=== PATIENT | female | born 1935 | race Caucasian/White ===

== ENCOUNTER 2016-06-14 14:35 | Inpatient (IN) | payer MEDICARE, BC ==
[2016-06-14] MEDS ORDERED: fentaNYL (PF) 50 MCG/ML 2 ML AMP IV STA (15:10)
[2016-06-14] MEDS ORDERED: DIPH,PERTUS(ACELL)TETVAC-LF 0.5 ML VIAL IM ONE (15:13)
--- NOTE | 2016-06-14 15:13 | ED ---
Fall HPI - General Chief Complaint: Fall Stated Complaint: fall Time Seen by Provider: 06/14/16 14:57 Source: EMS Mode of arrival: EMS - History of Present Illness Initial Comments: This is a 80-year-old female with a history of left knee arthroplasty presents emergency department for a fall. The patient states that she was walking in her driveway and tripped falling onto her left knee. She immediately had pain in her left knee and hip. She was unable to get up and ambulate and drive herself down the driveway. She was unable to alert her who was inside and laid outside in the driveway for 2 hours. She denies hitting her head. She denies any neck pain, chest pain or shortness of breath. No back pain. She denies any preceding symptoms. No other complaints. - Related Data Home Medications Medication Instructions Recorded Confirmed amLODIPine BESYLATE [Amlodipine 5 mg PO DAILY 12/24/14 06/14/16 Besylate] Multivitamins, Thera [Multivitamin] 1 tab PO DAILY 05/09/15 06/14/16 Ubidecarenone [Co Q-10] 100 mg PO DAILY 05/17/15 06/14/16 Baclofen [Lioresal] 10 mg PO HS PRN 05/22/15 06/14/16 Ibuprofen [Motrin] 800 mg PO Q6H PRN 06/14/16 06/14/16 Allergies Allergy/AdvReac Type Severity Reaction Status Date / Time iodine Allergy Anaphylaxis Verified 06/14/16 14:56 shellfish derived [Shellfish] Allergy Anaphylaxis Verified 06/14/16 14:56 hydromorphone HCl AdvReac Severe Nausea Verified 06/14/16 14:56 [From Dilaudid] acetaminophen [From [place]] AdvReac Unknown Verified 06/14/16 14:56 codeine AdvReac Nausea Verified 06/14/16 14:56 hydrocodone bitartrate AdvReac Unknown Verified 06/14/16 14:56 [From [place]] morphine AdvReac Itching Verified 06/14/16 14:56 prednisone AdvReac Nausea Verified 06/14/16 14:56 tramadol HCl [From Ultram] AdvReac Nausea & Verified 06/14/16 14:56 Vomiting Review of Systems ROS Statement: Those systems with pertinent positive or pertinent negative responses have been documented in the HPI. ROS Other: All systems not noted in ROS Statement are negative. Past Medical History Past Medical History: Hyperlipidemia, Hypertension, Musculoskeletal Disorder, Osteoarthritis (OA), Renal Disease, Thyroid Disorder Additional Past Medical History / Comment(s): 05-17-15 admitted with lt wrist septic arthritis. Other HX: heart murmur, renal calculi, goiters, R foot 3rd toe has a sore which is being tx by Dr. velasquez. pt goes to [facility] every saturday- this has been a problem for quite some time now, hx of L foot 4th toe sore which was tx by Dr. Velasquez and is healed. History of Any Multi-Drug Resistant Organisms: None Reported Past Surgical History: Adenoidectomy, Joint Replacement, Orthopedic Surgery, Tonsillectomy Additional Past Surgical History / Comment(s): Total L knee, 1996 lithrotripsy, 1942 tonsillectomy, oophorectomy with salpingectomy due to cyst-pt does not know which side, bilateral carpal tunnel release.12-27-14 i&d lt wrist, 12-28-14 [place](mod aortic stensois w/ mild aortic and tricuspid regurgitation. had lt arm picc line for ab,since removed Past Anesthesia/Blood Transfusion Reactions: No Reported Reaction Additional Past Anesthesia/Blood Transfusion Reaction / Comment(s): Pt has never recieved blood. Past Psychological History: No Psychological Hx Reported Additional Psychological History / Comment(s): Pt resides with her . She is very independent. She uses no assistive device. She drives. She has no recent international travel. There are animal exposures as of late. She does not have much experience. She is a lifelong nonsmoker and has no significant history of recreational drug use or significant alcohol use. Smoking Status: Never smoker Past Alcohol Use History: None Reported Past Drug Use History: None Reported - Past Family History Father Family Medical History: Cancer Additional Family Medical History / Comment(s): father had lymphoma. He at age 84. Mother Family Medical History: Dementia Additional Family Medical History / Comment(s): hyypoglycemia. Mother at age 92. Brother(s) Family Medical History: No Reported History Daughter(s) Family Medical History: No Reported History Son(s) Family Medical History: No Reported History General Exam - General Exam Comments Initial Comments: Constitutional: Awake alert Appears comfortable Head: Normocephalic atraumatic Eyes: no conjunctival injection No scleral icterus EOMI Neck: No JVD Supple, no spinous process tenderness Heart: Regular rate rhythm normal S1-S2 no murmurs Lungs: Clear to auscultation bilaterally No wheezing No rales Abdomen: Soft nondistended nontender Extremities: Non edematous DP pulses intact Radial pulses intact, tenderness to palpation along the left knee joint line, there is mild ecchymosis, the left lower extremity is externally rotated and shortened. The patient has tenderness with log rolling of the left leg. There is also an abrasion on the right knee and right hand. Neuro: A&Ox3 No focal neurologic deficits Psych: Appropriate mood and affect Limitations: no limitations Course Vital Signs 06/14/16 06/14/16 14:35 17:02 Temperature 95.7 F L 96.8 F L Pulse Rate 100 101 H Respiratory 18 16 Rate Blood Pressure 133/67 116/68 O2 Sat by Pulse 98 96 Oximetry - Reevaluation(s) Reevaluation #1: 06/14/16 15:36 EKG showing normal sinus rhythm with a rate of 100. No ST segment changes or T- wave inversions. QTC is 495. Other intervals are normal. No ectopy. Medical Decision Making - Medical Decision Making His is a 80-year-old female presents emergency department for a fall. She was found have a distal femur fracture. I spoke with Dr. Ni who stated that the patient be admitted to Dr. schmitz with medicine on consult. He wanted a CT of the femur and by mouth after midnight. The patient, her updated and agree. - Lab Data Result diagrams: 06/14/16 15:31 06/14/16 15:31 Lab Results 06/14/16 06/14/16 06/14/16 Range/Units 15:31 15:31 15:39 WBC 18.5 H (3.8-10.6) k/uL RBC 4.25 (3.80-5.40) m/uL Hgb 12.1 (11.4-16.0) gm/dL Hct 36.4 (34.0-46.0) % MCV 85.7 (80.0-100.0) fL MCH 28.5 (25.0-35.0) pg MCHC 33.2 (31.0-37.0) g/dL RDW 14.7 (11.5-15.5) % Plt Count 235 (150-450) k/uL Neutrophils % 88 % Lymphocytes % 6 % Monocytes % 5 % Eosinophils % 0 % Basophils % 0 % Neutrophils # 16.2 H (1.3-7.7) k/uL Lymphocytes # 1.1 (1.0-4.8) k/uL Monocytes # 1.0 (0-1.0) k/uL Eosinophils # 0.0 (0-0.7) k/uL Basophils # 0.1 (0-0.2) k/uL PT 10.6 (9.0-12.0) sec INR 1.0 (<1.1) APTT 18.3 L (22.0-30.0) sec Sodium 147 H (137-145) mmol/L Potassium 4.0 (3.5-5.1) mmol/L Chloride 109 H (98-107) mmol/L Carbon Dioxide 23 (22-30) mmol/L Anion Gap 15 mmol/L BUN 31 H (7-17) mg/dL Creatinine 0.81 (0.52-1.04) mg/dL Est GFR (MDRD) Af Amer >60 (>60 ml/min/1.73 sqM) Est GFR (MDRD) Non-Af >60 (>60 ml/min/1.73 sqM) Glucose 114 H (74-99) mg/dL Calcium 9.9 (8.4-10.2) mg/dL Total Bilirubin 0.7 (0.2-1.3) mg/dL AST 50 H (14-36) U/L ALT 38 (9-52) U/L Alkaline Phosphatase 72 (38-126) U/L Creatine Kinase 731 H (30-135) U/L Total Protein 7.6 (6.3-8.2) g/dL Albumin 4.2 (3.5-5.0) g/dL Disposition Clinical Impression: Femoral distal fracture Disposition: ADMITTED IP TO THIS HOSP Condition: Stable
[2016-06-14] MEDS: SODIUM CHLORIDE 0.9% 1,000 ML IV SCH ×2 (15:25→21:27)
[2016-06-14 15:50] LABS: Basophils # (A) 0.1 k/uL (0-0.2); Basophils % (A) 0 %; CH 27.7; CHCM 32.5; Eosinophils % (A) 0 %; HCT 36.4 % (34.0-46.0); HDW 2.81; HGB 12.1 gm/dL (11.4-16.0); Luc # (Auto) 0.15; Luc % (Auto) 1; Lymphocytes # (A) 1.1 k/uL (1.0-4.8); Lymphocytes % (A) 6 %; MCH 28.5 pg (25.0-35.0); MCHC 33.2 g/dL (31.0-37.0); MCV 85.7 fL (80.0-100.0); Mean Platelet Volume 8.4; Monocytes % (A) 5 %; Neutrophils # (A) 16.2 k/uL (1.3-7.7); Neutrophils % (A) 88 %; RBC 4.25 m/uL (3.80-5.40); RDW 14.7 % (11.5-15.5); WBC 18.5 k/uL (3.8-10.6)
[2016-06-14 15:52] LABS: ALT 38 U/L (9-52); AST 50 U/L (14-36); Alkaline Phosphatase 72 U/L (38-126); Anion Gap 15 mmol/L; Blood Urea Nitrogen 31 mg/dL (7-17); Calcium 9.9 mg/dL (8.4-10.2); Carbon Dioxide 23 mmol/L (22-30); Chloride 109 mmol/L (98-107); Creatine Kinase 731 U/L (30-135); Glucose 114 mg/dL (74-99); Non-African American GFR(MDRD) >60 (>60 ml/min/1.73 sqM); Sodium 147 mmol/L (137-145); Total Bilirubin 0.7 mg/dL (0.2-1.3); Total Protein 7.6 g/dL (6.3-8.2)
--- NOTE | 2016-06-14 16:17 | XR ---
EXAMINATION TYPE: XR knee complete LT DATE OF EXAM: 06/14/2016 4:13 PM COMPARISON: NONE HISTORY: Pain TECHNIQUE: Four views are submitted. FINDINGS: There is a comminuted displaced fracture of the distal femur which extends to the orthopedic hardware and knee replacement. Extensive soft tissue edema noted. Patella grossly intact. IMPRESSION: 1. Comminuted displaced fracture distal femur which extends to the knee prostheses.
--- NOTE | 2016-06-14 16:20 | XR ---
AP pelvis HISTORY: Pain in left leg, trauma Single frontal view of the pelvis Exam is rotated. Bone mineralization is reduced. Alignment is maintained, there is loss of joint space in the hips. Pr obable vascular calcifications within the pelvis. There may be spinal scoliosis in the lumbar region, there are degenerative disc changes suspected. IMPRESSION: No acute fracture or dislocation. Degenerative disc disease.
--- NOTE | 2016-06-14 16:21 | XR ---
Left femur HISTORY: Trauma and pain 2views of the left femur on 4 images There is a distal metaphyseal comminuted fracture of the left femur. Patient shows left knee arthropl asty change. Displaced fracture fragments are present. No evident dislocation. IMPRESSION: Comminuted distal diaphyseal femur fracture.
[2016-06-14 16:24] LABS: Prothrombin Time 10.6 sec (9.0-12.0)
[2016-06-14 16:25] LABS: Partial Thromboplastin Time 18.3 sec (22.0-30.0)
--- NOTE | 2016-06-14 17:06 | XR ---
EXAMINATION TYPE: XR chest 2V DATE OF EXAM: 06/14/2016 4:13 PM COMPARISON: 09/09/2012 TECHNIQUE: PA and lateral views submitted. HISTORY: Pain post fall FINDINGS: The lungs are clear and there is no pneumothorax, pleural effusion, or focal pneumonia. Degenerative change of the spine noted. There is a severe compression deformity the approximate level of L1 of indeterminate age. 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 Heart is enlarged. Atheros clerotic change of the aorta. IMPRESSION: 1. Aorta is ectatic and may represent mild aneurysmal dilation measuring 4.7 cm. 2. No acute intrathoracic process. 3. Age-indeterminate severe compression deformity L1. Correlate with CT scan.
[2016-06-14] MEDS ORDERED: NALOXONE 0.4 MG/ML 1 ML VIAL IV PRN (17:37)
[2016-06-14] MEDS ORDERED: fentaNYL (PF) 50 MCG/ML 2 ML AMP IV PRN (17:39)
--- NOTE | 2016-06-14 19:49 | CT ---
EXAMINATION TYPE: CT femur LT wo con DATE OF EXAM: 06/14/2016 7:39 PM COMPARISON: NONE HISTORY: Fall today. Left knee pain. CT DLP: 938.20 mGycm Automated exposure control for dose reduction was used. Unenhanced CT of the left lower extremity fro m the left hip through the knee was performed. Bone and soft tissue window settings are submitted. FINDINGS: There is comminuted and angulated fracture involving the distal left femoral diametaphyseal region. D isplacement is estimated at 2.2 cm. No additional fractures are seen. There is evidence of total left knee arthroplasty. Femoral component appears to be grossly intact. Soft tissue hematoma noted at the fracture site. IMPRESSION: There is comminuted and angulated fracture involving the distal left femoral diametaphyseal region.
[2016-06-14 20:29] VITALS: BMI 34.7
[2016-06-14] MEDS: KETOROLAC 30 MG/ML 1 ML VIAL IVP PRN (21:35)
[2016-06-14] MEDS: BACLOFEN 10 MG TAB PO PRN (22:27)
[2016-06-14] MEDS: diphenhydrAMINE 50 MG CAP PO PRN (22:27)
--- NOTE | 2016-06-14 22:30 | P.CONS ---
History of Present Illness - Reason for Consult Consult date: 06/14/16 medical management - Chief Complaint Tripped and fractured left distal femur - History of Present Illness This 80-year-old l female one of Dr. Nish Ashley's patient with past medical history of hypertension hypertensive cardiovascular disease osteoarthritis and osteoporosis goiter and nephrolithiasis trying to burn some paper, she tripped around 10:30 in the morning without any isolated motor weakness in the legs, patient had a very snowy gravel. She had fallen down the left side to stay in the distal femur fracture, patient had no way of contacting people she crawled back to the house to occur about 2 hours to accomplish this task, subsequent recalled the EMS and transported her to the emergency room. She sustained abrasion injuries and cold thermal injuries in her hand it was flushed and swollen on her distal tingling fingertips, some bluish faint discoloration in the distal nailbeds, no necrosis, abrasions in the elbow and fingers bilaterally, right knee Also with abrasions,. Patient was wearing sweaters to cover up her hands and fingers however she has some discomfort on the upper extremities left thigh In the emergency room she had x-rays showing comminuted fracture in the left distal femur, orthopedics has admitted the patient with consultations to our service for medical management, EKG was reviewed that shows prolonged QT prolongation chest x-ray shows no acute infiltrate, we'll going to consult cardiology secondary to a pre-existing heart murmur and QT prolongation. Electrolytes mentation BNP EKG would be reobtained, echocardiogram of the heart. Surgical intervention most likely would be done tomorrow afternoon once cleared by cardiology Review of Systems Constitutional: Reports as per HPI, Denies anorexia, Denies chills, Denies chronic headaches, Denies chronic pain, Denies daytime sleepiness, Denies fatigue, Denies fever, Denies lethargy, Denies malaise, Denies night sweats, Denies poor appetite, Denies sweats, Denies weakness, Denies weight gain, Denies weight loss Ears, nose, mouth and throat: Reports as per HPI, Denies ant. neck pain, Denies bleeding gums, Denies dental pain, Denies dysphagia, Denies epistaxis, Denies headache, Denies hoarseness, Denies mouth pain, Denies nasal congestion, Denies nasal discharge, Denies neck fullness/pressure, Denies neck lump, Denies nose pain, Denies odynophagia, Denies post-nasal drip, Denies sinus pain, Denies sinus pressure, Denies swelling in mouth, Denies swelling in throat, Denies sore throat, Denies vertigo, Denies voice changes Cardiovascular: Reports as per HPI, Reports palpitations, Denies chest pain, Denies claudication, Denies decreased exercise tolerance, Denies dyspnea on exertion, Denies edema, Denies high blood pressure, Denies irregular heart beat , Denies leg edema, Denies lightheadedness, Denies orthopnea, Denies paroxysmal nocturnal dyspnea, Denies phlebitis, Denies rapid heart beat, Denies shortness of breath, Denies syncope Respiratory: Reports as per HPI, Denies congestion, Denies cough, Denies cough with sputum, Denies dyspnea, Denies excessive sputum, Denies hemoptysis, Denies home oxygen, Denies pain, Denies pain on inspiration, Denies pleurisy, Denies respiratory infections, Denies sleep apnea, Denies snoring, Denies wheezing Gastrointestinal: Reports as per HPI, Denies abdominal pain, Denies belching, Denies bloating, Denies BRBPR, Denies change in bowel habits, Denies coffee ground emesis, Denies constipation, Denies diarrhea, Denies dyspepsia, Denies early satiety, Denies excessive gas, Denies heartburn, Denies hematemesis, Denies hematochezia, Denies indigestion, Denies jaundice, Denies lactose intolerance, Denies loss of appetite, Denies melena, Denies nausea, Denies vomiting Genitourinary: Reports as per HPI, Denies abnormal vaginal bleeding, Denies decreased libido, Denies difficulty conceiving, Denies difficulty voiding, Denies dysmenorrhea, Denies dyspareunia, Denies dysuria, Denies flank pain, Denies genital sores, Denies hematuria, Denies hot flashes, Denies incomplete emptying, Denies kidney stones, Denies menorrhagia, Denies mixed incontinence, Denies nocturia, Denies pelvic pain, Denies post void dribbling, Denies , Denies prolapse symptoms, Denies stress incontinence, Denies urge incontinence , Denies urgency, Denies urinary frequency, Denies vaginal discharge, Denies vaginal dryness, Denies vaginal itching, Denies vaginal odor Menstruation: Reports as per HPI, Denies amenorrhea, Denies amenorrhea on BC, Denies currently menstrual, Denies cycle < 21 days, Denies cycle > 35 days, Denies cycle variable, Denies menses 1-7 days, Denies menses 8 or > days, Denies menses variable, Denies period heavy, Denies period light, Denies period normal, Denies period spotting, Denies post hysterectomy, Denies postmenopausal , Denies premenarcheal Musculoskeletal: Reports limitation of motion, Reports myalgias Integumentary: Denies as per HPI, Denies acne, Denies boils, Denies brittle nails, Denies change in hair/nails, Denies color changes, Denies darkening of skin, Denies depigmentation, Denies dryness, Denies foot/leg ulcers, Denies growths, Denies hirsutism, Denies lesions, Denies onychomycosis, Denies pruritus , Denies rash, Denies sores, Denies striae, Denies unusual bruising, Denies wounds Neurological: Reports double vision Past Medical History Past Medical History: Hyperlipidemia, Hypertension, Musculoskeletal Disorder, Osteoarthritis (OA), Renal Disease, Thyroid Disorder Additional Past Medical History / Comment(s): 05-17-15 admitted with lt wrist septic arthritis. Other HX: heart murmur, renal calculi, goiters, R foot 3rd toe has a sore which is being tx by Dr. velasquez. pt goes to [facility] every saturday- this has been a problem for quite some time now, hx of L foot 4th toe sore which was tx by Dr. Velasquez and is healed. History of Any Multi-Drug Resistant Organisms: None Reported Past Surgical History: Adenoidectomy, Joint Replacement, Orthopedic Surgery, Tonsillectomy Additional Past Surgical History / Comment(s): Total L knee, 1996 lithrotripsy, 1943 tonsillectomy, oophorectomy with salpingectomy due to cyst-pt does not know which side, bilateral carpal tunnel release.12-27-14 i&d lt wrist, 12-28-14 [place](mod aortic stensois w/ mild aortic and tricuspid regurgitation. had lt arm picc line for ab,since removed Past Anesthesia/Blood Transfusion Reactions: No Reported Reaction Additional Past Anesthesia/Blood Transfusion Reaction / Comm: Pt has never recieved blood. Past Psychological History: No Psychological Hx Reported Additional Psychological History / Comment(s): Pt resides with her . She is very independent. She uses no assistive device. She drives. She has no recent international travel. There are animal exposures as of late. She does not have much experience. She is a lifelong nonsmoker and has no significant history of recreational drug use or significant alcohol use. Smoking Status: Never smoker Past Alcohol Use History: None Reported Past Drug Use History: None Reported - Past Family History Father Family Medical History: Cancer Additional Family Medical History / Comment(s): father had lymphoma. He at age 84. Mother Family Medical History: Dementia Additional Family Medical History / Comment(s): hyypoglycemia. Mother at age 92. Brother(s) Family Medical History: No Reported History Daughter(s) Family Medical History: No Reported History Son(s) Family Medical History: No Reported History Medications and Allergies Home Medications Medication Instructions Recorded Confirmed Type amLODIPine BESYLATE [Amlodipine 5 mg PO DAILY 12/24/14 06/14/16 History Besylate] Multivitamins, Thera [Multivitamin] 1 tab PO DAILY 05/09/15 06/14/16 History Ubidecarenone [Co Q-10] 100 mg PO DAILY 05/17/15 06/14/16 History Baclofen [Lioresal] 10 mg PO HS PRN 05/22/15 06/14/16 History Ibuprofen [Motrin] 800 mg PO Q6H PRN 06/14/16 06/14/16 History Allergies Allergy/AdvReac Type Severity Reaction Status Date / Time iodine Allergy Anaphylaxis Verified 06/14/16 20:31 shellfish derived [Shellfish] Allergy Anaphylaxis Verified 06/14/16 20:31 hydromorphone HCl AdvReac Severe Nausea Verified 06/14/16 20:31 [From Dilaudid] acetaminophen [From [place]] AdvReac Unknown Verified 06/14/16 20:31 codeine AdvReac Nausea Verified 06/14/16 20:31 hydrocodone bitartrate AdvReac Unknown Verified 06/14/16 20:31 [From [place]] morphine AdvReac Itching Verified 06/14/16 20:31 prednisone AdvReac Nausea Verified 06/14/16 20:31 tramadol HCl [From Ultram] AdvReac Nausea & Verified 06/14/16 20:31 Vomiting Physical Exam Vitals: Vital Signs Temp Pulse Pulse Resp BP BP Pulse Ox 06/14/16 18:47 97.7 F 100 16 125/69 98 06/14/16 18:07 97.2 F L 66 18 121/62 100 - Constitutional General appearance: cooperative, no disheveled, no mild distress, no morbidly obese, no acute distress, obese, no severe distress, no thin - EENT Eyes: anicteric sclerae, EOMI, PERRLA, dentition normal, normal appearance ENT: hearing grossly normal, NA/AT, normal oropharynx - Neck Thyroid: bilateral: normal size - Respiratory Respiratory: bilateral: CTA, diminished, negative: dullness, rales, rhonchi, wheezing - Cardiovascular Rhythm: regular Heart sounds: normal: S1, S2 Abnormal Heart Sounds: systolic murmur - Gastrointestinal General gastrointestinal: normal bowel sounds, soft - Integumentary Integumentary: cyanotic (Right fingernail beds), normal, normal turgor, rash ( Abrasion right knee, no infection, abrasions bilateral elbows, no infection or perforation abrasion bilateral dorsum) - Neurologic Neurologic: CNII-XII intact - Musculoskeletal Musculoskeletal: strength equal bilaterally - Psychiatric Psychiatric: A&O x's 3, appropriate affect Results CBC & Chem 7: 06/14/16 15:31 06/14/16 15:31 Labs: Patient Status Report 06/14/16 17:37 Placement Type Routine Placement Type: INPATIENT Length of Stay: >2 Days/2 Midnights Laboratory Results WBC 18.5 k/uL (3.8-10.6) H 06/14/16 15:31 RBC 4.25 m/uL (3.80-5.40) 06/14/16 15:31 Hgb 12.1 gm/dL (11.4-16.0) 06/14/16 15:31 Hct 36.4 % (34.0-46.0) 06/14/16 15:31 MCV 85.7 fL (80.0-100.0) 06/14/16 15:31 MCH 28.5 pg (25.0-35.0) 06/14/16 15:31 MCHC 33.2 g/dL (31.0-37.0) 06/14/16 15:31 RDW 14.7 % (11.5-15.5) 06/14/16 15:31 Plt Count 235 k/uL (150-450) 06/14/16 15:31 Neutrophils % 88 % 06/14/16 15:31 Lymphocytes % 6 % 06/14/16 15:31 Monocytes % 5 % 06/14/16 15:31 Eosinophils % 0 % 06/14/16 15:31 Basophils % 0 % 06/14/16 15:31 Neutrophils # 16.2 k/uL (1.3-7.7) H 06/14/16 15:31 Lymphocytes # 1.1 k/uL (1.0-4.8) 06/14/16 15:31 Monocytes # 1.0 k/uL (0-1.0) 06/14/16 15:31 Eosinophils # 0.0 k/uL (0-0.7) 06/14/16 15:31 Basophils # 0.1 k/uL (0-0.2) 06/14/16 15:31 PT 10.6 sec (9.0-12.0) 06/14/16 15:39 INR 1.0 (<1.1) 06/14/16 15:39 APTT 18.3 sec (22.0-30.0) L 06/14/16 15:39 Sodium 147 mmol/L (137-145) H 06/14/16 15:31 Potassium 4.0 mmol/L (3.5-5.1) 06/14/16 15:31 Chloride 109 mmol/L (98-107) H 06/14/16 15:31 Carbon Dioxide 23 mmol/L (22-30) 06/14/16 15:31 Anion Gap 15 mmol/L 06/14/16 15:31 BUN 31 mg/dL (7-17) H 06/14/16 15:31 Creatinine 0.81 mg/dL (0.52-1.04) 06/14/16 15:31 Est GFR (MDRD) Af Amer >60 (>60 ml/min/1.73 sqM) 06/14/16 15:31 Est GFR (MDRD) Non-Af >60 (>60 ml/min/1.73 sqM) 06/14/16 15:31 Glucose 114 mg/dL (74-99) H 06/14/16 15:31 Calcium 9.9 mg/dL (8.4-10.2) 06/14/16 15:31 Total Bilirubin 0.7 mg/dL (0.2-1.3) 06/14/16 15:31 AST 50 U/L (14-36) H 06/14/16 15:31 ALT 38 U/L (9-52) 06/14/16 15:31 Alkaline Phosphatase 72 U/L (38-126) 06/14/16 15:31 Creatine Kinase 731 U/L (30-135) H 06/14/16 15:31 Total Protein 7.6 g/dL (6.3-8.2) 06/14/16 15:31 Albumin 4.2 g/dL (3.5-5.0) 06/14/16 15:31 Assessment and Plan Plan: 1. Left distal femur fracture comminuted, most likely would require ORIF, medical clearance will be optimized with a cardiology consultation for cardiac clearance, she does have pre-existing cardiac murmur and acutely propagation noted on the EKG, she has been exposed also to cold thermal exposure, patient does not have any cardiac complaints, she would be classified as a class II anesthesia this with the pre-existing controlled medical conditions, QT prolongation would be reevaluated in the morning with another EKG, echocardiogram and a BNP is requested. Consult were made with Dr. cortez cardiology 2. Cold thermal injuries to distal fingertips secondary to cold exposure trying to crawl back to the house requiring her to be exposed to hours to complete this task, patient will be monitored for any ischemic changes and infectious changes, local wound care, patient will be receiving prophylactic antibiotics prior to surgery, there is no injury noted on the left thigh on the skin level 3. Prior history of septic left wrist requiring Dr. Velasquez in 2014, resolved 4. Prolonged QT prolongation noted in EKG, repeat EKGs in the morning, electrolytes mentation will be obtained 45hyperglycemia: Accu-Chek with sliding scales coverage Will add A1c to the blood work in a.m. 6 hypertension: On amlodipine 5 mg daily. 7 GI prophylaxis: Patient will be on Pepcid 20 mg daily. 8 DVT prophylaxis: Patient will be on heparin 5000 units subcutaneous twice a day. Next CODE STATUS: Full code. 9. Multiple drug ALLERGIES specially for pain medication, patient started on fentanyl patches as fentanyl IV cannot be ordered in the floor, Toradol IV will be given
[2016-06-15 05:40] LABS: Appearance,Urine Clear (Clear); Bilirubin,Urine Negative (Negative); Glucose,Urine (UA) Negative (Negative); Ketones,Urine Negative (Negative); Leukocyte Esterase,Urine Small (Negative); Mucus,Urine Rare /hpf; Nitrite,Urine Negative (Negative); PH, Urine 5.5 (5.0-8.0); Particle Count 2503; Protein,Urine Trace (Negative); RBC,Urine 1 /hpf (0-5); Specific Gravity,Urine 1.019 (1.001-1.035); Squamous Epithelial Cell,Urine 3 /hpf (0-4); UA Billing (MACRO vs. MICRO) MICRO; Urobilinogen,Urine <2.0 mg/dL (<2.0); WBC,Urine 13 /hpf (0-5)
[2016-06-15 07:15] LABS: ALT 44 U/L (9-52); AST 62 U/L (14-36); Alkaline Phosphatase 54 U/L (38-126); Anion Gap 7 mmol/L; Blood Urea Nitrogen 28 mg/dL (7-17); Calcium 9.1 mg/dL (8.4-10.2); Carbon Dioxide 25 mmol/L (22-30); Chloride 112 mmol/L (98-107); Glucose 115 mg/dL (74-99); Non-African American GFR(MDRD) >60 (>60 ml/min/1.73 sqM); Potassium 4.3 mmol/L (3.5-5.1); Sodium 144 mmol/L (137-145); Total Bilirubin 0.5 mg/dL (0.2-1.3); Total Protein 5.8 g/dL (6.3-8.2)
[2016-06-15 07:25] LABS: Basophils % (A) 0 %; CH 27.5; CHCM 32.6; Eosinophils % (A) 0 %; HCT 26.8 % (34.0-46.0); HDW 2.69; Luc # (Auto) 0.14; Luc % (Auto) 2; Lymphocytes # (A) 0.9 k/uL (1.0-4.8); Lymphocytes % (A) 12 %; MCH 28.8 pg (25.0-35.0); MCHC 33.9 g/dL (31.0-37.0); MCV 84.8 fL (80.0-100.0); Mean Platelet Volume 8.3; Monocytes # (A) 0.5 k/uL (0-1.0); Monocytes % (A) 7 %; Neutrophils # (A) 5.6 k/uL (1.3-7.7); Neutrophils % (A) 79 %; RBC 3.16 m/uL (3.80-5.40); RDW 14.8 % (11.5-15.5); WBC 7.1 k/uL (3.8-10.6); WBC (Perox) 7.61
[2016-06-15 07:32] LABS: Creatine Kinase 2353 U/L (30-135)
[2016-06-15 07:34] LABS: HGB 9.1 gm/dL (11.4-16.0)
[2016-06-15] MEDS: amLODIPine 5 MG TAB PO SCH (08:18)
[2016-06-15] MEDS: MULTIVITAMINS, THERA 1 EACH TAB PO SCH (08:18)
[2016-06-15] MEDS: SODIUM CHLORIDE 0.9% 1,000 ML IV SCH ×2 (08:18→23:54)
--- NOTE | 2016-06-15 09:43 | ECHOF ---
Referral Reason:heart murmur, preop MEASUREMENTS -------- HEIGHT: 152.4 cm WEIGHT: 80.7 kg BP: 120/58 RVIDd: 3.0 cm (< 3.3) IVSd: 1.7 cm (0.6 - 1.1) LVIDd: 3.7 cm (3.9 - 5.3) LVPWd: 1.4 cm (0.6 - 1.1) IVSs: 2.1 cm LVIDs: 2.7 cm LVPWs: 1.9 cm LA Diam: 4.6 cm (2.7 - 3.8) LAESV Index (A-L): 38.00 ml/m Ao Diam: 2.7 cm (2.0 - 3.7) AV Cusp: 0.9 cm (1.5 - 2.6) LA Diam: 4.5 cm (2.7 - 3.8) MV EXCURSION: 9.024 mm (> 18.000) MV EF SLOPE: 40 mm/s (70 - 150) EPSS: 0.9 cm MV E Ruel: 1.15 m/s MV DecT: 341 ms MV A Ruel: 1.67 m/s MV E/A Ratio: 0.69 AV maxP.84 mmHg AV meanP.77 mmHg AR PHT: 4205 ms RAP: 5.00 mmHg RVSP: 21.31 mmHg FINDINGS -------- Sinus rhythm. This was a technically good study. There is severe concentric left ventricular hypertrophy. Overall left ventricular systolic function is normal with, an EF between 55 - 60 %. The right ventricle is normal in size. LA is moderately dilated 34-39 ml/m2 The right atrium is normal in size. Aortic valve is trileaflet and is mildly thickened. There is mild aortic regurgitation. There is moderate aortic stenosis present. Peak/mean gradient across the Aortic Valve is 45.84mmHg / 23.77mmHg. The mitral valve leaflets are moderately thickened. Moderate mitral annular calcification present. Mild mitral regurgitation is present. Mild tricuspid regurgitation present. Moderate pulmonic regurgitation. The aortic root size is normal. Normal inferior vena cava with normal inspiratory collapse consistent with estimated right atrial pressure of 5 mmHg. There is no pericardial effusion. CONCLUSIONS -------- 1. Sinus rhythm. 2. There is moderate aortic stenosis present. 3. Peak/mean gradient across the Aortic Valve is 45.84mmHg / 23.77mmHg. 4. The mitral valve leaflets are moderately thickened. 5. Moderate mitral annular calcification present. 6. Mild mitral regurgitation is present. 7. Mild tricuspid regurgitation present. 8. Moderate pulmonic regurgitation. 9. The aortic root size is normal. 10. Normal inferior vena cava with normal inspiratory collapse consistent with estimated right atrial pressure of 5 mmHg. 11. There is no pericardial effusion. 12. This was a technically good study. 13. There is severe concentric left ventricular hypertrophy. 14. Overall left ventricular systolic function is normal with, an EF between 55 - 60 %. 15. The right ventricle is normal in size. 16. LA is moderately dilated 34-39 ml/m2 17. The right atrium is normal in size. 18. Aortic valve is trileaflet and is mildly thickened. 19. There is mild aortic regurgitation. FRETTED INSTRUMENT MAKER HAND: Stone Hendrickson RDCS
--- NOTE | 2016-06-15 11:03 | CONS ---
DATE OF CONSULTATION: Mrs. Baxter is a 80-year-old female who is seen for preop cardiac evaluation. This patient's electronic medical records reviewed. Patient had sustained a fall and has a fractured femur. Patient has a history of hypertension, osteoarthritis, and possibly osteoporosis. The patient is otherwise healthy. She is physically and functionally independent. Patient teaches at [employer]. There is no history of angina. There is no prior history of myocardial infarction, congestive heart failure, stroke. There is no history of diabetes. Past medical history includes a history of hypertension, history of osteoarthritis, history of goiter. Patient has a history of heart murmur, history of orthopedic surgery, a total knee replacement, history of lithotripsy, history of oophorectomy. Patient's home medications included amlodipine 5 mg daily, baclofen, Motrin and coenzyme Q 10. Physical examination at present reveals a 80-year-old female who does not appear to be in any acute distress. Patient's blood pressure is 109/62 mmHg, oxygen saturation is 92%, heart rate is 86 per minute. Head/ENT examination is negative. Neck is supple. There is no increase in jugular venous pressure. Both the carotid pulses are felt. There is no bruit. Chest is symmetrical. HEART: The PMI is not felt. First and second heart sounds are normal. There is a grade 3/6 ejection systolic murmur noted which peaks in mid systole. Lungs are clinically clear to auscultation and percussion. ABDOMEN: Soft. Liver and spleen are not enlarged. Bowel sounds are heard. EXTREMITIES: Peripheral pulsations are 2+. EKG shows normal sinus rhythm without any acute ischemic changes. Patient's electrolytes are normal. Patient's proBNP level is 281. Chest x-ray does not show any evidence of failure. Echocardiogram reveals moderate degree of aortic stenosis with a normal left ventricular systolic function. FINAL IMPRESSION: This patient has come with a fractured femur. Patient has evidence of moderate degree of aortic stenosis. Patient is asymptomatic. There is no evidence of congestive cardiac failure. The patient does not have any symptoms suggestive of unstable angina syndrome. Patient is considered acceptable risk of surgery. The patient was explained that there is a possibility of congestive cardiac failure in the perioperative period. We will watch her closely. I would recommend to treat the patient with Xarelto 10 mg daily in the postop period for DVT prophylaxis. Patient can be treated for osteoporosis as per Dr. Meraz.
--- NOTE | 2016-06-15 12:46 | P.HPOR ---
History of Present Illness H&P Date: 06/15/16 Chief Complaint: Left distal femur fracture This is a 80-year-old female with history of right total knee arthroplasty approximately 3 years ago. The patient sustained a fall at home yesterday. She fell onto the left knee. She was outside for approximately 2 hours attempting to crawl back to the house. She was transported to [facility] were x-rays revealed periprosthetic comminuted fracture of the distal femur. Patient was admitted to our service for surgical intervention and care. Patient was seen and evaluated at bedside with Dr. Benjamin Hansen. She complains of pain at the left knee. She also sustained some abrasion injuries and cold thermal injuries in her hand with some swelling in the distal fingertips. Review of Systems See HPI Past Medical History Past Medical History: Hyperlipidemia, Hypertension, Musculoskeletal Disorder, Osteoarthritis (OA), Renal Disease, Thyroid Disorder Additional Past Medical History / Comment(s): 05-17-15 admitted with lt wrist septic arthritis. Other HX: heart murmur, renal calculi, goiters, R foot 3rd toe has a sore which is being tx by Dr. velasquez. pt goes to [facility] every saturday- this has been a problem for quite some time now, hx of L foot 4th toe sore which was tx by Dr. Velasquez and is healed. History of Any Multi-Drug Resistant Organisms: None Reported Past Surgical History: Adenoidectomy, Joint Replacement, Orthopedic Surgery, Tonsillectomy Additional Past Surgical History / Comment(s): Total L knee, 1996 lithrotripsy, 1943 tonsillectomy, oophorectomy with salpingectomy due to cyst-pt does not know which side, bilateral carpal tunnel release.12-27-14 i&d lt wrist, 12-28-14 [place](mod aortic stensois w/ mild aortic and tricuspid regurgitation. had lt arm picc line for ab,since removed Past Anesthesia/Blood Transfusion Reactions: No Reported Reaction Additional Past Anesthesia/Blood Transfusion Reaction / Comment(s): Pt has never recieved blood. Past Psychological History: No Psychological Hx Reported Additional Psychological History / Comment(s): Pt resides with her . She is very independent. She uses no assistive device. She drives. She has no recent international travel. There are animal exposures as of late. She does not have much experience. She is a lifelong nonsmoker and has no significant history of recreational drug use or significant alcohol use. Smoking Status: Never smoker Past Alcohol Use History: None Reported Past Drug Use History: None Reported - Past Family History Father Family Medical History: Cancer Additional Family Medical History / Comment(s): father had lymphoma. He at age 84. Mother Family Medical History: Dementia Additional Family Medical History / Comment(s): hyypoglycemia. Mother at age 92. Brother(s) Family Medical History: No Reported History Daughter(s) Family Medical History: No Reported History Son(s) Family Medical History: No Reported History Medications and Allergies Home Medications Medication Instructions Recorded Confirmed Type amLODIPine BESYLATE [Amlodipine 5 mg PO DAILY 12/24/14 06/14/16 History Besylate] Multivitamins, Thera [Multivitamin 1 tab PO DAILY 05/09/15 06/14/16 History (formulary)] Ubidecarenone [Co Q-10] 100 mg PO DAILY 05/17/15 06/14/16 History Baclofen [Lioresal] 10 mg PO HS PRN 05/22/15 06/14/16 History Ibuprofen [Motrin] 800 mg PO Q6H PRN 06/14/16 06/14/16 History Allergies Allergy/AdvReac Type Severity Reaction Status Date / Time iodine Allergy Anaphylaxis Verified 06/15/16 15:51 shellfish derived [Shellfish] Allergy Anaphylaxis Verified 06/15/16 15:51 hydromorphone HCl AdvReac Severe Nausea Verified 06/15/16 15:51 [From Dilaudid] acetaminophen [From [place]] AdvReac Unknown Verified 06/15/16 15:51 codeine AdvReac Nausea Verified 06/15/16 15:51 hydrocodone bitartrate AdvReac Unknown Verified 06/15/16 15:51 [From [place]] morphine AdvReac Itching Verified 06/15/16 15:51 prednisone AdvReac Nausea Verified 06/15/16 15:51 tramadol HCl [From Ultram] AdvReac Nausea & Verified 06/15/16 15:51 Vomiting Physical Examination The patient does not appear in acute distress. She is alert and orientated 3. Head normal cephalic atraumatic. Neck is supple. Breathing appears nonlabored. Upon inspection of her lower extremities left lower extremity is flexed with shortening. She has significant swelling about her distal femur and knee. She has pain to palpation about the area. She denies initial areas of pain of her lower extremities long bones and joints today. Sensation and circulatory status is intact. Results X-rays and computed tomography scan are reviewed revealing periprosthetic comminuted angulated fracture involving the distal left femur - Labs Labs: Abnormal Lab Results - Last 24 Hours (Table) 06/15/16 06/15/16 06/15/16 Range/Units 05:15 06:39 06:39 RBC 3.16 L (3.80-5.40) m/uL Hgb 9.1 L D (11.4-16.0) gm/dL Hct 26.8 L (34.0-46.0) % Lymphocytes # 0.9 L (1.0-4.8) k/uL Chloride 112 H (98-107) mmol/L BUN 28 H (7-17) mg/dL Glucose 115 H (74-99) mg/dL AST 62 H (14-36) U/L Creatine Kinase 2353 H (30-135) U/L Total Protein 5.8 L (6.3-8.2) g/dL Albumin 3.0 L (3.5-5.0) g/dL Urine Protein Trace H (Negative) Ur Leukocyte Esterase Small H (Negative) Urine WBC 13 H (0-5) /hpf Urine Mucus Rare H (None) /hpf Microbiology - Last 24 Hours (Table) 06/15/16 05:15 Urine Culture - Preliminary Urine,Voided H & H 06/15/16 Range/Units 06:39 Hgb 9.1 L D (11.4-16.0) gm/dL Hct 26.8 L (34.0-46.0) % Result Diagrams: 06/17/16 06:16 06/17/16 06:16 Assessment and Plan (1) Periprosthetic fracture around internal prosthetic left knee joint Status: Acute (2) Femoral distal fracture Status: Acute Plan: Clinical and x-ray findings were discussed with the patient at bedside with Dr. Benjamin Hansen. Orthopedics recommends surgical intervention with ORIF versus possible retrograde nailing of the left distal femur fracture. The procedure was discussed at length with the patient at bedside and including possible risks and complications. We'll keep the patient nothing by mouth and plan for surgery later this afternoon. Further recommendations forthcoming depending on patient's course. The patient agrees with the plan of care.
[2016-06-15] MEDS ORDERED: IV FLUID CONTINUATION 1,000 ML IV ONE (15:33)
[2016-06-15] MEDS: ONDANSETRON 4 MG/2 ML VIAL IVP PRN (16:04)
[2016-06-15] MEDS ORDERED: fentaNYL (PF) 50 MCG/ML 2 ML AMP ONE (16:44)
[2016-06-15] MEDS ORDERED: PHENYLEPHRINE-0.9% NACL SYG 1 MG/10 ML SYRINGE ONE (16:44)
[2016-06-15] MEDS ORDERED: SUCCINYLCHOLINE CHLORIDE 100 MG/5 ML SYR IV ONE (16:44)
[2016-06-15] MEDS ORDERED: GLYCOPYRROLATE 0.2 MG/ML 2 ML VIAL ONE (16:44)
[2016-06-15] MEDS ORDERED: LIDOCAINE 1% INJ 10MG/ML (20 ML MDV) ONE (16:44)
[2016-06-15] MEDS ORDERED: NEOSTIGMINE 1 MG/ML 10 ML VIAL ONE (16:44)
[2016-06-15] MEDS ORDERED: ROCURONIUM BROMIDE 10 MG/ML 10 ML VIAL IV ONE (16:44)
[2016-06-15] MEDS ORDERED: MIDAZOLAM 2 MG/2 ML VIAL ONE (16:44)
[2016-06-15] MEDS ORDERED: PROPOFOL 10 MG/ML 20 ML VIAL IV ONE (16:44)
[2016-06-15] MEDS ORDERED: SODIUM CHLORIDE 0.9% 50 ML with ceFAZolin 2,000 MG IV ONE ×4 (16:58)
[2016-06-15] MEDS ORDERED: ceFAZolin 1,000 MG in SODIUM CHLORIDE 0.9% 1,000 ML IRRIGATION ONE (17:43)
[2016-06-15] MEDS ORDERED: LACTATED RINGERS 1,000 ML IV ONE (18:27)
[2016-06-15] MEDS ORDERED: NALOXONE 0.4 MG/ML 1 ML VIAL IV PRN (19:20)
[2016-06-15] MEDS ORDERED: DIAZEPAM 5 MG TAB PO PRN ×2 (19:20)
[2016-06-15] MEDS ORDERED: hydrOXYzine PAMOATE 25 MG CAP PO PRN (19:20)
[2016-06-15] MEDS ORDERED: MAGNESIUM HYDROXIDE 2,400 MG/10 ML CUP PO PRN (19:20)
--- NOTE | 2016-06-15 19:20 | P.OP ---
Date of Procedure: 06/15/16 Preoperative Diagnosis: Comminuted periprosthetic fracture left distal femur Postoperative Diagnosis: Comminuted periprosthetic fracture left distal femur Procedure(s) Performed: Close reduction and percutaneous plating left distal femur Implants: Bustamante and nephew 8 hole distal femur locking plate with locking and nonlocking screws. Anesthesia: FLACA Surgeon: Benjamin Hansen Digital Asset Coordinator #1: Erin Barajas Estimated Blood Loss (ml): 100 Pathology: none sent Condition: stable Disposition: PACU Indications for Procedure: This is a 80-year-old female sustained a fall at home on her driveway. She is had a prior total knee replacement and was functioning well when the accident occurred. She sustained a comminuted periprosthetic fracture of her left distal femur after discussing the surgical and nonsurgical treatment options with her and her family at length, I recommended an open reduction fixation of her distal femur and informed consent was obtained. Operative Findings: Operative findings are consistent with a comminuted periprosthetic left distal femur fracture. Description of Procedure: Patient was seen and evaluated in the preoperative area, the operative site was marked with a skin marker. The patient was then brought to the operating room and given 2 g of Ancef intravenously. A general anesthetic was administered by the anesthesia department. A Mendoza catheter was placed by the nursing staff. The left lower extremity was then prepped and draped in usual sterile fashion. A universal timeout was then performed confirming the patient's name, surgical site, ALLERGIES, and consent. The procedure began by performing a close reduction with the aid of fluoroscopy. Next a lateral incision was made centered over the lateral femoral condyle of the distal femur. Then, the 8 hole periarticular plate was passed percutaneously with the aid of the targeting device. The plate was provisionally fixated distally with a K wire. Next, the fracture was close reduced and the plate was fixated proximally with a K wire. After adequate reduction was performed, locking and nonlocking screws were placed both proximally and distally. The screws proximally were placed through small percutaneous incisions. After all the screws been placed, final x-rays show the fracture reduced in good position alignment. The wounds were then irrigated with antibiotic solution. Fascia was closed with 0 Vicryl followed by 2-0 Vicryl and geoff for the skin. Sterile Dressings were applied , and patient was placed in a knee immobilizer. Patient was then transferred recovery room in stable condition. The graphic design assistant Erin Barajas was required due the complexity of surgery and the need for skilled reference assistant
--- NOTE | 2016-06-15 21:56 | FL ---
EXAMINATION TYPE: FL guidance operating room, XR femur LT DATE OF EXAM: 06/15/2016 7:11 PM COMPARISON: CT femur dated 06/14/2016. HISTORY: Comminuted angulated fracture of the distal left femoral diametaphyseal region TECHNIQUE/FINDINGS: Intraoperative fluoroscopy was utilized for open reduction internal fixation of t he left femur. Orthopedic surgeon Dr. Hansen utilized 3 minutes and 41 seconds of fluoroscopy time with 2 images saved. IMPRESSION: Intraoperative fluoroscopic images performed by the department of orthopedic surgery util izing 3 minutes and 41 seconds of fluoroscopy time for open reduction internal fixation of a left fem oral diametaphyseal fracture.
[2016-06-15] MEDS: KETOROLAC 30 MG/ML 1 ML VIAL IVP PRN (22:07)
[2016-06-15] MEDS: SENNOSIDES-DOCUSATE SODIUM 1 EACH TAB PO SCH (23:06)
[2016-06-15] MEDS: ceFAZolin 2 GM in SODIUM CHLORIDE 0.9% 100 ML IVPB SCH (23:54)
[2016-06-16 08:04] LABS: Basophils # (A) 0.1 k/uL (0-0.2); Basophils % (A) 1 %; CH 28.1; CHCM 32.2; Eosinophils # (A) 0.1 k/uL (0-0.7); Eosinophils % (A) 1 %; HCT 29.4 % (34.0-46.0); HDW 2.93; HGB 9.5 gm/dL (11.4-16.0); Luc # (Auto) 0.16; Luc % (Auto) 2; Lymphocytes # (A) 1.1 k/uL (1.0-4.8); Lymphocytes % (A) 15 %; MCH 28.3 pg (25.0-35.0); MCHC 32.3 g/dL (31.0-37.0); MCV 87.7 fL (80.0-100.0); Mean Platelet Volume 7.9; Monocytes # (A) 0.7 k/uL (0-1.0); Monocytes % (A) 9 %; Neutrophils # (A) 5.2 k/uL (1.3-7.7); Neutrophils % (A) 72 %; RBC 3.35 m/uL (3.80-5.40); RDW 14.8 % (11.5-15.5); WBC 7.2 k/uL (3.8-10.6); WBC (Perox) 7.23
[2016-06-16] MEDS: RIVAROXABAN 10 MG TAB PO SCH (08:06)
[2016-06-16] MEDS: ceFAZolin 2 GM in SODIUM CHLORIDE 0.9% 100 ML IVPB SCH (08:06)
[2016-06-16 08:07] LABS: ALT 40 U/L (9-52); AST 74 U/L (14-36); Alkaline Phosphatase 55 U/L (38-126); Anion Gap 8 mmol/L; Blood Urea Nitrogen 18 mg/dL (7-17); Calcium 8.3 mg/dL (8.4-10.2); Carbon Dioxide 24 mmol/L (22-30); Chloride 112 mmol/L (98-107); Creatine Kinase 1549 U/L (30-135); Glucose 91 mg/dL (74-99); Non-African American GFR(MDRD) >60 (>60 ml/min/1.73 sqM); Potassium 4.1 mmol/L (3.5-5.1); Sodium 144 mmol/L (137-145); Total Bilirubin 0.7 mg/dL (0.2-1.3); Total Protein 5.3 g/dL (6.3-8.2)
[2016-06-16] MEDS: KETOROLAC 30 MG/ML 1 ML VIAL IVP PRN ×3 (08:10→22:19)
[2016-06-16] MEDS: ONDANSETRON 4 MG/2 ML VIAL IVP PRN (09:52)
[2016-06-16] MEDS: amLODIPine 5 MG TAB PO SCH (09:56)
[2016-06-16] MEDS: MULTIVITAMINS, THERA 1 EACH TAB PO SCH (11:34)
[2016-06-16] MEDS: SODIUM CHLORIDE 0.9% 1,000 ML IV SCH (11:41)
--- NOTE | 2016-06-16 11:53 | P.PN ---
Subjective Principal diagnosis: Status post ORIF left distal femur This is a 72-year-old female who is status post open reduction showed fixation of the left distal femur. Patient is doing well from an orthopedic standpoint. She has no new complaints or concerns today. Vital signs are stable. Objective - Vital Signs Vital signs: Vital Signs Temp 99.1 F 06/16/16 07:09 Pulse 90 06/16/16 07:34 Resp 16 06/16/16 07:34 BP 100/62 06/16/16 07:09 Pulse Ox 95 06/16/16 07:09 Intake & Output 06/15/16 06/16/16 06/16/16 18:59 06:59 18:59 Intake Total 2050 720 Output Total 370 80 80 Balance 1681 640 -80 Weight 80.739 kg Intake: IV 2050 100 Sodium Chloride 0.9% 1, 800 000 ml @ 100 mls/hr IV . Q10H [facility] Rx#:[id number] Blood Product 620 Rc As-1 Unit 310 [id number] Rc Pheresis 2 As3 Unit 310 [id number] Output: Urine 270 80 80 Estimated Blood Loss 100 Other: Voiding Method Bedpan Indwelling Catheter # Voids 1 - Exam This is a pleasant 72-year-old female in no acute distress. She is alert and oriented 3. Exam of the left lower extremity reveals that the knee immobilizer is in place. She has full foot and ankle motion without difficulty or pain. Neurovascular status to the lower extremity is intact. - Labs CBC & Chem 7: 06/16/16 06:30 06/16/16 06:30 Labs: Abnormal Lab Results - Last 24 Hours (Table) 06/15/16 06/16/16 06/16/16 Range/Units 16:00 06:30 06:30 RBC 3.35 L (3.80-5.40) m/uL Hgb 9.5 L (11.4-16.0) gm/dL Hct 29.4 L (34.0-46.0) % Plt Count 143 L (150-450) k/uL Chloride 112 H (98-107) mmol/L BUN 18 H (7-17) mg/dL Calcium 8.3 L (8.4-10.2) mg/dL AST 74 H (14-36) U/L Creatine Kinase 1549 H (30-135) U/L Total Protein 5.3 L (6.3-8.2) g/dL Albumin 2.7 L (3.5-5.0) g/dL Crossmatch See Detail Microbiology - Last 24 Hours (Table) 06/15/16 05:15 Urine Culture - Final Urine,Voided Assessment and Plan (1) Femoral distal fracture Status: Acute (2) Periprosthetic fracture around internal prosthetic left knee joint Status: Acute Plan: The clinical findings are discussed the patient. We'll keep her dressing intact today. It is discussed the patient and her that she may require inpatient rehab. We'll see how she doesn't awaken with physical therapy.
[2016-06-16] MEDS ORDERED: CALCIUM CARBONATE 500 MG CHEWABLE PO PRN (19:42)
[2016-06-16] MEDS: SENNOSIDES-DOCUSATE SODIUM 1 EACH TAB PO SCH (22:10)
[2016-06-16] MEDS: diphenhydrAMINE 50 MG CAP PO PRN (22:19)
[2016-06-16] MEDS: BACLOFEN 10 MG TAB PO PRN (22:19)
--- NOTE | 2016-06-16 23:56 | P.PN ---
Subjective Principal diagnosis: Femur fracture status post fall, thermal frostbite injury Patient seen and examined about 4:30 pm. Patient states doing well post operatively. Pain controlled with Fentanyl and Toradol. Instructed to notify staff if starts to feel fatigued on Fentanyl. Patient states doing well so far. Has been up to the chair with much assistance. Using incentive spirometer. No pain left hand. Still some pain over fingers of right hand. Relates story of the events of the night of admission. No dyspnea. No chest pain. No abdominal pain. No nausea or emesis. No sensation of fever or chills. Relates abrasion of right knee from crawling to door at time of fracture. Objective - Vital Signs Vital signs: Vital Signs Temp 97.9 F 06/16/16 15:39 Pulse 90 06/16/16 15:39 Resp 16 06/16/16 15:39 BP 117/68 06/16/16 15:39 Pulse Ox 95 06/16/16 15:39 Intake & Output 06/16/16 06/16/16 06/17/16 06:59 18:59 06:59 Intake Total 720 1000 Output Total 80 1660 Balance 640 -660 Weight 80.739 kg Intake: IV 100 1000 Sodium Chloride 0.9% 1, 1000 000 ml @ 100 mls/hr IV . Q10H [facility] Rx#:[id number] Blood Product 620 Rc As-1 Unit 310 [id number] Rc Pheresis 2 As3 Unit 310 [id number] Output: Urine 80 1660 Uretheral (Car) 1500 Other: Voiding Method Indwelling Catheter # Voids 1 - Exam General: Patient awake alert and oriented x 3. No acute distress. HEENT: Sclerae are clear. Pupils equal, round and reactive to light bilaterally. No pharyngeal erythema or exudate. Chest: Heart regular in rate and rhythm positive S1 and S2. 3/6 Murmur of aortic stenosis. See cardiac consult. Lungs: Clear to auscultation bilaterally. No wheezes rales or rhonchi. Respirations even and nonlabored. Abdomen/GI: Bowel sounds present in all 4 quadrants. Bowel sounds normoactive. No abdominal tenderness. No mass. No hepatomegaly or splenomegaly. No bruits. : Car in place draining yellow urine. Musculoskeletal/ Extremities: Left leg in straight brace. Not removed, being seen by surgery. See skin. Patient is up in chair after PT assistance. Vascular: Radial pulses equal. 2/4. Feet warm with intact pulses. Skin: Positive onychomycosis allen feet. Evidence some prior bleeding at tips of nails. No active bleeding currently. Abrasion to right knee covered with Telfa. Does not appear to have any infection. Tips of left fingers not swollen or red, no obvious sign of thermal injury and sensation intact.Right hand with swelling of tips of fingers and some tenderness. No open areas but evidence of healing of prior lunula injury. Thermal injury apparent but no sign of open area or infection. Neurologic: Awake, alert and oriented times 3. No lateralizing deficits noted on gross inspection. Psychiatric: in good spirits relating how fortunate she was to get to her door. - Labs CBC & Chem 7: 06/17/16 06:16 06/17/16 06:16 Labs: Abnormal Lab Results - Last 24 Hours (Table) 06/15/16 06/16/16 06/16/16 Range/Units 16:00 06:30 06:30 RBC 3.35 L (3.80-5.40) m/uL Hgb 9.5 L (11.4-16.0) gm/dL Hct 29.4 L (34.0-46.0) % Plt Count 143 L (150-450) k/uL Chloride 112 H (98-107) mmol/L BUN 18 H (7-17) mg/dL Calcium 8.3 L (8.4-10.2) mg/dL AST 74 H (14-36) U/L Creatine Kinase 1549 H (30-135) U/L Total Protein 5.3 L (6.3-8.2) g/dL Albumin 2.7 L (3.5-5.0) g/dL Crossmatch See Detail Microbiology - Last 24 Hours (Table) 06/15/16 05:15 Urine Culture - Final Urine,Voided Assessment and Plan Plan: Assessment: 1. Left distal femur fracture comminuted, status post repair. 2. Cold thermal injuries to distal fingertips right greater than left 3. Aortic stenosis. 4. Hypertension. 5. Multiple medication allergies, doing well on Fentanyl and Toradol, monitor for any somnolence as healing. 6. Prerenal azotemia - improved 7. Post op anemia stable 8. Right knee abrasion. Plan: 1. Decrease Norvasc to 2.5 mg with relatively lower pressure reading and monitor. 2. Encouraged patient to let the nurse remove the car. 3. Monitor fingers for any sign of open wound or infection. 4. Check AM Lytes on hydration. consider switch to LR if stable. 5. Check result Hemoglobin A1c, appears glucose improving 6. Repeat LFTS (hepatic congestion versus other) 7. CK f/u already ordered, continue gentle hydration while monitoring renal status. 8. Consider iron therapy, will review with patient given multiple sensitivities.
[2016-06-17 07:11] LABS: Basophils # (A) 0.1 k/uL (0-0.2); Basophils % (A) 1 %; CHCM 31.9; Eosinophils # (A) 0.3 k/uL (0-0.7); Eosinophils % (A) 4 %; HCT 29.3 % (34.0-46.0); HDW 2.98; HGB 9.2 gm/dL (11.4-16.0); Hypochromasia Slight; Luc # (Auto) 0.17; Luc % (Auto) 2; Lymphocytes # (A) 1.1 k/uL (1.0-4.8); Lymphocytes % (A) 15 %; MCH 27.8 pg (25.0-35.0); MCHC 31.6 g/dL (31.0-37.0); MCV 88.1 fL (80.0-100.0); Mean Platelet Volume 7.6; Monocytes # (A) 0.6 k/uL (0-1.0); Monocytes % (A) 9 %; Neutrophils # (A) 4.8 k/uL (1.3-7.7); Neutrophils % (A) 69 %; RBC 3.32 m/uL (3.80-5.40); RDW 14.9 % (11.5-15.5); WBC (Perox) 7.28
[2016-06-17 07:28] LABS: Anion Gap 8 mmol/L; Blood Urea Nitrogen 16 mg/dL (7-17); Carbon Dioxide 26 mmol/L (22-30); Chloride 110 mmol/L (98-107); Creatine Kinase 979 U/L (30-135); Glucose 97 mg/dL (74-99); Non-African American GFR(MDRD) >60 (>60 ml/min/1.73 sqM); Potassium 4.1 mmol/L (3.5-5.1); Sodium 144 mmol/L (137-145)
[2016-06-17] MEDS: RIVAROXABAN 10 MG TAB PO SCH (07:31)
[2016-06-17] MEDS ORDERED: amLODIPine 2.5 MG TAB PO SCH (09:00)
[2016-06-17 09:58] LABS: Hemoglobin A1C 5.7 % (4.2-6.1)
[2016-06-17] MEDS: KETOROLAC 30 MG/ML 1 ML VIAL IVP PRN ×2 (10:30→21:22)
--- NOTE | 2016-06-17 11:03 | P.PN ---
Subjective Principal diagnosis: Status post ORIF left distal femur This is a 72-year-old female who is status post open reduction showed fixation of the left distal femur. Patient is doing well from an orthopedic standpoint. She has no new complaints or concerns today. Vital signs are stable. Objective - Vital Signs Vital signs: Vital Signs Temp 98.4 F 06/17/16 07:30 Pulse 103 H 06/17/16 07:52 Resp 16 06/17/16 07:52 BP 148/69 06/17/16 07:30 Pulse Ox 93 L 06/17/16 07:30 Intake & Output 06/16/16 06/17/16 06/17/16 18:59 06:59 18:59 Intake Total 1000 Output Total 1660 Balance -660 Weight 80.739 kg 80.739 kg Intake: IV 1000 Sodium Chloride 0.9% 1, 1000 000 ml @ 100 mls/hr IV . Q10H [facility] Rx#:[id number] Output: Urine 1660 Uretheral (Mendoza) 1500 Other: Voiding Method Indwelling Catheter Bedpan Bedpan # Voids 1 1 1 - Exam This is a pleasant 72-year-old female in no acute distress. She is alert and oriented 3. Exam of the left lower extremity reveals no erythema or ecchymosis. There is minimal swelling about the thigh and knee. There is no active drainage from incisions. There is minimal synovitis drainage on the dressing. She has full foot and ankle motion without difficulty or pain. Neurovascular status to the lower extremity is intact. - Labs CBC & Chem 7: 06/17/16 06:16 06/17/16 06:16 Labs: Abnormal Lab Results - Last 24 Hours (Table) 06/17/16 06/17/16 Range/Units 06:16 06:16 RBC 3.32 L (3.80-5.40) m/uL Hgb 9.2 L (11.4-16.0) gm/dL Hct 29.3 L (34.0-46.0) % Plt Count 144 L (150-450) k/uL Chloride 110 H (98-107) mmol/L Creatine Kinase 979 H (30-135) U/L Microbiology - Last 24 Hours (Table) 06/15/16 05:15 Urine Culture - Final Urine,Voided Assessment and Plan (1) Femoral distal fracture Status: Acute (2) Periprosthetic fracture around internal prosthetic left knee joint Status: Acute Plan: The clinical findings are discussed the patient. Her knee immobilizer is trimmed today for comfort. We're planning discharge to inpatient rehab tomorrow if cleared medically.
[2016-06-17] MEDS: MULTIVITAMINS, THERA 1 EACH TAB PO SCH (12:30)
[2016-06-17] MEDS ORDERED: BISACODYL 10 MG SUPP RECTAL PRN (17:47)
[2016-06-17] MEDS: POLYETHYLENE GLYCOL 3350 17 GM POWD.PACK PO PRN (18:27)
--- NOTE | 2016-06-17 20:20 | PN ---
DATE OF SERVICE: 06/17/2016 Patient is status post hip surgery. She remained stable. Denies any chest pain. Denies any shortness of breath. First and second heart sounds are normal. Ejection systolic murmur as before. Lungs are clear to auscultation and percussion. FINAL IMPRESSION: The patient is stable. She is currently getting Xarelto 10 mg daily. Continue the current medications. She was advised to follow up with Dr. Franco.
[2016-06-17] MEDS: SENNOSIDES-DOCUSATE SODIUM 1 EACH TAB PO SCH (21:21)
[2016-06-17] MEDS: BACLOFEN 10 MG TAB PO PRN (21:59)
[2016-06-17] MEDS: diphenhydrAMINE 50 MG CAP PO PRN (21:59)
--- NOTE | 2016-06-18 00:07 | P.PN ---
Subjective Principal diagnosis: Femur fracture status post fall, thermal frostbite injury Patient seen and examined just before dinner with 3 family members at the bedside. Patient states doing well post operatively. Pain controlled with Fentanyl and Toradol. Instructed to notify staff if starts to feel fatigued on Fentanyl. Patient states doing well so far. Has been up to the chair with much assistance. Using incentive spirometer. No pain left hand. Still some pain over fingers of right hand. No dyspnea. No chest pain. No abdominal pain. No nausea or emesis. No sensation of fever or chills. Relates abrasion of right knee from crawling to door at time of fracture. Very concerned about need to have a bowel movement as none in 4 days. Treatment plan reviewed. See plan. Many questions about recovery period and medications answered. Patient wants something like Toradol on discharge. Discussed Motrin but the risks for potential bleeding on Xarelto and the risks and benefits need to be reviewed between orthopedics and the patient. Pain currently controlled on fentanyl patch and would advise same on discharge. As pain becomes less intense as she recovers, this may need to be adjusted if she becomes too tired with it. Reviewed with patient and her family. Objective - Vital Signs Vital signs: Vital Signs Temp 98.3 F 06/17/16 14:31 Pulse 101 H 06/17/16 16:00 Resp 16 06/17/16 16:00 BP 119/70 06/17/16 14:31 Pulse Ox 96 06/17/16 14:31 Intake & Output 06/16/16 06/17/16 06/17/16 18:59 06:59 18:59 Intake Total 1000 500 Output Total 1660 80 Balance -660 420 Weight 80.739 kg 80.739 kg Intake: IV 1000 Sodium Chloride 0.9% 1, 1000 000 ml @ 100 mls/hr IV . Q10H [facility] Rx#:[id number] Oral 500 Output: Urine 1660 80 Uretheral (Mendoza) 1500 Other: Voiding Method Indwelling Catheter Bedpan Bedpan # Voids 1 1 1 - Exam General: Patient awake alert and oriented x 3. No acute distress. HEENT: Sclerae are clear. Pupils equal, round and reactive to light bilaterally. No pharyngeal erythema or exudate. Chest: Heart regular in rate and rhythm positive S1 and S2. 3/6 Murmur of aortic stenosis. Lungs: Clear to auscultation bilaterally. No wheezes rales or rhonchi. Respirations even and nonlabored. Abdomen/GI: Bowel sounds present in all 4 quadrants. Bowel sounds normoactive. No abdominal tenderness. No mass. No hepatomegaly or splenomegaly. No bruits. : Mendoza in place draining yellow urine. Musculoskeletal/ Extremities: Left leg in straight brace. Not removed, being seen by surgery. See skin. Patient is up in chair after PT assistance. Vascular: Radial pulses equal. 2/4. Feet warm with intact pulses. Skin: Positive onychomycosis allen feet. Abrasion to right knee covered with Telfa. Tips of left fingers not swollen or red, no obvious sign of thermal injury and sensation intact.Right hand with swelling of tips of fingers and some tenderness. No open areas but evidence of healing of prior lunula injury. Thermal injury apparent but no sign of open area or infection. Neurologic: Awake, alert and oriented times 3. No lateralizing deficits noted on gross inspection. Psychiatric: in good spirits with daughters and male family member at the bedside - Labs CBC & Chem 7: 06/17/16 06:16 06/17/16 06:16 Labs: Abnormal Lab Results - Last 24 Hours (Table) 06/17/16 06/17/16 Range/Units 06:16 06:16 RBC 3.32 L (3.80-5.40) m/uL Hgb 9.2 L (11.4-16.0) gm/dL Hct 29.3 L (34.0-46.0) % Plt Count 144 L (150-450) k/uL Chloride 110 H (98-107) mmol/L Creatine Kinase 979 H (30-135) U/L Assessment and Plan Plan: Assessment: 1. Left distal femur fracture comminuted, status post repair. Pain controlled. Up in chair. Is taking steps with therapy. 2. Cold thermal injuries to distal fingertips right greater than left 3. Aortic stenosis. 4. Hypertension. 5. Multiple medication allergies, doing well on Fentanyl and Toradol, monitor for any somnolence as healing. 6. Prerenal azotemia - improved 7. Post op anemia stable 8. Right knee abrasion. 9. Mild elevation of Hemoglobin A1C suggestive of future diabetic risk Plan: 1. Increase Norvasc back to 5 mg with stable pressure today. 2. Miralax this evening and prn. Dulcolax suppository if needed. 3. Monitor fingers for any sign of open wound or infection. 4. off IV fluid now, renal function stable with decreased cks. Patient taking oral fluid. 6. Repeat AST 7. Consider iron therapy, will review with patient given multiple med sensitivities. 8. follow up fasting glucose in 3 months with primary care.
[2016-06-18 02:03] VITALS: RESP 16
[2016-06-18] MEDS: FERROUS SULFATE 325 MG TAB PO SCH ×2 (07:13→07:15)
[2016-06-18] MEDS: MULTIVITAMINS, THERA 1 EACH TAB PO SCH (07:14)
[2016-06-18] MEDS: RIVAROXABAN 10 MG TAB PO SCH (07:14)
[2016-06-18 07:20] VITALS: BP 146/87; TEMP 97.5
[2016-06-18 07:22] VITALS: PULSE 80
[2016-06-18] MEDS: POLYETHYLENE GLYCOL 3350 17 GM POWD.PACK PO PRN (07:50)
[2016-06-18] MEDS ORDERED: BISACODYL 5 MG TABLET.DR PO PRN (08:09)
--- NOTE | 2016-06-18 08:45 | P.DS ---
Providers Date of admission: 06/14/16 17:37 Expected date of discharge: 06/18/16 Attending physician: Benjamin Hansen Consults: 06/14/16 21:03 Consult Physician Routine Consulting Provider: Misbah Franco Consult Reason/Comments: preop, murmur, prolonged qt Do you want consulting provider notified?: Yes Primary care physician: Nish Ashley - Discharge Diagnosis(es) (1) Periprosthetic fracture around internal prosthetic left knee joint Current Visit: Yes Status: Acute (2) Femoral distal fracture Current Visit: Yes Status: Acute Hospital Course: This is a 80-year-old female who sustained a fall at home on her driveway. Patient has history of previous total knee arthroplasty proximally 3 years ago and was functioning well prior to the fall. She sustained a comminuted periprosthetic fracture of her left distal femur. She was admitted to our service for surgical intervention and care. After discussion consideration the patient elected to proceed with an open reduction internal fixation of the distal femur. Medical clearance was obtained. The patient underwent the procedure on 06/15/2016. The procedure was performed without complications or sequelae. The patient is seen and evaluated at bedside on postoperative day #3. Her pain is well-controlled this time. She does not appear in acute distress. Breathing appears nonlabored. Abdomen is soft and non-tender. Incisions of the left thigh and knee are well healing with geoff intact. There is no erythema or active drainage. Calf is soft and nontender. She has good foot and ankle motion without difficulty. Sensation and circulatory status is intact. The patient is orthopedic medically stable for transfer to rehab when she's been cleared medically. Pertinent Studies: Laboratory Tests 06/17/16 06:16 WBC 7.0 RBC 3.32 L Hgb 9.2 L Hct 29.3 L MCV 88.1 MCH 27.8 MCHC 31.6 RDW 14.9 Plt Count 144 L Patient Condition at Discharge: Good Plan - Discharge Summary New Discharge Prescriptions: Ketorolac [Toradol] 10 mg PO Q6HR PRN #90 tab PRN Reason: Pain fentaNYL 25MCG/HR PATCH [Duragesic 25MCG/HR] 1 patch TRANSDERM Q72H #10 patch Discharge Medication List amLODIPine BESYLATE [Amlodipine Besylate] 5 mg PO DAILY 12/24/14 [History] Multivitamins, Thera [Multivitamin] 1 tab PO DAILY 05/09/15 [History] Ubidecarenone [Co Q-10] 100 mg PO DAILY 05/17/15 [History] Baclofen [Lioresal] 10 mg PO HS PRN 05/22/15 [History] Ibuprofen [Motrin] 800 mg PO Q6H PRN 06/14/16 [History] Bisacodyl [Dulcolax] 5 mg PO DAILY PRN #0 tablet.dr 06/18/16 [Rx] Calcium Carbonate [Tums] 1,000 mg PO TID PRN #0 chew 06/18/16 [Rx] Ferrous Sulfate [Iron (65 MG Elemental)] 325 mg PO Q48H tab 06/18/16 [Rx] Ketorolac [Toradol] 10 mg PO Q6HR PRN #90 tab 06/18/16 [Rx] Magnesium Hydroxide [Milk of Magnesia Concentrate] 2,400 mg PO DAILY PRN #0 ml 06/18/16 [Rx] Polyethylene Glycol 3350 [Miralax] 17 gm PO BID PRN #0 powd.pack 06/18/16 [Rx] Rivaroxaban [Xarelto] 10 mg PO DAILY #25 tab 06/18/16 [Rx] Sennosides-Docusate Sodium [Senokot-S] 2 each PO HS tab 06/18/16 [Rx] diphenhydrAMINE [Benadryl] 50 mg PO HS PRN #0 cap 06/18/16 [Rx] fentaNYL 25MCG/HR PATCH [Duragesic 25MCG/HR] 1 patch TRANSDERM Q72H #10 patch [Rx] Follow up Appointment(s)/Referral(s): John Haile, [NON-STAFF] - 1 Week Benjamin Hansen DO [Doctor of Osteopathic Medicine] - 07/02/16 9:30 am Nish Ashley MD [Primary Care Provider] - 2 Weeks Patient Instructions/Handouts: Intramedullary Nailing (DC) Activity/Diet/Wound Care/Special Instructions: We will remove geoff 2 weeks postop day in our office. Nonweightbearing left lower extremity with walker. Change dressing daily Maintain knee immobilizer left knee. Call OA [phone] with questions or concerns Xarelto 10mg daily Please refer to signed med rec for accurate discharge medications Recommend Complete blood count in one week with primary care physician Dr. Kota Ashley. Discharge Disposition: TRANSFER TO SNF/ECF
[2016-06-18] MEDS ORDERED: amLODIPine 5 MG TAB PO SCH (09:00)
--- NOTE | 2016-06-18 15:16 | P.PN ---
Subjective This 80-year-old l female one of Dr. Nish Ashley's patient with past medical history of hypertension hypertensive cardiovascular disease osteoarthritis and osteoporosis goiter and nephrolithiasis trying to burn some paper, she tripped around 10:30 in the morning without any isolated motor weakness in the legs, patient had a very snowy gravel. She had fallen down the left side to stay in the distal femur fracture, patient had no way of contacting people she crawled back to the house to occur about 2 hours to accomplish this task, subsequent recalled the EMS and transported her to the emergency room. She sustained abrasion injuries and cold thermal injuries in her hand it was flushed and swollen on her distal tingling fingertips, some bluish faint discoloration in the distal nailbeds, no necrosis, abrasions in the elbow and fingers bilaterally, right knee Also with abrasions,. Patient was wearing sweaters to cover up her hands and fingers however she has some discomfort on the upper extremities left thigh In the emergency room she had x-rays showing comminuted fracture in the left distal femur, orthopedics has admitted the patient with consultations to our service for medical management, EKG was reviewed that shows prolonged QT prolongation chest x-ray shows no acute infiltrate, we'll going to consult cardiology secondary to a pre-existing heart murmur and QT prolongation. Electrolytes mentation BNP EKG would be reobtained, echocardiogram of the heart. Surgical intervention most likely would be done tomorrow afternoon once cleared by cardiology 06/18: Patient is being discharged to subacute rehab today in stable condition. Patient is going to [facility] will be followed by Dr. Cody. Medication reconciliation completed. Patient will continue Xarelto for a full 4 week course for DVT prophylaxis. Pain medications have been addressed. Objective - Vital Signs Vital signs: Vital Signs Temp 97.5 F L 06/18/16 07:19 Pulse 115 H 06/18/16 07:19 Resp 16 06/18/16 07:19 BP 146/87 06/18/16 07:19 Pulse Ox 97 06/18/16 07:19 Intake & Output 06/17/16 06/18/16 06/18/16 18:59 06:59 18:59 Intake Total 500 280 Output Total 80 Balance 420 280 Weight 80.739 kg Intake: Oral 500 280 Output: Urine 80 Other: Voiding Method Bedpan Bedpan Bedpan # Voids 1 1 1 # Bowel Movements 1 - Exam General appearance: cooperative, no disheveled, no mild distress, no morbidly obese, no acute distress, obese, no severe distress, no thin - EENT Eyes: anicteric sclerae, EOMI, PERRLA, dentition normal, normal appearance ENT: hearing grossly normal, NA/AT, normal oropharynx - Neck Thyroid: bilateral: normal size - Respiratory Respiratory: bilateral: CTA, diminished, negative: dullness, rales, rhonchi, wheezing - Cardiovascular Rhythm: regular Heart sounds: normal: S1, S2 Abnormal Heart Sounds: systolic murmur - Gastrointestinal General gastrointestinal: normal bowel sounds, soft - Integumentary Integumentary: cyanotic (Right fingernail beds), normal, normal turgor, rash ( Abrasion right knee, no infection, abrasions bilateral elbows, no infection or perforation abrasion bilateral dorsum) - Neurologic Neurologic: CNII-XII intact - Musculoskeletal Musculoskeletal: strength equal bilaterally - Psychiatric Psychiatric: A&O x's 3, appropriate affect - Labs CBC & Chem 7: 06/17/16 06:16 06/17/16 06:16 Labs: Abnormal Lab Results - Last 24 Hours (Table) 06/18/16 Range/Units 07:09 AST 47 H (14-36) U/L Assessment and Plan Plan: 1. Left distal femur fracture comminuted, status post ORIF. 2. Cold thermal injuries to distal fingertips secondary to cold exposure trying to crawl back to the house requiring her to be exposed to hours to complete this task, patient will be monitored for any ischemic changes and infectious changes, local wound care, patient will be receiving prophylactic antibiotics prior to surgery, there is no injury noted on the left thigh on the skin level 3. Prior history of septic left wrist requiring Dr. Velasquez in 2015, resolved 4. Prolonged QT prolongation noted in EKG, repeat EKGs in the morning, electrolytes mentation will be obtained 5. Hyperglycemia: Accu-Chek with sliding scales coverage Will add A1c to the blood work in a.m. 6. Hypertension: On amlodipine 5 mg daily. 7 GI prophylaxis: Patient will be on Pepcid 20 mg daily. 8 DVT prophylaxis: Patient will be on heparin 5000 units subcutaneous twice a day. Next CODE STATUS: Full code. 9. Multiple drug ALLERGIES specially for pain medication, patient started on fentanyl patches as fentanyl IV cannot be ordered in the floor, Toradol IV will be given Discharge plan: Subacute rehab at [facility] Impression and plan of care have been directed as dictated by the signing physician. Jessie Goff nurse practitioner acting as scribe for signing physician. Cc: Dr. Nish Ashley Time with Patient: Greater than 30
== END 2016-06-18 15:19 | DRG 481 ==
LOC: EC 14:35 → 3SUR 17:37
PROVIDERS: ADMIT Orthopaedic Surgery; ATTEND Orthopaedic Surgery
PROC: 0QSC34Z Reposition Left Lower Femur with Internal Fixation Device, Percutaneous Approach (ICD-10-PCS; principal; 2016-06-14)
DX: S72.492A Other fracture of lower end of left femur, initial encounter for closed fracture (principal); M97.12XA Periprosthetic fracture around internal prosthetic left knee joint, initial encounter; D64.9 Anemia, unspecified; I11.9 Hypertensive heart disease without heart failure; I08.3 Combined rheumatic disorders of mitral, aortic and tricuspid valves; E78.5 Hyperlipidemia, unspecified; S60.519A Abrasion of unspecified hand, initial encounter; W01.0XXA Fall on same level from slipping, tripping and stumbling without subsequent striking against object, initial encounter; I45.81 Long QT syndrome; M81.0 Age-related osteoporosis without current pathological fracture; T69.8XXA Other specified effects of reduced temperature, initial encounter; S80.211A Abrasion, right knee, initial encounter; Y92.009 Unspecified place in unspecified non-institutional (private) residence as the place of occurrence of the external cause; Z79.01 Long term (current) use of anticoagulants; Z88.6 Allergy status to analgesic agent; Z91.041 Radiographic dye allergy status; Z88.5 Allergy status to narcotic agent; Z91.013 Allergy to seafood
CPT/HCPCS: 36415; 71020; 72170; 80048; 80053; 81001; 82550; 83036; 83735; 83880; 84443; 84450; 85025; 85610; 85730; 86850; 86870; 86880; 86900; 86901; 86920; 87086; 90471; 90715; 93005; 93306; 96361; 96374; 99285

== ENCOUNTER → 2017-11-11 | Outpatient (CLI) | payer MEDICARE, BC ==
--- NOTE | 2017-11-13 18:05 | ECHOF ---
Referral Reason:I35.0 AORTIC STENOSIS MEASUREMENTS -------- HEIGHT: 154.9 cm WEIGHT: 78.0 kg BP: 137/65 RVIDd: 3.5 cm (< 3.3) IVSd: 1.3 cm (0.6 - 1.1) LVIDd: 3.8 cm (3.9 - 5.3) LVPWd: 1.4 cm (0.6 - 1.1) IVSs: 1.8 cm LVIDs: 2.6 cm LVPWs: 1.6 cm LA Diam: 3.6 cm (2.7 - 3.8) LAESV Index (A-L): 38.10 ml/m Ao Diam: 3.7 cm (2.0 - 3.7) AV Cusp: 1.2 cm (1.5 - 2.6) MV EXCURSION: 6.833 mm (> 18.000) MV EF SLOPE: 66 mm/s (70 - 150) EPSS: 0.7 cm MV E Ruel: 1.43 m/s MV DecT: 416 ms MV A Ruel: 1.81 m/s MV E/A Ratio: 0.79 AV maxP.87 mmHg AV maxP.87 mmHg AV meanP.35 mmHg AR PHT: 503 ms RAP: 5.00 mmHg RVSP: 25.22 mmHg FINDINGS -------- Sinus rhythm. This was a technically good study. The left ventricular size is normal. There is moderate concentric left ventricular hypertrophy. O verall left ventricular systolic function is normal with, an EF between 60 - 65 %. The right ventricle is mildly enlarged. LA is moderately dilated 34-39 ml/m2 The right atrium is normal in size. There is moderate to severe aortic valve sclerosis. There is [id number] aortic regurgitation. There is moderate aortic stenosis present. Peak/mean gradient across the Aortic Valve is 37.87mm Hg / 22.35mmHg. The mitral valve leaflets are moderately thickened. Moderate mitral annular calcification present. Mild mitral regurgitation is present. The peak and mean MV gradients are 13.96mmHg 5.71mmHg as m easured by doppler. Mild tricuspid regurgitation present. Right ventricular systolic pressure is normal at < 35 mmHg. Moderate pulmonic regurgitation. The aortic root is dilated measuring 3.7cm. Normal inferior vena cava with normal inspiratory collapse consistent with estimated right atrial pre ssure of 5 mmHg. There is no pericardial effusion. CONCLUSIONS -------- 1. Sinus rhythm. 2. This was a technically good study. 3. The left ventricular size is normal. 4. There is moderate concentric left ventricular hypertrophy. 5. Overall left ventricular systolic function is normal with, an EF between 60 - 65 %. 6. The right ventricle is mildly enlarged. 7. LA is moderately dilated 34-39 ml/m2 8. The right atrium is normal in size. 9. There is moderate to severe aortic valve sclerosis. 10. There is [id number] aortic regurgitation. 11. There is moderate aortic stenosis present. 12. Peak/mean gradient across the Aortic Valve is 37.87mmHg / 22.35mmHg. 13. The mitral valve leaflets are moderately thickened. 14. Moderate mitral annular calcification present. 15. Mild mitral regurgitation is present. 16. The peak and mean MV gradients are 13.96mmHg 5.71mmHg as measured by doppler. 17. Mild tricuspid regurgitation present. 18. Right ventricular systolic pressure is normal at < 35 mmHg. 19. Moderate pulmonic regurgitation. 20. The aortic root is dilated measuring 3.7cm. 21. Normal inferior vena cava with normal inspiratory collapse consistent with estimated right atrial pressure of 5 mmHg. 22. There is no pericardial effusion. GLUE JOINTER FEEDER: Kindra Coleman RDCS
== END | disposition home or self-care (01) ==
LOC: RADECHMAIN 14:47
PROVIDERS: ATTEND Family Medicine
DX: I08.3 Combined rheumatic disorders of mitral, aortic and tricuspid valves (principal)
CPT/HCPCS: 93306

== ENCOUNTER → 2018-11-26 | Outpatient (CLI) | payer MEDICARE, BC ==
--- NOTE | 2018-11-27 10:20 | MR ---
EXAMINATION TYPE: MR foot LT wo con DATE OF EXAM: 11/26/2018 COMPARISON: No priors for comparison HISTORY: osteomyelitis L 4th digit TECHNIQUE: Standard multiplanar, multisequence MRI of the left foot was obtained without intravenous contrast per departmental protocol. FINDINGS: The exam is limited by extensive patient motion and flexion deformities of the distal inter phalangeal joints. However there is focal T1 hypointensity and T2 hyperintensity in the subcutaneous tissues surrounding the distal fourth phalanx with bone marrow replacement of the distal fourth phala nx and osseous erosion. This measures approximately 7 mm at the distal tuft extending into the diaphy sis. The base of the fourth distal phalanx is spared. Local abscess is seen. Subcutaneous edema is no miriam diffusely throughout the right forefoot and to a lesser degree of the midfoot. Arthrodesis is see n of the first metatarsophalangeal joint and degenerative changes of the proximal and distal interpha langeal joints as well as the metatarsophalangeal joints with small osseous erosions, overhanging ost eophytes, and joint space narrowing. The remaining bone marrow signal appears within normal limits. S mall os naviculare is incidentally seen. IMPRESSION: The exam is limited by patient motion in flexion deformity of the distal phalanges, however there is confirmation of osteomyelitis of the distal tuft of the fourth digit with surrounding extensive soft tissue swelling. No discrete abscess. 2. Postsurgical changes of the first metatarsophalangeal joint and moderate arthropathy of the forefo ot. Osseous erosions suggest the possibility of erosive osteoarthritis or gout.
== END | disposition home or self-care (01) ==
LOC: RADMRIMAIN 11:27
PROVIDERS: ATTEND Podiatrist Foot & Ankle Surgery
DX: M86.8X7 Other osteomyelitis, ankle and foot (principal); M19.072 Primary osteoarthritis, left ankle and foot; M79.89 Other specified soft tissue disorders; M21.272 Flexion deformity, left ankle and toes; Z98.890 Other specified postprocedural states

== ENCOUNTER → 2020-07-01 | Outpatient (CLI) | payer MEDICARE, BC ==
--- NOTE | 2020-07-01 12:30 | XR ---
EXAMINATION TYPE: XR chest 2V DATE OF EXAM: 07/01/2020 COMPARISON: 06/14/2016 TECHNIQUE: PA and lateral views submitted. HISTORY: Shortness of breath FINDINGS: Hypertrophic and degenerative change of the spine. Heart size mildly prominent. Arthropathy of the sh oulders and diffuse osteopenia. No pneumothorax. No overt failure. No sizable pleural effusion. No co nsolidative process. Retrocardiac calcifications suggestive of annular calcification. IMPRESSION: 1. Cardiomegaly.
[2020-07-01 19:24] LABS: Basophils # (A) 0.06 X 10*3/uL (0.00-0.10); Basophils % (A) 0.7 %; Eosinophils # (A) 0.27 X 10*3/uL (0.04-0.35); HCT 37.1 % (37.2-46.3); HGB 11.2 g/dL (12.0-15.0); Lymphocytes # (A) 1.68 X 10*3/uL (0.90-5.00); Lymphocytes % (A) 18.5 %; MCH 26.9 pg (27.0-32.0); MCHC 30.2 g/dL (32.0-37.0); Monocytes # (A) 0.97 X 10*3/uL (0.20-1.00); Monocytes % (A) 10.7 %; Neutrophils # (A) 6.06 X 10*3/uL (1.80-7.70); Neutrophils % (A) 66.8 %; Platelet Count 249 X 10*3/uL (140-440); RBC 4.17 X 10*6/uL (4.10-5.20); WBC 9.07 X 10*3/uL (4.50-10.00)
[2020-07-01 21:07] LABS: African American GFR (CKD) 44.2 (60.0-200.0); Albumin 4.4 g/dL (3.80-4.90); Albumin/Globulin Ratio 1.69 (1.60-3.17); BUN/Creat Ratio 22.31 Ratio (12.00-20.00); Calcium 10.1 mg/dL (8.7-10.3); Globulin 2.6 g/dL (1.6-3.3); Non-African American GFR(CKD) 38.2 (60.0-200.0); Potassium 4.2 mmol/L (3.5-5.5); Total Bilirubin 0.5 mg/dL (0.2-1.2)
== END | disposition home or self-care (01) ==
LOC: LABWHC1 11:47
PROVIDERS: ATTEND Internal Medicine Cardiovascular Disease
DX: I51.7 Cardiomegaly (principal); R06.02 Shortness of breath
CPT/HCPCS: 36415; 71046; 80053; 83880; 85025

== ENCOUNTER → 2020-09-09 | Outpatient (CLI) | payer MEDICARE, BC ==
[2020-09-09 12:41] LABS: Basophils # (A) 0.1 k/uL (0-0.2); Basophils % (A) 1 %; Eosinophils # (A) 0.2 k/uL (0-0.7); Eosinophils % (A) 3 %; HCT 34.3 % (34.0-46.0); HGB 11.3 gm/dL (11.4-16.0); Hypochromasia Slight; Lymphocytes # (A) 1.1 k/uL (1.0-4.8); Lymphocytes % (A) 15 %; MCH 27.4 pg (25.0-35.0); MCHC 32.9 g/dL (31.0-37.0); MCV 83.5 fL (80.0-100.0); Mean Platelet Volume 8.3; Monocytes # (A) 0.6 k/uL (0-1.0); Monocytes % (A) 8 %; Neutrophils % (A) 71 %; Platelet Count 194 k/uL (150-450); RBC 4.11 m/uL (3.80-5.40); RDW 15.4 % (11.5-15.5)
[2020-09-09 12:48] LABS: Potassium 3.6 mmol/L (3.5-5.1)
[2020-09-09 12:49] LABS: Calcium 9.9 mg/dL (8.4-10.2)
[2020-09-09 12:52] LABS: Amorphous Sediment,Urine Rare /hpf; Appearance,Urine Clear (Clear); Bacteria,Urine Rare /hpf; Bilirubin,Urine Negative (Negative); Blood,Urine Large (Negative); Color,Urine Light Yellow; Glucose,Urine (UA) Negative (Negative); Hyaline Casts,Urine 1 /lpf (0-2); Ketones,Urine Negative (Negative); Leukocyte Esterase,Urine Small (Negative); Mucus,Urine Rare /hpf; Nitrite,Urine Negative (Negative); Protein,Urine Negative (Negative); RBC,Urine >182 /hpf (0-5); Specific Gravity,Urine 1.008 (1.001-1.035); Urobilinogen,Urine <2.0 mg/dL (<2.0); WBC,Urine 5 /hpf (0-5)
== END | disposition home or self-care (01) ==
LOC: LABPAT 11:46
PROVIDERS: ATTEND Urology
DX: Z01.812 Encounter for preprocedural laboratory examination (principal); N20.1 Calculus of ureter; R31.29 Other microscopic hematuria
CPT/HCPCS: 36415; 80048; 81001; 85025; 87086

== ENCOUNTER 2020-09-15 08:50 | Day surgery (SDC) | payer MEDICARE, BC ==
[2020-09-13 14:48] VITALS: BMI 31.8
--- NOTE | 2020-09-14 19:04 | P.HPIHPCON ---
History of Present Illness H&P Date: 09/14/20 Chief Complaint: Right sided ureteral stone This is an 84-year-old female history of a 1 cm right-sided UPJ stone. She she has history of severe shortness of breath secondary to aortic stenosis, the stone was seen at the time of evaluation for her valve replacement. Discussed with her given the evidence of the obstructive stone I recommend proceeding with stent placement prior to her valve replacement. Discussed with her after her valve replacement, she will need a definitive management for her stone. Discussed with her that the stent is not a permanent fix for the stone, discussed the risk of stent encrustation. Discussed with her the risk of surgery which includes bowel limited to bleeding, infection, injury to the ureter. She understood all the risk and agreed to proceed with cystoscopy and right ureteral stent placement Consent for Procedure: I have explained the operation/procedure to the patient, including the risks, benefits, side effects, alternative therapies (including not receiving the proposed treatment or service), the likelihood of the patient achieving his/her goals, and potential recuperation problems for the procedure/sedation/analgesia, as well as any blood products, if indicated. I also explained to the patient the risks, benefits and side effects of the alternatives, as well as the risks related to not receiving the proposed procedure, care, treatment, or services. - Constitutional Constitutional: Denies chills, Denies fever - EENT Ears, nose, mouth and throat: Denies headache, Denies sore throat - Cardiovascular Cardiovascular: Reports dyspnea on exertion, Denies chest pain - Respiratory Respiratory: Reports cough, Reports dyspnea - Gastrointestinal Gastrointestinal: Denies abdominal pain, Denies diarrhea, Denies nausea, Denies vomiting - Genitourinary (Male) Genitourinary: Denies dysuria, Denies hematuria Past Medical History Past Medical History: Hyperlipidemia, Hypertension, Osteoarthritis (OA), Renal Disease Additional Past Medical History / Comment(s): "bad aortic valve"- having heart cath at [facility] in 1 week, SOB, hx lt wrist septic arthritis. heart murmur, renal calculi 20 yrs ago, [facility], had COVID first part of July 2020. History of Any Multi-Drug Resistant Organisms: None Reported Past Surgical History: Adenoidectomy, Joint Replacement, Orthopedic Surgery, Tonsillectomy Additional Past Surgical History / Comment(s): left knee replacement, 1996 lithrotripsy, oophorectomy with salpingectomy due to cyst-pt does not know which side, bilateral carpal tunnel release, i&d lt wrist, picc line/later removed, surgery for crushed left femur Past Anesthesia/Blood Transfusion Reactions: No Reported Reaction Additional Past Anesthesia/Blood Transfusion Reaction / Comment(s): Pt has never recieved blood. Smoking Status: Never smoker - Past Family History Father Family Medical History: Cancer Additional Family Medical History / Comment(s): father had lymphoma. Mother Family Medical History: Dementia Additional Family Medical History / Comment(s): hyypoglycemia. Mother at age 92. Brother(s) Family Medical History: No Reported History Daughter(s) Family Medical History: No Reported History Son(s) Family Medical History: No Reported History Medications and Allergies Home Medications Medication Instructions Recorded Confirmed Type Multivitamins, Thera [Multivitamin 1 tab PO DAILY 05/09/15 09/13/20 History (formulary)] Ubidecarenone [Co Q-10] 400 mg PO DAILY 05/17/15 09/13/20 History Baclofen [Lioresal] 10 mg PO HS 05/22/15 09/13/20 History Ibuprofen [Motrin] 800 mg PO Q6H PRN 06/14/16 09/13/20 History Acetaminophen [Tylenol Extra 500 mg PO DIRECTED PRN 09/13/20 09/13/20 History Strength] Cholecalciferol [Vitamin D3 (25 125 mcg PO DAILY 09/13/20 09/13/20 History Mcg = 1000 Iu)] Vitamin C(Dose Unknown) 1 tab PO DAILY 09/13/20 09/13/20 History Zinc 50 mg PO DAILY 09/13/20 09/13/20 History amLODIPine [Norvasc] 5 mg PO DAILY 09/13/20 09/13/20 History diphenhydrAMINE HCL [Benadryl] 25 mg PO HS 09/13/20 09/13/20 History Allergies Allergy/AdvReac Type Severity Reaction Status Date / Time shellfish derived [Shellfish] Allergy Anaphylaxis Verified 09/13/20 14:29 hydromorphone HCl AdvReac Severe Nausea Verified 09/13/20 14:27 [From Dilaudid] acetaminophen [From [place]] AdvReac Unknown Verified 09/13/20 14:27 codeine AdvReac Nausea Verified 09/13/20 14:27 hydrocodone bitartrate AdvReac Unknown Verified 09/13/20 14:27 [From [place]] morphine AdvReac Itching Verified 09/13/20 14:27 prednisone AdvReac Nausea Verified 09/13/20 14:27 tramadol HCl [From Ultram] AdvReac Nausea & Verified 09/13/20 14:27 Vomiting Surgical - Exam - General well developed, well nourished, no distress, no pain - Eyes PERRL, normal ocular movement - ENT normal nares, normal mucosa - Abdomen Abdomen: soft, non tender - Psychiatric oriented to time, oriented to person, oriented to place Assessment and Plan Assessment: 84-year-old female with history of a 1 cm right-sided ureteral stone -Or for cystoscopy and right-sided stent placement
[2020-09-15] MEDS ORDERED: LACTATED RINGERS 1,000 ML IV ONE ×2 (09:16)
--- NOTE | 2020-09-15 09:20 | XR ---
EXAMINATION TYPE: XR KUB DATE OF EXAM: 09/15/2020 COMPARISON: NONE HISTORY: Pain TECHNIQUE: One view abdominal series FINDINGS: There are approximately 6 calcifications overlying the left kidney the largest measuring 1.1 cm. Ther e also is a calcification adjacent to the L5 left transverse process which could be within the ureter measuring 2 mm in diameter. There is a 4 mm calcification overlying the lower pole the right kidney and there is a larger 1 cm ca lcification along the right paraspinal line. Nonspecific calcifications in the pelvis. Scoliosis with severe degenerative change of the spine, SI joint arthropathy and bilateral hip arthropathy noted.. The bowel gas pattern is nonspecific. IMPRESSION: 1. Bilateral renal calculi with possible ureteral calcifications.
[2020-09-15] MEDS ORDERED: ONDANSETRON 4 MG/2 ML VIAL ONE (09:34)
[2020-09-15] MEDS ORDERED: ONDANSETRON 4 MG/2 ML VIAL IVP ONE (09:35)
[2020-09-15] MEDS ORDERED: MIDAZOLAM 2 MG/2 ML VIAL ONE (09:49)
[2020-09-15] MEDS ORDERED: fentaNYL (PF) 50 MCG/ML 2 ML AMP ONE (09:49)
[2020-09-15] MEDS ORDERED: PROPOFOL 10 MG/ML 20 ML VIAL IV ONE (09:49)
[2020-09-15] MEDS ORDERED: IOPAMIDOL-370 50ML BTL MISCELLANE ONE (09:54)
--- NOTE | 2020-09-15 11:21 | P.OP ---
Date of Procedure: 09/15/20 Preoperative Diagnosis: Bilateral ureteral calculi Postoperative Diagnosis: same Procedure(s) Performed: Cystoscopy, bilateral retrograde pyelogram, left stent placement Implants: 6-Cuban by 24 cm stent on the left Anesthesia: FLACA Surgeon: Ramón Calderon Estimated Blood Loss (ml): 5 Pathology: none sent Condition: stable Disposition: PACU Indications for Procedure: This is an 84-year-old female history of a 1 cm right-sided UPJ stone. Also history of left-sided nonobstructing stone, she now complains also of left-sided flank pain, KUB showed one of the stone possibly has migrated to the UPJ . She she has history of severe shortness of breath secondary to aortic stenosis, the stone was seen at the time of evaluation for her valve replacement. Discussed with her given the evidence of the obstructive stone I recommend proceeding with stent placement prior to her valve replacement. Discussed with her after her valve replacement, she will need a definitive management for her stone. Discussed with her that the stent is not a permanent fix for the stone, discussed the risk of stent encrustation. Discussed with her the risk of surgery which includes bowel limited to bleeding, infection, injury to the ureter. She understood all the risk and agreed to proceed with cystoscopy and right ureteral stent placement, possible left stent placement Operative Findings: Obstructive stone in the right proximal ureter, minimal contrast seen past the stone, unable to advance the wire past the stone Left retrograde pyelogram showed a stricture along the mid ureter, filling defect in the proximal ureter, consistent with a stone, and mild hydronephrosis Description of Procedure: Patient was brought to the operating room, sedation was induced. She was prepped and draped in sterile fashion and placed in dorsal lithotomy position. Cystoscopy fitted with a 21-Cuban sheath was inserted per urethra, cystoscopy was performed which showed no abnormality within the bladder. Attention was t hen carried to the right ureteral orifice which was intubated open-ended catheter, retrograde pyelogram was performed which showed a normal caliber distal and mid ureter, but at the proximal ureter it was a torturous with an obstructing stone at the UPJ minimal contrast was seen past the stone. Next I advanced a sensor wire through the catheter but resistance was met at the stone. Next I tried an angled glide wire, and a 0.025 Glidewire but was not able to navigate past the stone. Multiple attempts was made to advance the wire past the stone but the stone was completely obstructing. At this time the right stent placement was aborted. Attention was carried to the left side, which was intubated with an open-ended catheter, retrograde pyelogram was performed on that side which showed a stricture in the mid ureter, with dilation of the ureter proximal to that, an additional filling defect in the proximal ureter with mild hydronephrosis. At this time a wire was advanced through the catheter and into the kidney. Next a ureteral stent was passed over the wire, the proximal curl was visualized on fluoroscopy and the distal curl was visualized using the cystoscope. The bladder was emptied and then the case. The patient tolerated the procedure well was taken to PACU in stable condition
[2020-09-15] MEDS ORDERED: ACETAMINOPHEN TAB 325 MG TAB PO PRN (11:54)
--- NOTE | 2020-09-15 12:04 | FL ---
EXAMINATION TYPE: FL urography retrograde DATE OF EXAM: 09/15/2020 COMPARISON: NONE HISTORY: Thoracic pain TECHNIQUE: Fluoroscopy. FINDINGS: Fluoroscopic guidance was provided during procedure of 1 minute and 21 seconds. IMPRESSION: As Above.
--- NOTE | 2020-09-15 16:18 | US ---
EXAMINATION TYPE: US kidneys/renal and bladder DATE OF EXAM: 09/15/2020 COMPARISON: NONE CLINICAL HISTORY: hydronephrosis . renal stone retrieval attempted today EXAM MEASUREMENTS: Right Kidney: 12.6 x 7.1 x 6.6 cm Left Kidney: 10.2 x 6.2 x 4.7 cm Post Void Residual Volume: bladder empty Right Kidney: severe hydronephrosis; couple of cortical cysts seen in lower pole with large cyst = 3. 4 x 3.0 x 3.6cm; renal stone seen in lower pole = 1.0 x 0.7 x 0.7cm. Left Kidney: couple of renal cyst seen with larger at upper pole with wall calcification noted;dilate d calyces noted; multiple renal stones seen with largest at upper pole = 1.5 x 1.2 x 0.5cm. Bladder: not seen IMPRESSION: 1. Severe right hydronephrosis suspected renal calculi. Multiple renal cysts also suspected. 2. Left renal calculi with dilated calyces and multiple renal stones. The largest measuring 1.5 cm. S uspect renal cyst on the left as well upper pole.
[2020-09-15] MEDS: SODIUM CHLORIDE 0.9% 1,000 ML IV SCH ×2 (17:44→17:52)
[2020-09-15] MEDS: KETOROLAC 15 MG/ML 1 ML VIAL IVP PRN (17:55)
[2020-09-15] MEDS ORDERED: BACLOFEN 10 MG TAB PO SCH (21:00)
[2020-09-15 21:39] LABS: INR 1.1 (<1.2); Prothrombin Time 11.1 sec (9.0-12.0)
[2020-09-16] MEDS: KETOROLAC 15 MG/ML 1 ML VIAL IVP PRN ×2 (00:13→09:53)
[2020-09-16 05:01] VITALS: PULSE 87; TEMP 97.9
[2020-09-16] MEDS ORDERED: amLODIPine 5 MG TAB PO SCH (09:00)
[2020-09-16] MEDS ORDERED: IV FLUID CONTINUATION 850 ML IV ONE (09:00)
[2020-09-16] MEDS ORDERED: MIDAZOLAM 2 MG/2 ML VIAL IVP ONE (09:13)
[2020-09-16] MEDS ORDERED: fentaNYL (PF) 50 MCG/ML 2 ML AMP IVP ONE (09:14)
[2020-09-16] MEDS ORDERED: LIDOCAINE 1% INJ 10MG/ML (20 ML MDV) SQ ONE (09:20)
[2020-09-16] MEDS ORDERED: IOPAMIDOL-250 50ML BTL INTRAARTER ONE (09:27)
[2020-09-16] MEDS ORDERED: ONDANSETRON 4 MG/2 ML VIAL IVP PRN (10:31)
[2020-09-16 11:34] VITALS: RESP 20
--- NOTE | 2020-09-16 12:17 | IR ---
EXAMINATION TYPE: IR nephrostomy, US guide intraoperative DATE OF EXAM: 09/16/2020 COMPARISON: Ultrasound 09/15/2020 HISTORY: Hydronephrosis, ureteral obstruction PROCEDURE: Maximal barrier technique was utilized. The skin overlying the right kidney was localized using ultrasound and the overlying skin prepped and draped. Ultrasound was utilized with sterile te chnique, ultrasound image was obtained verifying use. Lidocaine used for local anesthesia. Skin katharina was made with a scalpel. Access was gained under ultrasound with a 21-gauge needle to the right kid norma posterior calyx. Urine returned in the hub of the needle. A 0.018 inch wire was advanced. The access site was dilated and subsequently an 8.5 Sw[place] catheter was advanced over wire in the renal p artem and fixed in place. Urine returned in the hub of the catheter. Gentle hand-injection of contra st material was performed, images were obtained verifying placement. Catheter was fixed to the skin w ith 2-0 silk and a sterile dressing was placed. The patient remained in stable condition without com plication. The patient was discharged to observation. 13 minutes of conscious sedation time was performed, the patient was monitored by an independent krystin schwab observer. 1.2 minutes fluoroscopy time. 90 intraoperative C-arm images document the procedure. IMPRESSION: STATUS POST 8.5 [place] right NEPHROSTOMY TUBE PLACEMENT WITH ULTRASOUND AND FLUOROSCOPIC GUIDANCE. THIS PROCEDURE WAS PERFORMED BY THE UNDERSIGNED.
[2020-09-16 13:05] VITALS: BP 153/83
[2020-09-16] MEDS: SODIUM CHLORIDE 0.9% 1,000 ML IV SCH (13:11)
--- NOTE | 2020-09-16 18:12 | P.DS ---
Providers Attending physician: Ramón Calderon MD Primary care physician: [facility] Course: This is an 84-year-old female history of bilateral ureteral stone. She has History of shortness of breath secondary to aortic valve stenosis. She underwent left stent placement on September 15, and attempted right stent placement, which was unsuccessful secondary to completely impacted stone. She was admitted to the hospital, given her acute kidney injury from obstruction. She underwent a right-sided nephrostomy tube placement on September 16. She was discharged home following nephrostomy tube placement. At time of discharge she was tolerating a diet, ambulating, pain was well-controlled. She will require definitive stone management following her valve replacement Plan - Discharge Summary Discharge Rx Participant: Yes New Discharge Prescriptions: New Ketorolac [Toradol] 10 mg PO Q6HR PRN #15 tab PRN Reason: Pain No Action Multivitamins, Thera [Multivitamin (formulary)] 1 tab PO DAILY Ubidecarenone [Co Q-10] 400 mg PO DAILY Baclofen [Lioresal] 10 mg PO HS Ibuprofen [Motrin] 800 mg PO Q6H PRN PRN Reason: Pain amLODIPine [Norvasc] 5 mg PO DAILY Vitamin C(Dose Unknown) 1 tab PO DAILY Acetaminophen [Tylenol Extra Strength] 500 mg PO DIRECTED PRN PRN Reason: Pain Zinc 50 mg PO DAILY Cholecalciferol [Vitamin D3 (25 Mcg = 1000 Iu)] 125 mcg PO DAILY diphenhydrAMINE HCL [Benadryl] 25 mg PO HS Furosemide [Lasix] 20 mg PO DAILY Discharge Medication List Multivitamins, Thera [Multivitamin (formulary)] 1 tab PO DAILY 05/09/15 [History] Ubidecarenone [Co Q-10] 400 mg PO DAILY 05/17/15 [History] Baclofen [Lioresal] 10 mg PO HS 05/22/15 [History] Ibuprofen [Motrin] 800 mg PO Q6H PRN 06/14/16 [History] Acetaminophen [Tylenol Extra Strength] 500 mg PO DIRECTED PRN 09/13/20 [History] Cholecalciferol [Vitamin D3 (25 Mcg = 1000 Iu)] 125 mcg PO DAILY 09/13/20 [History] Vitamin C(Dose Unknown) 1 tab PO DAILY 09/13/20 [History] Zinc 50 mg PO DAILY 09/13/20 [History] amLODIPine [Norvasc] 5 mg PO DAILY 09/13/20 [History] diphenhydrAMINE HCL [Benadryl] 25 mg PO HS 09/13/20 [History] Furosemide [Lasix] 20 mg PO DAILY 09/15/20 [History] Ketorolac [Toradol] 10 mg PO Q6HR PRN #15 tab 09/16/20 [Rx] Patient Instructions/Handouts: *Surgery [facility] - (Anesthesia) Discharge Instructions Outpatient Surgery, Nephrostomy Tube Insertion (DC), Nephrostomy Tube Care (DC), Cystoscopy (DC), Ureteral Stent Placement (DC) Activity/Diet/Wound Care/Special Instructions: Follow-up with Dr. Calderon as discussed with him earlier. Discharge Disposition: HOME SELF-CARE
== END 2020-09-16 16:59 | disposition home or self-care (01) ==
LOC: OR 08:50 → 5NMEDONC 11:08 → OR 09-16 16:59
PROVIDERS: ATTEND Urology
DX: N13.2 Hydronephrosis with renal and ureteral calculous obstruction (principal); Z20.822 Contact with and (suspected) exposure to COVID-19; I35.0 Nonrheumatic aortic (valve) stenosis; E78.5 Hyperlipidemia, unspecified; I10 Essential (primary) hypertension; M19.90 Unspecified osteoarthritis, unspecified site; Z79.899 Other long term (current) drug therapy; Z88.5 Allergy status to narcotic agent
CPT/HCPCS: 75984; 85610; 87635; 74420; 74018; 76770; 50432; 52332; C2625; C1769 ×4; C1758; C1729; J2250 ×2; J0690 ×2; J2405 ×2; J2001; J3010 ×2; J1885 ×2; J2704; Q9966; Q9967

== ENCOUNTER 2020-09-26 11:02 | Day surgery (SDC) | payer MEDICARE, BC ==
[2020-09-26 12:17] VITALS: BP 126/68; PULSE 96; RESP 6; TEMP 98.3
== END 2020-09-26 12:00 | disposition home or self-care (01) ==
LOC: RADPROMAIN 11:02
PROVIDERS: ATTEND Radiology Diagnostic Radiology
DX: Z43.6 Encounter for attention to other artificial openings of urinary tract (principal)
CPT/HCPCS: 99213

== ENCOUNTER 2020-10-03 12:28 | Day surgery (SDC) | payer MEDICARE, BC ==
[2020-10-03 15:15] VITALS: BP 102/54; PULSE 74; RESP 16; TEMP 98.2
== END 2020-10-03 13:15 | disposition home or self-care (01) ==
LOC: RADPROMAIN 12:28
PROVIDERS: ATTEND Radiology Diagnostic Radiology
DX: Z43.6 Encounter for attention to other artificial openings of urinary tract (principal)
CPT/HCPCS: 99213

== ENCOUNTER → 2020-10-07 | Outpatient (CLI) | payer MEDICARE, BC ==
[2020-10-08 01:02] LABS: African American GFR (CKD) 29.9 (60.0-200.0); Anion Gap 12.4 mmol/L (4.00-12.00); BUN/Creat Ratio 21.11 Ratio (12.00-20.00); Calcium 10.2 mg/dL (8.7-10.3); Carbon Dioxide 25.6 mmol/L (21.6-31.8); Magnesium 2.3 mg/dL (1.5-2.4); Non-African American GFR(CKD) 25.8 (60.0-200.0); Potassium 3.8 mmol/L (3.5-5.5)
== END | disposition home or self-care (01) ==
LOC: LABWHC1 14:09
PROVIDERS: ATTEND Student in an Organized Health Care Education/Training Program
DX: I35.0 Nonrheumatic aortic (valve) stenosis (principal)
CPT/HCPCS: 36415; 80048; 83735

== ENCOUNTER 2020-10-10 12:35 | Day surgery (SDC) | payer MEDICARE, BC ==
[2020-10-10 12:45] VITALS: BP 109/57; PULSE 67; RESP 16; TEMP 97.8
== END 2020-10-10 13:10 | disposition home or self-care (01) ==
LOC: RADPROMAIN 12:35
PROVIDERS: ATTEND Radiology Diagnostic Radiology
DX: Z48.03 Encounter for change or removal of drains (principal)
CPT/HCPCS: 99213

== ENCOUNTER 2020-10-18 15:06 | Day surgery (SDC) | payer MEDICARE, BC ==
[2020-10-18 15:48] VITALS: BP 114/65; PULSE 68; RESP 18; TEMP 97.9
== END 2020-10-18 15:50 | disposition home or self-care (01) ==
LOC: RADPROMAIN 15:06
PROVIDERS: ATTEND Radiology Diagnostic Radiology
DX: Z48.03 Encounter for change or removal of drains (principal)
CPT/HCPCS: 99213

== ENCOUNTER 2020-10-25 15:27 | Day surgery (SDC) | payer MEDICARE, BC ==
[2020-10-25 16:48] VITALS: BP 103/52; PULSE 65; RESP 16; TEMP 98.6
== END 2020-10-25 16:05 | disposition home or self-care (01) ==
LOC: RADPROMAIN 15:27
PROVIDERS: ATTEND Radiology Diagnostic Radiology
DX: Z43.6 Encounter for attention to other artificial openings of urinary tract (principal)
CPT/HCPCS: 99213

== ENCOUNTER 2020-11-01 15:35 | Day surgery (SDC) | payer MEDICARE, BC ==
[2020-11-01 16:51] VITALS: BP 121/62; PULSE 67; RESP 16; TEMP 97.9
== END 2020-11-01 16:45 | disposition home or self-care (01) ==
LOC: RADPROMAIN 15:35
PROVIDERS: ATTEND Radiology Diagnostic Radiology
DX: Z48.03 Encounter for change or removal of drains (principal)

== ENCOUNTER → 2020-11-09 | Day surgery (SDC) | payer MEDICARE, BC ==
[2020-11-09 16:26] VITALS: BP 110/57; PULSE 63; RESP 16; TEMP 98
== END ==
LOC: RADPROMAIN 15:39
PROVIDERS: ATTEND Radiology Diagnostic Radiology
DX: Z48.03 Encounter for change or removal of drains (principal)
CPT/HCPCS: 99213

== ENCOUNTER 2020-11-15 15:33 | Day surgery (SDC) | payer MEDICARE, BC ==
[2020-11-15 16:10] VITALS: BP 129/74; PULSE 82; RESP 16; TEMP 98.1
== END 2020-11-15 16:26 | disposition home or self-care (01) ==
LOC: RADPROMAIN 15:33
PROVIDERS: ATTEND Radiology Diagnostic Radiology
DX: Z43.6 Encounter for attention to other artificial openings of urinary tract (principal)
CPT/HCPCS: 99213

== ENCOUNTER → 2020-11-17 | Outpatient (CLI) | payer MEDICARE, BC | END | disposition home or self-care (01) | LOC: LABWHC1 13:07 | DX: Z09 Encounter for follow-up examination after completed treatment for conditions other than malignant neoplasm (principal); Z95.2 Presence of prosthetic heart valve | CPT/HCPCS: 36415; 83880 ==

== ENCOUNTER 2020-11-22 15:28 | Day surgery (SDC) | payer MEDICARE, BC ==
[2020-11-22 15:39] VITALS: BP 115/75; PULSE 71; RESP 16; TEMP 97.4
== END 2020-11-22 16:00 | disposition home or self-care (01) ==
LOC: RADPROMAIN 15:28
PROVIDERS: ATTEND Radiology Diagnostic Radiology
DX: Z48.03 Encounter for change or removal of drains (principal)
CPT/HCPCS: 99213

== ENCOUNTER → 2020-11-22 | Outpatient (CLI) | payer MEDICARE, BC ==
[2020-11-22 18:33] LABS: HCT 30.3 % (37.2-46.3); HGB 9.3 g/dL (12.0-15.0); MCH 26.5 pg (27.0-32.0); MCHC 30.7 g/dL (32.0-37.0); MCV 86.3 fL (80.0-97.0); Mean Platelet Volume 10.5 fL (9.5-12.2); Platelet Count 233 X 10*3/uL (140-440); RBC 3.51 X 10*6/uL (4.10-5.20); WBC 6.71 X 10*3/uL (4.50-10.00)
[2020-11-23 04:06] LABS: African American GFR (CKD) 34.2 (60.0-200.0); Anion Gap 11.5 mmol/L (4.00-12.00); BUN/Creat Ratio 31.25 Ratio (12.00-20.00); Calcium 9.2 mg/dL (8.7-10.3); Carbon Dioxide 23.5 mmol/L (21.6-31.8); Non-African American GFR(CKD) 29.5 (60.0-200.0)
== END | disposition home or self-care (01) ==
LOC: LABWHC1 14:16
DX: Z95.2 Presence of prosthetic heart valve (principal)
CPT/HCPCS: 36415; 80048; 83880; 85027

== ENCOUNTER 2020-11-30 09:05 | Day surgery (SDC) | payer MEDICARE, BC ==
[2020-11-30 09:31] VITALS: BP 145/68; PULSE 78; RESP 16; TEMP 98.7
== END 2020-11-30 09:35 | disposition home or self-care (01) ==
LOC: RADPROMAIN 09:05
PROVIDERS: ATTEND Radiology Diagnostic Radiology
DX: Z48.03 Encounter for change or removal of drains (principal)
CPT/HCPCS: 99213

== ENCOUNTER 2020-12-06 15:29 | Day surgery (SDC) | payer MEDICARE, BC ==
[2020-12-06 16:03] VITALS: BP 125/65; PULSE 75; RESP 14; TEMP 98.4
== END 2020-12-06 16:05 | disposition home or self-care (01) ==
LOC: RADPROMAIN 15:29
PROVIDERS: ATTEND Radiology Diagnostic Radiology
DX: Z48.03 Encounter for change or removal of drains (principal)
CPT/HCPCS: 99213

== ENCOUNTER → 2020-12-09 | Outpatient (CLI) | payer MEDICARE, BC ==
[2020-12-09 10:56] LABS: Anisocytosis Slight; Basophils % (A) 0 %; Eosinophils # (A) 0.1 k/uL (0-0.7); Eosinophils % (A) 1 %; HCT 29.9 % (34.0-46.0); HGB 9.8 gm/dL (11.4-16.0); Lymphocytes # (A) 0.8 k/uL (1.0-4.8); Lymphocytes % (A) 9 %; MCH 27.6 pg (25.0-35.0); MCHC 32.6 g/dL (31.0-37.0); MCV 84.5 fL (80.0-100.0); Mean Platelet Volume 8.5; Monocytes # (A) 0.7 k/uL (0-1.0); Monocytes % (A) 7 %; Neutrophils # (A) 7.2 k/uL (1.3-7.7); Neutrophils % (A) 80 %; Platelet Count 185 k/uL (150-450); RBC 3.54 m/uL (3.80-5.40); RDW 16.7 % (11.5-15.5)
[2020-12-09 11:07] LABS: Calcium 9.8 mg/dL (8.4-10.2); Potassium 4.4 mmol/L (3.5-5.1)
[2020-12-09 12:06] LABS: RBC,Urine >182 /hpf (0-5); WBC,Urine >182 /hpf (0-5)
[2020-12-09 12:11] LABS: Appearance,Urine Bloody (Clear); Color,Urine Red
== END | disposition home or self-care (01) ==
LOC: LABPAT 10:27
PROVIDERS: ATTEND Urology
DX: Z01.812 Encounter for preprocedural laboratory examination (principal); N20.1 Calculus of ureter
CPT/HCPCS: 36415; 80048; 81001; 85025; 87077; 87086; 87186

== ENCOUNTER 2020-12-13 13:49 | Inpatient (IN) | payer MEDICARE, BC ==
[2020-12-13] MEDS ORDERED: ONDANSETRON 4 MG/2 ML VIAL IM STA (14:13)
[2020-12-13] MEDS ORDERED: SODIUM CHLORIDE 0.9% 1,000 ML IV STA (14:13)
[2020-12-13] MEDS ORDERED: CEFEPIME 1 GM in SODIUM CHLORIDE 0.9% 50 ML IVPB STA (14:21)
[2020-12-13 14:42] LABS: Anisocytosis Slight; Basophils # (A) 0.1 k/uL (0-0.2); Basophils % (A) 1 %; Eosinophils % (A) 0 %; HCT 32.7 % (34.0-46.0); HGB 10.5 gm/dL (11.4-16.0); Hypochromasia Slight; Lymphocytes # (A) 1.4 k/uL (1.0-4.8); Lymphocytes % (A) 14 %; MCH 27.2 pg (25.0-35.0); MCHC 32.1 g/dL (31.0-37.0); MCV 84.8 fL (80.0-100.0); Mean Platelet Volume 7.8; Monocytes # (A) 0.5 k/uL (0-1.0); Monocytes % (A) 5 %; Neutrophils # (A) 7.6 k/uL (1.3-7.7); Neutrophils % (A) 78 %; Platelet Count 305 k/uL (150-450); Poikilocytosis Slight; RBC 3.85 m/uL (3.80-5.40); RDW 17.3 % (11.5-15.5); WBC 9.8 k/uL (3.8-10.6)
[2020-12-13 14:46] LABS: Appearance,Urine Cloudy (Clear); Bacteria,Urine Few /hpf; Bilirubin,Urine Negative (Negative); Blood,Urine Moderate (Negative); Color,Urine Yellow; Glucose,Urine (UA) Negative (Negative); Ketones,Urine Trace (Negative); Leukocyte Esterase,Urine Large (Negative); Mucus,Urine Rare /hpf; Nitrite,Urine Positive (Negative); Protein,Urine 2+ (Negative); RBC,Urine 87 /hpf (0-5); Specific Gravity,Urine 1.016 (1.001-1.035); Urobilinogen,Urine <2.0 mg/dL (<2.0); WBC,Urine 101 /hpf (0-5)
[2020-12-13 14:51] LABS: Albumin 4.1 g/dL (3.5-5.0); Calcium 10.7 mg/dL (8.4-10.2); Magnesium 2.4 mg/dL (1.6-2.3); Potassium 5.1 mmol/L (3.5-5.1); Total Bilirubin 0.4 mg/dL (0.2-1.3); Total Protein 7.2 g/dL (6.3-8.2)
[2020-12-13 14:57] LABS: INR 0.9 (<1.2); Partial Thromboplastin Time 23.1 sec (22.0-30.0); Prothrombin Time 10.1 sec (9.0-12.0)
[2020-12-13 14:59] LABS: Lactic Acid, Venous 4.5 mmol/L (0.7-2.0)
[2020-12-13] MEDS ORDERED: VANCOMYCIN IV PER PHARMACY 1 EACH MISC MISCELLANE PRN (15:06)
[2020-12-13] MEDS ORDERED: VANCOMYCIN 1,500 MG in SODIUM CHLORIDE 0.9% 250 ML IVPB ONE (15:30)
--- NOTE | 2020-12-13 15:42 | CT ---
EXAMINATION TYPE: CT brain wo con DATE OF EXAM: 12/13/2020 COMPARISON: None HISTORY: weakness, ams CT DLP: 1106.[address] of the brain was performed. The ventricles, basal cisterns and sulci overlying the cerebral convexities demonstrate mild enlargem ent. There is no evidence for intracranial hemorrhage or sulcal effacement. There is decreased attenuation about the periventricular white matter and deep white matter of both c erebral hemispheres, compatible with chronic small vessel ischemia. Differential diagnosis does inclu de demyelination. No mass effects are seen.No midline shift. Osseous calvarium is intact. If symptoms persist consider MRI. IMPRESSION: 1. Age related atrophic and chronic small vessel ischemic change without acute intracranial process s een at this time.
--- NOTE | 2020-12-13 15:48 | CT ---
EXAMINATION TYPE: CT abdomen pelvis wo con DATE OF EXAM: 12/13/2020 COMPARISON: None HISTORY: flank pain, weakness CT DLP: 623.1 mGycm Examination of the solid and hollow viscera is limited given the lack of contrast. FINDINGS: LUNG BASES: No evidence for nodule. No evidence for infiltrate. LIVER/GB: Gallbladder hydrops measuring 10.6 cm. Gallbladder wall calcifications. No space-occupying hepatic lesion. PANCREAS: No pancreatic mass identified. No inflammatory process seen. SPLEEN: No evidence for splenomegaly. No intrasplenic lesions seen. ADRENALS: No adrenal nodules identified. No evidence for thickening. KIDNEYS: Double pigtail left ureteral stent. Right-sided nephrostomy tube. Multiple left-sided renal calculi. Calculus adjacent to the stent measures 1.1 cm. Additional calculi lower pole of the left ki dney measure 1.2 cm and 7 mm respectively as well as several less than 3 mm. On the right there are a pproximately 3 sub-3 mm calculi noted at the lower pole. There is also proximal right ureteral calcul us measuring 8.7 mm. Fullness of the bilateral renal pelves. BOWEL: Appendix has a normal appearance. No evidence of bowel obstruction. No inflammatory process. Lymph nodes: No evidence for adenopathy greater than 1 cm. Abdominal aorta: Atheromatous changes seen. No evidence for aneurysm. Genital organs: Left ovarian fullness measuring 3.1 cm. Underlying mass is difficult to exclude. Uter us and right ovary are grossly unremarkable. Other: No significant abnormality. IMPRESSION: 1. Proximal right ureteral calculus measuring 8.7 mm. Right sided percutaneous nephrostomy in place. Mild fullness of the right renal collecting system. Additional right-sided nonobstructing calculi. 2. Left-sided renal calculi as outlined above. 3. Masslike fullness left ovary. Consider ultrasound correlation.
--- NOTE | 2020-12-13 16:32 | XR ---
EXAMINATION TYPE: XR chest 2V DATE OF EXAM: 12/13/2020 COMPARISON: 07/01/2020 HISTORY: Shortness of breath TECHNIQUE: Frontal and lateral views of the chest are obtained. FINDINGS: Scattered senescent parenchymal changes noted. Hyperinflation compatible with COPD. No evidence for infiltrate. No evidence for atelectasis. Heart size is stable. Mediastinal structures are stable and grossly unremarkable. No evidence for hilar prominence. Degenerative changes dorsal spine. IMPRESSION: 1. No evidence for acute pulmonary disease.
[2020-12-13] MEDS ORDERED: ACETAMINOPHEN TAB 325 MG TAB PO PRN (17:26)
[2020-12-13] MEDS ORDERED: NALOXONE 0.4 MG/ML 1 ML VIAL IV PRN (17:26)
[2020-12-13] MEDS ORDERED: SODIUM CHLORIDE 0.9% 500 ML 300 ML IV STA (17:36)
--- NOTE | 2020-12-13 17:51 | ED ---
General Adult HPI - General Chief complaint: Weakness Stated complaint: Nausea,Kidney Issues Time Seen by Provider: 12/13/20 13:58 Source: family, RN notes reviewed, old records reviewed Mode of arrival: wheelchair Limitations: no limitations - History of Present Illness Initial comments: Patient is a 85-year-old female with past medical history remarkable for hyperlipidemia, hypertension, renal disease, thyroid disorder, bilateral renal stones with right nephrostomy tube secondary to obstruction, recent TAVR surgery 1 month ago who presents emergency Department complaining of confusion as well as worsening urinary tract infection symptoms. Patient is diagnosed with UTI some days ago and was started on antibiotics but she is bun unable to tolerate them at home secondary to nausea and vomiting. She has received a total of maybe 2 doses per . Patient's daughters are nurses and the concern for possible septic picture at this time for the patient. Patient is somewhat confused at this time and is alert and oriented times place and person but not time. She is complaining of nonspecific abdominal discomfort. She is having adequate drainage from the nephrostomy tube site. She denies any chest pain, shortness of breath. She is no weakness and is able to move all 4 extremities without difficulty. She has any chest pain. She has no acute complaint at this time. - Related Data Home Medications Medication Instructions Recorded Confirmed Baclofen [Lioresal] 10 mg PO HS 05/22/15 12/13/20 diphenhydrAMINE HCL [Benadryl] 50 mg PO HS 09/13/20 12/13/20 Furosemide [Lasix] 20 mg PO DAILY 09/15/20 12/13/20 Apixaban [Eliquis] 5 mg PO DIRECTED 12/13/20 12/13/20 Levofloxacin [Levaquin] 250 mg PO DAILY 12/13/20 12/13/20 Metoprolol Succinate [Toprol XL] 12.5 mg PO DAILY 12/13/20 12/13/20 lisinopriL [Zestril] 2.5 mg PO DAILY 12/13/20 12/13/20 Allergies Allergy/AdvReac Type Severity Reaction Status Date / Time shellfish derived [Shellfish] Allergy Anaphylaxis Verified 12/13/20 16:07 hydromorphone HCl AdvReac Severe Nausea Verified 12/13/20 16:07 [From Dilaudid] acetaminophen [From Elverta] AdvReac Unknown Verified 12/13/20 16:07 codeine AdvReac Nausea Verified 12/13/20 16:07 hydrocodone bitartrate AdvReac Unknown Verified 12/13/20 16:07 [From Elverta] morphine AdvReac Itching Verified 12/13/20 16:07 prednisone AdvReac Nausea Verified 12/13/20 16:07 tramadol HCl [From Ultram] AdvReac Nausea & Verified 12/13/20 16:07 Vomiting Review of Systems ROS Statement: Those systems with pertinent positive or pertinent negative responses have been documented in the HPI. Review of Systems: CONST: Denies fever EYES: Denies blurry vision ENT: Denies nasal congestion C/V: Denies Chest pain RESP: Denies shortness of breath GI: Endorses abdominal pain : Endorses dysuria SKIN: Denies rash. MSK: Denies joint pain. NEURO: Denies headache ROS Other: All systems not noted in ROS Statement are negative. Past Medical History Past Medical History: Hyperlipidemia, Hypertension, Musculoskeletal Disorder, Osteoarthritis (OA), Renal Disease, Thyroid Disorder Additional Past Medical History / Comment(s): 05-17-15 admitted with lt wrist septic arthritis. Other HX: heart murmur, renal calculi, goiters, R foot 3rd toe has a sore which is being tx by Dr. siegel. pt goes to [facility] every saturday-this has been a problem for quite some time now, hx of L foot 4th toe sore which was tx by Dr. Siegel and is healed. History of Any Multi-Drug Resistant Organisms: None Reported Past Surgical History: Adenoidectomy, Joint Replacement, Orthopedic Surgery, Tonsillectomy Additional Past Surgical History / Comment(s): Total L knee, 1996 lithrotripsy, 1943 tonsillectomy, oophorectomy with salpingectomy due to cyst-pt does not know which side, bilateral carpal tunnel release.12-27-14 i&d lt wrist, 12-28-14 [place](mod aortic stensois w/ mild aortic and tricuspid regurgitation. had lt arm picc line for ab,since removed Past Anesthesia/Blood Transfusion Reactions: No Reported Reaction Additional Past Anesthesia/Blood Transfusion Reaction / Comment(s): Pt has never recieved blood. Past Psychological History: No Psychological Hx Reported Past Alcohol Use History: None Reported Past Drug Use History: None Reported - Past Family History Father Family Medical History: Cancer Additional Family Medical History / Comment(s): father had lymphoma. Mother Family Medical History: Dementia Additional Family Medical History / Comment(s): hyypoglycemia. Mother at age 92. Brother(s) Family Medical History: No Reported History Daughter(s) Family Medical History: No Reported History Son(s) Family Medical History: No Reported History General Exam - General Exam Comments Initial Comments: General: Appears uncomfortable in bed. HEAD: Normal with no signs of head trauma. EYES: PERRLA, EOMI, conjunctiva normal, no discharge. Pupils are 3 mm and equal bilaterally. ENT: Hearing grossly intact, normal oropharynx. Mucous membranes are somewhat dry. RESPIRATORY: Clear breath sounds bilaterally. No wheezes, rales, or rhonchi. C/V: Regular rate and rhythm. S1 and S2 auscultated, no edema, peripheral pulses 2+ and intact throughout ABD: Abdomen is soft, nondistended. Patient has generalized tenderness to palpation without any specific area. There is no rebound. No peritoneal signs. Patient's nephrostomy tube is draining without any acute signs of infection this time. EXT: Normal range of motion, no obvious deformity SKIN: No rashes or lesions observed on exposed skin. NEURO: Alert and oriented 2-3 at this time. Baseline is alert and oriented 3- 4. No focal sensory strength deficits. Neurological exam is difficult to complete due to the patient's refusal to cooperate. Limitations: no limitations Course Vital Signs 12/13/20 12/13/20 12/13/20 13:50 15:38 16:43 Temperature 99.0 F 97.9 F Pulse Rate 85 91 91 Respiratory 20 17 17 Rate Blood Pressure 137/63 169/83 144/77 O2 Sat by Pulse 98 98 100 Oximetry Medical Decision Making - Medical Decision Making Based on the patient's presentation and physical exam, I'm concerned for acute sepsis and the patient this time. Therefore patient will be immediately administered 1 L fluid bolus. Infectious workup will be obtained including blood cultures, lactic acid. We will obtain a urinalysis as well. Due to the patient's mild altered mental status we will obtain a CT head. She is on blood thinners but has no recent falls and has been off blood thinners for multiple days. However we will obtain a CT head. Abd-pelvis CT will also be ordered in addition to chest x-ray and repeat comatose. She'll be connected to continue his cardiac monitoring. EKG will also be obtained. Due to the patient's recent tavr, we will order an echo and have cardiology evaluate the patient as well. Patient's family was in agreement this plan. Patient's laboratory studies returned remarkable for a lactic acidosis of 4.5. Patient has an elevated BUN/creatinine of 39 and 2.05, which is improved from her prior visit but above baseline. Patient's urinalysis is remarkable for a UTI. COVID-19 swab was negative. Patient has a normocytic anemia with a he moglobin 10.5. There is no leukocytosis. Initial troponin is 0.021. EKG shows no signs of acute ischemia. Repeat troponin 0.054. Due to the patient's renal function, we cannot use contrast for imaging. Brain CT showed no signs of acute intracranial process. Chest x-ray shows no acute cardiopulmonary process. An and pelvis CAT scan revealed a right ureteral calculus measuring 8.[address] percutaneous nephrostomy tube on the right. Patient also has additional nonobstructing right-sided calculi. Patient is left-sided renal calculi as well. Left ovary also has some dilation. I spoke with the patient's family regarding these findings. Cefepime was initially ordered for the patient's UTI upon evaluating the prior culture, and I will add vancomycin at this time due to the lactic acid findings per patient already received 1 L fluid bolus and will receive an additional 300 mL at this time. I do not want to fluid overload the patient that this will allow us to reach the 20 mL per KG for acute sepsis. Repeat lactic acid is improved and within normal limits. I discussed with the patient's family that she is having was likely a septic stone versus pyelonephritis. Patient will be admitted to the hospital for evaluation by urology and continued management of her sepsis. Hemodynamically patient is remained stable throughout her stay. Patient's family was in agreem ent with this plan. I spoke with the urologist on-call, Dr. Negro, who agreed with the plan and will evaluate the patient. I spoke with the admitting physician, Dr. marie who accepted the patient. Due to the patient's second elevated troponin, I did speak with the on-call blackjack supervisor, Dr. Salazar over the phone who agreed to hold anticoagulation at this time. We will monitor troponin. It is like a secondary to her sepsis. Patient's echo results are still not back. They will evaluate the patient tomorrow. Patient was therefore admitted and serous condition to telemetry bed. - Lab Data Result diagrams: 12/13/20 14:27 12/13/20 14:27 Lab Results 12/13/20 12/13/20 12/13/20 Range/Units 14:27 14:27 14:27 WBC 9.8 (3.8-10.6) k/uL RBC 3.85 (3.80-5.40) m/uL Hgb 10.5 L (11.4-16.0) gm/dL Hct 32.7 L (34.0-46.0) % MCV 84.8 (80.0-100.0) fL MCH 27.2 (25.0-35.0) pg MCHC 32.1 (31.0-37.0) g/dL RDW 17.3 H (11.5-15.5) % Plt Count 305 (150-450) k/uL MPV 7.8 Neutrophils % 78 % Lymphocytes % 14 % Monocytes % 5 % Eosinophils % 0 % Basophils % 1 % Neutrophils # 7.6 (1.3-7.7) k/uL Lymphocytes # 1.4 (1.0-4.8) k/uL Monocytes # 0.5 (0-1.0) k/uL Eosinophils # 0.0 (0-0.7) k/uL Basophils # 0.1 (0-0.2) k/uL Hypochromasia Slight Poikilocytosis Slight Anisocytosis Slight PT 10.1 (9.0-12.0) sec INR 0.9 (<1.2) APTT 23.1 (22.0-30.0) sec Sodium (137-145) mmol/L Potassium (3.5-5.1) mmol/L Chloride (98-107) mmol/L Carbon Dioxide (22-30) mmol/L Anion Gap mmol/L BUN (7-17) mg/dL Creatinine (0.52-1.04) mg/dL Est GFR (CKD-EPI)AfAm (>60 ml/min/1.73 sqM) Est GFR (CKD-EPI)NonAf (>60 ml/min/1.73 sqM) Glucose (74-99) mg/dL Lactic Ac Sepsis Rflx Plasma Lactic Acid [place] (0.7-2.0) mmol/L Calcium (8.4-10.2) mg/dL Magnesium (1.6-2.3) mg/dL Total Bilirubin (0.2-1.3) mg/dL AST (14-36) U/L ALT (4-34) U/L Alkaline Phosphatase (38-126) U/L Ammonia (<30) umol/L Troponin I (0.000-0.034) ng/mL Total Protein (6.3-8.2) g/dL Albumin (3.5-5.0) g/dL Urine Color Yellow Urine Appearance Cloudy H (Clear) Urine pH 6.0 (5.0-8.0) Ur Specific [place] 1.016 (1.001-1.035) Urine Protein 2+ H (Negative) Urine Glucose (UA) Negative (Negative) Urine Ketones Trace H (Negative) Urine Blood Moderate H (Negative) Urine Nitrite Positive H (Negative) Urine Bilirubin Negative (Negative) Urine Urobilinogen <2.0 (<2.0) mg/dL Ur Leukocyte Esterase Large H (Negative) Urine RBC 87 H (0-5) /hpf Urine WBC 101 H (0-5) /hpf Urine WBC Clumps Few H (None) /hpf Urine Bacteria Few H (None) /hpf Urine Mucus Rare H (None) /hpf Coronavirus (PCR) (Not Detectd) 12/13/20 12/13/20 12/13/20 Range/Units 14:27 14:27 14:27 WBC (3.8-10.6) k/uL RBC (3.80-5.40) m/uL Hgb (11.4-16.0) gm/dL Hct (34.0-46.0) % MCV (80.0-100.0) fL MCH (25.0-35.0) pg MCHC (31.0-37.0) g/dL RDW (11.5-15.5) % Plt Count (150-450) k/uL MPV Neutrophils % % Lymphocytes % % Monocytes % % Eosinophils % % Basophils % % Neutrophils # (1.3-7.7) k/uL Lymphocytes # (1.0-4.8) k/uL Monocytes # (0-1.0) k/uL Eosinophils # (0-0.7) k/uL Basophils # (0-0.2) k/uL Hypochromasia Poikilocytosis Anisocytosis PT (9.0-12.0) sec INR (<1.2) APTT (22.0-30.0) sec Sodium 143 (137-145) mmol/L Potassium 5.1 (3.5-5.1) mmol/L Chloride 108 H (98-107) mmol/L Carbon Dioxide 19 L (22-30) mmol/L Anion Gap 16 mmol/L BUN 39 H (7-17) mg/dL Creatinine 2.05 H (0.52-1.04) mg/dL Est GFR (CKD-EPI)AfAm 25 (>60 ml/min/1.73 sqM) Est GFR (CKD-EPI)NonAf 22 (>60 ml/min/1.73 sqM) Glucose 132 H (74-99) mg/dL Lactic Ac Sepsis Rflx Plasma Lactic Acid [place] 4.5 H* (0.7-2.0) mmol/L Calcium 10.7 H (8.4-10.2) mg/dL Magnesium 2.4 H (1.6-2.3) mg/dL Total Bilirubin 0.4 (0.2-1.3) mg/dL AST 31 (14-36) U/L ALT 20 (4-34) U/L Alkaline Phosphatase 90 (38-126) U/L Ammonia <9 (<30) umol/L Troponin I 0.021 (0.000-0.034) ng/mL Total Protein 7.2 (6.3-8.2) g/dL Albumin 4.1 (3.5-5.0) g/dL Urine Color Urine Appearance (Clear) Urine pH (5.0-8.0) Ur Specific [place] (1.001-1.035) Urine Protein (Negative) Urine Glucose (UA) (Negative) Urine Ketones (Negative) Urine Blood (Negative) Urine Nitrite (Negative) Urine Bilirubin (Negative) Urine Urobilinogen (<2.0) mg/dL Ur Leukocyte Esterase (Negative) Urine RBC (0-5) /hpf Urine WBC (0-5) /hpf Urine WBC Clumps (None) /hpf Urine Bacteria (None) /hpf Urine Mucus (None) /hpf Coronavirus (PCR) (Not Detectd) 12/13/20 12/13/20 12/13/20 Range/Units 14:27 14:59 17:24 WBC (3.8-10.6) k/uL RBC (3.80-5.40) m/uL Hgb (11.4-16.0) gm/dL Hct (34.0-46.0) % MCV (80.0-100.0) fL MCH (25.0-35.0) pg MCHC (31.0-37.0) g/dL RDW (11.5-15.5) % Plt Count (150-450) k/uL MPV Neutrophils % % Lymphocytes % % Monocytes % % Eosinophils % % Basophils % % Neutrophils # (1.3-7.7) k/uL Lymphocytes # (1.0-4.8) k/uL Monocytes # (0-1.0) k/uL Eosinophils # (0-0.7) k/uL Basophils # (0-0.2) k/uL Hypochromasia Poikilocytosis Anisocytosis PT (9.0-12.0) sec INR (<1.2) APTT (22.0-30.0) sec Sodium (137-145) mmol/L Potassium (3.5-5.1) mmol/L Chloride (98-107) mmol/L Carbon Dioxide (22-30) mmol/L Anion Gap mmol/L BUN (7-17) mg/dL Creatinine (0.52-1.04) mg/dL Est GFR (CKD-EPI)AfAm (>60 ml/min/1.73 sqM) Est GFR (CKD-EPI)NonAf (>60 ml/min/1.73 sqM) Glucose (74-99) mg/dL Lactic Ac Sepsis Rflx Y Plasma Lactic Acid [place] 1.7 (0.7-2.0) mmol/L Calcium (8.4-10.2) mg/dL Magnesium (1.6-2.3) mg/dL Total Bilirubin (0.2-1.3) mg/dL AST (14-36) U/L ALT (4-34) U/L Alkaline Phosphatase (38-126) U/L Ammonia (<30) umol/L Troponin I (0.000-0.034) ng/mL Total Protein (6.3-8.2) g/dL Albumin (3.5-5.0) g/dL Urine Color Urine Appearance (Clear) Urine pH (5.0-8.0) Ur Specific [place] (1.001-1.035) Urine Protein (Negative) Urine Glucose (UA) (Negative) Urine Ketones (Negative) Urine Blood (Negative) Urine Nitrite (Negative) Urine Bilirubin (Negative) Urine Urobilinogen (<2.0) mg/dL Ur Leukocyte Esterase (Negative) Urine RBC (0-5) /hpf Urine WBC (0-5) /hpf Urine WBC Clumps (None) /hpf Urine Bacteria (None) /hpf Urine Mucus (None) /hpf Coronavirus (PCR) Not Detected (Not Detectd) - EKG Data -: EKG Interpreted by Me EKG Comments: 12-lead Electrocardiogram Interpretation Note EKG was reviewed and interpreted by myself. 12-lead ECG performed at 1428 is interpreted by me as revealing normal sinus rhythm at a rate of 87 beats per minute. Left axis deviation. AR interval is 120 ms, QRS duration is 103 ms, QTc is 536 seconds.. There were no ST or T wave abnormalities to suggest myocardial ischemia or injury. Patient appears to have a right bundle branch block.. By my interpretation this EKG is non-diagnostic for acute ischemia. Disposition Clinical Impression: Sepsis, UTI (urinary tract infection), Nephrolithiasis, S/P TAVR (transcatheter aortic valve replacement), Lactic acidosis, Metabolic acidosis, Dehydration, Elevated troponin Disposition: ADMITTED IP TO THIS HOSP Condition: Serious
[2020-12-13] MEDS: diphenhydrAMINE 25 MG CAP PO SCH (21:34)
[2020-12-13] MEDS: BACLOFEN 10 MG TAB PO SCH (21:35)
[2020-12-13] MEDS: HEPARIN SODIUM,PORCINE/PF 5,000 UNIT/0.5 ML SYRINGE SQ SCH (21:35)
[2020-12-13] MEDS: ONDANSETRON 4 MG/2 ML VIAL IVP PRN (21:46)
[2020-12-14 00:42] LABS: Glucose,Whole Blood 106 mg/dL (75-99)
[2020-12-14 06:01] LABS: Glucose,Whole Blood 92 mg/dL (75-99)
[2020-12-14 07:07] LABS: ALT 11 U/L (4-34); AST 25 U/L (14-36); African American GFR (CKD) 29 (>60 ml/min/1.73 sqM); Albumin 3.2 g/dL (3.5-5.0); Albumin/Globulin Ratio 1.1; Alkaline Phosphatase 64 U/L (38-126); Anion Gap 9 mmol/L; Blood Urea Nitrogen 34 mg/dL (7-17); Calcium 9.8 mg/dL (8.4-10.2); Carbon Dioxide 20 mmol/L (22-30); Chloride 113 mmol/L (98-107); Globulin 2.9 g/dL; Glucose 85 mg/dL (74-99); Non-African American GFR(CKD) 25 (>60 ml/min/1.73 sqM); Potassium 4.2 mmol/L (3.5-5.1); Sodium 142 mmol/L (137-145); Total Bilirubin 0.2 mg/dL (0.2-1.3); Total Protein 6.1 g/dL (6.3-8.2)
[2020-12-14] MEDS: METOPROLOL SUCCINATE (ER) 25 MG TAB.ER.24H PO SCH (08:40)
[2020-12-14] MEDS: PANTOPRAZOLE 40 MG TABLET PO SCH (08:41)
[2020-12-14] MEDS: HEPARIN SODIUM,PORCINE/PF 5,000 UNIT/0.5 ML SYRINGE SQ SCH ×2 (08:41→21:03)
[2020-12-14] MEDS: TAMSULOSIN 0.4 MG CAP.ER.24H PO SCH (08:41)
[2020-12-14] MEDS: CEFEPIME 1 GM in SODIUM CHLORIDE 0.9% 50 ML IVPB SCH (09:18)
--- NOTE | 2020-12-14 10:14 | P.CRDCN ---
History of Present Illness History of present illness: HISTORY OF PRESENTING ILLNESS This is a pleasant 85-year-old past medical history significant for valvular heart disease s/p TAVR October 2020, hypertension, b/l renal stones with right nephrostomy secondary to obstruction, paroxysmal atrial fibrillation on eliquis and arthritis. She follows in the office with Dr. Luna. We have been asked to see in consultation for elevated troponin. It is unclear why troponin levels were obtained. She presented to the hospital with symptoms of confusion and UTI. She was apparently diagnosed with a UTI in the outpatient setting and has been started on antibiotics. She developed some nausea/vomiting and was unable to tolerate the pills. She is seen and examined sitting up in bed in no acute distress. She denies chest pain, shortness of breath, dizziness or palpitations. She continues to be somewhat confused at baseline regarding some things but does remember that she had her valve replaced at [facility] one month ago. She states that while she was hospitalized at [facility] for her valve replacement she had afib on the last day of her admission and was started on eliquis. DIAGNOSTICS EKG reveals sinus mechanism, left axis deviation and right bundle branch block with no ischemic changes. Chest xray negative for any acute cardiopulmonary process. CT of the abdomen and pelvis reveals a proximal right ureteral calculus, right sided nephrostomy in place, mild fullness of the right renal collecting system, left-sided renal calculus and masslike fullness of the left ovary. Laboratory reviewed, WBC 9.8, hemoglobin 10.5, platelets 305, sodium 143, potassium 5.1, creatinine 2.05, lactic acid on admission 4. 5 repeat after hydration 1.7, magnesium 2.4, troponin 0.021, 0.054 and 0.097. Current cardiac medications include eliquis, lisiopirl 2.5 mg daily and toprol 12.5 mg daily. REVIEW OF SYSTEMS At the time of my exam: CONSTITUTIONAL: Denies fever or chills. CARDIOVASCULAR: Denies chest pain, shortness of breath, orthopnea, PND or palpitations. RESPIRATORY: Denies cough. GASTROINTESTINAL: Denies abdominal pain, diarrhea, constipation, nausea or vomiting. MUSCULOSKELETAL: Denies myalgias. NEUROLOGIC: Denies numbness, tingling, headache or weakness. ENDOCRINE: Denies fatigue, weight change, polydipsia or polyurina. GENITOURINARY: Denies burning, hematuria or urgency with micturation. HEMATOLOGIC: Denies history of anemia or bleeding. PHYSICAL EXAMINATION Blood pressure 125/70 heart rate 71 afebrile and maintaining oxygen saturation on room air. CONSTITUTIONAL: No apparent distress. HEENT: Head is normocephalic. Pupils are equal, round. Sclerae anicteric. Mucous membranes of the mouth are moist. No JVD. No carotid bruit. CHEST EXAMINATION: Lungs are clear to auscultation. No chest wall tenderness is noted on palpation or with deep breathing. HEART EXAMINATION: Regular rate and rhythm. S1, S2 heard. Systolic ejection murmur at the base, no gallops or rub. ABDOMEN: Soft, nontender. EXTREMITIES: 2+ peripheral pulses, no lower extremity edema and no calf tenderness. NEUROLOGIC EXAMINATION: Patient is awake, alert and oriented x3. ASSESSMENT Urinary tract infection Altered mental status Lactic acidosis Valvular heart disease s/p TAVR Paroxysmal atrial fibrillation on eliquis, currently in SR Hypertension History of frequent renal stones with obstruction s/p nephrosoty tube placement and stent placement PLAN Clinically the patient is having symptoms of angina. She had a catheterization prior to valve replacement surgery as part of pre-operative work-up that was normal. No intervention from a cardiac perspective. We will follow along as needed, follow up with Dr. Luna upon discharge. Thank you kindly for this consultation. Nurse Practitioner note has been reviewed, I agree with a documented findings and plan of care. Patient was seen and examined. Past Medical History Past Medical History: Hyperlipidemia, Hypertension, Musculoskeletal Disorder, Osteoarthritis (OA), Renal Disease, Thyroid Disorder Additional Past Medical History / Comment(s): 2--16 admitted with lt wrist septic arthritis. Other HX: heart murmur, renal calculi, goiters, R foot 3rd toe has a sore which is being tx by Dr. velasquez. pt goes to [facility] every saturday-this has been a problem for quite some time now, hx of L foot 4th toe sore which was tx by Dr. Velasquez and is healed. History of Any Multi-Drug Resistant Organisms: None Reported Past Surgical History: Adenoidectomy, Joint Replacement, Orthopedic Surgery, Tonsillectomy Additional Past Surgical History / Comment(s): Total L knee, 1996 lithrotripsy, 1942 tonsillectomy, oophorectomy with salpingectomy due to cyst-pt does not know which side, bilateral carpal tunnel release.12-27-14 i&d lt wrist, 12-28-14 kimberlyn(mod aortic stensois w/ mild aortic and tricuspid regurgitation. had lt arm picc line for ab,since removed Past Anesthesia/Blood Transfusion Reactions: No Reported Reaction Additional Past Anesthesia/Blood Transfusion Reaction / Comment(s): Pt has never recieved blood. Past Psychological History: No Psychological Hx Reported Past Alcohol Use History: None Reported Past Drug Use History: None Reported - Past Family History Father Family Medical History: Cancer Additional Family Medical History / Comment(s): father had lymphoma. Mother Family Medical History: Dementia Additional Family Medical History / Comment(s): hyypoglycemia. Mother at age 92. Brother(s) Family Medical History: No Reported History Daughter(s) Family Medical History: No Reported History Son(s) Family Medical History: No Reported History Medications and Allergies Home Medications Medication Instructions Recorded Confirmed Type Baclofen [Lioresal] 10 mg PO HS 05/22/15 12/13/20 History diphenhydrAMINE HCL [Benadryl] 50 mg PO HS 09/13/20 12/13/20 History Furosemide [Lasix] 20 mg PO DAILY 09/15/20 12/13/20 History Apixaban [Eliquis] 5 mg PO DIRECTED 12/13/20 12/13/20 History Levofloxacin [Levaquin] 250 mg PO DAILY 12/13/20 12/13/20 History Metoprolol Succinate [Toprol XL] 12.5 mg PO DAILY 12/13/20 12/13/20 History lisinopriL [Zestril] 2.5 mg PO DAILY 12/13/20 12/13/20 History Allergies Allergy/AdvReac Type Severity Reaction Status Date / Time shellfish derived [Shellfish] Allergy Anaphylaxis Verified 12/13/20 16:07 hydromorphone HCl AdvReac Severe Nausea Verified 12/13/20 16:07 [From Dilaudid] acetaminophen [From [place]] AdvReac Unknown Verified 12/13/20 16:07 codeine AdvReac Nausea Verified 12/13/20 16:07 hydrocodone bitartrate AdvReac Unknown Verified 12/13/20 16:07 [From [place]] morphine AdvReac Itching Verified 12/13/20 16:07 prednisone AdvReac Nausea Verified 12/13/20 16:07 tramadol HCl [From Ultram] AdvReac Nausea & Verified 12/13/20 16:07 Vomiting Physical Exam Vitals: Vital Signs Temp Pulse Resp BP Pulse Ox 12/14/20 06:00 98.5 F 102 H 18 125/70 97 12/14/20 04:30 16 L 12/14/20 03:15 16 12/14/20 01:30 16 12/14/20 00:26 97.8 F 71 16 108/73 97 12/13/20 16:43 91 17 144/77 100 12/13/20 15:38 97.9 F 91 17 169/83 98 12/13/20 13:50 99.0 F 85 20 137/63 98 Results 12/13/20 14:27 12/14/20 06:14 Cardiac Enzymes 12/13/20 12/13/20 12/13/20 Range/Units 14:27 14:27 19:13 AST 31 (14-36) U/L Troponin I 0.021 0.054 H* (0.000-0.034) ng/mL 12/13/20 12/14/20 Range/Units 21:27 06:14 AST 25 (14-36) U/L Troponin I 0.097 H* (0.000-0.034) ng/mL Coagulation 12/13/20 Range/Units 14:27 PT 10.1 (9.0-12.0) sec APTT 23.1 (22.0-30.0) sec CBC 12/13/20 Range/Units 14:27 WBC 9.8 (3.8-10.6) k/uL RBC 3.85 (3.80-5.40) m/uL Hgb 10.5 L (11.4-16.0) gm/dL Hct 32.7 L (34.0-46.0) % Plt Count 305 (150-450) k/uL Comprehensive Metabolic Panel 12/13/20 12/14/20 Range/Units 14:27 06:14 Sodium 143 142 (137-145) mmol/L Potassium 5.1 4.2 (3.5-5.1) mmol/L Chloride 108 H 113 H (98-107) mmol/L Carbon Dioxide 19 L 20 L (22-30) mmol/L BUN 39 H 34 H (7-17) mg/dL Creatinine 2.05 H 1.85 H (0.52-1.04) mg/dL Glucose 132 H 85 (74-99) mg/dL Calcium 10.7 H 9.8 (8.4-10.2) mg/dL AST 31 25 (14-36) U/L ALT 20 11 (4-34) U/L Alkaline Phosphatase 90 64 (38-126) U/L Total Protein 7.2 6.1 L (6.3-8.2) g/dL Albumin 4.1 3.2 L (3.5-5.0) g/dL Current Medications Generic Name Dose Route Start Last Admin Trade Name Freq PRN Reason Stop Dose Admin Acetaminophen 650 mg 12/13/20 17:26 Acetaminophen Tab 325 Mg Tab PO Q6HR PRN Mild Pain or Fever > 100.5 Baclofen 10 mg 12/13/20 21:00 12/13/20 21:35 Baclofen 10 Mg Tab PO 10 mg HS [place] Administration Diphenhydramine HCl 25 mg 12/13/20 21:30 12/13/20 21:34 Diphenhydramine 25 Mg Cap PO 25 mg HS [place] Administration Heparin Sodium (Porcine) 5,000 unit 12/13/20 21:00 12/14/20 08:41 Heparin Sodium,Porcine/Pf 5,000 Unit/0.5 Ml Syringe SQ 5,000 unit Q12HR [place] Administration Vancomycin HCl 1,250 mg/ 250 mls @ 125 mls/hr 12/14/20 17:00 Sodium Chloride IVPB Q36H [place]A Cefepime HCl 1 gm/ Sodium 50 mls @ 12.5 mls/hr 12/14/20 09:00 Chloride IVPB DAILY [place] Lisinopril 2.5 mg 12/14/20 09:00 12/14/20 08:41 Lisinopril 2.5 Mg Tab PO 2.5 mg DAILY [place] Administration Metoprolol Succinate 12.5 mg 12/14/20 09:00 12/14/20 08:40 Metoprolol Succinate (Er) 25 Mg Tab.Er.24h PO 12.5 mg DAILY [place] Administration Naloxone HCl 0.2 mg 12/13/20 17:26 Naloxone 0.4 Mg/Ml 1 Ml Vial IV Q2M PRN Opioid Reversal Ondansetron HCl 4 mg 12/13/20 21:46 12/13/20 21:46 Ondansetron 4 Mg/2 Ml Vial IVP 4 mg Q6HR PRN Administration Nausea And Vomiting Pantoprazole Sodium 40 mg 12/14/20 07:30 12/14/20 08:41 Pantoprazole 40 Mg Tablet PO 40 mg [id number] [place] Administration Tamsulosin HCl 0.4 mg 12/14/20 08:30 12/14/20 08:41 Tamsulosin 0.4 Mg Cap.Er.24h PO 0.4 mg [id number] [place] Administration 12/13/20 14:27 12/14/20 06:14
[2020-12-14 10:57] LABS: HCT 27.2 % (37.2-46.3); HGB 8.4 g/dL (12.0-15.0); MCHC 30.9 g/dL (32.0-37.0); MCV 84.2 fL (80.0-97.0); Mean Platelet Volume 10.5 fL (9.5-12.2); Platelet Count 245 X 10*3/uL (140-440); RBC 3.23 X 10*6/uL (4.10-5.20); RDW 17.1 % (11.5-14.5); WBC 8.07 X 10*3/uL (4.50-10.00)
--- NOTE | 2020-12-14 10:57 | ECHOF ---
Referral Reason:recent valve replacement, concern for sepsis. MEASUREMENTS -------- HEIGHT: 170.2 cm WEIGHT: 64.4 kg BP: 137/63 IVSd: 1.4 cm (0.6 - 1.1) LVIDd: 4.0 cm (3.9 - 5.3) LVPWd: 1.5 cm (0.6 - 1.1) EDV(Teich): 70 ml IVSs: 1.9 cm LVIDs: 2.9 cm LVPWs: 1.9 cm %IVS Thck: 32 % ESV(Teich): 33 ml EF(Teich): 53 % %FS: 27 % SV(Teich): 37 ml LVOT Diam: 2.1 cm LA Diam: 3.5 cm (2.7 - 3.8) RVIDd: 3.0 cm (< 3.3) LALs A4C: 6.5 cm LAAs A4C: 22.4 cm LAESV A-L A4C: 65 ml LAESV MOD A4C: 63 ml LALs A2C: 6.4 cm LAAs A2C: 21.7 cm LAESV A-L A2C: 63 ml LAESV MOD A2C: 60 ml LAESV(A-L): 65 ml LAESV Index (A-L): 37.06 ml/m Ao Diam: 3.4 cm (2.0 - 3.7) EPSS: 1.1 cm MV E Ruel: 1.72 m/s MV DecT: 312 ms MV Dec [place]: 5.5 m/s MV A Ruel: 2.37 m/s MV E/A Ratio: 0.73 MV PHT: 90 ms MV PHT: 88 ms MVA By PHT: 2.5 cm MV Vmax: 2.71 m/s MV Vmean: 1.67 m/s MV maxP.28 mmHg MV meanP.62 mmHg MV VTI: 54.0 cm MVA (VTI): 2.2 cm LVOT Vmax: 1.87 m/s LVOT maxP.92 mmHg LVOT Vmax: 1.90 m/s LVOT Vmean: 1.11 m/s LVOT maxP.43 mmHg LVOT meanP.17 mmHg LVOT Env.Ti: 303 ms LVOT VTI: 33.6 cm AV Vmax: 1.91 m/s AV maxP.74 mmHg KIA Vmax, Pt: 3.5 cm KIA Vmax: 3.5 cm AV Vmax: 2.00 m/s AV Vmean: 1.25 m/s AV maxP.13 mmHg AV meanP.30 mmHg AV Env.Ti: 294 ms AV VTI: 36.9 cm KIA Vmax: 3.4 cm KIA (VTI): 3.2 cm KIA Vmax, Pt: 3.3 cm AR Vmax: 4.14 m/s AR maxP.51 mmHg AR PHT: 466 ms AR Dec Time: 1606 ms AR Dec [place]: 2.6 m/s TR Vmax: 3.03 m/s TR maxP.61 mmHg RAP: 5.00 mmHg RVSP: 41.61 mmHg TV PHT: 97 ms TVA: 2.3 cm MV EF SLOPE: 5.67 mm/s (70 - 150) MV EXCURSION: 11.71 mm (> 18.000) FINDINGS -------- Sinus rhythm. This was a technically good study. The left ventricular size is normal. There is moderate concentric left ventricular hypertrophy. O verall left ventricular systolic function is normal with, an EF between 60 - 65 %. The right ventricle is normal in size. LA is moderately dilated 34-39 ml/m2 The right atrium is normal in size. Interatrial and interventricular septum intact. Peak/mean gradient across the Aortic Valve is 16.13mmHg / 7.30mmHg. Normally functioning bioprosthe tic valve. There is mild regurgitation of the bioprosthetic aortic valve. There is trivial maurice-p rosthetic regurgitation of the bioprosthetic aortic valve. The mitral valve leaflets are moderately thickened. Moderate mitral annular calcification present. Moderate mitral regurgitation is present. The peak and mean MV gradients are 29.28mmHg 12.62mmHg as measured by doppler. Fucxcjgs-[id number]-lcbrmx mitral stenosis. Mild tricuspid regurgitation present. There is mild pulmonary hypertension. The right ventricular systolic pressure, as measured by Doppler, is 41.61mmHg. Trace/mild (physiologic) pulmonic regurgitation. The aortic root size is normal. Normal inferior vena cava with normal inspiratory collapse consistent with estimated right atrial pre ssure of 5 mmHg. There is no pericardial effusion. CONCLUSIONS -------- 1. The left ventricular size is normal. 2. There is moderate concentric left ventricular hypertrophy. 3. Overall left ventricular systolic function is normal with, an EF between 60 - 65 %. 4. LA is moderately dilated 34-39 ml/m2 5. Peak/mean gradient across the Aortic Valve is 16.13mmHg / 7.30mmHg. 6. Normally functioning bioprosthetic valve. 7. There is mild regurgitation of the bioprosthetic aortic valve. 8. There is trivial maurice-prosthetic regurgitation of the bioprosthetic aortic valve. 9. The mitral valve leaflets are moderately thickened. 10. Moderate mitral annular calcification present. 11. Moderate mitral regurgitation is present. 12. The peak and mean MV gradients are 29.28mmHg 12.62mmHg as measured by doppler. 13. Iutmlhrq-ki-kowlmz mitral stenosis. 14. Mild tricuspid regurgitation present. 15. There is mild pulmonary hypertension. 16. The right ventricular systolic pressure, as measured by Doppler, is 41.61mmHg. 17. Trace/mild (physiologic) pulmonic regurgitation. 18. There is no pericardial effusion. [employer] MANAGER: Kindra Coleman RDCS
--- NOTE | 2020-12-14 12:43 | P.GSCN ---
History of Present Illness Consult date: 12/14/20 Reason for Consult: UTI, Urinary calculi Requesting physician: Isreal Parra History of present illness: The patikelsi is an 85-year-old female history of a 1 cm right-sided UPJ stone. She she has history of severe shortness of breath secondary to aortic stenosis, and the stone was seen at the time of evaluation for her valve replacement. It was decided that she would undergo right ureteral stent placement with definit kumar treatment of the stone following valve replacement. However, the right proximal ureteral calculus was found to be impacted and minimal contrast passed beyond the calculus. A right ureteral stent could not be placed, but a left retrograde pyelogram revealed a right midureteral stricture and a filling defect proximal to this consistent with a stone. A left ureteral stent was placed, and she subsequently underwent placement of a right percutaneous nephrostomy tube. These procedures were performed in early September, and she underwent a TAVR procedure 1 month ago. She now presents with confusion and UTI symptoms. She was started on oral antibiotics but could not tolerate them due to nausea and vomiting. She is currently receiving Vancomycin and Cefepime and feeling much better. Review of Systems - Constitutional Denies fever - Cardiovascular Denies chest pain - Respiratory Denies dyspnea - Gastrointestinal Reports nausea, Reports vomiting - Psychiatric Reports confusion Past Medical History Past Medical History: Hyperlipidemia, Hypertension, Musculoskeletal Disorder, Osteoarthritis (OA), Renal Disease, Thyroid Disorder Additional Past Medical History / Comment(s): 05-17-15 admitted with lt wrist septic arthritis. Other HX: heart murmur, renal calculi, goiters, R foot 3rd toe has a sore which is being tx by Dr. siegel. pt goes to [facility] every saturday-this has been a problem for quite some time now, hx of L foot 4th toe sore which was tx by Dr. Siegel and is healed. History of Any Multi-Drug Resistant Organisms: None Reported Past Surgical History: Adenoidectomy, Joint Replacement, Orthopedic Surgery, Ton sillectomy Additional Past Surgical History / Comment(s): Total L knee, 1996 lithrotripsy, 1942 tonsillectomy, oophorectomy with salpingectomy due to cyst-pt does not know which side, bilateral carpal tunnel release.12-27-14 i&d lt wrist, 12-28-14 [place](mod aortic stensois w/ mild aortic and tricuspid regurgitation. had lt arm picc line for ab,since removed Past Anesthesia/Blood Transfusion Reactions: No Reported Reaction Additional Past Anesthesia/Blood Transfusion Reaction / Comm: Pt has never recieved blood. Past Psychological History: No Psychological Hx Reported Past Alcohol Use History: None Reported Past Drug Use History: None Reported - Past Family History Father Family Medical History: Cancer Additional Family Medical History / Comment(s): father had lymphoma. Mother Family Medical History: Dementia Additional Family Medical History / Comment(s): hyypoglycemia. Mother at age 92. Brother(s) Family Medical History: No Reported History Daughter(s) Family Medical History: No Reported History Son(s) Family Medical History: No Reported History Medications and Allergies Home Medications Medication Instructions Recorded Confirmed Type Baclofen [Lioresal] 10 mg PO HS 05/22/15 12/13/20 History diphenhydrAMINE HCL [Benadryl] 50 mg PO HS 09/13/20 12/13/20 History Furosemide [Lasix] 20 mg PO DAILY 09/15/20 12/13/20 History Apixaban [Eliquis] 5 mg PO DIRECTED 12/13/20 12/13/20 History Levofloxacin [Levaquin] 250 mg PO DAILY 12/13/20 12/13/20 History Metoprolol Succinate [Toprol XL] 12.5 mg PO DAILY 12/13/20 12/13/20 History lisinopriL [Zestril] 2.5 mg PO DAILY 12/13/20 12/13/20 History Allergies Allergy/AdvReac Type Severity Reaction Status Date / Time shellfish derived [Shellfish] Allergy Anaphylaxis Verified 12/13/20 16:07 hydromorphone HCl AdvReac Severe Nausea Verified 12/13/20 16:07 [From Dilaudid] acetaminophen [From [place]] AdvReac Unknown Verified 12/13/20 16:07 codeine AdvReac Nausea Verified 12/13/20 16:07 hydrocodone bitartrate AdvReac Unknown Verified 12/13/20 16:07 [From [place]] morphine AdvReac Itching Verified 12/13/20 16:07 prednisone AdvReac Nausea Verified 12/13/20 16:07 tramadol HCl [From Ultram] AdvReac Nausea & Verified 12/13/20 16:07 Vomiting Surgical - Exam Vital Signs Temp Pulse Resp BP Pulse Ox 99.0 F 85 20 137/63 98 12/13/20 13:50 12/13/20 13:50 12/13/20 13:50 12/13/20 13:50 12/13/20 13:50 - General well developed, well nourished, no distress - Respiratory normal respiratory effort - Abdomen Abdomen: soft, non tender, no guarding, no rigid, no rebound - Psychiatric oriented to time, oriented to person, oriented to place, speech is normal, memory intact Results - Labs 12/14/20 06:14 12/14/20 06:14 Abnormal Lab Results - Last 24 Hours (Table) 12/13/20 12/13/20 12/13/20 Range/Units 14:27 14:27 14:27 Hgb 10.5 L (11.4-16.0) gm/dL Hct 32.7 L (34.0-46.0) % RDW 17.3 H (11.5-15.5) % Chloride 108 H (98-107) mmol/L Carbon Dioxide 19 L (22-30) mmol/L BUN 39 H (7-17) mg/dL Creatinine 2.05 H (0.52-1.04) mg/dL Glucose 132 H (74-99) mg/dL POC Glucose (mg/dL) (75-99) mg/dL Plasma Lactic Acid [place] (0.7-2.0) mmol/L Calcium 10.7 H (8.4-10.2) mg/dL Magnesium 2.4 H (1.6-2.3) mg/dL Troponin I (0.000-0.034) ng/mL Urine Appearance Cloudy H (Clear) Urine Protein 2+ H (Negative) Urine Ketones Trace H (Negative) Urine Blood Moderate H (Negative) Urine Nitrite Positive H (Negative) Ur Leukocyte Esterase Large H (Negative) Urine RBC 87 H (0-5) /hpf Urine WBC 101 H (0-5) /hpf Urine WBC Clumps Few H (None) /hpf Urine Bacteria Few H (None) /hpf Urine Mucus Rare H (None) /hpf 12/13/20 12/13/20 12/13/20 Range/Units 14:27 19:13 21:27 Hgb (11.4-16.0) gm/dL Hct (34.0-46.0) % RDW (11.5-15.5) % Chloride (98-107) mmol/L Carbon Dioxide (22-30) mmol/L BUN (7-17) mg/dL Creatinine (0.52-1.04) mg/dL Glucose (74-99) mg/dL POC Glucose (mg/dL) (75-99) mg/dL Plasma Lactic Acid [place] 4.5 H* (0.7-2.0) mmol/L Calcium (8.4-10.2) mg/dL Magnesium (1.6-2.3) mg/dL Troponin I 0.054 H* 0.097 H* (0.000-0.034) ng/mL Urine Appearance (Clear) Urine Protein (Negative) Urine Ketones (Negative) Urine Blood (Negative) Urine Nitrite (Negative) Ur Leukocyte Esterase (Negative) Urine RBC (0-5) /hpf Urine WBC (0-5) /hpf Urine WBC Clumps (None) /hpf Urine Bacteria (None) /hpf Urine Mucus (None) /hpf 12/14/20 Range/Units 00:32 Hgb (11.4-16.0) gm/dL Hct (34.0-46.0) % RDW (11.5-15.5) % Chloride (98-107) mmol/L Carbon Dioxide (22-30) mmol/L BUN (7-17) mg/dL Creatinine (0.52-1.04) mg/dL Glucose (74-99) mg/dL POC Glucose (mg/dL) 106 H (75-99) mg/dL Plasma Lactic Acid [place] (0.7-2.0) mmol/L Calcium (8.4-10.2) mg/dL Magnesium (1.6-2.3) mg/dL Troponin I (0.000-0.034) ng/mL Urine Appearance (Clear) Urine Protein (Negative) Urine Ketones (Negative) Urine Blood (Negative) Urine Nitrite (Negative) Ur Leukocyte Esterase (Negative) Urine RBC (0-5) /hpf Urine WBC (0-5) /hpf Urine WBC Clumps (None) /hpf Urine Bacteria (None) /hpf Urine Mucus (None) /hpf Microbiology - Last 24 Hours (Table) 12/13/20 14:27 Urine Culture - Preliminary Urine,Voided Diabetes panel 12/13/20 Range/Units 14:27 Sodium 143 (137-145) mmol/L Potassium 5.1 (3.5-5.1) mmol/L Chloride 108 H (98-107) mmol/L Carbon Dioxide 19 L (22-30) mmol/L BUN 39 H (7-17) mg/dL Creatinine 2.05 H (0.52-1.04) mg/dL Glucose 132 H (74-99) mg/dL Calcium 10.7 H (8.4-10.2) mg/dL AST 31 (14-36) U/L ALT 20 (4-34) U/L Alkaline Phosphatase 90 (38-126) U/L Total Protein 7.2 (6.3-8.2) g/dL Albumin 4.1 (3.5-5.0) g/dL Calcium panel 12/13/20 Range/Units 14:27 Calcium 10.7 H (8.4-10.2) mg/dL Albumin 4.1 (3.5-5.0) g/dL Pituitary panel 12/13/20 Range/Units 14:27 Sodium 143 (137-145) mmol/L Potassium 5.1 (3.5-5.1) mmol/L Chloride 108 H (98-107) mmol/L Carbon Dioxide 19 L (22-30) mmol/L BUN 39 H (7-17) mg/dL Creatinine 2.05 H (0.52-1.04) mg/dL Glucose 132 H (74-99) mg/dL Calcium 10.7 H (8.4-10.2) mg/dL Adrenal panel 12/13/20 Range/Units 14:27 Sodium 143 (137-145) mmol/L Potassium 5.1 (3.5-5.1) mmol/L Chloride 108 H (98-107) mmol/L Carbon Dioxide 19 L (22-30) mmol/L BUN 39 H (7-17) mg/dL Creatinine 2.05 H (0.52-1.04) mg/dL Glucose 132 H (74-99) mg/dL Calcium 10.7 H (8.4-10.2) mg/dL Total Bilirubin 0.4 (0.2-1.3) mg/dL AST 31 (14-36) U/L ALT 20 (4-34) U/L Alkaline Phosphatase 90 (38-126) U/L Total Protein 7.2 (6.3-8.2) g/dL Albumin 4.1 (3.5-5.0) g/dL - Imaging CT scan - abdomen: report reviewed, image reviewed Assessment and Plan (1) Nephrolithiasis Current Visit: Yes Status: Acute Code(s): N20.0 - CALCULUS OF KIDNEY SNOMED Code(s): 76905757 (2) Calculus of ureter Current Visit: Yes Status: Acute Code(s): N20.1 - CALCULUS OF URETER SNOMED Code(s): 41235438 (3) Hydronephrosis with renal and ureteral calculous obstruction Current Visit: Yes Status: Acute Code(s): N13.2 - HYDRONEPHROSIS WITH RENAL AND URETERAL CALCULOUS OBSTRUCTION SNOMED Code(s): 124124577 (4) UTI (urinary tract infection) Current Visit: Yes Status: Acute Code(s): N39.0 - URINARY TRACT INFECTION, SITE NOT SPECIFIED SNOMED Code(s): 15101284 Plan: Continue IV antibiotics, pending urine culture result. Dr. Calderon is in the process of scheduling the patient for endoscopic removal of her calculi, likely in the next 1-2 weeks. She should remain on antibiotics in the meantime. Time with Patient: Greater than 30
--- NOTE | 2020-12-14 13:42 | P.HPIM ---
History of Present Illness H&P Date: 12/14/20 HISTORY OF PRESENT ILLNESS This is an 85-year-old female patient of Dr. Nish Ashley and Dr. Luna with past medical history of hypertension and hypertensive cardiovascular disease, hyperlipidemia, valvular heart disease status post TAVR October 2020 at [facility], paroxysmal atrial fibrillation on eliquis, right percutaneous nephrostomy tube secondary to bilateral ureteral calculi fmanagedby Dr. Calderon, generalized osteoarthritis, osteoporosis, goiter. Patient was recently started on Levaquin for acute urinary tract infection but developed nausea and vomiting, abdominal discomfort, confusion and generalized weakness which continued to worsen until patient was so weak she was not able to ambulate. Patient states that she has chronic hematuria but for the past Saturday and Saturday she did not have any blood in her urine. Patient also states that her memory was bad over the weekend but seems to be improved at the time of evaluation. Patient came into [facility] emergency center for evaluation and found to be afebrile, heart rate 85, blood pressure 137/63, pulse ox 98% on room air. WBC 9.8, WBC 10.5, platelet count 305. Sodium 143, potassium 5.1, chloride 108, CO2 19, BUN 39 and creatinine 2.05. Blood sugar 132. Urinalysis cloudy, blood moderate, nitrate positive, leukoesterase large, RBCs 87, WBC is 101, bacteria few. Lactic acid 4.5 and repeat 1.7. Liver function tests were normal. Ammonia level less than 9. Troponin 0.021, 0.054, 0.097. COVID-[address] of the" pelvis without contrast revealed proximal right ureteral calculus measuring 8.7 mm. Right-sided percutaneous nephrostomy tube in place. Mild fullness of the right renal collecting system. Right-sided nonobstructing calculi. Left-sided renal calculi. Masslike fullness in the left ovary consider ultrasound. CAT scan of the brain revealed age-related atrophy and chronic small vessel ischemic change without acute intracranial process. Chest x-ray reveals no acute pulmonary process. Echocardiogram reveals EF of 60-65%, moderate concentric left ventricular hypertrophy, normally functioning bioprosthetic valve, moderate mitral regurgitation, moderate to severe mitral stenosis, mild tricuspid regurgitation, mild pulmonary hypertension, RVSP 41.61 mmHg. Patient was seen in consultation by urology with her medications to continue IV antibiotics. Patient was scheduled for endoscopic removal of calculi on 12/16 but is rescheduled most likely in 1-2 weeks. Patient was seen by cardiology for elevated troponins and no intervention is necessary and plan for follow-up with Dr. Luna after discharge. Patient admitted [facility] floor with cardiac monitoring. Consult has been admitted for Dr. Montesinos and patient maintained on cefepime and vancomycin for now. REVIEW OF SYSTEMS Constitutional: No fever, no chills, no night sweats. No weight change. Reports weakness, Reports fatigue Reports lethargy. No daytime sleepiness. EENT: No headache. No blurred vision or double vision, no loss of vision. No loss of Hearing, no ringing in the ears, no dizziness. No nasal drainage or congestion. No epistaxis. No sore throat. Lungs: No shortness of breath, cough, no sputum production. No wheezing. Cardiovascular: No chest pain, no lower extremity edema. No palpitations. No paroxysmal nocturnal dyspnea. No orthopnea. No lightheadedness or dizziness. No syncopal episodes. Abdominal: Reports abdominal pain. Reports nausea, vomiting. No diarrhea. No constipation. No bloody or tarry stools. Reports loss of appetite. Genitourinary: No dysuria, increased frequency, urgency. No urinary retention. Musculoskeletal: No myalgias. Reports muscle weakness, Reports gait dysfunction, no frequent falls. No back pain. No neck pain. Integumentary: No wounds, no lesions. No rash or pruritus. No unusual bruising. No change in hair or nails. Neurologic: No aphasia. No facial droop. Reports change in mentation. No head injury. No headache. No paralysis. No paresthesia. Psychiatric: No depression. No anxiety. No mood swings. Endocrine: No abnormal blood sugars. No weight change. SOCIAL HISTORY Patient is a lifelong nonsmoker, no alcohol use, no illicit drug use, no marijuana use. Patient is and lives at home with her . She is a retired teacher. FAMILY HISTORY Father at age 84 from lymphoma. Mother at age 92 from dementia with history of hypoglycemia. Patient has 3 brothers and one is and patient does not know underlying cause. Patient is to brothers still living with no major medical problems. Patient does not have any sisters. She has 6 children, 4 daughters and 2 sons with no major medical problems. PHYSICAL EXAMINATION Gen: This is an 85-year-old female. Patient is resting in the ER stretcher and appears to be comfortable at rest. Patient appears somewhat anxious. HEENT: Head is atraumatic, normocephalic. Pupils equal, round. Sclerae is anicteric. NECK: Supple. No JVD. No lymphadenopathy. No thyromegaly. LUNGS: Clear to auscultation. No wheezes or rhonchi. No intercostal retractions. HEART: Regular rate and rhythm. Systolic urmur. ABDOMEN: Soft. Bowel sounds are present. No masses. No tenderness. Right-sided percutaneous nephrostomy tube. EXTREMITIES: No pedal edema. No calf tenderness. NEUROLOGICAL: Patient is awake, alert and oriented x3. Cranial nerves 2 through 12 are grossly intact. ASSESSMENT AND PLAN 1. Acute urinary tract infection, failed outpatient treatment. Patient started on cefepime and vancomycin, consult with Dr. Montesinos, urine culture, blood cultures. 2. Acute sepsis with UTI and mental status changes. Continue plan as above. 3. Metabolic encephalopathy secondary to sepsis, improved 4. Bilateral ureteral calculi status post right percutaneous nephrostomy tube. Consult with urology appreciated. Continue Flomax 0.4 mg daily. 5. Elevated troponin, acute coronary syndrome ruled out by cardiology. Patient have follow-up with Dr. Luna after discharge. 6. Aortic stenosis status post TAVR, stable. 7. Paroxysmal atrial fibrillation. Continue metoprolol succinate 12.5 mg daily, eliquis is on hold. 8. Hypertension, hypertensive cardiovascular disease. continue lisinopril 2.5 mg daily, Lasix 20 mg daily, Toprol-XL 12.5 mg daily. 9. Hyperlipidemia. Patient is not currently on statin. 10. Generalized osteoarthritis. Continue baclofen 10 mg at bedtime. 11. Osteoporosis 12. GI prophylaxis. Protonix 40 mg oral daily. 13. DVT prophylaxis. Hold eliquis. SCDs and SUJIT hose CODE STATUS: Full code Patient will be admitted to the hospital for a minimum of 2 night stay. DISCHARGE PLAN TBD. Impression and plan of care have been directed as dictated by the signing physician. Jessie Goff nurse practitioner acting as scribe for signing physician. Past Medical History Past Medical History: Hyperlipidemia, Hypertension, Musculoskeletal Disorder, Osteoarthritis (OA), Renal Disease, Thyroid Disorder Additional Past Medical History / Comment(s): 05-17-15 admitted with lt wrist septic arthritis. Other HX: heart murmur, renal calculi, goiters, R foot 3rd toe has a sore which is being tx by Dr. velasquez. pt goes to [facility] every saturday-this has been a problem for quite some time now, hx of L foot 4th toe sore which was tx by Dr. Velasquez and is healed. History of Any Multi-Drug Resistant Organisms: None Reported Past Surgical History: Adenoidectomy, Joint Replacement, Orthopedic Surgery, Tonsillectomy Additional Past Surgical History / Comment(s): Total L knee, 1996 lithrotripsy, 1942 tonsillectomy, oophorectomy with salpingectomy due to cyst-pt does not know which side, bilateral carpal tunnel release.12-27-14 i&d lt wrist, 12-28-14 [place](mod aortic stensois w/ mild aortic and tricuspid regurgitation. had lt arm p icc line for ab,since removed Past Anesthesia/Blood Transfusion Reactions: No Reported Reaction Additional Past Anesthesia/Blood Transfusion Reaction / Comment(s): Pt has never recieved blood. Past Psychological History: No Psychological Hx Reported Past Alcohol Use History: None Reported Past Drug Use History: None Reported - Past Family History Father Family Medical History: Cancer Additional Family Medical History / Comment(s): father had lymphoma. Mother Family Medical History: Dementia Additional Family Medical History / Comment(s): hyypoglycemia. Mother at age 92. Brother(s) Family Medical History: No Reported History Daughter(s) Family Medical History: No Reported History Son(s) Family Medical History: No Reported History Medications and Allergies Home Medications Medication Instructions Recorded Confirmed Type Baclofen [Lioresal] 10 mg PO HS 05/22/15 12/13/20 History diphenhydrAMINE HCL [Benadryl] 50 mg PO HS 09/13/20 12/13/20 History Furosemide [Lasix] 20 mg PO DAILY 09/15/20 12/13/20 History Apixaban [Eliquis] 5 mg PO DIRECTED 12/13/20 12/13/20 History Levofloxacin [Levaquin] 250 mg PO DAILY 12/13/20 12/13/20 History Metoprolol Succinate [Toprol XL] 12.5 mg PO DAILY 12/13/20 12/13/20 History lisinopriL [Zestril] 2.5 mg PO DAILY 12/13/20 12/13/20 History Allergies Allergy/AdvReac Type Severity Reaction Status Date / Time shellfish derived [Shellfish] Allergy Anaphylaxis Verified 12/13/20 16:07 hydromorphone HCl AdvReac Severe Nausea Verified 12/13/20 16:07 [From Dilaudid] acetaminophen [From [place]] AdvReac Unknown Verified 12/13/20 16:07 codeine AdvReac Nausea Verified 12/13/20 16:07 hydrocodone bitartrate AdvReac Unknown Verified 12/13/20 16:07 [From [place]] morphine AdvReac Itching Verified 12/13/20 16:07 prednisone AdvReac Nausea Verified 12/13/20 16:07 tramadol HCl [From Ultram] AdvReac Nausea & Verified 12/13/20 16:07 Vomiting Physical Exam Vitals: Vital Signs Temp Pulse Resp BP Pulse Ox 12/14/20 06:00 98.5 F 102 H 18 125/70 97 12/14/20 04:30 16 L 12/14/20 03:15 16 12/14/20 01:30 16 12/14/20 00:26 97.8 F 71 16 108/73 97 12/13/20 16:43 91 17 144/77 100 12/13/20 15:38 97.9 F 91 17 169/83 98 12/13/20 13:50 99.0 F 85 20 137/63 98 Results CBC & Chem 7: 12/14/20 06:14 12/14/20 06:14 Labs: Abnormal Lab Results - Last 24 Hours (Table) 12/13/20 12/13/20 12/13/20 Range/Units 14:27 14:27 14:27 Hgb 10.5 L (11.4-16.0) gm/dL Hct 32.7 L (34.0-46.0) % RDW 17.3 H (11.5-15.5) % Chloride 108 H (98-107) mmol/L Carbon Dioxide 19 L (22-30) mmol/L BUN 39 H (7-17) mg/dL Creatinine 2.05 H (0.52-1.04) mg/dL Glucose 132 H (74-99) mg/dL POC Glucose (mg/dL) (75-99) mg/dL Plasma Lactic Acid [place] (0.7-2.0) mmol/L Calcium 10.7 H (8.4-10.2) mg/dL Magnesium 2.4 H (1.6-2.3) mg/dL Troponin I (0.000-0.034) ng/mL Total Protein (6.3-8.2) g/dL Albumin (3.5-5.0) g/dL Urine Appearance Cloudy H (Clear) Urine Protein 2+ H (Negative) Urine Ketones Trace H (Negative) Urine Blood Moderate H (Negative) Urine Nitrite Positive H (Negative) Ur Leukocyte Esterase Large H (Negative) Urine RBC 87 H (0-5) /hpf Urine WBC 101 H (0-5) /hpf Urine WBC Clumps Few H (None) /hpf Urine Bacteria Few H (None) /hpf Urine Mucus Rare H (None) /hpf 12/13/20 12/13/20 12/13/20 Range/Units 14:27 19:13 21:27 Hgb (11.4-16.0) gm/dL Hct (34.0-46.0) % RDW (11.5-15.5) % Chloride (98-107) mmol/L Carbon Dioxide (22-30) mmol/L BUN (7-17) mg/dL Creatinine (0.52-1.04) mg/dL Glucose (74-99) mg/dL POC Glucose (mg/dL) (75-99) mg/dL Plasma Lactic Acid [place] 4.5 H* (0.7-2.0) mmol/L Calcium (8.4-10.2) mg/dL Magnesium (1.6-2.3) mg/dL Troponin I 0.054 H* 0.097 H* (0.000-0.034) ng/mL Total Protein (6.3-8.2) g/dL Albumin (3.5-5.0) g/dL Urine Appearance (Clear) Urine Protein (Negative) Urine Ketones (Negative) Urine Blood (Negative) Urine Nitrite (Negative) Ur Leukocyte Esterase (Negative) Urine RBC (0-5) /hpf Urine WBC (0-5) /hpf Urine WBC Clumps (None) /hpf Urine Bacteria (None) /hpf Urine Mucus (None) /hpf 12/14/20 12/14/20 Range/Units 00:32 06:14 Hgb (11.4-16.0) gm/dL Hct (34.0-46.0) % RDW (11.5-15.5) % Chloride 113 H (98-107) mmol/L Carbon Dioxide 20 L (22-30) mmol/L BUN 34 H (7-17) mg/dL Creatinine 1.85 H (0.52-1.04) mg/dL Glucose (74-99) mg/dL POC Glucose (mg/dL) 106 H (75-99) mg/dL Plasma Lactic Acid [place] (0.7-2.0) mmol/L Calcium (8.4-10.2) mg/dL Magnesium (1.6-2.3) mg/dL Troponin I (0.000-0.034) ng/mL Total Protein 6.1 L (6.3-8.2) g/dL Albumin 3.2 L (3.5-5.0) g/dL Urine Appearance (Clear) Urine Protein (Negative) Urine Ketones (Negative) Urine Blood (Negative) Urine Nitrite (Negative) Ur Leukocyte Esterase (Negative) Urine RBC (0-5) /hpf Urine WBC (0-5) /hpf Urine WBC Clumps (None) /hpf Urine Bacteria (None) /hpf Urine Mucus (None) /hpf Microbiology - Last 24 Hours (Table) 12/13/20 14:27 Urine Culture - Preliminary Urine,Voided
[2020-12-14] MEDS: VANCOMYCIN 1,250 MG in SODIUM CHLORIDE 0.9% 250 ML IVPB SCH (17:28)
[2020-12-14 20:43] LABS: Glucose,Whole Blood 125 mg/dL (75-99)
[2020-12-14] MEDS: ONDANSETRON 4 MG/2 ML VIAL IVP PRN (21:00)
[2020-12-14] MEDS: diphenhydrAMINE 25 MG CAP PO SCH (21:03)
[2020-12-14] MEDS: BACLOFEN 10 MG TAB PO SCH (21:03)
--- NOTE | 2020-12-15 06:24 | P.CONS ---
History of Present Illness - Reason for Consult Consult date: 12/14/20 infected renal stone/UTI Requesting physician: Isreal Parra - Chief Complaint bilateral flank pain and confusion x days - History of Present Illness History of present illness : Patient is 85-year-old female with a complicated past medical history of aortic stenosis and a history of bilateral renal stone for which the patient did have a left ureteral stent and right nephrostomy tube placement that was done in early September subsequently patient went TAVR procedure about a month ago patient is now presenting to [facility] ER last evening complaining of confusion and bilateral flank pain described the pain to be more likely due to sharp 5-6 over 10 had no radiation patient has been evaluated outpatient setting and has been diagnosed with a UTI however the patient was not able to take her oral antibiotics because of nausea and vomiting and the patient presented to the ER last evening on arrival to the ER patient did have a low-grade fever of 99 degree form height patient did have a normal white count creatinine was mild elevated 2.05 did have elevated troponin urine was positive with large leukocyte esterase 101 WBC blood cultures has been obtained which are now showing gram-positive cocci infectious disease was consulted for further management of antibiotic therapy Review of system: CONSTITUTIONAL: Positive for weakness along with low-grade fever. EYES: No complaint. ENT: No complaint. RESPIRATORY: No complaint. CARDIOVASCULAR: No complaint. GENITOURINARY: As per history of present illness GASTROINTESTINAL: As per history of present illness. MUSCULOSKELETAL: No complaint. INTEGUMENTARY: No complaint. PSYCHOLOGIC: No complaint. ENDOCRINE: No complaint. NEUROLOGIC: No complaint. Past medical history : Reviewed, documented below Past surgical history : Reviewed, documented below Social history: Reviewed, documented below Medications: Reviewed, as documented below GENERAL DESCRIPTION: Elderly female lying in bed, no distress. No tachypnea or accessory muscle of respiration use. HEENT: Shows Pallor , no scleral icterus. Oral mucous membrane is dry. NECK: Trachea central, no thyromegaly. LUNGS: Unlabored breathing. Clear to auscultation anteriorly. No wheeze or crackle. HEART: S1, S2, regular rate and rhythm. ABDOMEN: Soft, no tenderness , guarding or rigidity EXTREMITIES: No edema of feet. SKIN: No rash, no masses palpable. NEUROLOGICAL: The patient is awake, alert, oriented x3, mood and affect normal. LABS AND RADIOLOGY: Reviewed results see below Assessment : 1-Patient is 85-year-old female with complicated history of bilateral renal stone in this patient status post left ureteral stent and ri ght nephrostomy tube in September 2020 this patient now presented to hospital with worsening bilateral flank pain urinary frequency burning in this patient who did have a CT head with evidence of mild fullness of the right collecting system with proximal right ureteral calculus and concern for a complicated urinary tract infection 2- Gram-positive bacteremia likely secondary to urinary source 3-renal insufficiency Plan: 1-blood cultures will be repeated document clearance of bacteremia 2-vancomycin pharmacy to dose her with a target trough of 15 while watching her kidney function and Vanco trough closely. 3-cefepime 1 g daily dose adjusted to the kidney function We will follow on clinical condition and cultures to further adjust medication if needed Thank you for this consultation we will follow the patient along with you Past Medical History Past Medical History: Hyperlipidemia, Hypertension, Musculoskeletal Disorder, Osteoarthritis (OA), Renal Disease, Thyroid Disorder Additional Past Medical History / Comment(s): 05-17-15 admitted with lt wrist septic arthritis. Other HX: heart murmur, renal calculi, goiters, R foot 3rd toe has a sore which is being tx by Dr. siegel. pt goes to [facility] every saturday-this has been a problem for quite some time now, hx of L foot 4th toe sore which was tx by Dr. Siegel and is healed. History of Any Multi-Drug Resistant Organisms: None Reported Past Surgical History: Adenoidectomy, Joint Replacement, Orthopedic Surgery, Tonsillectomy Additional Past Surgical History / Comment(s): Total L knee, 1996 lithrotripsy, 1943 tonsillectomy, oophorectomy with salpingectomy due to cyst-pt does not know which side, bilateral carpal tunnel release.12-27-14 i&d lt wrist, 12-28-14 [place](mod aortic stensois w/ mild aortic and tricuspid regurgitation. had lt arm picc line for ab,since removed Past Anesthesia/Blood Transfusion Reactions: No Reported Reaction Additional Past Anesthesia/Blood Transfusion Reaction / Comm: Pt has never recieved blood. Past Psychological History: No Psychological Hx Reported Past Alcohol Use History: None Reported Past Drug Use History: None Reported - Past Family History Father Family Medical History: Cancer Additional Family Medical History / Comment(s): father had lymphoma. Mother Family Medical History: Dementia Additional Family Medical History / Comment(s): hyypoglycemia. Mother at age 92. Brother(s) Family Medical History: No Reported History Daughter(s) Family Medical History: No Reported History Son(s) Family Medical History: No Reported History Medications and Allergies Home Medications Medication Instructions Recorded Confirmed Type Baclofen [Lioresal] 10 mg PO HS 05/22/15 12/13/20 History diphenhydrAMINE HCL [Benadryl] 50 mg PO HS 09/13/20 12/13/20 History Furosemide [Lasix] 20 mg PO DAILY 09/15/20 12/13/20 History Apixaban [Eliquis] 5 mg PO DIRECTED 12/13/20 12/13/20 History Levofloxacin [Levaquin] 250 mg PO DAILY 12/13/20 12/13/20 History Metoprolol Succinate [Toprol XL] 12.5 mg PO DAILY 12/13/20 12/13/20 History lisinopriL [Zestril] 2.5 mg PO DAILY 12/13/20 12/13/20 History Allergies Allergy/AdvReac Type Severity Reaction Status Date / Time shellfish derived [Shellfish] Allergy Anaphylaxis Verified 12/13/20 16:07 hydromorphone HCl AdvReac Severe Nausea Verified 12/13/20 16:07 [From Dilaudid] acetaminophen [From [place]] AdvReac Unknown Verified 12/13/20 16:07 codeine AdvReac Nausea Verified 12/13/20 16:07 hydrocodone bitartrate AdvReac Unknown Verified 12/13/20 16:07 [From [place]] morphine AdvReac Itching Verified 12/13/20 16:07 prednisone AdvReac Nausea Verified 12/13/20 16:07 tramadol HCl [From Ultram] AdvReac Nausea & Verified 12/13/20 16:07 Vomiting Physical Exam Vitals: Vital Signs Temp Pulse Pulse Pulse Resp BP BP 12/14/20 19:31 98.0 F 72 16 114/59 12/14/20 17:19 98.2 F 67 16 171/72 12/14/20 12:14 98.3 F 77 18 12/14/20 09:35 18 12/14/20 06:00 98.5 F 102 H 18 125/70 12/14/20 04:30 16 L 12/14/20 03:15 16 12/14/20 01:30 16 12/14/20 00:26 97.8 F 71 16 108/73 BP Pulse Ox 12/14/20 19:31 99 12/14/20 17:19 100 12/14/20 12:14 122/62 95 12/14/20 09:35 12/14/20 06:00 97 12/14/20 04:30 12/14/20 03:15 12/14/20 01:30 12/14/20 00:26 97 Intake and Output 12/14/20 12/14/20 12/15/20 14:59 22:59 06:59 Intake Total 500 Balance 500 Intake: Intake, IV Titration 500 Amount Sodium Chloride 0.9% 500 500 ml 300 ml @ 999 mls/hr IV .Q19M STA Rx#:[id number] Other: Weight 64.41 kg Results CBC & Chem 7: 12/14/20 06:14 12/14/20 06:14 Labs: Abnormal Lab Results - Last 24 Hours (Table) 12/14/20 12/14/20 12/14/20 Range/Units 00:32 06:14 06:14 RBC 3.23 L (4.10-5.20) X 10*6/uL Hgb 8.4 L (12.0-15.0) g/dL Hct 27.2 L (37.2-46.3) % MCH 26.0 L (27.0-32.0) pg MCHC 30.9 L (32.0-37.0) g/dL RDW 17.1 H (11.5-14.5) % Chloride 113 H (98-107) mmol/L Carbon Dioxide 20 L (22-30) mmol/L BUN 34 H (7-17) mg/dL Creatinine 1.85 H (0.52-1.04) mg/dL POC Glucose (mg/dL) 106 H (75-99) mg/dL Total Protein 6.1 L (6.3-8.2) g/dL Albumin 3.2 L (3.5-5.0) g/dL 12/14/20 Range/Units 20:42 RBC (4.10-5.20) X 10*6/uL Hgb (12.0-15.0) g/dL Hct (37.2-46.3) % MCH (27.0-32.0) pg MCHC (32.0-37.0) g/dL RDW (11.5-14.5) % Chloride (98-107) mmol/L Carbon Dioxide (22-30) mmol/L BUN (7-17) mg/dL Creatinine (0.52-1.04) mg/dL POC Glucose (mg/dL) 125 H (75-99) mg/dL Total Protein (6.3-8.2) g/dL Albumin (3.5-5.0) g/dL Microbiology - Last 24 Hours (Table) 12/14/20 16:43 Blood Culture Gram Stain - Preliminary Blood 12/13/20 14:45 Blood Culture - Final Blood 12/13/20 14:27 Blood Culture - Preliminary Blood No Growth after 24 hours 12/13/20 14:27 Urine Culture - Preliminary Urine,Voided
[2020-12-15 07:10] LABS: Glucose,Whole Blood 84 mg/dL (75-99)
[2020-12-15] MEDS: METOPROLOL SUCCINATE (ER) 25 MG TAB.ER.24H PO SCH (08:49)
[2020-12-15] MEDS: PANTOPRAZOLE 40 MG TABLET PO SCH (08:51)
[2020-12-15] MEDS: HEPARIN SODIUM,PORCINE/PF 5,000 UNIT/0.5 ML SYRINGE SQ SCH ×2 (08:52→21:17)
[2020-12-15] MEDS: TAMSULOSIN 0.4 MG CAP.ER.24H PO SCH (08:52)
[2020-12-15] MEDS: CEFEPIME 1 GM in SODIUM CHLORIDE 0.9% 50 ML IVPB SCH (08:53)
--- NOTE | 2020-12-15 13:00 | P.PN ---
Subjective Progress Note Date: 12/15/20 HISTORY OF PRESENT ILLNESS This is an 85-year-old female patient of Dr. Nish Ashley and Dr. Luna with past medical history of hypertension and hypertensive card iovascular disease, hyperlipidemia, valvular heart disease status post TAVR October 2020 at [facility], paroxysmal atrial fibrillation on eliquis, right percutaneous nephrostomy tube secondary to bilateral ureteral calculi fmanagedby Dr. Calderon, generalized osteoarthritis, osteoporosis, goiter. Patient was recently started on Levaquin for acute urinary tract infection but developed nausea and vomiting, abdominal discomfort, confusion and generalized weakness which continued to worsen until patient was so weak she was not able to ambulate. Patient states that she has chronic hematuria but for the past Saturday and Saturday she did not have any blood in her urine. Natan uriostegui also states that her memory was bad over the weekend but seems to be improved at the time of evaluation. Patient came into [facility] emergency center for evaluation and found to be afebrile, heart rate 85, blood pressure 137/63, pulse ox 98% on room air. WBC 9.8, WBC 10.5, platelet count 305. Sodium 143, potassium 5.1, chloride 108, CO2 19, BUN 39 and creatinine 2.05. Blood sugar 132. Urinalysis cloudy, blood moderate, nitrate positive, leukoesterase large, RBCs 87, WBC is 101, bacteria few. Lactic acid 4.5 and repeat 1.7. Liver function tests were normal. Ammonia level less than 9. Troponin 0.021, 0.054, 0.097. COVID-[address] of the" pelvis without contrast revealed proximal right ureteral calculus measuring 8.7 mm. Right-sided percutaneous nephrostomy tube in place. Mild fullness of the right renal collecting system. Right-sided nonobstructing calculi. Left-sided renal calculi. Masslike fullness in the left ovary consider ultrasound. CAT scan of the brain revealed age-related atrophy and chronic small vessel ischemic change without acute intracranial process. Chest x-ray reveals no acute pulmonary process. Echocardiogram reveals EF of 60-65%, moderate concentric left ventricular hypertrophy, normally functioning bioprosthetic valve, moderate mitral regurgitation, moderate to severe mitral stenosis, mild tricuspid regurgitation, mild pulmonary hypertension, RVSP 41.61 mmHg. Patient was seen in consultation by urology with plan to continue IV antibiotics. Patient was scheduled for endoscopic removal of calculi on 12/16 but is rescheduled most likely in 1-2 weeks. Patient was seen by cardiology for elevated troponins and no intervention is necessary and plan for follow-up with Dr. Luna after discharge. Patient admitted to the [facility] floor with cardiac monitoring. Consult has been admitted for Dr. Montesinos and patient maintained on cefepime and vancomycin for now. 12/15: She has been afebrile, heart rate 98, blood pressure 115/64, pulse ox 90% on room air. Patient is reaching 1500 on incentive spirometry Repeat creatinine 1.66. Blood culture was positive for Staphylococcus epidermidis. Urine culture is in process. Patient has been seen by Dr. Montesinos with recommendations for continuing cefepime and vancomycin. Repeat blood work has been ordered for tomorrow. Capillary blood glucose running between 84 and 125. Patient states that she has not had any blood in her urine since admission. In general, she is feeling better since admission. REVIEW OF SYSTEMS Constitutional: No fever, no chills, no night sweats. No weight change. Reports weakness, Reports fatigue denies lethargy. No daytime sleepiness. EENT: No headache. No blurred vision or double vision, no loss of vision. No loss of Hearing, no ringing in the ears, no dizziness. No nasal drainage or congestion. No epistaxis. No sore throat. Lungs: No shortness of breath, cough, no sputum production. No wheezing. Cardiovascular: No chest pain, no lower extremity edema. No palpitations. No paroxysmal nocturnal dyspnea. No orthopnea. No lightheadedness or dizziness. No syncopal episodes. Abdominal: Reports abdominal pain. Reports nausea, vomiting. No diarrhea. No constipation. No bloody or tarry stools. Reports loss of appetite. Genitourinary: No dysuria, increased frequency, urgency. No urinary retention. Musculoskeletal: No myalgias. Reports muscle weakness, Reports gait dysfunction, no frequent falls. No back pain. No neck pain. Integumentary: No wounds, no lesions. No rash or pruritus. No unusual bruising. No change in hair or nails. Neurologic: No aphasia. No facial droop. Reports change in mentation. No head injury. No headache. No paralysis. No paresthesia. Psychiatric: No depression. No anxiety. No mood swings. Endocrine: No abnormal blood sugars. No weight change. PHYSICAL EXAMINATION Gen: This is an 85-year-old female. Patient is resting in bed and appears to be comfortable at rest. HEENT: Head is atraumatic, normocephalic. Pupils equal, round. Sclerae is anicteric. NECK: Supple. No JVD. No lymphadenopathy. No thyromegaly. LUNGS: Clear to auscultation. No wheezes or rhonchi. No intercostal retractions. HEART: Regular rate and rhythm. Systolic murmur. residential monitor is sinus rhythm. ABDOMEN: Soft. Bowel sounds are present. No masses. No tenderness. Right-sided percutaneous nephrostomy tube. EXTREMITIES: No pedal edema. No calf tenderness. NEUROLOGICAL: Patient is awake, alert and oriented x3. Cranial nerves 2 through 12 are grossly intact. ASSESSMENT AND PLAN 1. Acute urinary tract infection, failed outpatient treatment. Patient started on cefepime and vancomycin, consult with Dr. Motnesinos, urine culture, blood cultures. 2. Acute sepsis with UTI and mental status changes. Continue plan as above. 3. Metabolic encephalopathy secondary to sepsis, improved 4. Bilateral ureteral calculi status post right percutaneous nephrostomy tube. Consult with urology appreciated. Continue Flomax 0.4 mg daily. 5. Elevated troponin, acute coronary syndrome ruled out by cardiology. Patient have follow-up with Dr. Luna after discharge. 6. Possible Staphylococcus bacteremia. Continue vancomycin, Dr. Montesinos consult appreciated. 7. Aortic stenosis status post TAVR, stable. 8. Paroxysmal atrial fibrillation. Continue metoprolol succinate 12.5 mg joni y, eliquis is on hold. 9. Hypertension, hypertensive cardiovascular disease. continue lisinopril 2.5 mg daily, Toprol-XL 12.5 mg daily. 10. Hyperlipidemia. Patient is not currently on statin. 11. Generalized osteoarthritis. Continue baclofen 10 mg at bedtime. 12. Osteoporosis 13. GI prophylaxis. Protonix 40 mg oral daily. 14. DVT prophylaxis. Hold eliquis. SCDs and SUJIT hose CODE STATUS: Full code DISCHARGE PLAN Home Impression and plan of care have been directed as dictated by the signing physician. Jessie Goff nurse practitioner acting as scribe for signing physician. Objective - Vital Signs Vital signs: Vital Signs Temp 98.3 F 12/15/20 07:32 Pulse 98 12/15/20 07:32 Resp 17 12/15/20 07:32 BP 115/64 12/15/20 07:32 Pulse Ox 98 12/15/20 07:32 Intake & Output 12/14/20 12/15/20 12/15/20 18:59 06:59 18:59 Intake Total 500 Balance 500 Weight 64.41 kg Intake: Intake, IV Titration 500 Amount Sodium Chloride 0.9% 500 500 ml 300 ml @ 999 mls/hr IV .Q19M STA Rx#:[id number] Other: # Voids 2 - Labs CBC & Chem 7: 12/14/20 06:14 12/15/20 06:45 Labs: Abnormal Lab Results - Last 24 Hours (Table) 12/14/20 12/14/20 12/15/20 Range/Units 06:14 20:42 06:45 RBC 3.23 L (4.10-5.20) X 10*6/uL Hgb 8.4 L (12.0-15.0) g/dL Hct 27.2 L (37.2-46.3) % MCH 26.0 L (27.0-32.0) pg MCHC 30.9 L (32.0-37.0) g/dL RDW 17.1 H (11.5-14.5) % Creatinine 1.66 H (0.52-1.04) mg/dL POC Glucose (mg/dL) 125 H (75-99) mg/dL Microbiology - Last 24 Hours (Table) 12/14/20 16:43 Blood Culture Gram Stain - Preliminary Blood Blood Culture - Preliminary Staphylococcus epidermidis 12/13/20 14:45 Blood Culture - Final Blood 12/13/20 14:27 Blood Culture - Preliminary Blood No Growth after 24 hours
--- NOTE | 2020-12-15 13:25 | P.PN ---
Progress Note - Text Progress Note Date: 12/15/20 The patient is feeling much better today. She is afebrile. Blood cultures show staph epidermidis, the significance of which is unclear. The urine culture is pending. She will continue to receive IV antibiotics. Arrangements are being made for her to undergo elective endoscopic removal of her calculi in approximately 2 weeks.
--- NOTE | 2020-12-15 14:11 | PN ---
PROGRESS NOTE DATE OF SERVICE: 12/15/2020 REASON FOR FOLLOWUP: Complicated urinary tract infection, bacteremia. INTERVAL HISTORY: Patient is afebrile. The patient is currently breathing comfortably, feeling slightly better today though. No chest pain, shortness of breath or cough. No abdominal pain or diarrhea. PHYSICAL EXAMINATION: Blood pressure is 126/72 with a pulse of 78, temperature 99.6. She is 98% on room air. General description is an elderly female lying in bed in no distress. Respiratory system: Unlabored breathing, clear to auscultation anteriorly. Heart S1, S2. Regular rate and rhythm. Abdomen soft, no tenderness. LABS: Blood culture with Staph epi. Hemoglobin is 8.4, white count 8.7, creatinine 1.66. DIAGNOSTIC IMPRESSION AND PLAN: Patient with a complicated urinary tract infection. The patient is currently covered with vancomycin and cefepime. to continue while waiting for the culture to finalize and monitor clinical course closely. MMODL / IJN: [id number] /
[2020-12-15] MEDS: BACLOFEN 10 MG TAB PO SCH (21:17)
[2020-12-15] MEDS: diphenhydrAMINE 25 MG CAP PO SCH (21:17)
[2020-12-16 05:49] LABS: ALT 11 U/L (4-34); AST 25 U/L (14-36); African American GFR (CKD) 35 (>60 ml/min/1.73 sqM); Albumin/Globulin Ratio 1.1; Alkaline Phosphatase 60 U/L (38-126); Anion Gap 4 mmol/L; Blood Urea Nitrogen 29 mg/dL (7-17); Carbon Dioxide 23 mmol/L (22-30); Chloride 112 mmol/L (98-107); Globulin 2.8 g/dL; Glucose 88 mg/dL (74-99); Non-African American GFR(CKD) 30 (>60 ml/min/1.73 sqM); Potassium 4.5 mmol/L (3.5-5.1); Sodium 139 mmol/L (137-145); Total Bilirubin <0.1 mg/dL (0.2-1.3); Total Protein 5.8 g/dL (6.3-8.2)
[2020-12-16] MEDS: VANCOMYCIN 1,250 MG in SODIUM CHLORIDE 0.9% 250 ML IVPB SCH (05:55)
[2020-12-16] MEDS: PANTOPRAZOLE 40 MG TABLET PO SCH (08:32)
[2020-12-16] MEDS: TAMSULOSIN 0.4 MG CAP.ER.24H PO SCH (08:33)
[2020-12-16] MEDS: HEPARIN SODIUM,PORCINE/PF 5,000 UNIT/0.5 ML SYRINGE SQ SCH (08:34)
[2020-12-16] MEDS: METOPROLOL SUCCINATE (ER) 25 MG TAB.ER.24H PO SCH (08:54)
[2020-12-16 09:38] LABS: HGB 8.3 g/dL (12.0-15.0); MCH 25.9 pg (27.0-32.0); MCHC 30.7 g/dL (32.0-37.0); MCV 84.4 fL (80.0-97.0); Mean Platelet Volume 11.6 fL (9.5-12.2); Platelet Count 225 X 10*3/uL (140-440); RDW 16.8 % (11.5-14.5); WBC 7.98 X 10*3/uL (4.50-10.00)
[2020-12-16] MEDS: CEFEPIME 1 GM in SODIUM CHLORIDE 0.9% 50 ML IVPB SCH (09:43)
--- NOTE | 2020-12-16 15:02 | P.DS ---
Providers Date of admission: 12/13/20 17:26 Expected date of discharge: 12/16/20 Attending physician: Isreal Parra Consults: 12/13/20 17:29 Consult Physician Urgent Consulting Provider: Nathanael Negro Consult Reason/Comments: septic stone Do you want consulting provider notified?: Yes 12/13/20 20:10 Consult Physician Urgent Consulting Provider: Obed Jacobo Consult Reason/Comments: indeterminant troponin, recent TAVR Do you want consulting provider notified?: Yes, Notify in am 12/14/20 00:11 Consult Physician Routine Consulting Provider: Obed Jacobo Consult Reason/Comments: elevated Troponin Do you want consulting provider notified?: Yes 12/14/20 10:47 Consult Physician Routine Consulting Provider: Brittany Montesinos Consult Reason/Comments: infected kidney stone Do you want consulting provider notified?: Yes 12/14/20 10:49 Consult Physician Routine Consulting Provider: Obed Jacobo Consult Reason/Comments: elevated trops Do you want consulting provider notified?: Yes Primary care physician: Nish Ashley [facility] Course: HISTORY OF PRESENT ILLNESS This is an 85-year-old female patient of Dr. Nish Ashley and Dr. Kavitha kasper with past medical history of hypertension and hypertensive cardiovascular disease, hyperlipidemia, valvular heart disease status post TAVR October 2020 at [facility], paroxysmal atrial fibrillation on eliquis, right percutaneous nephrostomy tube secondary to bilateral ureteral calculi fmanagedby Dr. Calderon, generalized osteoarthritis, osteoporosis, goiter. Patient was recently started on Levaquin for acute urinary tract infection but developed nausea and vomiting, abdominal discomfort, confusion and generalized weakness which continued to worsen until patient was so weak she was not able to ambulate. Patient states that she has chronic hematuria but for the past Saturday and Saturday she did not have any blood in her urine. Patient also states that her memory was bad over the weekend but seems to be improved at the time of evaluation. Patient came into [facility] emergency center for evaluation and found to be afebrile, heart rate 85, blood pressure 137/63, pulse ox 98% on room air. WBC 9.8, WBC 10.5, platelet count 305. Sodium 143, potassium 5.1, chloride 108, CO2 19, BUN 39 and creatinine 2.05. Blood sugar 132. Urinalysis cloudy, blood moderate, nitrate positive, leukoesterase large, RBCs 87, WBC is 101, bacteria few. Lactic acid 4.5 and repeat 1.7. Liver function tests were normal. Ammonia level less than 9. Troponin 0.021, 0.054, 0.097. COVID-[address] of the" pelvis without contrast revealed proximal right ureteral calculus measuring 8.7 mm. Right-sided percutaneous nephrostomy tube in place. Mild fullness of the right renal collecting system. Right-sided nonobstructing calculi. Left-sided renal calculi. Masslike fullness in the left ovary consider ultrasound. CAT scan of the brain revealed age-related atrophy and chronic small vessel ischemic change without acute intracranial process. Chest x-ray reveals no acute pulmonary process. Echocardiogram reveals EF of 60-65%, moderate concentric left ventricular hypertrophy, normally functioning bioprosthetic valve, moderate mitral regurgitation, moderate to severe mitral stenosis, mild tricuspid regurgitation, mild pulmonary hypertension, RVSP 41.61 mmHg. Patient was seen in consultation by urology with plan to continue IV antibiotics. Patient was scheduled for endoscopic removal of calculi on 12/16 but is rescheduled most likely in 1-2 weeks. Patient was seen by cardiology for elevated troponins and no intervention is necessary and plan for follow-up with Dr. Luna after discharge. Patient admitted to the [facility] floor with cardiac monitoring. Consult has been admitted for Dr. Montesinos and patient maintained on cefepime and vancomycin for now. 12/15: She has been afebrile, heart rate 98, blood pressure 115/64, pulse ox 90% on room air. Patient is reaching 1500 on incentive spirometry Repeat creatinine 1.66. Blood culture was positive for Staphylococcus epidermidis. Urine culture is in process. Patient has been seen by Dr. Montesinos with recommendations for continuing cefepime and vancomycin. Repeat blood work has been ordered for tomorrow. Capillary blood glucose running between 84 and 125. Patient states that she has not had any blood in her urine since admission. In general, she is feeling better since admission. 12/16: Patient has been afebrile, heart rate 59, blood pressure 134/69, pulse ox 97% on room air. Repeat blood work reveals WBC 7.9, hemoglobin 8.3, platelet count 225. Sodium 139, potassium 4.5, chloride 112, CO2 23, BUN 29 creatinine 1.58. Urine culture finalized with Enterobacter. She is requesting a dose of Diflucan for potential vaginal yeast infection with antibiotics. Dr. Montesinos recommended antibiotics in the form of ciprofloxacin for 10 days. Patient will be discharged home in stable condition. ASSESSMENT AND PLAN 1. Acute urinary tract infection, failed outpatient treatment. 2. Acute sepsis with UTI and mild metabolic encephalopathy, resolved. 3. Metabolic encephalopathy secondary to sepsis 4. Bilateral ureteral calculi status post right percutaneous nephrostomy tube. 5. Elevated troponin, acute coronary syndrome ruled out by cardiology. 6. Possible Staphylococcus bacteremia. Continue vancomycin, Dr. Montesinos consult appreciated. 7. Aortic stenosis status post TAVR, stable. 8. Paroxysmal atrial fibrillation. 9. Hypertension, hypertensive cardiovascular disease. 10. Hyperlipidemia. 11. Generalized osteoarthritis. 12. Osteoporosis DISCHARGE PLAN Home Impression and plan of care have been directed as dictated by the signing physician. Jessie Goff nurse practitioner acting as scribe for signing physician. Patient Condition at Discharge: Good Plan - Discharge Summary Discharge Rx Participant: No New Discharge Prescriptions: New Fluconazole [Diflucan] 150 mg PO DAILY #1 tab Tamsulosin [Flomax] 0.4 mg PO DAILY #30 cap Ciprofloxacin HCl [Cipro] 250 mg PO BID 10 Days #20 tab Continue Baclofen [Lioresal] 10 mg PO HS Metoprolol Succinate [Toprol XL] 12.5 mg PO DAILY diphenhydrAMINE HCL [Benadryl] 50 mg PO HS Furosemide [Lasix] 20 mg PO DAILY lisinopriL [Zestril] 2.5 mg PO DAILY Apixaban [Eliquis] 5 mg PO DIRECTED Discontinued Levofloxacin [Levaquin] 250 mg PO DAILY Discharge Medication List Baclofen [Lioresal] 10 mg PO HS 05/22/15 [History] diphenhydrAMINE HCL [Benadryl] 50 mg PO HS 09/13/20 [History] Furosemide [Lasix] 20 mg PO DAILY 09/15/20 [History] Apixaban [Eliquis] 5 mg PO DIRECTED 12/13/20 [History] Metoprolol Succinate [Toprol XL] 12.5 mg PO DAILY 12/13/20 [History] lisinopriL [Zestril] 2.5 mg PO DAILY 12/13/20 [History] Ciprofloxacin HCl [Cipro] 250 mg PO BID 10 Days #20 tab 12/16/20 [Rx] Fluconazole [Diflucan] 150 mg PO DAILY #1 tab 12/16/20 [Rx] Tamsulosin [Flomax] 0.4 mg PO DAILY #30 cap 12/16/20 [Rx] Follow up Appointment(s)/Referral(s): Ramón Calderon MD [STAFF PHYSICIAN] - 2 Weeks (scheduling for endoscopic removal of calculi) Fatoumata Luna MD [STAFF PHYSICIAN] - 2 Weeks Nish Ashley MD [Primary Care Provider] - 1 Week Discharge Disposition: HOME SELF-CARE
[2020-12-16 15:34] VITALS: BP 129/70; PULSE 73; RESP 17; TEMP 98
--- NOTE | 2020-12-16 17:55 | PN ---
PROGRESS NOTE DATE OF SERVICE: 12/16/2020 REASON FOR FOLLOWUP: 1. Complicated urinary tract infection with Enterobacter. 2. Positive blood culture, possible contamination. INTERVAL HISTORY: The patient is afebrile. The patient is breathing comfortably. Overall pain and discomfort has improved. No chest pain, shortness of breath or cough. No abdominal pain, no diarrhea. PHYSICAL EXAMINATION: Blood pressure is 136/68 with a pulse of 55, temperature of 98.1. She is 97% on room air. General description is an elderly female up in the bed in no distress. Respiratory system: Unlabored breathing, clear to auscultation anteriorly. Heart S1, S2. Regular rate and rhythm. Abdomen soft, no tenderness. Extremities: No edema of the feet. LABS: Hemoglobin is 8.8, white count 7.9, BUN of 29, creatinine 1.58. Blood culture repeat has been negative. Urine with Enterobacter sensitive to Cipro. DIAGNOSTIC IMPRESSION AND PLAN: 1. Patient with Enterobacter complicated urinary tract infection, currently on cefepime with improvement, can be transitioned to oral Cipro for 10 days with close outpatient followup. 2. Positive blood cultures, likely contaminant. No need for any further workup. Vancomycin will be discontinued. MMODL / IJN: [id number] /
== END 2020-12-16 15:55 | disposition home or self-care (01) | DRG 871 ==
LOC: EC 13:49 → 4SSUR 17:26 → 3SCARD 12-14 10:51 → 4SSUR 12-14 13:37
PROVIDERS: ADMIT Internal Medicine Geriatric Medicine; ATTEND Internal Medicine Geriatric Medicine
DX: A41.89 Other specified sepsis (principal); G93.41 Metabolic encephalopathy; N39.0 Urinary tract infection, site not specified; E87.2 Acidosis; N20.2 Calculus of kidney with calculus of ureter; D64.9 Anemia, unspecified; E78.5 Hyperlipidemia, unspecified; E86.0 Dehydration; I08.3 Combined rheumatic disorders of mitral, aortic and tricuspid valves; I11.9 Hypertensive heart disease without heart failure; I27.20 Pulmonary hypertension, unspecified; I45.10 Unspecified right bundle-branch block; I48.0 Paroxysmal atrial fibrillation; M15.9 Polyosteoarthritis, unspecified; M81.0 Age-related osteoporosis without current pathological fracture; R31.9 Hematuria, unspecified; R65.20 Severe sepsis without septic shock; E04.9 Nontoxic goiter, unspecified; Z20.822 Contact with and (suspected) exposure to COVID-19; Z79.01 Long term (current) use of anticoagulants; Z95.2 Presence of prosthetic heart valve; Z79.899 Other long term (current) drug therapy; Z80.7 Family history of other malignant neoplasms of lymphoid, hematopoietic and related tissues; Z87.442 Personal history of urinary calculi; R77.8 Other specified abnormalities of plasma proteins; Z82.0 Family history of epilepsy and other diseases of the nervous system; Z90.79 Acquired absence of other genital organ(s); Z90.721 Acquired absence of ovaries, unilateral; Z98.890 Other specified postprocedural states; Z88.8 Allergy status to other drugs, medicaments and biological substances; Z88.6 Allergy status to analgesic agent; Z88.5 Allergy status to narcotic agent; Z91.013 Allergy to seafood
CPT/HCPCS: 36415; 70450; 71046; 74176; 80053; 81001; 82140; 82565; 83605; 83735; 84484; 85025; 85027; 85610; 85730; 87040; 87077; 87086; 87186; 87635; 93005; 93306; 96361; 96365; 96372; 96375; 99285

== ENCOUNTER 2020-12-22 13:10 | Day surgery (SDC) | payer MEDICARE, BC ==
[2020-12-22 13:19] VITALS: BP 103/64; PULSE 70; RESP 16; TEMP 98
== END 2020-12-22 13:35 | disposition home or self-care (01) ==
LOC: RADPROMAIN 13:10
PROVIDERS: ATTEND Radiology Diagnostic Radiology
DX: Z09 Encounter for follow-up examination after completed treatment for conditions other than malignant neoplasm (principal)
CPT/HCPCS: 99213

== ENCOUNTER 2020-12-29 15:03 | Day surgery (SDC) | payer MEDICARE, BC ==
[2020-12-29 15:40] VITALS: BP 110/63; PULSE 78; RESP 16; TEMP 97.5
== END 2020-12-29 15:50 | disposition home or self-care (01) ==
LOC: RADPROMAIN 15:03
PROVIDERS: ATTEND Radiology Diagnostic Radiology
DX: Z09 Encounter for follow-up examination after completed treatment for conditions other than malignant neoplasm (principal)
CPT/HCPCS: 99213

== ENCOUNTER → 2021-01-04 | Outpatient (CLI) | payer MEDICARE, BC ==
[2021-01-04 13:07] LABS: Anisocytosis Slight; Basophils # (A) 0.1 k/uL (0-0.2); Basophils % (A) 1 %; Eosinophils # (A) 0.5 k/uL (0-0.7); Eosinophils % (A) 8 %; HCT 27.3 % (34.0-46.0); HGB 9.3 gm/dL (11.4-16.0); Lymphocytes # (A) 1.3 k/uL (1.0-4.8); Lymphocytes % (A) 22 %; MCH 28.2 pg (25.0-35.0); MCHC 33.9 g/dL (31.0-37.0); MCV 83.3 fL (80.0-100.0); Monocytes # (A) 0.4 k/uL (0-1.0); Monocytes % (A) 7 %; Neutrophils # (A) 3.6 k/uL (1.3-7.7); Neutrophils % (A) 60 %; Platelet Count 257 k/uL (150-450); RBC 3.28 m/uL (3.80-5.40); RDW 17.2 % (11.5-15.5)
[2021-01-04 13:12] LABS: Calcium 9.9 mg/dL (8.4-10.2); Potassium 4.5 mmol/L (3.5-5.1)
[2021-01-04 13:18] LABS: Appearance,Urine Cloudy (Clear); Bacteria,Urine Occasional /hpf; Bilirubin,Urine Negative (Negative); Blood,Urine Large (Negative); Color,Urine Light Red; Glucose,Urine (UA) Negative (Negative); Hyaline Casts,Urine 11 /lpf (0-2); Ketones,Urine Negative (Negative); Leukocyte Esterase,Urine Large (Negative); Mucus,Urine Few /hpf; Nitrite,Urine Negative (Negative); PH, Urine 5.5 (5.0-8.0); Protein,Urine 2+ (Negative); RBC,Urine >182 /hpf (0-5); Specific Gravity,Urine 1.014 (1.001-1.035); Urobilinogen,Urine <2.0 mg/dL (<2.0); WBC,Urine >182 /hpf (0-5)
== END | disposition home or self-care (01) ==
LOC: LABPAT 12:12
PROVIDERS: ATTEND Urology
DX: Z01.812 Encounter for preprocedural laboratory examination (principal); N20.1 Calculus of ureter; R31.29 Other microscopic hematuria
CPT/HCPCS: 36415; 80048; 81001; 85025; 87086

== ENCOUNTER 2021-01-05 15:23 | Day surgery (SDC) | payer MEDICARE, BC ==
[2021-01-05 16:16] VITALS: BP 116/61; PULSE 85; RESP 16; TEMP 98.2
== END 2021-01-05 16:19 | disposition home or self-care (01) ==
LOC: RADPROMAIN 15:23
PROVIDERS: ATTEND Radiology Diagnostic Radiology
DX: Z76.89 Persons encountering health services in other specified circumstances (principal)
CPT/HCPCS: 99213

== ENCOUNTER 2021-01-13 12:07 | Day surgery (SDC) | payer MEDICARE, BC ==
[2021-01-10 14:14] VITALS: BMI 28.7
--- NOTE | 2021-01-12 17:58 | P.HPIHPCON ---
History of Present Illness H&P Date: 01/12/21 Chief Complaint: Right sided ureteral stone This is a 85-year-old female history of all 9 mm right-sided proximal stone, she underwent attempted stent placement on September 15 which was was unsuccessful secondary to impacted stone. She subsequently underwent an nephrostomy tube placement in September 16. Of note at that time she had severe aortic stenosis, and underwent aortic valve replacement at [facility], and has been cleared to undergo surgery to address her stone. Discussed with her the option of doing a PCNL with antegrade ureteroscopy to address her stone. Discussed with her the risk which includes but not limited to bleeding, infection, injury to the ureter. Discussed also given her age and comorbidity she is at increased risk of medical complication. Of note she also has significant left-sided stone burden, but discussed with her we'll address her right-sided stone given that she has a nephrostomy tube, and we'll plan on dressing her left sided ureteral stones at a later date She understood all the risk and agree to proceed with right-sided PCNL Consent for Procedure: I have explained the operation/procedure to the patient, including the risks, benefits, side effects, alternative therapies (including not receiving the proposed treatment or service), the likelihood of the patient achieving his/her goals, and potential recuperation problems for the procedure/sedation/analgesia, as well as any blood products, if indicated. I also explained to the patient the risks, benefits and side effects of the alternatives, as well as the risks related to not receiving the proposed procedure, care, treatment, or services. Past Medical History Past Medical History: Atrial Fibrillation, Hyperlipidemia, Hypertension, Musculoskeletal Disorder, Osteoarthritis (OA), Renal Disease, Thyroid Disorder Additional Past Medical History / Comment(s): 2-16 admitted with lt wrist septic arthritis. Other HX: heart murmur, renal calculi, goiters, History of Any Multi-Drug Resistant Organisms: None Reported Past Surgical History: Adenoidectomy, Joint Replacement, Orthopedic Surgery, Tonsillectomy Additional Past Surgical History / Comment(s): Total L knee, 1996 lithrotripsy, 1942 tonsillectomy, oophorectomy with salpingectomy due to cyst-pt does not know which side, bilateral carpal tunnel release.12-27-14 i&d lt wrist, 12-28-14 [place](mod aortic stensois w/ mild aortic and tricuspid regurgitation. had lt arm picc line for ab,since removed, TAVR 11/02 Past Anesthesia/Blood Transfusion Reactions: No Reported Reaction Additional Past Anesthesia/Blood Transfusion Reaction / Comment(s): Pt has never recieved blood. Smoking Status: Never smoker - Past Family History Father Family Medical History: Cancer Additional Family Medical History / Comment(s): father had lymphoma. Mother Family Medical History: Dementia Additional Family Medical History / Comment(s): hyypoglycemia. Mother at age 92. Brother(s) Family Medical History: No Reported History Daughter(s) Family Medical History: No Reported History Son(s) Family Medical History: No Reported History Medications and Allergies Home Medications Medication Instructions Recorded Confirmed Type Baclofen [Lioresal] 10 mg PO HS 05/22/15 01/10/21 History diphenhydrAMINE HCL [Benadryl] 50 mg PO HS 09/13/20 01/10/21 History Furosemide [Lasix] 20 mg PO DAILY 09/15/20 01/10/21 History Apixaban [Eliquis] 5 mg PO DIRECTED 12/13/20 01/10/21 History Metoprolol Succinate [Toprol XL] 12.5 mg PO DAILY 12/13/20 01/10/21 History lisinopriL [Zestril] 2.5 mg PO DAILY 12/13/20 01/10/21 History Tamsulosin [Flomax] 0.4 mg PO DAILY #30 cap 12/16/20 01/10/21 Rx Allergies Allergy/AdvReac Type Severity Reaction Status Date / Time shellfish derived [Shellfish] Allergy Anaphylaxis Verified 01/10/21 13:52 hydromorphone HCl AdvReac Severe Nausea Verified 01/10/21 13:52 [From Dilaudid] acetaminophen [From [place]] AdvReac Unknown Verified 01/10/21 13:52 codeine AdvReac Nausea Verified 01/10/21 13:52 hydrocodone bitartrate AdvReac Unknown Verified 01/10/21 13:52 [From [place]] morphine AdvReac Itching Verified 01/10/21 13:52 prednisone AdvReac Nausea Verified 01/10/21 13:52 tramadol HCl [From Ultram] AdvReac Nausea & Verified 01/10/21 13:52 Vomiting Surgical - Exam - General no distress, no pain - Eyes PERRL, normal ocular movement - ENT normal nares, normal mucosa - Respiratory normal expansion, normal respiratory effort - Abdomen Abdomen: soft, non tender - Psychiatric oriented to time, oriented to person, oriented to place Assessment and Plan Assessment: 85-year-old female history of right-sided ureteral stone -Or for right-sided PCNL
[~2021-01-13 12:07] MED LIST: DEXAMETHASONE SOD PHOSPHATE 4 MG/ML 1 ML VIAL IV ONE; GENTAMICIN 120 MG in SODIUM CHLORIDE 0.9% 100 ML IVPB PRN; HYDROmorphone 0.5 MG/0.5 ML SYRINGE IVP PRN; LACTATED RINGERS 1,000 ML IV SCH; LIDOCAINE 1% (10MG/ML) FOR IV START INTRADERMA PRN; ONDANSETRON 4 MG/2 ML VIAL IVP ONE
--- NOTE | 2021-01-13 13:11 | XR ---
KUB HISTORY: Kidney stones, preop Frontal KUB and T2 images, correlation to prior KUB 09/15/2020, CT 12/13/2020 There is a nephrostomy tube present within the right kidney, double-J stent is noted along the left c onsistent with ureteral stent. Proximal right ureteral calculus is stable and measures approximately 13 mm. There is calcification at the lower pole of the right kidney. Multiple calcifications are seen overlying the left kidney as noted on prior CT, largest measures 15 mm. Calcification is present lisbet ng the proximal left ureter or within the left renal pelvis measuring 8 to 9 mm. Upper pole calcifica tion also present, at least 4-5 calcifications are present on the left. Phleboliths present within th e pelvis. Marked degenerative disc changes, spinal curvature noted. Probable mitral annular calcifica tion is seen, vascular calcifications seen within the aorta. IMPRESSION: Bilateral nephrolithiasis, proximal ureteral calculi.
[2021-01-13] MEDS ORDERED: PROPOFOL 10 MG/ML 20 ML VIAL IV ONE (15:17)
[2021-01-13] MEDS ORDERED: LIDOCAINE 1% INJ 10MG/ML (20 ML MDV) ONE (15:17)
[2021-01-13] MEDS ORDERED: SUCCINYLCHOLINE CHLORIDE 100 MG/5 ML SYR IV ONE (15:17)
[2021-01-13] MEDS ORDERED: ROCURONIUM 10 MG/ML (5 ML VIAL) IV ONE (15:17)
[2021-01-13] MEDS ORDERED: MIDAZOLAM 2 MG/2 ML VIAL ONE (15:17)
[2021-01-13] MEDS ORDERED: IOPAMIDOL-370 50ML BTL IRRIGATION ONE (15:49)
[2021-01-13] MEDS ORDERED: LACTATED RINGERS 1,000 ML IV ONE (18:38)
[2021-01-13] MEDS ORDERED: MAG HYDROX/AL HYDROX/SIMETH 30 ML CUP PO PRN (18:53)
[2021-01-13] MEDS ORDERED: ONDANSETRON 4 MG/2 ML VIAL IVP PRN (18:53)
--- NOTE | 2021-01-13 18:53 | P.OP ---
Date of Procedure: 01/13/21 Preoperative Diagnosis: Right sided ureteral stone Postoperative Diagnosis: Same Procedure(s) Performed: Right percutaneous nephrolithotomy (less than 2 cm) right sided stent placement Implants: 6-Monegasque by 24 cm stent in the right side Anesthesia: FLACA Surgeon: Ramón Calderon Estimated Blood Loss (ml): 10 Pathology: other (none) Condition: stable Disposition: PACU Indications for Procedure: This is a 85-year-old female history of all 9 mm right-sided proximal stone, she underwent attempted stent placement on September 15 which was was unsuccessful secondary to impacted stone. She subsequently underwent an nephrostomy tube placement in September 16. Of note at that time she had severe aortic stenosis, and underwent aortic valve replacement at [facility], and has been cleared to undergo surgery to address her stone. Discussed with her the option of doing a PCNL with antegrade ureteroscopy to address her stone. Discussed with her the risk which includes but not limited to bleeding, infection, injury to the ureter. Discussed also given her age and comorbidity she is at increased risk of medical complication. Of note she also has significant left-sided stone burden, but discussed with her we'll address her right-sided stone given that she has a nephrostomy tube, and we'll plan on dressing her left sided ureteral stones at a later date She understood all the risk and agree to proceed with right-sided PCNL Operative Findings: Right-sided proximal ureteral stone, impacted. Right renal capsular scarring Description of Procedure: Patient was brought to the operating room, general anesthesia was induced. A Mendoza catheter was placed, then she was placed in prone position. The right flank was prepped and draped in sterile fashion. Next an antegrade nephrostogram was performed through the nephrostomy tube which showed minimal contrast going past the stone. At this time a sensor wire was advanced through the nephrostomy tube, I attempted to advance the wire past the stone but resistance was met. At this time an 810 Monegasque dilator was passed over the wire, and a second wire was passed through into the kidney. Next I attempted to advance the flexible ureteroscope over the wire into the kidney but resistance was met at the capsule. Next I used the Amplatz dilator and dilated the tract to 16-Monegasque, again attempted to advance the scope but resistance was met at the capsule. At this time an 18-Monegasque balloon dilator was passed over the wire, and an 18-Monegasque access sheath was passed over the balloon, I attempted to advance the sheath past the scared capsule resistance was met. At this time a flexible ureteroscope was advanced through the access sheath, I was able to navigate the flexible ureteroscope into the collecting system. Renoscopy was performed which showed a stone impacted at the proximal ureter. No additional stones were seen. Next a sensor wire was advanced through the ureteroscope past the stone and into the bladder. Next using the holmium laser the stone was dusted, of note the stone was impacted, there was kinking of the ureter at the site of stone impaction. But I was able to successfully dust the stone, repeat ureteroscopy showed no sizable fragments or injury to the ureter, but of note there was significant ureteral edema secondary to stone impaction. I next was able to advance the ureteroscope past the impaction site and into the mid ureter, no additional stones were seen, at this time a sensor wire was advanced through the scope and the scope was withdrawn with the wire in place. The ureteral stent was passed over the wire, the distal curl was seen in the bladder on fluoroscopy, and a proximal curl was seen in the kidney on fluoroscopy. Next an antegrade nephrostogram was performed which showed no evidence of contrast extravasation. At this time the access sheath was removed, and the skin was closed in interrupted fashion using 3-0 Vicryl. The patient tolerated the procedure well was taken to recovery in stable condition
[2021-01-13] MEDS ORDERED: KETOROLAC 15 MG/ML 1 ML VIAL IVP PRN (18:55)
[2021-01-13] MEDS: fentaNYL (PF) 50 MCG/ML 2 ML AMP IV ONE ×2 (18:55→19:02)
[2021-01-13] MEDS ORDERED: traMADol 50 MG TAB PO PRN (18:55)
[2021-01-13] MEDS: TETRACAINE 0.5% OPHTH (PF) DROPS 4 ML BTL RIGHT EYE SCH (19:38)
[2021-01-13] MEDS ORDERED: BACLOFEN 10 MG TAB PO SCH (21:00)
[2021-01-13] MEDS: DEXTROSE 5%-0.45% NACL 1,000 ML IV SCH (21:11)
[2021-01-13] MEDS: CIPROFLOXACIN HCL 250 MG TAB PO SCH (21:11)
[2021-01-13] MEDS ORDERED: diphenhydrAMINE 25 MG CAP PO PRN (21:24)
[2021-01-14] MEDS: TETRACAINE 0.5% OPHTH (PF) DROPS 4 ML BTL RIGHT EYE SCH ×2 (00:25→08:34)
[2021-01-14] MEDS: HEPARIN SODIUM,PORCINE/PF 5,000 UNIT/0.5 ML SYRINGE SQ SCH ×2 (00:25→08:30)
[2021-01-14] MEDS: DEXTROSE 5%-0.45% NACL 1,000 ML IV SCH (05:57)
--- NOTE | 2021-01-14 07:31 | FL ---
EXAMINATION TYPE: FL fluoroscopy <1hr DATE OF EXAM: 01/13/2021 CLINICAL HISTORY: Right ureter calculus. TECHNIQUE: Fluoroscopy. COMPARISON: Abdominal x-ray earlier today. FINDINGS: Fluoroscopic guidance was provided during right sided percutaneous nephrolithotomy with st ent insertion procedure performed by Dr. Bueno. A total of 3 minutes 30 seconds of fluoroscopic yusuf e was utilized during the procedure and 2 spot images was acquired. Images acquired show right-sided percutaneous access with contrast opacification and advancement of guidewire through collecting syste m into right ureter. IMPRESSION: As Above.
[2021-01-14] MEDS: CIPROFLOXACIN HCL 250 MG TAB PO SCH (08:29)
[2021-01-14] MEDS ORDERED: METOPROLOL SUCCINATE (ER) 25 MG TAB.ER.24H PO SCH (09:00)
[2021-01-14] MEDS ORDERED: FUROSEMIDE 20 MG TAB PO SCH (09:00)
[2021-01-14] MEDS ORDERED: TAMSULOSIN 0.4 MG CAP.ER.24H PO SCH (09:00)
--- NOTE | 2021-01-14 11:19 | P.DS ---
Providers Attending physician: Ramón Calderon MD Primary care physician: [facility] Course: This is an 85-year-old female history of a right-sided ureteral stone, underwent right-sided PCNL on January 13, please see op note dated January 13 for surgery detail. She was admitted to the hospital postoperatively. Her Mendoza catheter was removed on postoperative day #1, she was discharged home on postoperative day #1. At time of discharge was tolerating a diet, ambulating, and pain was well-controlled. She will be arranged for a left-sided ureteroscopy to address her left-sided ureteral stones in 3-4 weeks Plan - Discharge Summary Discharge Rx Participant: No New Discharge Prescriptions: New traMADol HCl [Ultram] 50 mg PO Q6HR PRN 3 Days #8 tab PRN Reason: Pain Ciprofloxacin HCl [Cipro] 250 mg PO Q12HR #10 tablet No Action Baclofen [Lioresal] 10 mg PO HS Metoprolol Succinate [Toprol XL] 12.5 mg PO DAILY Tamsulosin [Flomax] 0.4 mg PO DAILY #30 cap diphenhydrAMINE HCL [Benadryl] 50 mg PO HS Furosemide [Lasix] 20 mg PO DAILY lisinopriL [Zestril] 2.5 mg PO DAILY Apixaban [Eliquis] 5 mg PO DIRECTED Discharge Medication List Baclofen [Lioresal] 10 mg PO HS 05/22/15 [History] diphenhydrAMINE HCL [Benadryl] 50 mg PO HS 09/13/20 [History] Furosemide [Lasix] 20 mg PO DAILY 09/15/20 [History] Apixaban [Eliquis] 5 mg PO DIRECTED 12/13/20 [History] Metoprolol Succinate [Toprol XL] 12.5 mg PO DAILY 12/13/20 [History] lisinopriL [Zestril] 2.5 mg PO DAILY 12/13/20 [History] Tamsulosin [Flomax] 0.4 mg PO DAILY #30 cap 12/16/20 [Rx] Ciprofloxacin HCl [Cipro] 250 mg PO Q12HR #10 tablet 01/14/21 [Rx] traMADol HCl [Ultram] 50 mg PO Q6HR PRN 3 Days #8 tab 01/14/21 [Rx] Activity/Diet/Wound Care/Special Instructions: Increase fluid intake It's normal to see blood in the urine You can resume your Eliquis in 5 days You may shower today You will be contacted to schedule your second surgery by the Urology office Discharge Disposition: HOME SELF-CARE
[2021-01-14 14:38] VITALS: BP 129/56; PULSE 77; RESP 16; TEMP 98
== END 2021-01-14 16:00 | disposition home or self-care (01) ==
LOC: OR 12:07 → 6PED 18:40 → OR 01-14 16:00
PROVIDERS: ATTEND Urology
DX: N20.2 Calculus of kidney with calculus of ureter (principal); I35.0 Nonrheumatic aortic (valve) stenosis; Z79.01 Long term (current) use of anticoagulants; Z79.899 Other long term (current) drug therapy; Z95.2 Presence of prosthetic heart valve
CPT/HCPCS: 52356; 50080; 87635; 76000; 74018; C2625; C1894 ×2; C1769 ×2; J2250; J1100; J0690; J2405; J2001; J3010; J1580; J1885; J0330; J2704; Q9967; J1644; 86850; 86870; 86880; 86900; 86901

== ENCOUNTER 2021-01-17 18:39 | Emergency (ER) | payer MEDICARE, BC ==
[2021-01-17 19:11] VITALS: BP 136/69; PULSE 66; RESP 18; TEMP 98.6
--- NOTE | 2021-01-17 20:22 | ED ---
General Adult HPI - General Chief complaint: Abdominal Pain Stated complaint: constipation Time Seen by Provider: 01/17/21 19:18 Source: patient, RN notes reviewed, old records reviewed Mode of arrival: ambulatory Limitations: no limitations - History of Present Illness Initial comments: 85-year-old female presenting for evaluation of constipation, rectal pain. She has no anterior abdominal pain. She states she has not had a bowel movement in approximately one week. She has had a poor appetite without vomiting. No nausea. She does have some discomfort in the rectum and reports that there is a large stool ball which she is unable to pass. - Related Data Home Medications Medication Instructions Recorded Confirmed Baclofen [Lioresal] 10 mg PO HS 05/22/15 01/13/21 diphenhydrAMINE HCL [Benadryl] 50 mg PO HS 09/13/20 01/13/21 Furosemide [Lasix] 20 mg PO DAILY 09/15/20 01/13/21 Apixaban [Eliquis] 5 mg PO DIRECTED 12/13/20 01/13/21 Metoprolol Succinate [Toprol XL] 12.5 mg PO DAILY 12/13/20 01/13/21 lisinopriL [Zestril] 2.5 mg PO DAILY 12/13/20 01/13/21 Previous Rx's Medication Instructions Recorded Tamsulosin [Flomax] 0.4 mg PO DAILY #30 cap 12/16/20 Ciprofloxacin HCl [Cipro] 250 mg PO Q12HR #10 tablet 01/14/21 Fluconazole [Diflucan] 150 mg PO ONCE #1 tab 01/14/21 Ketorolac [Toradol] 10 mg PO Q12HR PRN #6 tab 01/14/21 traMADol HCl [Ultram] 50 mg PO Q6HR PRN 3 Days #8 tab 01/14/21 Allergies Allergy/AdvReac Type Severity Reaction Status Date / Time shellfish derived [Shellfish] Allergy Anaphylaxis Verified 01/17/21 19:11 hydromorphone HCl AdvReac Severe Nausea Verified 01/17/21 19:11 [From Dilaudid] acetaminophen [From [place]] AdvReac Unknown Verified 01/17/21 19:11 codeine AdvReac Nausea Verified 01/17/21 19:11 hydrocodone bitartrate AdvReac Unknown Verified 01/17/21 19:11 [From [place]] morphine AdvReac Itching Verified 01/17/21 19:11 prednisone AdvReac Nausea Verified 01/17/21 19:11 tramadol HCl [From Ultram] AdvReac Nausea & Verified 01/17/21 19:11 Vomiting Review of Systems ROS Statement: Those systems with pertinent positive or pertinent negative responses have been documented in the HPI. ROS Other: All systems not noted in ROS Statement are negative. Past Medical History Past Medical History: Hyperlipidemia, Hypertension, Musculoskeletal Disorder, Osteoarthritis (OA), Renal Disease, Thyroid Disorder Additional Past Medical History / Comment(s): 89 admitted with lt wrist septic arthritis. Other HX: heart murmur, renal calculi, goiters, R foot 3rd toe has a sore which is being tx by Dr. velasquez. pt goes to [facility] every saturday-this has been a problem for quite some time now, hx of L foot 4th toe sore which was tx by Dr. Velasquez and is healed. History of Any Multi-Drug Resistant Organisms: None Reported Past Surgical History: Adenoidectomy, Joint Replacement, Orthopedic Surgery, Tonsillectomy Additional Past Surgical History / Comment(s): Total L knee, 1996 lithrotripsy, 89 tonsillectomy, oophorectomy with salpingectomy due to cyst-pt does not know which side, bilateral carpal tunnel release.12-27-14 i&d lt wrist, 12-28-14 [place](mod aortic stensois w/ mild aortic and tricuspid regurgitation. had lt arm picc line for ab,since removed. aortic valve replacement, nephrostomy tube Past Anesthesia/Blood Transfusion Reactions: No Reported Reaction Additional Past Anesthesia/Blood Transfusion Reaction / Comment(s): Pt has never recieved blood. Past Psychological History: No Psychological Hx Reported Smoking Status: Never smoker Past Alcohol Use History: None Reported Past Drug Use History: None Reported - Past Family History Father Family Medical History: Cancer Additional Family Medical History / Comment(s): father had lymphoma. Mother Family Medical History: Dementia Additional Family Medical History / Comment(s): hyypoglycemia. Mother at age 92. Brother(s) Family Medical History: No Reported History Daughter(s) Family Medical History: No Reported History Son(s) Family Medical History: No Reported History General Exam Limitations: no limitations General appearance: alert, in no apparent distress Head exam: Present: atraumatic, normocephalic Eye exam: Present: normal appearance, PERRL ENT exam: Present: normal exam Neck exam: Present: normal inspection. Absent: tenderness, meningismus Respiratory exam: Present: normal lung sounds bilaterally. Absent: respiratory distress, wheezes Cardiovascular Exam: Present: regular rate, normal rhythm GI/Abdominal exam: Present: soft. Absent: distended, tenderness, guarding Rectal exam: Present: fecal impaction, hemorrhoids Extremities exam: Present: normal inspection, normal capillary refill. Absent: pedal edema Neurological exam: Present: alert, oriented X3, CN II-XII intact. Absent: motor sensory deficit Psychiatric exam: Present: normal affect, normal mood Skin exam: Present: warm, dry, intact. Absent: cyanosis, diaphoretic Course Vital Signs 01/17/21 19:06 Temperature 98.6 F Pulse Rate 66 Respiratory 18 Rate Blood Pressure 136/69 O2 Sat by Pulse 99 Oximetry Medical Decision Making - Medical Decision Making X-ray negative for obstruction or intraperitoneal free air, there was a large stool ball in the rectum, patient was able to have a bowel movement in the emergency department with soapsuds enema. She has instructed on high-fiber diet, maintaining hydration. Return parameters are discussed. Disposition Clinical Impression: Constipation, Abdominal pain Disposition: HOME SELF-CARE Condition: Fair Instructions (If sedation given, give patient instructions): Abdominal Pain (ED), Constipation (ED), High Fiber Diet (ED) Additional Instructions: Please take magnesium citrate, stool softeners, a diet high in fruits and vegetables, please stay hydrated. These return with worsening or changing symptoms. Is patient prescribed a controlled substance at d/c from ED?: No Referrals: Nish Ashley MD [Primary Care Provider] - 1-2 days
--- NOTE | 2021-01-17 21:02 | XR ---
EXAMINATION TYPE: XR KUB DATE OF EXAM: 01/17/2021 8:49 PM CLINICAL HISTORY: Kidney stones. TECHNIQUE: Single supine KUB image of the abdomen is obtained. COMPARISON: Radiograph 01/13/2021. FINDINGS: Interval exchange of right percutaneous nephrostomy tube with ureteral stent. Redemonstration of left ureteral stent. Aeration of opacities over the shadows small left ureter similar to prior. Phlebolit hs over the pelvis. Scattered gas is seen in non-distended small bowel loops. Gas and fecal material is seen in non-distended colon. There is no visceromegaly, pneumoperitoneum. The lung bases are clear and the osseous structures are intact. Cardiac prosthetic valve. IMPRESSION: 1. Bilateral ureteral stents. 2. Redemonstration of bilateral renal and left ureteral stones.
[2021-01-17] MEDS ORDERED: LIDOCAINE URO-JET JELLY 2% 5 ML KIT URETHRAL ONE (21:15)
== END 2021-01-17 22:06 | disposition home or self-care (01) ==
LOC: EC 18:39
DX: K59.00 Constipation, unspecified (principal); I10 Essential (primary) hypertension; E78.5 Hyperlipidemia, unspecified; M19.90 Unspecified osteoarthritis, unspecified site; E07.9 Disorder of thyroid, unspecified; Z88.1 Allergy status to other antibiotic agents; Z88.5 Allergy status to narcotic agent; Z87.442 Personal history of urinary calculi; Z90.89 Acquired absence of other organs; Z96.652 Presence of left artificial knee joint; Z79.01 Long term (current) use of anticoagulants; Z90.721 Acquired absence of ovaries, unilateral; Z90.79 Acquired absence of other genital organ(s); Z95.2 Presence of prosthetic heart valve
CPT/HCPCS: 74018; 99284

== ENCOUNTER → 2021-01-20 | Outpatient (CLI) | payer MEDICARE, BC ==
[2021-01-20 13:45] LABS: Anisocytosis Slight; Basophils # (A) 0.1 k/uL (0-0.2); Basophils % (A) 1 %; Eosinophils # (A) 0.3 k/uL (0-0.7); Eosinophils % (A) 5 %; HCT 28.8 % (34.0-46.0); HGB 9.2 gm/dL (11.4-16.0); Lymphocytes # (A) 0.8 k/uL (1.0-4.8); Lymphocytes % (A) 12 %; MCH 27.9 pg (25.0-35.0); Mean Platelet Volume 8.2; Monocytes # (A) 0.4 k/uL (0-1.0); Monocytes % (A) 6 %; Neutrophils # (A) 5.2 k/uL (1.3-7.7); Neutrophils % (A) 74 %; Platelet Count 237 k/uL (150-450); RBC 3.31 m/uL (3.80-5.40); RDW 16.4 % (11.5-15.5)
[2021-01-20 13:51] LABS: Calcium 9.5 mg/dL (8.4-10.2); Potassium 4.7 mmol/L (3.5-5.1)
[2021-01-20 14:26] LABS: Appearance,Urine Cloudy (Clear); Bilirubin,Urine Negative (Negative); Blood,Urine Large (Negative); Color,Urine Yellow; Glucose,Urine (UA) Negative (Negative); Ketones,Urine Negative (Negative); Leukocyte Esterase,Urine Large (Negative); Mucus,Urine Rare /hpf; Nitrite,Urine Negative (Negative); Protein,Urine 2+ (Negative); RBC,Urine >182 /hpf (0-5); Specific Gravity,Urine 1.019 (1.001-1.035); Urobilinogen,Urine <2.0 mg/dL (<2.0); WBC,Urine 86 /hpf (0-5)
== END | disposition home or self-care (01) ==
LOC: LABPAT 11:37
PROVIDERS: ATTEND Urology
DX: Z01.812 Encounter for preprocedural laboratory examination (principal); N20.1 Calculus of ureter
CPT/HCPCS: 80048; 81001; 85025; 87086

== ENCOUNTER 2021-01-24 12:33 | Emergency (ER) | payer MEDICARE, BC ==
--- NOTE | 2021-01-24 13:22 | ED ---
General Adult HPI - General Chief complaint: Skin/Abscess/Foreign Body Stated complaint: leg pain/red/swelling Time Seen by Provider: 01/24/21 12:52 Source: patient, RN notes reviewed Mode of arrival: ambulatory Limitations: no limitations - History of Present Illness Initial comments: Patient is an 85-year-old female presents emergency room today with a chief complaint of pain to the left lower leg. She does with that she felt a little discomfort yesterday. States that today when she woke up she was there is a little bit of redness and some swelling. Patient denies any injury. Denies any trauma. Patient does admit that it's painful. Denies any other complaints or symptoms at this time.Patient denies any recent fever, chills, shortness of breath, chest pain, back pain, abdominal pain, nausea or vomiting, headaches or visual changes, or any other complaints. - Related Data Previous Rx's Medication Instructions Recorded Cephalexin [Keflex] 500 mg PO TID 10 Days #30 cap 01/24/21 Allergies Allergy/AdvReac Type Severity Reaction Status Date / Time codeine Allergy Unknown Verified 01/24/21 12:46 shellfish derived [Shellfish] Allergy Unknown Verified 01/24/21 12:46 Review of Systems ROS Statement: Those systems with pertinent positive or pertinent negative responses have been documented in the HPI. ROS Other: All systems not noted in ROS Statement are negative. Past Medical History Additional Past Medical History / Comment(s): hypertension. kidney stones History of Any Multi-Drug Resistant Organisms: None Reported Additional Past Surgical History / Comment(s): ovary removed. heart valve replacement. surgery on right kidney Past Psychological History: No Psychological Hx Reported Smoking Status: Never smoker Past Alcohol Use History: None Reported Past Drug Use History: None Reported General Exam - General Exam Comments Initial Comments: General: The patient is awake and alert, in no distress, and does not appear acutely ill. Eye: extra-ocular movements are intact. There is normal conjunctiva bilaterally. Ears, nose, mouth and throat: There are moist mucous membranes and no oral lesions. Neck: The neck is supple, there is no tenderness or JVD. Respiratory: respirations are non-labored, breath sounds are equal. Musculoskeletal: Patient has full range of motion. Sensations are intact. Mild tenderness in the anterior aspect of the left cline. There is redness. Pupils 2+ was sensations intact. Neurological: A&O x 3. CN II-XII intact, There are no obvious motor or sensory deficits. Coordination appears grossly intact. Speech is normal. Skin: Some redness to the left lower extremity. No redness of both left knee. Psychiatric: Cooperative, appropriate mood & affect, normal judgment. Limitations: no limitations Course Vital Signs 01/24/21 12:42 Temperature 97.9 F Pulse Rate 88 Respiratory 20 Rate Blood Pressure 101/54 O2 Sat by Pulse 99 Oximetry Medical Decision Making - Medical Decision Making Patient reexamined at this time showing no signs of distress. Her vitals are stable. Patient did have a Doppler ultrasound was negative for any evidence of DVT. She does have some tenderness and redness to the left lower extremity. Will be placed on antibiotics to cover for cellulitis and advised close follow- up family doctor over the next 2 days. Advised return if any symptoms increase or worsen. Patient states understanding and is in agreement. Disposition Clinical Impression: Cellulitis Disposition: HOME SELF-CARE Condition: Good Instructions (If sedation given, give patient instructions): Cellulitis (ED) Additional Instructions: Please use medication as discussed. Please follow-up with family doctor in the next 2 days of symptoms have not improved. Please return to emergency room if the symptoms increase or worsen or for any other concerns. Prescriptions: Cephalexin [Keflex] 500 mg PO TID 10 Days #30 cap Is patient prescribed a controlled substance at d/c from ED?: No Referrals: Nish Ashley MD [Primary Care Provider] - 1-2 days Time of Disposition: 14:24
--- NOTE | 2021-01-24 14:13 | US ---
EXAMINATION TYPE: US venous doppler duplex LE LT DATE OF EXAM: 01/24/2021 1:55 PM COMPARISON: NONE CLINICAL HISTORY: leg pain. Redness SIDE PERFORMED: Left TECHNIQUE: The lower extremity deep venous system is examined utilizing real time linear array sonog juliana with graded compression, doppler sonography and color-flow sonography. VESSELS IMAGED: Common Femoral Vein Deep Femoral Vein Greater Saphenous Vein * Femoral Vein Popliteal Vein Small Saphenous Vein * Proximal Calf Veins (* superficial vessels) Left Leg: Negative for DVT Left groin lymph node 3.4 x 1.1 x 1.2cm Grayscale, color doppler, spectral doppler imaging performed of the deep veins of the left lower extr emity. There is normal flow, compressibility, vascular waveforms. IMPRESSION: No ultrasound evidence for acute DVT in left lower extremity.
[2021-01-24 14:46] VITALS: BP 109/59; PULSE 75; RESP 16; TEMP 97.8
== END 2021-01-24 14:38 | disposition home or self-care (01) ==
LOC: MERGE 12:33 → EC 12:33
DX: L03.116 Cellulitis of left lower limb (principal); Z88.5 Allergy status to narcotic agent; I10 Essential (primary) hypertension; Z87.442 Personal history of urinary calculi
CPT/HCPCS: 99283

== ENCOUNTER 2021-01-30 08:31 | Day surgery (SDC) | payer MEDICARE, BC ==
[2021-01-27 10:54] VITALS: BMI 28.5
[~2021-01-30 08:31] MED LIST changes: -DEXAMETHASONE SOD PHOSPHATE 4 MG/ML 1 ML VIAL IV ONE; -GENTAMICIN 120 MG in SODIUM CHLORIDE 0.9% 100 ML IVPB PRN; -HYDROmorphone 0.5 MG/0.5 ML SYRINGE IVP PRN; +MIDAZOLAM 2 MG/2 ML VIAL IV PRN
--- NOTE | 2021-01-30 09:02 | XR ---
EXAMINATION TYPE: XR KUB DATE OF EXAM: 01/30/2021 COMPARISON: 01/17/2021 HISTORY: Renal stone TECHNIQUE: One view abdominal series FINDINGS: The osseous structures are intact. The bowel gas pattern is nonspecific. Bilateral ureteral stents are seen. There are multiple punctate calcifications overlying the lower po le the right kidney the largest measuring 4 mm. There are approximately 11 calcifications overlying the left kidney the largest measuring 1.4 cm. Kye ateral ureteral stents noted. Hypertrophic and degenerative change of the spine. Calcifications in the pelvis are likely vascular. Arthropathy of the hips. Findings suggestive of sacroiliitis. IMPRESSION: 1. Nonspecific abdomen. Bilateral nephrolithiasis.
[2021-01-30] MEDS ORDERED: LACTATED RINGERS 1,000 ML IV ONE ×2 (09:18→13:55)
--- NOTE | 2021-01-30 10:02 | P.HPIHPCON ---
History of Present Illness H&P Date: 01/30/21 This is an 85-year-old female with history of a 1.3 cm right-sided ureteral stone, S/P right-sided PCNL on january 13. Also has history of multiple left ureteral stone, large stone burden in the left lower pole. She presents today for a left-sided ureteroscopy with holmium laser lithotripsy stone basketing and stent insertion. Discussed with her the plan today will be to address his her ureteral stone, discussed will not be able to remove lower pole stones today. Discussed given the stone burden she will require a PCNL, but will plan on doing ureteroscopy, and if her flank left flank pain resolves, then we'll continue with observation for the lower pole stones. Discussed with her also to a right- sided ureteroscopy at the same setting, to ensure no ureteral fragments prior to removing the stent. Discussed risk of bleeding, infection, injury to the ureter. Discussed risk from anesthesia. She understood all the risk and agreed to proceed with bilateral ureteroscopy, with holmium laser lithotripsy stone basketing, possible stent exchange versus removal Consent for Procedure: I have explained the operation/procedure to the patient, including the risks, benefits, side effects, alternative therapies (including not receiving the proposed treatment or service), the likelihood of the patient achieving his/her goals, and potential recuperation problems for the procedure/sedation/analgesia, as well as any blood products, if indicated. I also explained to the patient the risks, benefits and side effects of the alternatives, as well as the risks related to not receiving the proposed procedure, care, treatment, or services. Past Medical History Past Medical History: Heart Failure, Hyperlipidemia, Hypertension, Musculoskeletal Disorder, Osteoarthritis (OA), Renal Disease, Thyroid Disorder Additional Past Medical History / Comment(s): 2-2-16 admitted with lt wrist septic arthritis. Other HX: heart murmur, renal calculi, goiters, AORTIC VALVE PROBLEM-TVAR, ATRIAL FIB HISTORY PER DR SRIVASTAVA, History of Any Multi-Drug Resistant Organisms: None Reported Past Surgical History: Adenoidectomy, Joint Replacement, Orthopedic Surgery, Tonsillectomy Additional Past Surgical History / Comment(s): Total L knee, 1996 lithrotripsy, 1942 tonsillectomy, oophorectomy with salpingectomy due to cyst-pt does not know which side, bilateral carpal tunnel release.12-27-14 i&d lt wrist, [place](mod aortic stensois w/ mild aortic and tricuspid regurgitation. had lt arm picc line for ab,since removed. aortic valve replacement - TVAR, nephrostomy tube -RIGHT Past Anesthesia/Blood Transfusion Reactions: No Reported Reaction Additional Past Anesthesia/Blood Transfusion Reaction / Comment(s): Pt has never recieved blood. Past Psychological History: No Psychological Hx Reported Additional Psychological History / Comment(s): Pt resides with her . She is very independent. She uses no assistive device. She drives. She has no recent international travel. There are animal exposures as of late. She does not have much experience. She is a lifelong nonsmoker and has no significant history of recreational drug use or significant alcohol use. Smoking Status: Never smoker Past Alcohol Use History: None Reported Past Drug Use History: None Reported - Past Family History Father Family Medical History: Cancer Additional Family Medical History / Comment(s): father had lymphoma. Mother Family Medical History: Dementia Additional Family Medical History / Comment(s): hyypoglycemia. Mother at age 92. Brother(s) Family Medical History: No Reported History Daughter(s) Family Medical History: No Reported History Son(s) Family Medical History: No Reported History Medications and Allergies Home Medications Medication Instructions Recorded Confirmed Type Baclofen [Lioresal] 10 mg PO HS 05/22/15 01/27/21 History diphenhydrAMINE HCL [Benadryl] 50 mg PO HS PRN 09/13/20 01/27/21 History Furosemide [Lasix] 20 mg PO DAILY 09/15/20 01/27/21 History Apixaban [Eliquis] 5 mg PO DIRECTED 12/13/20 01/27/21 History Metoprolol Succinate [Toprol XL] 12.5 mg PO DAILY PRN 12/13/20 01/27/21 History lisinopriL [Zestril] 2.5 mg PO DAILY PRN 12/13/20 01/27/21 History Tamsulosin [Flomax] 0.4 mg PO DAILY #30 cap 12/16/20 01/27/21 Rx Ketorolac [Toradol] 10 mg PO Q12HR PRN #6 tab 01/14/21 01/27/21 Rx Cephalexin [Keflex] 500 mg PO TID 10 Days #30 cap 01/24/21 01/27/21 Rx Aspirin 81 mg PO DAILY 01/27/21 01/27/21 History Allergies Allergy/AdvReac Type Severity Reaction Status Date / Time shellfish derived [Shellfish] Allergy Anaphylaxis Verified 01/27/21 09:25 hydromorphone HCl AdvReac Severe Nausea Verified 01/27/21 09:25 [From Dilaudid] codeine AdvReac Nausea Verified 01/27/21 09:25 hydrocodone bitartrate AdvReac Unknown Verified 01/27/21 09:25 [From [place]] morphine AdvReac Itching Verified 01/27/21 09:25 prednisone AdvReac Nausea Verified 01/27/21 09:25 tramadol HCl [From Ultram] AdvReac Nausea & Verified 01/27/21 09:25 Vomiting Surgical - Exam Vital Signs Temp Pulse Resp BP Pulse Ox 97.8 F 78 18 170/74 95 01/30/21 09:14 01/30/21 09:14 01/30/21 09:14 01/30/21 09:14 01/30/21 09:14 - General no distress - Eyes PERRL, normal ocular movement - ENT normal nares, normal mucosa - Respiratory normal expansion, normal respiratory effort - Abdomen Abdomen: soft, non tender - Psychiatric oriented to time, oriented to person, oriented to place Assessment and Plan Assessment: OR for bilateral ureteroscopy, with holmium laser lithotripsy stone basketing, possible stent exchange versus removal
[2021-01-30] MEDS ORDERED: ETOMIDATE 2 MG/ML 10 ML VIAL ONE (10:16)
[2021-01-30] MEDS ORDERED: GLYCOPYRROLATE 0.2 MG/ML 2 ML VIAL ONE (10:16)
[2021-01-30] MEDS ORDERED: NEOSTIGMINE 1 MG/ML 10 ML VIAL ONE (10:16)
[2021-01-30] MEDS ORDERED: PHENYLEPHRINE-0.9% NACL SYG 1,000 MCG/10 ML SYRINGE ONE (10:16)
[2021-01-30] MEDS ORDERED: SUCCINYLCHOLINE CHLORIDE 100 MG/5 ML SYR IV ONE (10:16)
[2021-01-30] MEDS ORDERED: ROCURONIUM 10 MG/ML (5 ML VIAL) IV ONE (10:16)
[2021-01-30] MEDS ORDERED: fentaNYL (PF) 50 MCG/ML 2 ML AMP ONE (10:16)
[2021-01-30] MEDS ORDERED: LIDOCAINE 1% INJ 10MG/ML (20 ML MDV) ONE (10:16)
--- NOTE | 2021-01-30 12:02 | FL ---
EXAMINATION TYPE: FL urography retrograde DATE OF EXAM: 01/30/2021 COMPARISON: NONE HISTORY: Fluoroscopy time. Fluoroscopy was provided to the referring clinician. 36 seconds provided.
[2021-01-30 12:19] VITALS: RESP 16; TEMP 98
[2021-01-30] MEDS: fentaNYL (PF) 50 MCG/ML 2 ML AMP IVP ONE ×2 (12:29→12:42)
--- NOTE | 2021-01-30 12:31 | P.OP ---
Date of Procedure: 01/30/21 Preoperative Diagnosis: Bilateral ureteral stones Postoperative Diagnosis: Same Procedure(s) Performed: Cystoscopy, right ureteroscopy, stent exchange, left ureteroscopy with holmium laser lithotripsy, stone basketing and stent exchange Implants: 7-Burmese by 22 cm stent on the right, 6-Burmese by 22 cm on the left Anesthesia: FLACA Surgeon: Ramón Calderon Estimated Blood Loss (ml): 5 Pathology: other (left ureteral stone) Condition: stable Disposition: PACU Indications for Procedure: This is an 85-year-old female with history of a 1.3 cm right-sided ureteral stone, S/P right-sided PCNL on january 13. Also has history of multiple left ureteral stone, large stone burden in the left lower pole. She presents today for a left-sided ureteroscopy with holmium laser lithotripsy stone basketing and stent insertion. Discussed with her the plan today will be to address his her ureteral stone, discussed will not be able to remove lower pole stones today. Discussed given the stone burden she will require a PCNL, but will plan on doing ureteroscopy, and if her flank left flank pain resolves, then we'll continue with observation for the lower pole stones. Discussed with her also to a right- sided ureteroscopy at the same setting, to ensure no ureteral fragments prior to removing the stent. Discussed risk of bleeding, infection, injury to the ureter. Discussed risk from anesthesia. She understood all the risk and agreed to proceed with bilateral ureteroscopy, with holmium laser lithotripsy stone basketing, possible stent exchange versus removal Operative Findings: Right-sided renal or ureteral stones were visualized, but of note area of previous stone impaction was still narrowed. 2 large left-sided ureteral stone, an additional large left-sided upper pole stone Description of Procedure: Patient was brought to the operating room, general anesthesia was induced. She was prepped and draped in sterile fashion and placed in dorsal lithotomy position. Cystoscopy fitted with a 21-Burmese sheath was inserted per urethra, cystoscopy was performed which showed no abnormality within the bladder. Attention was then carried to the right ureteral orifice, the stent was grasped and removed to the meatus. Next a sensor wire was advanced through the stent the stent was removed with the wire in place. Next a flexible ureteroscope was passed over the wire and into the proximal ureter. Ureteroscopy was performed which showed no stones along the course of the ureter, but of note the area of previous stone impaction was still narrowed, I advance a wire through the ureteroscope, and with the assistance of the wire I was able to advance the scope past the area of narrowing, renoscopy was performed which showed no fragments within the kidney. Pullback ureteroscopy was performed which redemonstrated the area of narrowing at the previous stone impaction site no other abnormality was seen within the ureter. As ureteroscope was withdrawn, a wire was advanced through. Given the persistent narrowing decision was made to place a stent. Next a ureteral stent was passed over the wire, the proximal curl was visualized on fluoroscopy and the distal curl was visualized using the cystoscope. At this time the cystoscope was reinserted and the left ureteral stent was grasped and removed. Next a semirigid ureteroscope was advanced up the left ureteral orifice, a stone was encountered in the mid ureter. Using the holmium laser the stone was fragmented into small fragments, sizable fragments were removed using the stone basket. At this time the ureteroscope was advanced all the way up to the UPJ which showed an additional stone there, but I did not have a good angle to fragmented using the rigid ureteroscope. At this time a sensor wire was advanced through the ureteroscope and the ureteroscope was withdrawn with the wire in place. Next a 1113 Burmese access sheath was passed over the wire into the proximal ureter. The proximal ureteroscope was advanced through the access sheath, the stone was encountered in the UPJ which was fragmented using the holmium laser, additional large stone was encountered in the upper pole which was also fragment it using the holmium laser. Repeat renoscopy showed no additional sizable fragments within the kidney. Of note patient had significant stones within the lower pole that were not fragmented. Pullback ureteroscopy was performed which showed no injury to the ureter or any stone ureteral fragments. As the ureteroscope was withdrawn a sensor wire was advanced through. Ureteral stent was passed over the wire, the proximal curl was visualized on fluoroscopy and distal curl was visualized using cystoscope. The bladder was emptied at the end of the case. Patient tolerated procedure well and taken to recovery in stable condition
[2021-01-30] MEDS ORDERED: KETOROLAC 15 MG/ML 1 ML VIAL ONE (13:07)
[2021-01-30] MEDS ORDERED: KETOROLAC 15 MG/ML 1 ML VIAL IVP ONE (13:09)
[2021-01-30 13:59] VITALS: BP 121/57; PULSE 70
== END 2021-01-30 14:20 | disposition home or self-care (01) ==
LOC: OR 08:31
PROVIDERS: ATTEND Urology
DX: N20.2 Calculus of kidney with calculus of ureter (principal); I12.9 Hypertensive chronic kidney disease with stage 1 through stage 4 chronic kidney disease, or unspecified chronic kidney disease; I50.9 Heart failure, unspecified; I10 Essential (primary) hypertension; E78.5 Hyperlipidemia, unspecified; I48.91 Unspecified atrial fibrillation; N19 Unspecified kidney failure; Z86.73 Personal history of transient ischemic attack (TIA), and cerebral infarction without residual deficits
CPT/HCPCS: 52356; 82365; 74420; 74018; C2625; C2617; C1769; J2710; J0690; J2405; J2001; J3010; J1885; J2370; J0330

== ENCOUNTER → 2021-03-22 | Outpatient (CLI) | payer MEDICARE, BC ==
--- NOTE | 2021-03-22 12:50 | US ---
EXAMINATION TYPE: US kidneys/renal and bladder DATE OF EXAM: 03/22/2021 COMPARISON: NONE CLINICAL HISTORY: N20.1 Calculus of ureter. h/o renal stones and cyst EXAM MEASUREMENTS: Right Kidney: 11.5 x 3.9 x 6.5 cm Left Kidney: 7.4 x 4.3 x 3.3 cm Right Kidney: hydronephrosis versus dilated pyramids, 1.1cm lower pole stone and 3.5cm medial cyst Left Kidney: small in size, multiple stones, largest = 0.9cm Bladder: wnl Bilateral Jets seen: right only Incidental note is made of cholelithiasis. IMPRESSION: 1. Bilateral renal stones without obstruction. 2. Previous hydronephrosis has largely resolved. 3. Cholelithiasis
== END | disposition home or self-care (01) ==
LOC: RADUSWWP 10:38
PROVIDERS: ATTEND Urology
DX: N20.0 Calculus of kidney (principal); K80.20 Calculus of gallbladder without cholecystitis without obstruction
CPT/HCPCS: 76770

== ENCOUNTER → 2021-06-20 | Outpatient (CLI) | payer MEDICARE, BC ==
[2021-06-20 15:17] LABS: African American GFR (CKD) 52.1 (60.0-200.0); Anion Gap 11.2 mmol/L (10.00-18.00); BUN/Creat Ratio 22.04 Ratio (12.00-20.00); Blood Urea Nitrogen 24.9 mg/dL (9.0-27.0); Calcium 9.9 mg/dL (8.7-10.3); Carbon Dioxide 24.4 mmol/L (20.0-27.5); Non-African American GFR(CKD) 44.9 (60.0-200.0); Potassium 4.4 mmol/L (3.5-5.5)
== END | disposition home or self-care (01) ==
LOC: LABWHC1 10:51
PROVIDERS: ATTEND Internal Medicine
DX: I10 Essential (primary) hypertension (principal)
CPT/HCPCS: 36415; 80048

== ENCOUNTER → 2021-09-21 | Outpatient (CLI) | payer MEDICARE, BC ==
[2021-09-21 15:13] LABS: African American GFR (CKD) 38.5 (60.0-200.0); Anion Gap 8.6 mmol/L (10.00-18.00); BUN/Creat Ratio 21.38 Ratio (12.00-20.00); Calcium 10.3 mg/dL (8.7-10.3); Carbon Dioxide 26.9 mmol/L (20.0-27.5); Non-African American GFR(CKD) 33.2 (60.0-200.0); Potassium 4.8 mmol/L (3.5-5.5)
== END | disposition home or self-care (01) ==
LOC: LABWHC1 09:14
PROVIDERS: ATTEND Internal Medicine
DX: I10 Essential (primary) hypertension (principal); I35.0 Nonrheumatic aortic (valve) stenosis; I48.91 Unspecified atrial fibrillation; Z95.2 Presence of prosthetic heart valve
CPT/HCPCS: 36415; 80048

== ENCOUNTER → 2021-11-16 | Outpatient (CLI) | payer MEDICARE, BC ==
[2021-11-16 14:33] LABS: HCT 36.8 % (37.2-46.3); MCH 26.7 pg (27.0-32.0); MCHC 29.9 g/dL (32.0-37.0); MCV 89.3 fL (80.0-97.0); Mean Platelet Volume 11.2 fL (9.5-12.2); NRBC Per 100 WBC 0 /100 WBCS (0.0-0.0); Platelet Count 180 X 10*3/uL (140-440); RBC 4.12 X 10*6/uL (4.10-5.20); RDW 14.9 % (11.5-14.5)
[2021-11-16 14:51] LABS: ALT 14 U/L (8-44); AST 28 U/L (13-35); African American GFR (CKD) 31.5 (60.0-200.0); Albumin 4.1 g/dL (3.8-4.9); Albumin/Globulin Ratio 1.41 (1.60-3.17); Alkaline Phosphatase 72 U/L (41-126); BUN/Creat Ratio 25.88 Ratio (12.00-20.00); Calcium 9.9 mg/dL (8.7-10.3); Carbon Dioxide 25.3 mmol/L (20.0-27.5); Chloride 109 mmol/L (96-109); Globulin 2.9 g/dL (1.6-3.3); Glucose 92 mg/dL (70-110); LDL Cholesterol,Calculated 124.4 mg/dL (0.0-131.0); Non-African American GFR(CKD) 27.2 (60.0-200.0); Potassium 4.6 mmol/L (3.5-5.5); Sodium 144 mmol/L (135-145); VLDL Calculation 15.66 mg/dL (5.00-40.00)
== END | disposition home or self-care (01) ==
LOC: LABWHC1 09:53
PROVIDERS: ATTEND Family Medicine
DX: I12.9 Hypertensive chronic kidney disease with stage 1 through stage 4 chronic kidney disease, or unspecified chronic kidney disease (principal); N18.9 Chronic kidney disease, unspecified; R73.09 Other abnormal glucose
CPT/HCPCS: 36415; 80053; 80061; 83036; 84443; 85027

== ENCOUNTER → 2021-12-29 | Outpatient (CLI) | payer MEDICARE, BC ==
[2021-12-29 14:45] LABS: HCT 34.8 % (37.2-46.3); HGB 10.8 g/dL (12.0-15.0); MCH 27.8 pg (27.0-32.0); MCV 89.5 fL (80.0-97.0); NRBC Per 100 WBC 0 /100 WBCS (0.0-0.0); Platelet Count 195 X 10*3/uL (140-440); RBC 3.89 X 10*6/uL (4.10-5.20); RDW 14.3 % (11.5-14.5); WBC 8.58 X 10*3/uL (4.50-10.00)
[2021-12-29 14:59] LABS: African American GFR (CKD) 39.2 (60.0-200.0); Anion Gap 9.4 mmol/L (10.00-18.00); BUN/Creat Ratio 24.51 Ratio (12.00-20.00); Blood Urea Nitrogen 34.8 mg/dL (9.0-27.0); Calcium 9.7 mg/dL (8.7-10.3); Carbon Dioxide 25.6 mmol/L (20.0-27.5); Non-African American GFR(CKD) 33.8 (60.0-200.0); Potassium 4.4 mmol/L (3.5-5.5)
== END | disposition home or self-care (01) ==
LOC: LABWHC1 08:47
PROVIDERS: ATTEND Internal Medicine
DX: N18.32 Chronic kidney disease, stage 3b (principal); R26.81 Unsteadiness on feet; Z95.2 Presence of prosthetic heart valve
CPT/HCPCS: 36415; 80048; 85027

== ENCOUNTER → 2022-03-05 | Outpatient (CLI) | payer MEDICARE, BC ==
--- NOTE | 2022-03-05 15:42 | US ---
EXAMINATION TYPE: US kidneys/renal and bladder DATE OF EXAM: 03/05/2022 COMPARISON: NONE CLINICAL HISTORY: N18.30 CHRONIC KIDNEY DISEASE, STAGE 3 UNSPECIFIED. History of kidney stones, litho tripsy 03/05, CKD EXAM MEASUREMENTS: Right Kidney: 11.3 x 5.0 x 4.0 cm Left Kidney: 9.6 x 4.8 x 4.0 cm Right Kidney: hydronephrosis vs. dilated pyramids. cystic area lower pole/medial = 3.6 x 3.2 x 3.6cm Left Kidney: multiple stones, largest = 0.9cm Bladder: wnl Bilateral Jets seen: no There is no evidence for hydronephrosis at this point in time. No masses are identified. The urinar y bladder is anechoic. Bilateral ureteral jets are seen. IMPRESSION: 1. No left-sided nephrolithiasis. 2. Mild to moderate right-sided hydronephrosis.
== END | disposition home or self-care (01) ==
LOC: RADUSWWP 14:51
PROVIDERS: ATTEND Internal Medicine Nephrology
DX: N18.30 Chronic kidney disease, stage 3 unspecified (principal); N13.30 Unspecified hydronephrosis
CPT/HCPCS: 76770

== ENCOUNTER → 2022-04-18 | Outpatient (CLI) | payer MEDICARE, BC ==
[2022-04-18 16:04] LABS: Basophils # (A) 0.07 X 10*3/uL (0.00-0.10); Eosinophils # (A) 0.21 X 10*3/uL (0.04-0.35); Eosinophils % (A) 2.9 %; HCT 39.8 % (37.2-46.3); HGB 11.9 g/dL (12.0-15.0); Immature Grans, Automated 0.4 %; Lymphocytes # (A) 1.59 X 10*3/uL (0.90-5.00); Lymphocytes % (A) 21.9 %; MCH 27.4 pg (27.0-32.0); MCHC 29.9 g/dL (32.0-37.0); MCV 91.7 fL (80.0-97.0); Mean Platelet Volume 11.1 fL (9.5-12.2); Monocytes # (A) 0.71 X 10*3/uL (0.20-1.00); Monocytes % (A) 9.8 %; NRBC Per 100 WBC 0 /100 WBCS (0.0-0.0); Neutrophils # (A) 4.65 X 10*3/uL (1.80-7.70); Platelet Count 182 X 10*3/uL (140-440); RBC 4.34 X 10*6/uL (4.10-5.20); RDW 13.5 % (11.5-14.5); WBC 7.26 X 10*3/uL (4.50-10.00)
[2022-04-18 16:29] LABS: Albumin 4.4 g/dL (3.8-4.9); Ferritin 44.9 ng/mL (10.0-291.0)
[2022-04-18 16:38] LABS: Appearance,Urine Clear (Clear); Bilirubin,Urine Negative (Negative); Blood,Urine Negative (Negative); Color,Urine Yellow (Yellow); Ketones,Urine Negative (Negative); Nitrite,Urine Negative (Negative); Specific Gravity,Urine 1.017 (1.001-1.030); Urobilinogen,Urine 0.2 (0.2,1.0)
[2022-04-18 16:56] LABS: Bacteria,Urine None Seen /HPF (None Seen)
[2022-04-18 17:37] LABS: % Iron Saturation 15.95 (12.00-45.00); African American GFR (CKD) 46.2 (60.0-200.0); Anion Gap 10.1 mmol/L (10.00-18.00); BUN/Creat Ratio 20.89 Ratio (12.00-20.00); Blood Urea Nitrogen 25.9 mg/dL (9.0-27.0); Calcium 10.3 mg/dL (8.7-10.3); Carbon Dioxide 27.4 mmol/L (20.0-27.5); Magnesium 2.3 mg/dL (1.5-2.4); Non-African American GFR(CKD) 39.9 (60.0-200.0); Phosphorus 3.4 mg/dL (2.4-5.1); Potassium 4.5 mmol/L (3.5-5.5); Uric Acid 7.4 mg/dL (2.9-7.7)
== END | disposition home or self-care (01) ==
LOC: LABWHC1 10:52
PROVIDERS: ATTEND Internal Medicine Nephrology
DX: N25.81 Secondary hyperparathyroidism of renal origin (principal); E55.9 Vitamin D deficiency, unspecified; M10.9 Gout, unspecified; N39.0 Urinary tract infection, site not specified; N18.30 Chronic kidney disease, stage 3 unspecified; D63.1 Anemia in chronic kidney disease; R80.9 Proteinuria, unspecified
CPT/HCPCS: 36415; 80048; 81001; 82040; 82043; 82306; 82570; 82728; 83540; 83550; 83735; 83970; 84100; 84550; 85025; 86334; 86335

== ENCOUNTER → 2022-04-30 | Outpatient (CLI) | payer MEDICARE, BC ==
--- NOTE | 2022-04-30 13:11 | CT ---
EXAMINATION TYPE: CT abdomen pelvis wo con DATE OF EXAM: 04/30/2022 COMPARISON: 12/13/2020 INDICATION: Hydronephrosis unspecified, Right DLP: 410.00 mGycm, Automated exposure control for dose reduction was used. CONTRAST: 0 mL of Isovue 300. Study performed without Oral Contrast TECHNIQUE: Axial images were obtained from above the diaphragm to the pubic rami in the axial plane a t 5 mm thick sections. Reconstructed images are reviewed on the computer in the coronal plane. FINDINGS: Limited CT sections are obtained the lung bases. There is a 0.4 cm density at the right lung base. S eries [address] ABDOMEN: Liver: Normal Spleen: Normal Pancreas: There is some coarse calcification within the tail of the pancreas. Adrenal glands: The adrenal glands are normal. Gallbladder: Calcified wall at the fundus of the gallbladder . Kidneys: No masses are evident. No hydronephrosis is present. No cysts are present. 1.1 cm large n onobstructing calcifications mid lateral left kidney. Nonobstructing 0.4 cm calcification inferior po le left kidney. Left kidney may be somewhat atrophic. There is a proximal right ureteral stone measur ing 0.9 cm. This was present previously. Additional previous calcifications is not evident. Minimal h ydronephrosis may be present. Aorta: Vascular calcification is within the aorta. Inferior vena cava: Normal. CT PELVIS: Loops of bowel within the abdomen and pelvis are normal. This study is without oral contrast limi ting bowel evaluation. Appendix: Normal as visualized. Urinary bladder: Normal. Genitourinary structures: Uterus is normal. Adnexa are unremarkable Osseous structures: Suspicious lytic or sclerotic lesions are evident. Degenerative disc changes are present L5-S1. Scoliosis of the lumbar spine. Compression deformity of L1 IMPRESSIONS: 1. 0.9 cm obstructing proximal right ureteral stone with mild right hydronephrosis. 2. Bilateral nonobstructing renal stones. 3. Small 0.4 cm nodule at the right lung base. Follow-up CT chest exam months is recommended
== END | disposition home or self-care (01) ==
LOC: RADCTMAIN 08:47
PROVIDERS: ATTEND Urology
DX: N13.2 Hydronephrosis with renal and ureteral calculous obstruction (principal); R91.1 Solitary pulmonary nodule
CPT/HCPCS: 74176

== ENCOUNTER → 2022-05-08 | Day surgery (SDC) | payer MEDICARE, BC ==
[~2022-05-08] MED LIST changes: +DEXAMETHASONE SOD PHOSPHATE 4 MG/ML 1 ML VIAL IV ONE; +IOPAMIDOL-370 50ML BTL MISCELLANE ONE; +KETOROLAC 15 MG/ML 1 ML VIAL IVP ONE; -LIDOCAINE 1% (10MG/ML) FOR IV START INTRADERMA PRN; +LIDOCAINE 2% INJ 20 MG/ML (2 ML VIAL) ONE; +METOCLOPRAMIDE 5 MG/ML 2 ML VIAL ONE; -MIDAZOLAM 2 MG/2 ML VIAL IV PRN; +PROPOFOL 10 MG/ML 20 ML VIAL IV ONE; +SODIUM CHLORIDE 0.9% 100 ML BAG ONE; +ceFAZolin 1,000 MG VIAL ONE; +fentaNYL (PF) 50 MCG/ML 2 ML AMP IV PRN; +fentaNYL (PF) 50 MCG/ML 2 ML AMP ONE
--- NOTE | 2022-05-08 11:02 | P.HPIHPCON ---
History of Present Illness H&P Date: 05/08/22 Chief Complaint: Right-sided ureteral stone This is an 86-year-old female with history of a 9 mm right-sided proximal ureteral stone, stone was causing right-sided hydronephrosis. Option of ureteroscopy with holmium laser versus ESWL was discussed with her in detail. She agreed to proceed with right-sided ureteroscopy with holmium laser Discussed the risk which include but not limited to bleeding, infection, injury to ureter. Risk from anesthesia was discussed. She understood all the risk and agreed to proceed Consent for Procedure: I have explained the operation/procedure to the patient, including the risks, benefits, side effects, alternative therapies (including not receiving the proposed treatment or service), the likelihood of the patient achieving his/her goals, and potential recuperation problems for the procedure/sedation/analgesia, as well as any blood products, if indicated. I also explained to the patient the risks, benefits and side effects of the alternatives, as well as the risks related to not receiving the proposed procedure, care, treatment, or services. Past Medical History Past Medical History: Hyperlipidemia, Hypertension, Musculoskeletal Disorder, Osteoarthritis (OA), Renal Disease, Thyroid Disorder Additional Past Medical History / Comment(s): hypertension. kidney stones History of Any Multi-Drug Resistant Organisms: None Reported Past Surgical History: Adenoidectomy, Joint Replacement, Orthopedic Surgery, Tonsillectomy Additional Past Surgical History / Comment(s): left knee replaced, left big toe joint replaced. ovary removed. heart valve replacement. surgery on right kidney Past Anesthesia/Blood Transfusion Reactions: No Reported Reaction Additional Past Anesthesia/Blood Transfusion Reaction / Comment(s): Pt has never recieved blood. Past Psychological History: No Psychological Hx Reported Smoking Status: Never smoker Past Alcohol Use History: None Reported Past Drug Use History: None Reported - Past Family History Father Family Medical History: Cancer Additional Family Medical History / Comment(s): father had lymphoma. Mother Family Medical History: Dementia Additional Family Medical History / Comment(s): hyypoglycemia. Mother at age 92. Brother(s) Family Medical History: No Reported History Daughter(s) Family Medical History: No Reported History Son(s) Family Medical History: No Reported History Medications and Allergies Home Medications Medication Instructions Recorded Confirmed Type lisinopriL [Zestril] 5 mg PO QAM 12/13/20 05/07/22 History Aspirin 81 mg PO DAILY 01/27/21 05/07/22 History hydroCHLOROthiazide 12.5 mg PO QAM 05/07/22 05/07/22 History Allergies Allergy/AdvReac Type Severity Reaction Status Date / Time shellfish derived [Shellfish] Allergy Anaphylaxis Verified 05/07/22 08:09 hydromorphone HCl AdvReac Severe Nausea Verified 05/07/22 08:09 [From Dilaudid] codeine AdvReac Nausea Verified 05/07/22 08:09 hydrocodone bitartrate AdvReac Unknown Verified 05/07/22 08:09 [From [place]] morphine AdvReac Itching Verified 05/07/22 08:09 prednisone AdvReac Nausea Verified 05/07/22 08:09 tramadol HCl [From Ultram] AdvReac Nausea & Verified 05/07/22 08:09 Vomiting Surgical - Exam - General no distress, no pain - Eyes normal ocular movement, no pale - ENT normal nares, normal mucosa - Respiratory normal expansion, normal respiratory effort - Abdomen Abdomen: soft, non tender Assessment and Plan Assessment: OR for right-sided ureteroscopy, holmium laser lithotripsy, stone basketing and stent insertion
--- NOTE | 2022-05-08 16:37 | XR ---
EXAMINATION TYPE: XR KUB DATE OF EXAM: 05/08/2022 4:31 PM INDICATION: Patient age:Female; 86 years old; Reason for study: Right Ureteral Stone N20.1; COMPARISON: CT 04/30/2022 TECHNIQUE: One radiographic view of the abdomen was obtained. FINDINGS: Bilateral ureteral stents seen on 01/30/2021 abdomen removed. There are multiple calcific densities p rojecting over the kidneys bilaterally. The largest calcification lower pole of the left kidney measu ring up to 22 x 15 mm. Right ureteropelvic junction calculus seen on prior CT is not definitively vis ualized on this radiograph. Pelvic phlebolith are present there is dextroscoliosis with multilevel di sc degeneration changes. IMPRESSION: 1. Left renal calculi. 2. Right renal calculus seen at the ureteropelvic Junction 04/30/2022 not definitively visualized
[2022-05-08 16:53] VITALS: RESP 16; TEMP 97.7
--- NOTE | 2022-05-08 18:38 | FL ---
Intraoperative/procedural fluoroscopic services were provided. Total fluoroscopy time is 37.7 seconds with a total of 2 submitted images to PACS. Please see the operative/procedural note for further det ails.
--- NOTE | 2022-05-08 19:17 | P.OP ---
Date of Procedure: 05/08/22 Preoperative Diagnosis: Right ureteral stone Postoperative Diagnosis: Same Procedure(s) Performed: Cystoscopy, right ureteroscopy, retrograde pyelogram and stent insertion Implants: 6-[place]an by 24 cm stent in the right ureter Anesthesia: FLACA Surgeon: Ramón Calderon Estimated Blood Loss (ml): 5 Pathology: none sent Condition: stable Disposition: PACU Indications for Procedure: This is an 86-year-old female with history of a 9 mm right-sided proximal u reteral stone, stone was causing right-sided hydronephrosis. Option of ureteroscopy with holmium laser versus ESWL was discussed with her in detail. She agreed to proceed with right-sided ureteroscopy with holmium laser Discussed the risk which include but not limited to bleeding, infection, injury to ureter. Risk from anesthesia was discussed. She understood all the risk and agreed to proceed Operative Findings: Right proximal ureteral stricture Description of Procedure: Patient brought to the operating room, general anesthesia was induced. He was prepped and draped in sterile fashion and placed in dorsal lithotomy position. Cystoscopy fitted with a 21-[place]an sheath was inserted per urethra, cystoscopy was performed which showed no abnormality within the bladder. Attention was then carried to the right ureteral orifice which was intubated with a sensor wire. I was able to advance the wire into the renal pelvis under fluoroscopy. Next a semirigid ureteroscope was inserted per urethra and advanced up the right ureteral orifice, I was able to advance the scope all the way up to the proximal ureter, at this point a significant narrowing was encountered, this measured approximately 3-S[place]an, I was able to advance a second wire through the narrowing and the ureteroscope was removed with [address] Next under fluoroscopy 1113 [place]an access sheath was passed over the wire into the proximal ureter just distal to the stricture. Next a flexible ureteroscope was inserted through the access sheath, I attempted to pass the scope past the stricture but there was significant narrowing. Given this finding decision was made to proceed with ureteral stent. At this time a ureteral stent was passed over the wire, the proximal curl was visualized on fluoroscopy and the distal curl was visualized using the cystoscope. The bladder was emptied at the end of the case. Patient tolerated procedure well taken to recovery in stable condition
[2022-05-08 20:43] VITALS: BP 149/72; PULSE 81
== END | disposition home or self-care (01) ==
LOC: OR 16:11
PROVIDERS: ATTEND Urology
DX: N20.1 Calculus of ureter (principal); I10 Essential (primary) hypertension; E78.5 Hyperlipidemia, unspecified; M19.90 Unspecified osteoarthritis, unspecified site; E03.9 Hypothyroidism, unspecified; Z79.899 Other long term (current) drug therapy; Z79.82 Long term (current) use of aspirin; Z90.89 Acquired absence of other organs; Z98.890 Other specified postprocedural states; Z95.5 Presence of coronary angioplasty implant and graft; Z79.890 Hormone replacement therapy
CPT/HCPCS: 74018; 52332; 52351; 74420; C2625; C1769 ×2; J1100; J2765; J2405; J0690; J3010; J1885; J2704; Q9967; J2001

== ENCOUNTER → 2022-07-03 | Outpatient (CLI) | payer MEDICARE, BC ==
[2022-07-03 14:21] LABS: Basophils # (A) 0.07 X 10*3/uL (0.00-0.10); Basophils % (A) 0.8 %; Eosinophils # (A) 0.27 X 10*3/uL (0.04-0.35); HCT 40.7 % (37.2-46.3); HGB 12.7 g/dL (12.0-15.0); Immature Grans, Automated 1.7 %; Lymphocytes # (A) 1.61 X 10*3/uL (0.90-5.00); Lymphocytes % (A) 18.2 %; MCH 27.7 pg (27.0-32.0); MCHC 31.2 g/dL (32.0-37.0); MCV 88.7 fL (80.0-97.0); Mean Platelet Volume 11.2 fL (9.5-12.2); Monocytes % (A) 11.3 %; NRBC Per 100 WBC 0 /100 WBCS (0.0-0.0); Neutrophils # (A) 5.77 X 10*3/uL (1.80-7.70); Platelet Count 197 X 10*3/uL (140-440); RBC 4.59 X 10*6/uL (4.10-5.20); RDW 14.6 % (11.5-14.5); WBC 8.87 X 10*3/uL (4.50-10.00)
[2022-07-03 15:31] LABS: Appearance,Urine Clear (Clear); Bilirubin,Urine Negative (Negative); Blood,Urine Moderate (Negative); Color,Urine Yellow (Yellow); Ketones,Urine Negative (Negative); Nitrite,Urine Negative (Negative); Specific Gravity,Urine 1.018 (1.001-1.030); Urobilinogen,Urine 0.2 (0.2,1.0)
[2022-07-03 15:33] LABS: African American GFR (CKD) 39.9 (60.0-200.0); Anion Gap 10.7 mmol/L (10.00-18.00); BUN/Creat Ratio 28.36 Ratio (12.00-20.00); Blood Urea Nitrogen 39.7 mg/dL (9.0-27.0); Calcium 10.2 mg/dL (8.7-10.3); Carbon Dioxide 24.6 mmol/L (20.0-27.5); Non-African American GFR(CKD) 34.4 (60.0-200.0); Potassium 4.4 mmol/L (3.5-5.5)
[2022-07-03 16:41] LABS: Bacteria,Urine None Seen /HPF (None Seen)
== END | disposition home or self-care (01) ==
LOC: LABPAT 09:24
PROVIDERS: ATTEND Urology
DX: Z01.812 Encounter for preprocedural laboratory examination (principal); N20.1 Calculus of ureter; R31.29 Other microscopic hematuria
CPT/HCPCS: 80048; 81001; 85025; 87086

== ENCOUNTER 2022-07-10 07:35 | Day surgery (SDC) | payer MEDICARE, BC ==
--- NOTE | 2022-07-06 10:55 | P.HPIHPCON ---
History of Present Illness H&P Date: 07/06/22 Chief Complaint: Right sided ureteral stone This is an 86-year-old female history of a 9 mm right-sided proximal ureteral stone. Status post right-sided stent on 05/08. Right-sided ureteroscopy with holmium laser was attempted at that time, patient had proximal ureteral str icture and the stone could not be accessed. She presents today for right-sided ureteroscopy with holmium laser. Discussed with her the risk of surgery which includes but not limited to bleeding, infection, injury to the ureter, discussed also risk of anesthesia with her. She understood all the risk and agree to proceed with right-sided ureteroscopy, with holmium laser lithotripsy, stone basketing and stent insertion Consent for Procedure: I have explained the operation/procedure to the patient, including the risks, benefits, side effects, alternative therapies (including not receiving the proposed treatment or service), the likelihood of the patient achieving his/her goals, and potential recuperation problems for the procedure/sedation/analgesia, as well as any blood products, if indicated. I also explained to the patient the risks, benefits and side effects of the alternatives, as well as the risks related to not receiving the proposed procedure, care, treatment, or services. Past Medical History Past Medical History: Hyperlipidemia, Hypertension, Musculoskeletal Disorder, Osteoarthritis (OA), Renal Disease, Thyroid Disorder Additional Past Medical History / Comment(s): hypertension. kidney stones History of Any Multi-Drug Resistant Organisms: None Reported Past Surgical History: Adenoidectomy, Joint Replacement, Orthopedic Surgery, Tonsillectomy Additional Past Surgical History / Comment(s): left knee replaced, left big toe joint replaced. ovary removed. heart valve replacement. surgery on right kidney Past Anesthesia/Blood Transfusion Reactions: No Reported Reaction Additional Past Anesthesia/Blood Transfusion Reaction / Comment(s): Pt has never recieved blood. Additional Psychological History / Comment(s): Pt resides with her . She is very independent. She uses no assistive device. She drives. She has no recent international travel. There are animal exposures as of late. She does not have much experience. She is a lifelong nonsmoker and has no significant history of recreational drug use or significant alcohol use. - Past Family History Father Family Medical History: Cancer Additional Family Medical History / Comment(s): father had lymphoma. Mother Family Medical History: Dementia Additional Family Medical History / Comment(s): hyypoglycemia. Mother at age 92. Brother(s) Family Medical History: No Reported History Daughter(s) Family Medical History: No Reported History Son(s) Family Medical History: No Reported History Medications and Allergies Home Medications Medication Instructions Recorded Confirmed Type lisinopriL [Zestril] 5 mg PO QAM 12/13/20 06/06/22 History Aspirin 81 mg PO DAILY 01/27/21 06/06/22 History hydroCHLOROthiazide 12.5 mg PO QAM 05/07/22 06/06/22 History Allergies Allergy/AdvReac Type Severity Reaction Status Date / Time shellfish derived [Shellfish] Allergy Anaphylaxis Verified 06/06/22 12:08 hydromorphone HCl AdvReac Severe Nausea Verified 06/06/22 12:08 [From Dilaudid] codeine AdvReac Nausea Verified 06/06/22 12:08 hydrocodone bitartrate AdvReac Unknown Verified 06/06/22 12:08 [From [place]] morphine AdvReac Itching Verified 06/06/22 12:08 prednisone AdvReac Nausea Verified 06/06/22 12:08 tramadol HCl [From Ultram] AdvReac Nausea & Verified 06/06/22 12:08 Vomiting Surgical - Exam - General no distress, no pain - Eyes normal ocular movement, no pale - ENT normal nares, normal mucosa - Respiratory normal expansion, normal respiratory effort - Abdomen Abdomen: soft, non tender - Psychiatric oriented to time, oriented to person, oriented to place Assessment and Plan Assessment: OR for right-sided ureteroscopy, with holmium laser lithotripsy, stone basketing and stent removal
[~2022-07-10 07:35] MED LIST changes: -DEXAMETHASONE SOD PHOSPHATE 4 MG/ML 1 ML VIAL IV ONE; -IOPAMIDOL-370 50ML BTL MISCELLANE ONE; -KETOROLAC 15 MG/ML 1 ML VIAL IVP ONE; -LIDOCAINE 2% INJ 20 MG/ML (2 ML VIAL) ONE; -METOCLOPRAMIDE 5 MG/ML 2 ML VIAL ONE; -PROPOFOL 10 MG/ML 20 ML VIAL IV ONE; -SODIUM CHLORIDE 0.9% 100 ML BAG ONE; -ceFAZolin 1,000 MG VIAL ONE; -fentaNYL (PF) 50 MCG/ML 2 ML AMP ONE
--- NOTE | 2022-07-10 08:02 | XR ---
EXAMINATION TYPE: XR KUB DATE OF EXAM: 07/10/2022 COMPARISON: 05/08/2022 HISTORY: Preop TECHNIQUE: One view abdominal series FINDINGS: The osseous structures are intact. The bowel gas pattern is nonspecific. 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 Previous aortic valve surgery noted. There are 2 punctate 3 mm calcifications overlying the cope loop of the proximal right ureteral stent . Additional calcification of the distal right hemipelvis likely is outside the course of ureter. There remains 2 punctate 1 to 2 mm left renal calculi and a larger 2.1 cm calculus. This is similar t o prior exam. IMPRESSION: 1. Bilateral nephrolithiasis
[2022-07-10] MEDS ORDERED: LIDOCAINE 1% (10MG/ML) FOR IV START INTRADERMA ONE (08:30)
[2022-07-10] MEDS ORDERED: METOCLOPRAMIDE 5 MG/ML 2 ML VIAL ONE (08:32)
[2022-07-10] MEDS ORDERED: DEXAMETHASONE SOD PHOSPHATE 4 MG/ML 1 ML VIAL IVP ONE (08:34)
[2022-07-10] MEDS ORDERED: METOCLOPRAMIDE 5 MG/ML 2 ML VIAL IVP ONE (08:34)
[2022-07-10] MEDS ORDERED: KETOROLAC 15 MG/ML 1 ML VIAL ONE (08:54)
[2022-07-10] MEDS ORDERED: LIDOCAINE 2% INJ 20 MG/ML (2 ML VIAL) ONE (08:54)
[2022-07-10] MEDS ORDERED: PROPOFOL 10 MG/ML 20 ML VIAL IV ONE (08:54)
--- NOTE | 2022-07-10 10:02 | P.OP ---
Date of Procedure: 07/10/22 Preoperative Diagnosis: Right ureteral stone Postoperative Diagnosis: Same Procedure(s) Performed: Cystoscopy, right ureteroscopy, ureteral balloon dilation, holmium laser lithotripsy, stone basketing and stent removal Implants: none Anesthesia: ELISAA Surgeon: Ramón Calderon Estimated Blood Loss (ml): 5 Pathology: other (right ureteral stone) Condition: stable Disposition: PACU Indications for Procedure: This is an 86-year-old female history of a 9 mm right-sided proximal ureteral stone. Status post right-sided stent on 05/08. Right-sided ureteroscopy with holmium laser was attempted at that time, patient had proximal ureteral stricture and the stone could not be accessed. She presents today for right- sided ureteroscopy with holmium laser. Discussed with her the risk of surgery which includes but not limited to bleeding, infection, injury to the ureter, discussed also risk of anesthesia with her. She understood all the risk and agree to proceed with right-sided ureteroscopy, with holmium laser lithotripsy, stone basketing and stent insertion Operative Findings: Right-sided proximal stone that has migrated to the midpole Description of Procedure: Patient brought to the operating room, general anesthesia was induced. She was prepped and draped in sterile fashion and placed in dorsal lithotomy position. Cystoscopy with a 21-Kazakh sheath was inserted per urethra, cystoscopy was performed which showed no abnormality within the bladder. Attention was then carried to the right ureteral orifice, the stent was grasped and removed to the meatus. Next a sensor wire was advanced through the stent and the stent was removed the wire in place. Next under fluoroscopy 1113 Kazakh access sheath was passed over the wire into the proximal ureter. Next a flexibile ureteroscope was inserted through the access sheath, at this point narrowing was encountered in the proximal portion of the ureter, I attempted to advance the scope past the narrowing into the kidney but was not able to. At this time a wire was readvanced through the scope and the scope was removed with the wire in place. Next under fluoroscopy a 15-Kazakh ureteral balloon dilator was passed over the wire, the narrowed area was dilated under fluoroscopy. Next the flexible ureteroscope was reinserted through the access sheath, renoscopy was performed which showed the previous proximal ureter stone has migrated into the mid pole. Using the holmium laser the stone was dusted, sizable fragments was removed and sent for analysis. Repeat renoscopy showed no sizable stone or injury to the kidney. Pullback ureteroscopy was performed which showed no injury to the ureter and the narrowed portion was fairly dilated and there was no edema thus a stent was not placed. Pullback ureteroscopy was performed which showed no injury to ureter or any ureteral stones. The bladder was emptied at the end of the case. Patient tolerated the procedure well was taken to recovery in stable condition
[2022-07-10 10:05] VITALS: TEMP 97
--- NOTE | 2022-07-10 10:18 | FL ---
Fluoroscopy History: CYSTO LITHO RIGHT renal calculi fl time 34 secs DAP [phone]
[2022-07-10 10:21] VITALS: RESP 16
[2022-07-10 10:58] VITALS: BP 121/59; PULSE 73
== END 2022-07-10 11:35 | disposition home or self-care (01) ==
LOC: OR 07:35
PROVIDERS: ATTEND Urology
DX: N20.1 Calculus of ureter (principal); E78.5 Hyperlipidemia, unspecified; I10 Essential (primary) hypertension; M19.90 Unspecified osteoarthritis, unspecified site; E07.9 Disorder of thyroid, unspecified; Z90.89 Acquired absence of other organs; Z79.899 Other long term (current) drug therapy
CPT/HCPCS: 82365; 74018; 52356; C1769; J1100; J2765; J0690; J2405; J1885; J2704; J2001

== ENCOUNTER → 2022-07-17 | Outpatient (CLI) | payer MEDICARE, BC ==
[2022-07-17 15:29] LABS: Basophils # (A) 0.07 X 10*3/uL (0.00-0.10); Basophils % (A) 1.2 %; Eosinophils % (A) 3.3 %; HCT 38.7 % (37.2-46.3); Immature Grans, Automated 0.7 %; Lymphocytes # (A) 1.27 X 10*3/uL (0.90-5.00); Lymphocytes % (A) 20.9 %; MCH 27.5 pg (27.0-32.0); MCV 88.6 fL (80.0-97.0); Monocytes # (A) 0.73 X 10*3/uL (0.20-1.00); NRBC Per 100 WBC 0 /100 WBCS (0.0-0.0); Neutrophils # (A) 3.77 X 10*3/uL (1.80-7.70); Neutrophils % (A) 61.9 %; Platelet Count 152 X 10*3/uL (140-440); RBC 4.37 X 10*6/uL (4.10-5.20); RDW 14.8 % (11.5-14.5); WBC 6.08 X 10*3/uL (4.50-10.00)
[2022-07-17 18:02] LABS: % Iron Saturation 23.1 (12.00-45.00); African American GFR (CKD) 39.9 (60.0-200.0); Anion Gap 10.1 mmol/L (10.00-18.00); BUN/Creat Ratio 25.29 Ratio (12.00-20.00); Blood Urea Nitrogen 35.4 mg/dL (9.0-27.0); Calcium 9.9 mg/dL (8.7-10.3); Carbon Dioxide 24.9 mmol/L (20.0-27.5); Magnesium 2.2 mg/dL (1.5-2.4); Non-African American GFR(CKD) 34.4 (60.0-200.0); Phosphorus 3.4 mg/dL (2.4-5.1); Potassium 4.3 mmol/L (3.5-5.5); Uric Acid 8.2 mg/dL (2.9-7.7)
[2022-07-17 18:21] LABS: Ferritin 64.2 ng/mL (10.0-291.0)
[2022-07-17 22:19] LABS: Appearance,Urine Clear (Clear); Bilirubin,Urine Negative (Negative); Blood,Urine Large (Negative); Color,Urine Yellow (Yellow); Ketones,Urine Negative (Negative); Nitrite,Urine Negative (Negative); PH, Urine 5.5 (5.0-8.0); Specific Gravity,Urine 1.015 (1.001-1.030); Urobilinogen,Urine 0.2 (0.2,1.0)
[2022-07-17 22:24] LABS: Bacteria,Urine None Seen /HPF (None Seen)
[2022-07-18 00:10] LABS: Urine Creatinine 69.8 mg/dL (28.0-217.0)
== END | disposition home or self-care (01) ==
LOC: LABWHC1 10:53
PROVIDERS: ATTEND Nurse Practitioner Family
DX: E55.9 Vitamin D deficiency, unspecified (principal); E21.3 Hyperparathyroidism, unspecified; M10.9 Gout, unspecified; N39.0 Urinary tract infection, site not specified; N18.32 Chronic kidney disease, stage 3b; D63.1 Anemia in chronic kidney disease; R80.9 Proteinuria, unspecified
CPT/HCPCS: 36415; 80048; 81001; 82040; 82043; 82164; 82306; 82570; 82728; 83540; 83550; 83735; 83970; 84100; 84550; 85025; 86334

== ENCOUNTER → 2022-07-18 | Outpatient (CLI) | payer MEDICARE, BC | LOC: LABWHC1 11:18 | PROVIDERS: ATTEND Nurse Practitioner Family | DX: E55.9 Vitamin D deficiency, unspecified (principal); E21.3 Hyperparathyroidism, unspecified; M10.9 Gout, unspecified; N39.0 Urinary tract infection, site not specified; D64.9 Anemia, unspecified; R80.9 Proteinuria, unspecified | CPT/HCPCS: 36415 ==

== ENCOUNTER → 2022-10-20 | Outpatient (CLI) | payer MEDICARE, BC ==
[2022-10-20 14:06] LABS: Appearance,Urine Clear (Clear); Bilirubin,Urine Negative (Negative); Blood,Urine Negative (Negative); Color,Urine Yellow (Yellow); Ketones,Urine Negative (Negative); Nitrite,Urine Negative (Negative); PH, Urine 5.5; Specific Gravity,Urine 1.018 (1.001-1.030); Urobilinogen,Urine 0.2 E.U./DL
[2022-10-20 23:16] LABS: Basophils # (A) 0.06 X 10*3/uL (0.00-0.10); Eosinophils # (A) 0.32 X 10*3/uL (0.04-0.35); Eosinophils % (A) 5.1 %; HCT 38.7 % (37.2-46.3); HGB 11.9 d/dL (12.0-15.0); Lymphocytes % (A) 17.6 %; MCH 27.9 pg (27.0-32.0); MCHC 30.7 d/dL (32.0-37.0); MCV 90.8 FL (80.0-97.0); Mean Platelet Volume 11.2 FL (9.5-12.2); Monocytes % (A) 11.2 %; NRBC Per 100 WBC 0 X 10*3/uL (0.00-0.01); Neutrophils # (A) 4.06 X 10*3/uL (1.80-7.70); Neutrophils % (A) 64.8 %; Platelet Count 129 X 10*3/uL (140-440); RBC 4.26 X 10*6/uL (4.10-5.20); RDW 13.8 % (11.5-14.5); WBC 6.26 X 10*3/uL (4.50-10.00)
[2022-10-20 23:45] LABS: % Iron Saturation 15.38 (12.00-45.00); ALT 14 U/L (8-44); AST 22 U/L (13-35); Albumin/Globulin Ratio 1.48 Ratio (1.60-3.17); Alkaline Phosphatase 75 U/L (41-126); BUN/Creat Ratio 27.57 Ratio (12.00-20.00); Blood Urea Nitrogen 38.6 mg/dL (9.0-27.0); Calcium 10.2 mg/dL (8.7-10.3); Carbon Dioxide 25.3 mmol/L (21.6-31.8); Chloride 108 mmol/L (96-109); Ferritin 50.4 ng/mL (10.0-291.0); Globulin 2.7 d/dL (1.6-3.3); Glucose 91 mg/dL (70-110); Iron 48 UG/DL (50-170); Magnesium 2.2 mg/dL (1.5-2.4); Phosphorus 3.6 mg/dL (2.4-5.1); Potassium 4.6 mmol/L (3.5-5.5); Sodium 143 mmol/L (135-145); Total Bilirubin 0.3 mg/dL (0.3-1.2); Total Iron Binding Capacity 312 UG/DL (228-460); Total Protein 6.7 d/dL (6.2-8.2); Uric Acid 8.2 mg/dL (2.9-7.7)
[2022-10-23 09:03] LABS: Microalbumin Creatinine Ratio <14 mg/g Cr (0-30); Urine Creatinine 84.3 mg/dL (28.0-217.0)
== END | disposition home or self-care (01) ==
LOC: LABWHC1 08:39
PROVIDERS: ATTEND Family Medicine
DX: E55.9 Vitamin D deficiency, unspecified (principal); N25.81 Secondary hyperparathyroidism of renal origin; M10.9 Gout, unspecified; N18.32 Chronic kidney disease, stage 3b; N39.0 Urinary tract infection, site not specified; D63.1 Anemia in chronic kidney disease; R80.9 Proteinuria, unspecified
CPT/HCPCS: 36415; 80053; 81003; 82043; 82570; 82728; 83036; 83540; 83550; 83735; 83970; 84100; 84443; 84550; 85025

== ENCOUNTER → 2022-10-30 | Outpatient (CLI) | payer MEDICARE, BC ==
--- NOTE | 2022-10-30 14:27 | NM ---
EXAMINATION TYPE: NM bone 3 phase DATE OF EXAM: 10/30/2022 COMPARISON: 12/26/2014, CLINICAL INDICATION: Female, 86 years old with history of M86.8X6 OTHER OSTEOMYELITIS, LOWER LEG; Triple phase bone scintigraphy was performed following the injection of 21.2 mCi Tc 99m MDP. Immedia te images and 5 hours post injection images acquired. FINDINGS: There is increased flow to the right foot. There is abnormal soft tissue uptake involving the right f oot and distal margin of the left foot compatible cellulitis. Abnormal uptake involving the right fifth digit likely is on the basis of osteomyelitis. Abnormal upt [place] involving the right first MTP likely posttherapy related. No definite abnormal uptake involving the left fourth digit. IMPRESSION: Positive scintigraphic evidence of cellulitis with osteomyelitis of the right fifth digit. No abnormal uptake is seen with regard to the left fourth digit. There is increased soft tissue uptak e in the region correlate for cellulitis..
== END | disposition home or self-care (01) ==
LOC: RADNMMAIN 07:34
PROVIDERS: ATTEND Podiatrist Foot & Ankle Surgery
DX: M86.8X6 Other osteomyelitis, lower leg (principal)
CPT/HCPCS: 78315; A9503

== ENCOUNTER → 2022-11-20 | Outpatient (CLI) | payer MEDICARE, BC ==
--- NOTE | 2022-11-20 16:08 | US ---
EXAMINATION TYPE: US arterial LE multi level DATE OF EXAM: 11/20/2022 1:44 PM CLINICAL INDICATION: Female, 87 years old with history of L97.509 NON-PRESSURE CHRONIC ULCER OTH PRT UNSP FO; weakness and heaviness bilateral legs History of: Smoker: no Hypertension: yes Diabetic: no Hyperlipidemia: no TIA/CVA: no Previous Vascular Surgery: heart valve replacement VT: no Vascular Ulcers: no Gangrene: no Doppler Waveforms: Right: Biphasic Left: Biphasic Right Brachial Pressure: 173 Left Brachial Pressure: 171 Ankle-Brachial Indices: Right: 0.83 Left: 0.92 (Vessel hardening > 1.4; Normal 0.9 - 1.4, Moderate 0.7 - 0.9, Severe 0.5-0.7) Toe Brachial Indices: Right: 0.47 Left: 0.66 IMPRESSION: Moderate right and borderline moderate left peripheral vascular disease.
== END | disposition home or self-care (01) ==
LOC: RADUSWWP 12:49
PROVIDERS: ATTEND Podiatrist Foot & Ankle Surgery
DX: I73.9 Peripheral vascular disease, unspecified (principal); I10 Essential (primary) hypertension; L97.509 Non-pressure chronic ulcer of other part of unspecified foot with unspecified severity; Z95.2 Presence of prosthetic heart valve
CPT/HCPCS: 93923

== ENCOUNTER 2022-12-28 12:25 | Emergency (ER) | payer MEDICARE, BC ==
[2022-12-28] MEDS ORDERED: KETOROLAC 15 MG/ML 1 ML VIAL IM STA (13:24)
[2022-12-28] MEDS ORDERED: ORPHENADRINE 30 MG/ML 2 ML VIAL IM STA (13:24)
--- NOTE | 2022-12-28 13:40 | ED ---
Back Pain HPI - General Chief Complaint: Back Pain/Injury Stated Complaint: back/hip pain Time Seen by Provider: 12/28/22 12:54 Source: patient Limitations: physical limitation - History of Present Illness Initial Comments: 87-year-old female presents to ED with a chief complaint of right hip pain. Patient states for the past few weeks has had pain of her right hip/buttock radi ating down the leg. Denies any recent trauma or injury. Denies incontinence or saddle anesthesia. States that her home meds including Tylenol and baclofen have not improving pain prompting presentation to the ED for further evaluation. No chest pain or shortness of breath. No other complaints. - Related Data Home Medications Medication Instructions Recorded Confirmed lisinopriL [Zestril] 5 mg PO QAM 12/13/20 07/10/22 Aspirin 81 mg PO DAILY 01/27/21 07/10/22 hydroCHLOROthiazide 12.5 mg PO QAM 05/07/22 07/10/22 Previous Rx's Medication Instructions Recorded Cephalexin [Keflex] 500 mg PO Q6HR 1 Days #4 cap 07/10/22 Ketorolac [Toradol] 10 mg PO Q6HR #5 tab 07/10/22 Allergies Allergy/AdvReac Type Severity Reaction Status Date / Time shellfish derived [Shellfish] Allergy Anaphylaxis Verified 12/28/22 12:43 hydromorphone HCl AdvReac Severe Nausea Verified 12/28/22 12:43 [From Dilaudid] codeine AdvReac Nausea Verified 12/28/22 12:43 hydrocodone bitartrate AdvReac Unknown Verified 12/28/22 12:43 [From [place]] morphine AdvReac Itching Verified 12/28/22 12:43 prednisone AdvReac Nausea Verified 12/28/22 12:43 tramadol HCl [From Ultram] AdvReac Nausea & Verified 12/28/22 12:43 Vomiting Review of Systems ROS Statement: Those systems with pertinent positive or pertinent negative responses have been documented in the HPI. ROS Other: All systems not noted in ROS Statement are negative. Past Medical History Past Medical History: Hyperlipidemia, Hypertension, Musculoskeletal Disorder, Osteoarthritis (OA), Renal Disease, Thyroid Disorder Additional Past Medical History / Comment(s): hypertension. kidney stones History of Any Multi-Drug Resistant Organisms: None Reported Past Surgical History: Adenoidectomy, Joint Replacement, Orthopedic Surgery, Tonsillectomy Additional Past Surgical History / Comment(s): left knee replaced, left big toe joint replaced. ovary removed. heart valve replacement. surgery on right kidney Past Anesthesia/Blood Transfusion Reactions: No Reported Reaction Additional Past Anesthesia/Blood Transfusion Reaction / Comment(s): Pt has never recieved blood. Past Psychological History: No Psychological Hx Reported Smoking Status: Never smoker Past Alcohol Use History: None Reported Past Drug Use History: None Reported - Past Family History Father Family Medical History: Cancer Additional Family Medical History / Comment(s): father had lymphoma. Mother Family Medical History: Dementia Additional Family Medical History / Comment(s): hyypoglycemia. Mother at age 92. Brother(s) Family Medical History: No Reported History Daughter(s) Family Medical History: No Reported History Son(s) Family Medical History: No Reported History General Exam Limitations: physical limitation General appearance: alert, in no apparent distress Head exam: Present: atraumatic, normocephalic Eye exam: Present: normal appearance Neck exam: Present: normal inspection Respiratory exam: Present: normal lung sounds bilaterally Cardiovascular Exam: Present: regular rate, normal rhythm Extremities exam: Present: other (Strength and Sensation equal and intact in bilateral upper and lower extremities.) Back exam: Present: normal inspection, other (No midline cervical, thoracic, lumbar spinal tenderness to palpation.) Neurological exam: Present: alert, oriented X3 Skin exam: Present: warm, dry Course Vital Signs 12/28/22 12:38 Temperature 97.3 F L Pulse Rate 67 Respiratory 20 Rate Blood Pressure 115/69 O2 Sat by Pulse 99 Oximetry Medical Decision Making - Medical Decision Making Was pt. sent in by a medical professional or institution (, PA, HOT FRAME TENDER, urgent care, hospital, or correction...) When possible be specific @ -No Did you speak to anyone other than the patient for history (EMS, parent, family, police, friend...)? What history was obtained from this source @ -No Did you review nursing and triage notes (agree or disagree)? Why? @ -I reviewed and agree with nursing and triage notes Were old charts reviewed (outside hosp., previous admission, EMS record, old EKG, old radiological studies, urgent care reports/EKG's, correction records)? Report findings @ -No old charts were reviewed Differential Diagnosis (chest pain, altered mental status, abdominal pain women, abdominal pain men, vaginal bleeding, weakness, fever, dyspnea, syncope, headache, dizziness, GI bleed, back pain, seizure, CVA, palpatations, mental health, musculoskeletal)? @ -Differential Musculoskeletal Muscular strain, contusion, ligament sprain, fracture, arthritis, septic arthritis, bursitis, cellulitis, muscle spasm, nerve compression, DVT, arterial occlusion, herpes zoster, electrolyte abnormality, tumor.... This is not meant to be in all inclusive list EKG interpreted by me (3pts min.). @ -None X-rays interpreted by me (1pt min.). @ -X-ray interpreted by me shows no acute findings. CT interpreted by me (1pt min.). @ -None done U/S interpreted by me (1pt. min.). @ -None done What testing was considered but not performed or refused? (CT, X-rays, U/S, labs)? Why? @ -None What meds were considered but not given or refused? Why? @ -None Did you discuss the management of the patient with other professionals (professionals i.e. , PA, HOT FRAME TENDER, lab, RT, psych nurse, psychiatric social worker supervisor, wrinkle chaser, t eacher, rating officer, briefcase sewer)? Give summary @ -No Was smoking cessation discussed for >3mins.? @ -No Was critical care preformed (if so, how long)? @ -No Were there social determinants of health that impacted care today? How? (Homelessness, low income, unemployed, alcoholism, drug addiction, transportation, low edu. Level, literacy, decrease access to med. care, prison, rehab)? @ -No Was there de-escalation of care discussed even if they declined (Discuss DNR or withdrawal of care, Hospice)? DNR status @ -No What co-morbidities impacted this encounter? (DM, HTN, Smoking, COPD, CAD, Cancer, CVA, ARF, Chemo, Hep., AIDS, mental health diagnosis, sleep apnea, morbid obesity)? @ -None Was patient admitted / discharged? Hospital course, mention meds given and [place], prescriptions, significant lab abnormalities, going to OR and other pertinent info. @ -Discharge 87-year-old female presenting to the ED with pain of her buttock/hip that rad iates down the leg. Imaging studies here reveal no acute findings are significant for degenerative change. Patient had improvement of pain here with Toradol and Norflex. Patient discharged home in stable condition. Provided referrals to orthopedics and pain management. Discussed return precautions with patient and family who verbalizes agreement. Undiagnosed new problem with uncertain prognosis? @ -No Drug Therapy requiring intensive monitoring for toxicity (Heparin, Nitro, Insulin, Cardizem)? @ -No Were any procedures done? @ -No Diagnosis/symptom? @ -Hip/buttock pain Acute, or Chronic, or Acute on Chronic? @ -Acute Uncomplicated (without systemic symptoms) or Complicated (systemic symptoms)? @ -Uncomplicated Side effects of treatment? @ -No Exacerbation, Progression, or Severe Exacerbation? @ -No Poses a threat to life or bodily function? How? (Chest pain, [place], CA, pneumonia, PE, COPD, DKA, ARF, appy, cholecystitis, CVA, Diverticulitis, Homicidal, Suicidal, threat to staff... and all critical care pts) @ -No Disposition Clinical Impression: Buttock pain Disposition: HOME SELF-CARE Condition: Good Instructions (If sedation given, give patient instructions): Acute Low Back Pain (ED), Sciatica (ED), Lumbar Radiculopathy (ED) Additional Instructions: Please return to the Emergency Department if symptoms worsen or any other concerns. Is patient prescribed a controlled substance at d/c from ED?: No Referrals: Isreal Ashley MD [STAFF PHYSICIAN] - 1-2 days Jj Altamirano MD [STAFF PHYSICIAN] - 1-2 days Gilberto Kinney MD [STAFF PHYSICIAN] - 1-2 days Time of Disposition: 14:59
--- NOTE | 2022-12-28 14:28 | XR ---
EXAMINATION TYPE: XR pelvis AP view DATE OF EXAM: 12/28/2022 CLINICAL HISTORY: pain TECHNIQUE: Single view the pelvis is submitted. FINDINGS: No evidence for fracture, dislocation or bony lesion. Joint spaces are mildly narrowed.. SI joints appear symmetric. IMPRESSION: 1. No acute fracture or dislocation seen. ICD 10 NO FRACTURE, INITIAL EVALUATION
--- NOTE | 2022-12-28 14:29 | XR ---
EXAMINATION TYPE: XR lumbar spine 2 or 3V DATE OF EXAM: 12/28/2022 CLINICAL HISTORY: pain TECHNIQUE: Three views of the lumbar spine are submitted. COMPARISON: None. FINDINGS: Severe compression fracture of L1 seen on prior x-ray of the chest dated 12/13/2020. No acute fracture s seen. There is curvature convex to the right. Moderate to severe multilevel degenerative disc disea se and spondylosis. Grade 1 anterolisthesis L4 and L5 of 6 mm. Severe facet joint arthropathy. IMPRESSION: No acute fracture or dislocation is seen in the lumbar spine. ICD 10 NO FRACTURE, INITIAL EVALUATION
[2022-12-28] MEDS ORDERED: LIDOCAINE 5% PATCH TOPICAL SCH (14:45)
[2022-12-28 15:30] VITALS: BP 139/71; PULSE 76; RESP 18; TEMP 98
== END 2022-12-28 15:26 | disposition home or self-care (01) ==
LOC: EC 12:25
DX: M25.551 Pain in right hip (principal); I10 Essential (primary) hypertension; Z79.82 Long term (current) use of aspirin; Z79.899 Other long term (current) drug therapy; Z88.5 Allergy status to narcotic agent; Z88.8 Allergy status to other drugs, medicaments and biological substances; Z91.013 Allergy to seafood
CPT/HCPCS: 72100; 72170; 99283; 96372 ×2; J2360; J1885

== ENCOUNTER → 2023-01-23 | Outpatient (CLI) | payer MEDICARE, BC ==
[2023-01-23 13:24] VITALS: BP 151/60; PULSE 76; RESP 15; TEMP 98.2
--- NOTE | 2023-01-23 14:51 | P.PAINPG ---
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 Pt states she experienced 75 % pain relief x 4 wks s/p procedure. Pt states pain level is provoked at 7/10 in intensity, constant, localized in the lumbar spine, dull in character w shooting pain towards the BL knees. Pain is provoked by weight bearing activity. Pain is alleviated by medications (Tyl #3, Robaxin), use of a wheelchair for ambulatory assistance, ice, CBD topical, repositioning and rest. Medication choices are limited due to extensive nausea w opiates and CRF. PMH: OA, Hyperlipidemia, HTN, Renal Disease, Hypothyroid Disorder, Nephrolithiasis PSH: Adenoidectomy, L Great Toe Replacement, L Knee Replacement Surgery, Tonsillectomy, Heart Valve Replacement, R Kidney Surgery, Oophorectomy SH: Negative x3 FH: Fa- Lymphoma. Mo- Dementia/ at 89. Bro- No Reported History. Daughter- No Reported History. Son- No Reported History. All: See list Meds: See list REVIEW OF ORGAN SYSTEMS: CONSTITUTIONAL: No fevers or chills. No recent weight loss. NEUROLOGICAL: + numbness and tingling along the distal extremities. No seizure disorders or headaches. MUSCULOSKELETAL: + pain PSYCHIATRIC: Denies current depression or suicidal thoughts. Physical Examinations : Constitutional : Cooperative , not in acute distress . Neurologic : Cranial nerve II to XII intact. No focal neurological deficits. Psychiatric : alert & oriented x 3. Matching mood & appropriate affect. Judgment & insight intact. Musculoskeletal : Cervical Spine Motor strength in the deltoid and biceps: Normal right side. Normal Left side Motor strength biceps and the wrist extensors: Normal right side . Normal left side Motor strength in the triceps muscle: Normal right side. Normal left side Deep tendon reflexes: Normal at the biceps. Normal at Brachioradialis. Normal at triceps Vertebral body tenderness to deep palpation over Cervical facet loading test: positive bilaterally Spurling test: positive bilaterally Neck distraction test: positive bilaterally Clem sign: positive bilaterally Lumbar spine Motor strength lower extremities ,thigh and legs 5/5 Right side , 5/5 Left side Deep tendon reflexes : Normal Knee Jerk. Normal Ankle Jerk Vertebral body tenderness over Wyatt Test positive Lumbar facet Loading Test: positive Right / positive Left Range of motion of the lumbar spine Flexion 30 degrees, extension 10 degrees Straight Leg Raise test: Left/ Right positive at degree Lesly test: positive right / positive left. Severe tenderness over the Sacroiliac joint on the Right / Left sides Gaenslen test: positive bilaterally Seated flexion test: positive bilaterally. Sacral spine : Severe tenderness over the Sacroiliac joint: right side / left side Range of motion: Flexion of the lumbar spine <60 degrees Range of motion: Extension of the lumbar spine <20 degrees Gaenslen's Test positive Rene's Test positive Lesly test: positive right side / left side Thigh Thrust Test Sacral Thrust Test Imaging: MRI noncontrast of the lumbar spine from 12/31/22 reviewed Assessment/ Plan : Lumbar DDD Recommendation of medication management Robaxin 500mg QID prn #120 w 1 RF. Use, side effects, adverse reactions N safe storage discussed. Patient acknowledged understanding. Risks, benefits discussed and patient verbalized u nderstanding. All questions answered. I have spent greater than 30 minutes on patient care today. Dr Kinney was available by phone for the evaluation of this patient. The time was used to review the medical records including relevant urine studies and Prescription history (MAPs), review of the available imaging, evaluation and examination of the patient, coordination of care with the medical staff and if applicable referring physicians, as well as creation of the medical record - Pain Location Bilateral Lower Back Non-Pharmacological Interventions: Heat, Inactivity, Sitting, Standing Pharmacological Interventions: Scheduled Medication PQRS Narrative: Smoking Status Never smoker Home Medications: Ambulatory Orders Aspirin 81 mg PO Q48H 01/27/21 Acetaminophen Tab [Tylenol] 650 mg PO Q6HR PRN tab 01/08/23 Acetaminophen-Codeine 300-30mg [Tylenol w/codeine #3] 1 each PO Q6HR PRN #12 tab 01/08/23 Amiodarone [Cordarone] 200 mg PO BID #60 tab 01/08/23 Apixaban [Eliquis] 2.5 mg PO BID 30 Days #60 tab 01/08/23 Folic Acid 1 mg PO DAILY@1200 #30 tab 01/08/23 Lidocaine 5% Patch [Lidoderm 5% Patch] 3 patch TOPICAL DAILY #90 patch 09/26/23 Metoprolol Tartrate [Lopressor] 25 mg PO TID 30 Days #90 tab 01/08/23 Multivitamins, Thera [Multivitamin (formulary)] 1 each PO DAILY@1200 #30 tab 01/08/23 Ondansetron Odt [Zofran Odt] 4 mg PO Q8HR PRN #30 tab 01/08/23 Sennosides [Senokot] 17.2 mg PO HS #30 tab 01/08/23 Thiamine [Vitamin B-1] 100 mg PO DAILY@1200 #30 tab 01/08/23 polyethylene glycoL 3350 [Miralax] 17 gm PO DAILY #30 packet 01/08/23 methocarbamoL [Robaxin] 500 mg PO QID PRN 30 Days #120 tab 01/23/23 Controlled Substance Measures - Controlled Substance Measures Is patient prescribed a controlled substance at discharge?: No
== END ==
LOC: PNWHC3 10:57
PROVIDERS: ATTEND Specialist
DX: M51.36 Other intervertebral disc degeneration, lumbar region (principal); M19.90 Unspecified osteoarthritis, unspecified site; E78.5 Hyperlipidemia, unspecified; I10 Essential (primary) hypertension; E07.9 Disorder of thyroid, unspecified; Z87.442 Personal history of urinary calculi; Z91.013 Allergy to seafood; Z88.5 Allergy status to narcotic agent; Z88.8 Allergy status to other drugs, medicaments and biological substances; Z79.82 Long term (current) use of aspirin; Z79.899 Other long term (current) drug therapy
CPT/HCPCS: 99211

== ENCOUNTER → 2023-02-22 | Outpatient (CLI) | payer MEDICARE, BC ==
[2023-02-22 15:58] LABS: Basophils # (A) 0.11 X 10*3/uL (0.00-0.10); Basophils % (A) 1.6 %; Eosinophils # (A) 0.37 X 10*3/uL (0.04-0.35); Eosinophils % (A) 5.2 %; HCT 35.5 % (37.2-46.3); HGB 11.1 g/dL (12.0-15.0); Lymphocytes # (A) 0.97 X 10*3/uL (0.90-5.00); Lymphocytes % (A) 13.8 %; MCH 29.1 pg (27.0-32.0); MCHC 31.3 g/dL (32.0-37.0); MCV 92.9 FL (80.0-97.0); Mean Platelet Volume 10.7 FL (9.5-12.2); Monocytes # (A) 0.86 X 10*3/uL (0.20-1.00); Monocytes % (A) 12.2 %; NRBC Per 100 WBC 0 X 10*3/uL (0.00-0.01); Neutrophils # (A) 4.65 X 10*3/uL (1.80-7.70); Neutrophils % (A) 65.9 %; Platelet Count 235 X 10*3/uL (140-440); RBC 3.82 X 10*6/uL (4.10-5.20); RDW 15.5 % (11.5-14.5); WBC 7.05 X 10*3/uL (4.50-10.00)
[2023-02-22 16:21] LABS: % Iron Saturation 14.22 (12.00-45.00); Albumin 3.6 g/dL (3.8-4.9); BUN/Creat Ratio 19.08 Ratio (12.00-20.00); Blood Urea Nitrogen 22.9 mg/dL (9.0-27.0); Carbon Dioxide 25.9 mmol/L (21.6-31.8); Chloride 110 mmol/L (96-109); Glucose 87 mg/dL (70-110); Iron 32 UG/DL (50-170); Magnesium 2.1 mg/dL (1.5-2.4); Phosphorus 2.8 mg/dL (2.4-5.1); Sodium 146 mmol/L (135-145); Total Iron Binding Capacity 225 UG/DL (228-460); Uric Acid 7.4 mg/dL (2.9-7.7)
[2023-02-22 16:37] LABS: Appearance,Urine Clear (Clear); Bilirubin,Urine Negative (Negative); Blood,Urine Moderate (Negative); Color,Urine Yellow (Yellow); Ketones,Urine Negative (Negative); Nitrite,Urine Negative (Negative); PH, Urine 5.5; Urobilinogen,Urine 0.2 E.U./DL
[2023-02-22 16:56] LABS: Bacteria,Urine None Seen (None Seen); Calcium Oxalate Crystals,Urine Present (None Seen)
== END | disposition home or self-care (01) ==
LOC: LABWHC1 08:32
PROVIDERS: ATTEND Internal Medicine Nephrology
DX: N18.32 Chronic kidney disease, stage 3b (principal); M10.9 Gout, unspecified; N39.0 Urinary tract infection, site not specified; N25.81 Secondary hyperparathyroidism of renal origin; D64.9 Anemia, unspecified; E55.9 Vitamin D deficiency, unspecified
CPT/HCPCS: 36415; 80048; 81001; 82040; 82043; 82306; 82570; 82728; 83540; 83550; 83735; 83970; 84100; 84550; 85025

== ENCOUNTER → 2023-03-01 | Outpatient (CLI) | payer MEDICARE, BC ==
[2023-03-01 11:36] LABS: African American GFR (CKD) 51 (>60 ml/min/1.73 sqM); Anion Gap 5 mmol/L; Blood Urea Nitrogen 22 mg/dL (7-17); Calcium 9.8 mg/dL (8.4-10.2); Carbon Dioxide 29 mmol/L (22-30); Chloride 109 mmol/L (98-107); Glucose 82 mg/dL (74-99); Non-African American GFR(CKD) 45 (>60 ml/min/1.73 sqM); Potassium 4.3 mmol/L (3.5-5.1); Sodium 143 mmol/L (137-145)
[2023-03-01 11:42] LABS: NT-Pro-B-Type Natriuretic Pept 4160 pg/mL
== END | disposition home or self-care (01) ==
LOC: LABWHC1 09:36
PROVIDERS: ATTEND Internal Medicine
DX: R06.00 Dyspnea, unspecified (principal); R06.9 Unspecified abnormalities of breathing; N18.32 Chronic kidney disease, stage 3b
CPT/HCPCS: 36415; 80048; 83880

== ENCOUNTER → 2023-03-25 | Outpatient (CLI) | payer MEDICARE, BC ==
[2023-03-25 16:16] LABS: BUN/Creat Ratio 22.83 Ratio (12.00-20.00); Blood Urea Nitrogen 27.4 mg/dL (9.0-27.0); Calcium 10.1 mg/dL (8.7-10.3); Carbon Dioxide 25.1 mmol/L (21.6-31.8); Chloride 108 mmol/L (96-109); Glucose 87 mg/dL (70-110); Potassium 3.9 mmol/L (3.5-5.5); Sodium 143 mmol/L (135-145)
--- NOTE | 2023-03-25 17:37 | US ---
EXAMINATION TYPE: US kidneys/renal and bladder DATE OF EXAM: 03/25/2023 COMPARISON: NONE CLINICAL INDICATION: Female, 87 years old with history of CKD 3B; Patient denies any signs or symptom s at this time. EXAM MEASUREMENTS: Right Kidney: 10.9 x 5.7 x 4.5 Left Kidney: 9.9 x 5.4 x 5.3 Post Void Residual Volume: Not assessed Right Kidney: Benign cyst measuring 3.8 x 4.1 x 3.6 cm. There is mild right-sided pelvocaliectasis. Left Kidney: A few scattered areas of shadowing demonstrating twinkle artifact measuring up to 5 mm, possible small nonobstructive stones. Limited detail of parenchymal assessment due to patient body h abitus. No obvious hydronephrosis. Bladder: No gross abnormality. Bilateral Jets seen: Yes Normal Post Void Residual: not assessed IMPRESSION: 1. Mild right-sided pelvicaliectasis any transient or could represent early hydronephrosis. The forme r is favored as the right ureteral jet is visualized. Consider short interval follow-up to reassess. 2. Suggestion of a few shadowing echogenic areas in the left kidney measuring up to 5 mm. Possible sm all nonobstructive stones. No hydronephrosis on the left.
== END | disposition home or self-care (01) ==
LOC: RADUSWWP 14:38
PROVIDERS: ATTEND Internal Medicine Nephrology
DX: N18.32 Chronic kidney disease, stage 3b (principal); N28.89 Other specified disorders of kidney and ureter
CPT/HCPCS: 76770; 80048

== ENCOUNTER → 2023-03-25 | Outpatient (CLI) | payer MEDICARE, BC | END | disposition home or self-care (01) | LOC: LABWHC1 08:48 | PROVIDERS: ATTEND Internal Medicine | DX: Z53.9 Procedure and treatment not carried out, unspecified reason (principal) ==

== ENCOUNTER 2024-02-12 20:03 | Observation (INO) | payer MEDICARE, BC ==
[2024-02-12 21:14] LABS: ALT 113 U/L (4-34); AST 133 U/L (14-36); African American GFR (CKD) 29 (>60 ml/min/1.73 sqM); Albumin 3.8 g/dL (3.5-5.0); Alkaline Phosphatase 140 U/L (38-126); Anion Gap 5 mmol/L; Blood Urea Nitrogen 57 mg/dL (7-17); Carbon Dioxide 23 mmol/L (22-30); Chloride 111 mmol/L (98-107); Glucose 137 mg/dL (74-99); Magnesium 2.6 mg/dL (1.6-2.3); Non-African American GFR(CKD) 25 (>60 ml/min/1.73 sqM); Potassium 4.7 mmol/L (3.5-5.1); Sodium 139 mmol/L (137-145); Total Bilirubin 0.6 mg/dL (0.2-1.3); Total Protein 6.4 g/dL (6.3-8.2)
[2024-02-12 21:27] LABS: Basophils % (A) 0 %; Eosinophils # (A) 0.1 k/uL (0-0.7); Eosinophils % (A) 1 %; HCT 37.9 % (34.0-46.0); HGB 12.2 gm/dL (11.4-16.0); Lymphocytes # (A) 0.7 k/uL (1.0-4.8); Lymphocytes % (A) 9 %; MCH 29.9 pg (25.0-35.0); MCHC 32.4 g/dL (31.0-37.0); MCV 92.4 fL (80.0-100.0); Mean Platelet Volume 8.8; Monocytes # (A) 0.4 k/uL (0-1.0); Monocytes % (A) 5 %; Neutrophils # (A) 6.7 k/uL (1.3-7.7); Neutrophils % (A) 84 %; Platelet Count 199 k/uL (150-450)
[2024-02-12 21:29] LABS: Prothrombin Time 10.5 sec (10.0-12.5)
[2024-02-12 21:31] LABS: Partial Thromboplastin Time 21.1 sec (22.0-30.0)
--- NOTE | 2024-02-12 21:58 | XR ---
EXAMINATION TYPE: XR chest 2V DATE OF EXAM: 02/12/2024 COMPARISON: 01/02/2023 INDICATION: Difficulty breathing history of A. fib and shortness of breath TECHNIQUE: Frontal and lateral views of the chest are obtained. FINDINGS: The heart size is borderline prominent. The pulmonary vasculature is normal. The lungs are clear. Aortic stent appears to be present. IMPRESSION: 1. No acute pulmonary process. [facility], Workstation: [facility], 02/12/2024 9:56 PM
[2024-02-12 22:17] LABS: Appearance,Urine Cloudy (Clear); Bilirubin,Urine Negative (Negative); Blood,Urine Trace (Negative); Budding Yeast,Urine Rare /hpf; Color,Urine Yellow; Glucose,Urine (UA) Negative (Negative); Hyaline Casts,Urine 24 /lpf (0-2); Ketones,Urine Negative (Negative); Leukocyte Esterase,Urine Large (Negative); Mucus,Urine Rare /hpf; Nitrite,Urine Negative (Negative); PH, Urine 5.5 (5.0-8.0); Protein,Urine 1+ (Negative); RBC,Urine 3 /hpf (0-5); Specific Gravity,Urine 1.018 (1.001-1.035); Squamous Epithelial Cell,Urine 3 /hpf (0-4); Urobilinogen,Urine <2.0 mg/dL (<2.0); WBC,Urine 52 /hpf (0-5)
[2024-02-12] MEDS: ONDANSETRON 4 MG/2 ML VIAL IVP STA (22:29)
[2024-02-12] MEDS: SODIUM CHLORIDE 0.9% 500 ML 500 ML IV ONE (22:33)
[2024-02-13] MEDS ORDERED: ACETAMINOPHEN TAB 325 MG TAB PO PRN (00:04)
[2024-02-13] MEDS ORDERED: NALOXONE 0.4 MG/ML 1 ML VIAL IV PRN (00:04)
[2024-02-13] MEDS ORDERED: HEPARIN SODIUM 1,000 UN/ML (10ML VL) IV PRN (00:27)
--- NOTE | 2024-02-13 00:36 | ED ---
General Adult HPI - General Chief complaint: Shortness of Breath Stated complaint: SOB, nausea Time Seen by Provider: 02/12/24 20:24 Source: patient Mode of arrival: ambulatory Limitations: no limitations - History of Present Illness Initial comments: 88-year-old female presenting with chief complaint of shortness of breath. Patient states that she has been having palpitations for the last 4 days. She states that she can sense an irregular heartbeat. Patient states that she has had episodes of atrial fibrillation in the past that have only lasted for less than a day. She is not currently on any anticoagulation, she is on metoprolol. She denies chest pain. States that today she started having shortness of breath, worse on exertion. No lower extremity swelling. No fevers. No cough, congestion, sore throat. She admits to nausea and vomiting. No abdominal pain. - Related Data Home Medications Medication Instructions Recorded Confirmed Aspirin 81 mg PO Q48H 01/27/21 04/02/23 Previous Rx's Medication Instructions Recorded Acetaminophen Tab [Tylenol] 650 mg PO Q6HR PRN tab 01/08/23 Acetaminophen-Codeine 300-30mg 1 each PO Q6HR PRN #12 tab 01/08/23 [Tylenol w/codeine #3] Amiodarone [Cordarone] 200 mg PO BID #60 tab 01/08/23 Apixaban [Eliquis] 2.5 mg PO BID 30 Days #60 tab 01/08/23 Folic Acid 1 mg PO DAILY@1200 #30 tab 01/08/23 Lidocaine 5% Patch [Lidoderm 5% 3 patch TOPICAL DAILY #90 patch 01/08/23 Patch] Metoprolol Tartrate [Lopressor] 25 mg PO TID 30 Days #90 tab 01/08/23 Multivitamins, Thera [Multivitamin 1 each PO DAILY@1200 #30 tab 01/08/23 (formulary)] Ondansetron Odt [Zofran Odt] 4 mg PO Q8HR PRN #30 tab 01/08/23 Sennosides [Senokot] 17.2 mg PO HS #30 tab 01/08/23 Thiamine [Vitamin B-1] 100 mg PO DAILY@1200 #30 tab 01/08/23 polyethylene glycoL 3350 [Miralax] 17 gm PO DAILY #30 packet 01/08/23 methocarbamoL [Robaxin] 500 mg PO QID PRN 30 Days #120 tab 01/23/23 Allergies Allergy/AdvReac Type Severity Reaction Status Date / Time shellfish derived [Shellfish] Allergy Anaphylaxis Verified 02/12/24 20:14 hydromorphone HCl AdvReac Severe Nausea Verified 02/12/24 20:14 [From Dilaudid] codeine AdvReac Nausea Verified 02/12/24 20:14 hydrocodone bitartrate AdvReac Unknown Verified 02/12/24 20:14 [From Tenmile] morphine AdvReac Itching Verified 02/12/24 20:14 prednisone AdvReac Nausea Verified 02/12/24 20:14 tramadol HCl [From Ultram] AdvReac Nausea & Verified 02/12/24 20:14 Vomiting Review of Systems ROS Statement: Those systems with pertinent positive or pertinent negative responses have been documented in the HPI. ROS Other: All systems not noted in ROS Statement are negative. Past Medical History Past Medical History: Hyperlipidemia, Hypertension, Musculoskeletal Disorder, Osteoarthritis (OA), Renal Disease, Thyroid Disorder Additional Past Medical History / Comment(s): hypertension. kidney stones History of Any Multi-Drug Resistant Organisms: None Reported Past Surgical History: Adenoidectomy, Joint Replacement, Orthopedic Surgery, Tonsillectomy Additional Past Surgical History / Comment(s): left knee replaced, left big toe joint replaced. ovary removed. heart valve replacement. surgery on right k idney Past Anesthesia/Blood Transfusion Reactions: No Reported Reaction Additional Past Anesthesia/Blood Transfusion Reaction / Comment(s): Pt has never recieved blood. Past Psychological History: No Psychological Hx Reported Smoking Status: Never smoker Past Alcohol Use History: None Reported Past Drug Use History: None Reported - Past Family History Father Family Medical History: Cancer Additional Family Medical History / Comment(s): father had lymphoma. Mother Family Medical History: Dementia Additional Family Medical History / Comment(s): hyypoglycemia. Mother at age 92. Brother(s) Family Medical History: No Reported History Daughter(s) Family Medical History: No Reported History Son(s) Family Medical History: No Reported History General Exam Limitations: no limitations Course Vital Signs 02/12/24 02/12/24 02/12/24 20:07 21:03 21:04 Temperature 97.6 F Pulse Rate 49 L 90 90 Respiratory 20 18 16 Rate Blood Pressure 103/72 97/84 97/85 O2 Sat by Pulse 95 98 98 Oximetry 02/12/24 02/12/24 02/13/24 22:23 23:40 00:12 Temperature Pulse Rate 97 88 Respiratory 16 16 Rate Blood Pressure 113/95 100/68 O2 Sat by Pulse 94 L 94 L Oximetry 02/13/24 02:09 Temperature Pulse Rate 89 Respiratory 12 Rate Blood Pressure 119/87 O2 Sat by Pulse 97 Oximetry Medical Decision Making - Medical Decision Making Was pt. sent in by a medical professional or institution (, PA, SOLUTIONS ARCHITECT CONSULTANT, urgent care, hospital, or care home...) When possible be specific @ -No Did you speak to anyone other than the patient for history (EMS, parent, family, police, friend...)? What history was obtained from this source @ -Family at bedside Did you review nursing and triage notes (agree or disagree)? Why? @ -I reviewed and agree with nursing and triage notes Were old charts reviewed (outside hosp., previous admission, EMS record, old EKG, old radiological studies, urgent care reports/EKG's, care home records)? Report findings @ -No old charts were reviewed Differential Diagnosis (chest pain, altered mental status, abdominal pain women, abdominal pain men, vaginal bleeding, weakness, fever, dyspnea, syncope, headache, dizziness, GI bleed, back pain, seizure, CVA, palpatations, mental health, musculoskeletal)? @ -MDM Differential Dyspnea: Coronary syndrome, arrhythmia, tamponade, asthma, COPD, pulmonary embolism, pneumonia, pneumothorax, pulmonary effusion, anaphylaxis, diabetic ketoacidosis, flailed chest, pulmonary contusion, diaphragmatic rupture, anemia, neuromuscular this is not meant to be an all-inclusive list. EKG interpreted by me (3pts min.). @ -EKG shows atrial fibrillation. Ventricular rate 103. QRS 198. QT 366. QTc 425. X-rays interpreted by me (1pt min.). @ -Chest x-ray shows no acute pulmonary process CT interpreted by me (1pt min.). @ -Head CT shows no acute intracranial hemorrhage or midline shift. There is moderate diffuse age-related cerebral atrophy and mild to moderate chronic small vessel ischemic change U/S interpreted by me (1pt. min.). @ -None done What testing was considered but not performed or refused? (CT, X-rays, U/S, labs)? Why? @ -CTA due to patient's elevated D-dimer was considered, however her GFR is too low. VQ scan is ordered. What meds were considered but not given or refused? Why? @ -None Did you discuss the management of the patient with other professionals (professionals i.e. Dr., PA, SOLUTIONS ARCHITECT CONSULTANT, lab, RT, psych nurse, director social service, qa developer, teacher, seaman officer, immigration case worker)? Give summary @ -Spoke with Magy Ramos from [facility] who accepts admission Was smoking cessation discussed for >3mins.? @ -No Was critical care preformed (if so, how long)? @ -No Were there social determinants of health that impacted care today? How? (Homelessness, low income, unemployed, alcoholism, drug addiction, transportation, low edu. Level, literacy, decrease access to med. care, intermediate, rehab)? @ -No Was there de-escalation of care discussed even if they declined (Discuss DNR or withdrawal of care, Hospice)? DNR status @ -No What co-morbidities impacted this encounter? (DM, HTN, Smoking, COPD, CAD, Cancer, CVA, ARF, Chemo, Hep., AIDS, mental health diagnosis, sleep apnea, morbid obesity)? @ -None Was patient admitted / discharged? Hospital course, mention meds given and route, prescriptions, significant lab abnormalities, going to OR and other pertinent info. @ -88-year-old female presenting with chief complaint of shortness of breath. Patient has been having palpitations. EKG shows atrial fibrillation. Patient's rate is maintained in the low 100s to 80s. Patient is on metoprolol, she is not on any anticoagulation. Transaminitis is noted. Patient denies any abdominal pain. Troponin 0.018. Abnormal UA, will cover for UTI with Rocephin. She is negative for influenza, RSV, COVID. Chest x-ray shows no acute process. Heparin is ordered for atrial fibrillation. Patient states that she had a fall less than [address] is ordered which shows no intracranial hemorrhage. Heparin is started. Patient will be admitted. She is agreeable with this plan. I discussed this case with my attending Dr. Foster D-dimer was added on, it is elevated at 1.78. Patient's GFR is 25. VQ scan is ordered for the morning. Undiagnosed new problem with uncertain prognosis? @ -No Drug Therapy requiring intensive monitoring for toxicity (Heparin, Nitro, Insulin, Cardizem)? @ -Heparin Were any procedures done? @ -No Diagnosis/symptom? @ -Atrial fibrillation Acute, or Chronic, or Acute on Chronic? @ -Acute Uncomplicated (without systemic symptoms) or Complicated (systemic symptoms)? @ -Complicated Side effects of treatment? @ -No Exacerbation, Progression, or Severe Exacerbation? @ -No Poses a threat to life or bodily function? How? (Chest pain, USA, MD, pneumonia, PE, COPD, DKA, ARF, appy, cholecystitis, CVA, Diverticulitis, Homicidal, Suicidal, threat to staff... and all critical care pts) @ -Yes - Lab Data Result diagrams: 02/12/24 20:45 02/12/24 20:45 Lab Results 02/12/24 02/12/24 02/12/24 Range/Units 20:45 20:45 20:45 WBC 8.0 (3.8-10.6) k/uL RBC 4.10 (3.80-5.40) m/uL Hgb 12.2 (11.4-16.0) gm/dL Hct 37.9 (34.0-46.0) % MCV 92.4 (80.0-100.0) fL MCH 29.9 (25.0-35.0) pg MCHC 32.4 (31.0-37.0) g/dL RDW 14.0 (11.5-15.5) % Plt Count 199 (150-450) k/uL MPV 8.8 Neutrophils % 84 % Lymphocytes % 9 % Monocytes % 5 % Eosinophils % 1 % Basophils % 0 % Neutrophils # 6.7 (1.3-7.7) k/uL Lymphocytes # 0.7 L (1.0-4.8) k/uL Monocytes # 0.4 (0-1.0) k/uL Eosinophils # 0.1 (0-0.7) k/uL Basophils # 0.0 (0-0.2) k/uL PT 10.5 (10.0-12.5) sec INR 1.0 (<1.2) APTT 21.1 L (22.0-30.0) sec D-Dimer (<0.60) mg/L FEU Sodium 139 (137-145) mmol/L Potassium 4.7 (3.5-5.1) mmol/L Chloride 111 H (98-107) mmol/L Carbon Dioxide 23 (22-30) mmol/L Anion Gap 5 mmol/L BUN 57 H (7-17) mg/dL Creatinine 1.80 H (0.52-1.04) mg/dL Est GFR (CKD-EPI)AfAm 29 (>60 ml/min/1.73 sqM) Est GFR (CKD-EPI)NonAf 25 (>60 ml/min/1.73 sqM) Glucose 137 H (74-99) mg/dL Calcium 10.0 (8.4-10.2) mg/dL Magnesium 2.6 H (1.6-2.3) mg/dL Total Bilirubin 0.6 (0.2-1.3) mg/dL AST 133 H (14-36) U/L ALT 113 H (4-34) U/L Alkaline Phosphatase 140 H (38-126) U/L Troponin I (0.000-0.034) ng/mL Total Protein 6.4 (6.3-8.2) g/dL Albumin 3.8 (3.5-5.0) g/dL Urine Color Urine Appearance (Clear) Urine pH (5.0-8.0) Ur Specific [place] (1.001-1.035) Urine Protein (Negative) Urine Glucose (UA) (Negative) Urine Ketones (Negative) Urine Blood (Negative) Urine Nitrite (Negative) Urine Bilirubin (Negative) Urine Urobilinogen (<2.0) mg/dL Ur Leukocyte Esterase (Negative) Urine RBC (0-5) /hpf Urine WBC (0-5) /hpf Ur Squamous Epith Cells (0-4) /hpf Hyaline Casts (0-2) /lpf Urine Mucus (None) /hpf Urine Yeast (Budding) (None) /hpf Influenza Type A (PCR) (Not Detectd) Influenza Type B (PCR) (Not Detectd) RSV (PCR) (Not Detectd) SARS-CoV-2 (PCR) (Not Detectd) 02/12/24 02/12/24 02/12/24 Range/Units 20:45 20:49 21:57 WBC (3.8-10.6) k/uL RBC (3.80-5.40) m/uL Hgb (11.4-16.0) gm/dL Hct (34.0-46.0) % MCV (80.0-100.0) fL MCH (25.0-35.0) pg MCHC (31.0-37.0) g/dL RDW (11.5-15.5) % Plt Count (150-450) k/uL MPV Neutrophils % % Lymphocytes % % Monocytes % % Eosinophils % % Basophils % % Neutrophils # (1.3-7.7) k/uL Lymphocytes # (1.0-4.8) k/uL Monocytes # (0-1.0) k/uL Eosinophils # (0-0.7) k/uL Basophils # (0-0.2) k/uL PT (10.0-12.5) sec INR (<1.2) APTT (22.0-30.0) sec D-Dimer (<0.60) mg/L FEU Sodium (137-145) mmol/L Potassium (3.5-5.1) mmol/L Chloride (98-107) mmol/L Carbon Dioxide (22-30) mmol/L Anion Gap mmol/L BUN (7-17) mg/dL Creatinine (0.52-1.04) mg/dL Est GFR (CKD-EPI)AfAm (>60 ml/min/1.73 sqM) Est GFR (CKD-EPI)NonAf (>60 ml/min/1.73 sqM) Glucose (74-99) mg/dL Calcium (8.4-10.2) mg/dL Magnesium (1.6-2.3) mg/dL Total Bilirubin (0.2-1.3) mg/dL AST (14-36) U/L ALT (4-34) U/L Alkaline Phosphatase (38-126) U/L Troponin I 0.018 (0.000-0.034) ng/mL Total Protein (6.3-8.2) g/dL Albumin (3.5-5.0) g/dL Urine Color Yellow Urine Appearance Cloudy H (Clear) Urine pH 5.5 (5.0-8.0) Ur Specific [place] 1.018 (1.001-1.035) Urine Protein 1+ H (Negative) Urine Glucose (UA) Negative (Negative) Urine Ketones Negative (Negative) Urine Blood Trace H (Negative) Urine Nitrite Negative (Negative) Urine Bilirubin Negative (Negative) Urine Urobilinogen <2.0 (<2.0) mg/dL Ur Leukocyte Esterase Large H (Negative) Urine RBC 3 (0-5) /hpf Urine WBC 52 H (0-5) /hpf Ur Squamous Epith Cells 3 (0-4) /hpf Hyaline Casts 24 H (0-2) /lpf Urine Mucus Rare H (None) /hpf Urine Yeast (Budding) Rare H (None) /hpf Influenza Type A (PCR) Not Detected (Not Detectd) Influenza Type B (PCR) Not Detected (Not Detectd) RSV (PCR) Not Detected (Not Detectd) SARS-CoV-2 (PCR) Not Detected (Not Detectd) 02/13/24 Range/Units 00:29 WBC (3.8-10.6) k/uL RBC (3.80-5.40) m/uL Hgb (11.4-16.0) gm/dL Hct (34.0-46.0) % MCV (80.0-100.0) fL MCH (25.0-35.0) pg MCHC (31.0-37.0) g/dL RDW (11.5-15.5) % Plt Count (150-450) k/uL MPV Neutrophils % % Lymphocytes % % Monocytes % % Eosinophils % % Basophils % % Neutrophils # (1.3-7.7) k/uL Lymphocytes # (1.0-4.8) k/uL Monocytes # (0-1.0) k/uL Eosinophils # (0-0.7) k/uL Basophils # (0-0.2) k/uL PT (10.0-12.5) sec INR (<1.2) APTT (22.0-30.0) sec D-Dimer 1.78 H (<0.60) mg/L FEU Sodium (137-145) mmol/L Potassium (3.5-5.1) mmol/L Chloride (98-107) mmol/L Carbon Dioxide (22-30) mmol/L Anion Gap mmol/L BUN (7-17) mg/dL Creatinine (0.52-1.04) mg/dL Est GFR (CKD-EPI)AfAm (>60 ml/min/1.73 sqM) Est GFR (CKD-EPI)NonAf (>60 ml/min/1.73 sqM) Glucose (74-99) mg/dL Calcium (8.4-10.2) mg/dL Magnesium (1.6-2.3) mg/dL Total Bilirubin (0.2-1.3) mg/dL AST (14-36) U/L ALT (4-34) U/L Alkaline Phosphatase (38-126) U/L Troponin I (0.000-0.034) ng/mL Total Protein (6.3-8.2) g/dL Albumin (3.5-5.0) g/dL Urine Color Urine Appearance (Clear) Urine pH (5.0-8.0) Ur Specific [place] (1.001-1.035) Urine Protein (Negative) Urine Glucose (UA) (Negative) Urine Ketones (Negative) Urine Blood (Negative) Urine Nitrite (Negative) Urine Bilirubin (Negative) Urine Urobilinogen (<2.0) mg/dL Ur Leukocyte Esterase (Negative) Urine RBC (0-5) /hpf Urine WBC (0-5) /hpf Ur Squamous Epith Cells (0-4) /hpf Hyaline Casts (0-2) /lpf Urine Mucus (None) /hpf Urine Yeast (Budding) (None) /hpf Influenza Type A (PCR) (Not Detectd) Influenza Type B (PCR) (Not Detectd) RSV (PCR) (Not Detectd) SARS-CoV-2 (PCR) (Not Detectd) Disposition Clinical Impression: Atrial fibrillation Disposition: ADMITTED IP TO THIS HOSP Condition: Fair Time of Disposition: 00:35
--- NOTE | 2024-02-13 01:32 | CT ---
EXAMINATION TYPE: CT brain wo con DATE OF EXAM: 02/13/2024 HISTORY: Patient states shortness of breath and hx of Afib CT DLP: 1209.3 mGycm. Automated Exposure Control for Dose Reduction was Utilized. TECHNIQUE: CT scan of the head is performed without contrast. COMPARISON: Prior CT December 13, 2020. FINDINGS: There is no acute intracranial hemorrhage or midline shift identified. There is moderate diffuse ventricular and sulcal prominence consistent redemonstrated with most prominent sulcal promin ence over the bilateral frontal and parietal lobes on current study. There is [id number] low-a ttenuation in the periventricular white matter redemonstrated. The globes are intact bilaterally. More prominent opacification of the right maxillary sinus with central ossification similar to prior IMPRESSION: No acute intracranial hemorrhage or midline shift. There is moderate diffuse age-relate d cerebral atrophy and mild to moderate chronic small vessel ischemic change redemonstrated. [facility], , 02/13/2024 1:30 AM
[2024-02-13] MEDS: cefTRIAXone IN SWFI 1,000 MG/10 ML SYRINGE IVP STA (01:45)
[2024-02-13] MEDS: HEPARIN SOD,PORK IN 0.45% NACL 25,000 UNIT in 0.45% NACL 1 250ML.BAG IV SCH (01:51)
[2024-02-13] MEDS: HEPARIN SODIUM 1,000 UN/ML (10ML VL) IV ONE (01:53)
[2024-02-13] MEDS: bisacodyL 5 MG TABLET.DR PO STA (02:06)
--- NOTE | 2024-02-13 08:46 | NM ---
EXAMINATION TYPE: NM pul perfusion DATE OF EXAM: 02/13/2024 COMPARISON: 02/12/2024 CLINICAL INDICATION: Female, 88 years old with history of SOB; Following administration of 4.4 mCi Tc 99m MAA. Images obtained post injection. FINDINGS: No perfusion only defects visualized. No wedge-shaped areas of perfusion deficits. IMPRESSION: PE absent by perfusion only modified PIOPED II criteria. [facility], , 02/13/2024 8:43 AM
[2024-02-13] MEDS: ONDANSETRON 4 MG/2 ML VIAL IVP PRN (11:11)
--- NOTE | 2024-02-13 11:41 | US ---
EXAMINATION TYPE: US venous doppler duplex LE BI DATE OF EXAM: 02/13/2024 9:56 AM COMPARISON: 01/24/2021 and 01/18/2015 CLINICAL INDICATION: Female, 88 years old with history of swelling, elevated d-dimer; , Pain, Swellin g TECHNIQUE: The lower extremity deep venous system is examined utilizing real time linear array sonog juliana with graded compression, color doppler sonography, and spectral doppler. SIDE PERFORMED: Bilateral FINDINGS: VESSELS IMAGED: Common Femoral Vein Deep Femoral Vein Greater Saphenous Vein * Femoral Vein Popliteal Vein Small Saphenous Vein * Proximal Calf Veins (* superficial vessels) Right Leg: Negative for DVT Left Leg: Negative for DVT Complex fluid collections bilateral popliteal fossa IMPRESSION: 1. No ultrasound evidence for deep venous thrombosis. 2. Complex popliteal fossa fluid collection. [facility], , 02/13/2024 11:39 AM
--- NOTE | 2024-02-13 11:41 | P.CRDCN ---
History of Present Illness Consult date: 02/13/24 Consult reason: atrial fibrillation History of present illness: This is an 88-year-old female patient has been following with Dr. Herrera hydrographic surveyor. She has a past medical history of aortic valve replacement with TAVR approach at [facility], atrial fibrillation, hypertension. We have been asked to evaluate the patient for atrial fibrillation. Patient developed palpitations over the past 4 days and also shortness of breath. She could feel her heart rate was irregular and pounding. Patient states that she has been on Eliquis in the past but she and her hydrographic surveyor, Dr. Herrera, decided to discontinue as she could not afford it and she would not go on Coumadin because she did not like the monitoring process. Daughter states that she had atrial fibrillation after her TAVR procedure but when she went to have a bowel movement she converted to sinus rhythm and is hoping this will happen now. Patient had a laxative last night and is waiting to go in the bathroom for a bowel movement now. Patient is not on a monitor but sounds like she is in atrial fibrillation. Her symptoms are improved in that she is not feeling pal pitations and the shortness of breath is a little bit better. She has not been on anticoagulation for some time. She also has some lower extremity edema that is mild. Blood pressure 127/83, heart rate 110, pulse ox 100% on room air. Patient has been started on heparin drip. Patient has a scheduled appointment to be established with Dr. Franco on Saturday. EKG: Atrial fibrillation 103 bpm, atrial fibrillation at 102 bpm Chest x-ray: No acute process CT brain no acute intracranial hemorrhage or midline shift. Moderate diffuse age related cerebral atrophy and mild to moderate chronic small vessel ischemic change. VQ scan PE absent by perfusion only modified PIOPED II criteria Laboratory studies: WBC 8, hemoglobin 12.2. D-dimer 1.78. Sodium 139, potassium 4.7, BUN 57 creatinine 1.8. AST 133, ALT 113, alkaline phosphatase 140. Troponin negative x 1. Influenza A, influenza B, RSV, COVID-19 not detected. UA with leukoesterase large, WBCs 50 to. Home cardiac medications: Aspirin 81 mg daily, lisinopril 10 mg daily at 1200, magnesium oxide 500 mg daily, Toprol XL 25 mg daily Review Of Systems: At the time of my exam: CONSTITUTIONAL: Denies fever or chills. HEENT: Denies blurred vision, vision changes, or eye pain. Denies hemoptysis CARDIOVASCULAR: Denies chest pain. Denies orthopnea. Denies PND. Denies palpitations RESPIRATORY: Reports shortness of breath. GASTROINTESTINAL: Denies abdominal pain. Denies nausea or vomiting. HEMATOLOGIC: Denies bleeding disorders. GENITOURINARY: Denies any blood in urine. SKIN: Denies puritis. Denies rash. Physical examination: Gen: This is an 88-year-old female in no acute distress VS: reviewed HEENT: Head is atraumatic, normocephalic. Pupils equal, round. Sclerae is anicteric. NECK: Supple. No JVD. LUNGS: Clear to auscultation. No wheezes or rhonchi. No intercostal retractions. HEART: Irregular rate and rhythm. Systolic murmur. ABDOMEN: Soft No tenderness. EXTREMITIES: Minimal bilateral pedal edema. No calf tenderness. NEUROLOGICAL: Patient is awake, alert and oriented x3. Assessment: Paroxysmal atrial fibrillation History of aortic valve replacement with TAVR Hypertension UTI Plan: Resume patient's home cardiac medications Continue heparin drip Prescription for Eliquis sent to patient's pharmacy to find out pricing Obtain proBNP Obtain 2-D echocardiogram and Doppler study to assess cardiac structure and fu nction Further recommendations to follow based upon clinical course Thank you kindly for this consultation. Nurse practitioner note has been reviewed, I agree with documented findings and plan of care. Patient was seen and examined. Past Medical History Past Medical History: Hyperlipidemia, Hypertension, Musculoskeletal Disorder, Osteoarthritis (OA), Renal Disease, Thyroid Disorder Additional Past Medical History / Comment(s): hypertension. kidney stones History of Any Multi-Drug Resistant Organisms: None Reported Past Surgical History: Adenoidectomy, Joint Replacement, Orthopedic Surgery, Tonsillectomy Additional Past Surgical History / Comment(s): left knee replaced, left big toe joint replaced. ovary removed. heart valve replacement. surgery on right kidney Past Anesthesia/Blood Transfusion Reactions: No Reported Reaction Additional Past Anesthesia/Blood Transfusion Reaction / Comment(s): Pt has never recieved blood. Past Psychological History: No Psychological Hx Reported Smoking Status: Never smoker Past Alcohol Use History: None Reported Past Drug Use History: None Reported - Past Family History Father Family Medical History: Cancer Additional Family Medical History / Comment(s): father had lymphoma. Mother Family Medical History: Dementia Additional Family Medical History / Comment(s): hyypoglycemia. Mother at age 92. Brother(s) Family Medical History: No Reported History Daughter(s) Family Medical History: No Reported History Son(s) Family Medical History: No Reported History Medications and Allergies Home Medications Medication Instructions Recorded Confirmed Type Aspirin 81 mg PO DAILY 01/27/21 02/13/24 History Acetaminophen Tab [Tylenol] 650 mg PO Q6HR PRN tab 01/08/23 02/13/24 Rx Apixaban [Eliquis] 2.5 mg PO DAILY #60 tab 02/13/24 Rx Magnesium Oxide [Magnesium] 500 mg PO DAILY 02/13/24 02/13/24 History Metoprolol Succinate (ER) [Toprol 25 mg PO DAILY 02/13/24 02/13/24 History Xl] Ubidecarenone [Co Q-10] 300 mg PO DAILY 02/13/24 02/13/24 History lisinopriL [Prinivil] 10 mg PO DAILY@1200 02/13/24 02/13/24 History Allergies Allergy/AdvReac Type Severity Reaction Status Date / Time shellfish derived [Shellfish] Allergy See comment Verified 02/13/24 09:15 hydromorphone HCl AdvReac Severe Nausea Verified 02/13/24 09:15 [From Dilaudid] codeine AdvReac Nausea Verified 02/13/24 09:15 hydrocodone bitartrate AdvReac Unknown Verified 02/13/24 09:15 [From [place]] morphine AdvReac Itching Verified 02/13/24 09:15 prednisone AdvReac Nausea Verified 02/13/24 09:15 tramadol HCl [From Ultram] AdvReac Nausea & Verified 02/13/24 09:15 Vomiting Physical Exam Vitals: Vital Signs Temp Pulse Pulse Resp BP BP Pulse Ox 02/13/24 02:45 98.3 F 120 H 20 116/77 100 02/13/24 02:09 89 12 119/87 97 02/13/24 00:12 94 L 02/12/24 23:40 88 16 100/68 02/12/24 22:23 97 16 113/95 94 L 02/12/24 21:04 90 16 97/85 98 02/12/24 21:03 90 18 97/84 98 02/12/24 20:07 97.6 F 49 L 20 103/72 95 Intake and Output 02/12/24 02/13/24 02/13/24 22:59 06:59 14:59 Intake Total 39.07 Balance 39.07 Intake: Intake, IV Titration 39.07 Amount Heparin Sod,Pork in 0.45% 39.07 NaCl 25,000 unit In 0.45 % NaCl 1 250ml.bag @ 12 UNITS/KG/HR 7.893 mls/hr IV .Q24H [facility] Rx#: [id number] Other: Voiding Method Toilet # Voids 2 Weight 65.771 kg 65.771 kg Results 02/12/24 20:45 02/12/24 20:45 Cardiac Enzymes 02/12/24 02/12/24 Range/Units 20:45 20:45 AST 133 H (14-36) U/L Troponin I 0.018 (0.000-0.034) ng/mL Coagulation 02/12/24 02/13/24 Range/Units 20:45 06:10 PT 10.5 (10.0-12.5) sec APTT 21.1 L 48.9 H (22.0-30.0) sec CBC 02/12/24 Range/Units 20:45 WBC 8.0 (3.8-10.6) k/uL RBC 4.10 (3.80-5.40) m/uL Hgb 12.2 (11.4-16.0) gm/dL Hct 37.9 (34.0-46.0) % Plt Count 199 (150-450) k/uL Comprehensive Metabolic Panel 02/12/24 Range/Units 20:45 Sodium 139 (137-145) mmol/L Potassium 4.7 (3.5-5.1) mmol/L Chloride 111 H (98-107) mmol/L Carbon Dioxide 23 (22-30) mmol/L BUN 57 H (7-17) mg/dL Creatinine 1.80 H (0.52-1.04) mg/dL Glucose 137 H (74-99) mg/dL Calcium 10.0 (8.4-10.2) mg/dL AST 133 H (14-36) U/L ALT 113 H (4-34) U/L Alkaline Phosphatase 140 H (38-126) U/L Total Protein 6.4 (6.3-8.2) g/dL Albumin 3.8 (3.5-5.0) g/dL Current Medications Generic Name Dose Route Start Last Admin Trade Name Freq PRN Reason Stop Dose Admin Acetaminophen 650 mg 02/13/24 00:04 Acetaminophen Tab 325 Mg Tab PO Q6HR PRN Mild Pain or Fever > 100.5 Heparin Sodium (Porcine) 0 unit 02/13/24 00:27 Heparin Sodium 1,000 Un/Ml (10ml Vl) IV PER PROTOCOL PRN Low PTT Protocol Heparin Sodium/Sodium Chloride 250 mls @ 7.893 mls/hr 02/13/24 00:30 02/13/24 06:48 25,000 unit/ Sodium Chloride IV 12 units/kg/hr .Q24H [place] 7.893 mls/hr Titration Protocol 12 UNITS/KG/HR Naloxone HCl 0.2 mg 02/13/24 00:04 Naloxone 0.4 Mg/Ml 1 Ml Vial IV Q2M PRN Opioid Reversal Ondansetron HCl 4 mg 02/13/24 00:04 Ondansetron 4 Mg/2 Ml Vial IVP Q8HR PRN Nausea And Vomiting Intake and Output 02/12/24 02/13/24 02/13/24 22:59 06:59 14:59 Intake Total 39.07 Balance 39.07 Intake: Intake, IV Titration 39.07 Amount Heparin Sod,Pork in 0.45% 39.07 NaCl 25,000 unit In 0.45 % NaCl 1 250ml.bag @ 12 UNITS/KG/HR 7.893 mls/hr IV .Q24H [facility] Rx#: [id number] Other: Voiding Method Toilet # Voids 2 Weight 65.771 kg 65.771 kg 02/12/24 20:45 02/12/24 20:45
[2024-02-13] MEDS ORDERED: lisinopriL 10 MG TAB PO SCH (12:00)
[2024-02-13 12:17] LABS: Glucose,Whole Blood 106 mg/dL (70-110)
--- NOTE | 2024-02-13 14:17 | P.HPIM ---
History of Present Illness H&P Date: 02/13/24 History of present illness; patient 88-year-old lady with past medical history significant for paroxysmal atrial fibrillation not on anticoagulation who presented to the ER because of shortness of breath and palpitations. Patient stated that she was all right 4 days back when started noticing palpitations which were associated with shortness of breath. Shortness of breath was present at rest as well as on exertion. Patient stated that in the past when she had episodes of irregular heartbeat that lasted only for a few hours and then she became normal. Palpitation this time persisted. Patient denied any chest pain. There was no complaint of orthopnea or PND. patient denied any swelling of lower extremities. Because of these palpitations, patient presented the ER Initial lab work done in the ER showed WBC 8, hemoglobin 12.2, platelet count 199, D-dimer 1.78, sodium 139, potassium 4.7, BUN 57, creatinine 1.80, glucose 137, magnesium 2.6, AST 133, ALT 113 troponin 0.018 UA done showed large amount of leukocyte Estrace, urine WBC 52 nitrite negative Influenza A not detected Influenza B not detected RSV not detected COVID-19 not detected EKG done in the ER showed heart rate of 103, no ST segment elevation or depression seen, no T-wave inversions seen. Chest x-ray done in the ER showed no acute pulmonary process CT head done showed no acute intracranial process Patient admitted to internal medicine service REVIEW OF SYSTEMS: CONSTITUTIONAL: No fever, no malaise, no fatigue. HEENT: No recent visual problems or hearing problems. Denied any sore throat. CARDIOVASCULAR: As mentioned above PULMONARY: As mentioned above GASTROINTESTINAL: No diarrhea, no nausea, no vomiting, no abdominal pain. NEUROLOGICAL: No headaches, no weakness, no numbness. HEMATOLOGICAL: Denies any bleeding or petechiae. GENITOURINARY: Denies any burning micturition, frequency, or urgency. MUSCULOSKELETAL/RHEUMATOLOGICAL: Denies any joint pain, swelling, or any muscle pain. ENDOCRINE: Denies any polyuria or polydipsia. The rest of the 14-point review of systems is negative. PHYSICAL EXAMINATION: GENERAL: The patient is alert and oriented x3, not in any acute distress. Well developed, well nourished. HEENT: Pupils are round and equally reacting to light. EOMI. No scleral icterus. No conjunctival pallor. Normocephalic, atraumatic. No pharyngeal erythema. No thyromegaly. CARDIOVASCULAR: S1 and S2 present. No murmurs, rubs, or gallops. PULMONARY: Chest is clear to auscultation, no wheezing or crackles. ABDOMEN: Soft, nontender, nondistended, normoactive bowel sounds. No palpable organomegaly. MUSCULOSKELETAL: No joint swelling or deformity. EXTREMITIES: No cyanosis, clubbing, or pedal edema. NEUROLOGICAL: Gross neurological examination did not reveal any focal deficits. SKIN: No rashes. Assessment and plan A-fib with RVR UTI Acute transaminitis Elevated D-dimer Acute on chronic kidney injury Monitor vital signs Monitor CBC Monitor CMP Continue telemetry monitoring V/Q scan ordered, negative for PE Ordered duplex ultrasound of lower extremities Ordered 2D echo Continue pharmacy dose heparin Resume Toprol Resume home med Consult cardiology Labs and medication were reviewed.. Continue same treatment. Continue with symptomatic treatment. Resume home medication. Monitor labs and vitals. DVT and GI prophylaxis. Further recommendations as per clinical course of the patient Dictation was produced using [employer] dictation software. please excuse any gr ammatical, word or spelling errors. Past Medical History Past Medical History: Hyperlipidemia, Hypertension, Musculoskeletal Disorder, Osteoarthritis (OA), Renal Disease, Thyroid Disorder Additional Past Medical History / Comment(s): hypertension. kidney stones History of Any Multi-Drug Resistant Organisms: None Reported Past Surgical History: Adenoidectomy, Joint Replacement, Orthopedic Surgery, Tonsillectomy Additional Past Surgical History / Comment(s): left knee replaced, left big toe joint replaced. ovary removed. heart valve replacement. surgery on right kidney Past Anesthesia/Blood Transfusion Reactions: No Reported Reaction Additional Past Anesthesia/Blood Transfusion Reaction / Comment(s): Pt has never recieved blood. Past Psychological History: No Psychological Hx Reported Smoking Status: Never smoker Past Alcohol Use History: None Reported Past Drug Use History: None Reported - Past Family History Father Family Medical History: Cancer Additional Family Medical History / Comment(s): father had lymphoma. Mother Family Medical History: Dementia Additional Family Medical History / Comment(s): hyypoglycemia. Mother at age 92. Brother(s) Family Medical History: No Reported History Daughter(s) Family Medical History: No Reported History Son(s) Family Medical History: No Reported History Medications and Allergies Home Medications Medication Instructions Recorded Confirmed Type Aspirin 81 mg PO DAILY 01/27/21 02/13/24 History Acetaminophen Tab [Tylenol] 650 mg PO Q6HR PRN tab 01/08/23 02/13/24 Rx Apixaban [Eliquis] 2.5 mg PO DAILY #60 tab 02/13/24 Rx Magnesium Oxide [Magnesium] 500 mg PO DAILY 02/13/24 02/13/24 History Metoprolol Succinate (ER) [Toprol 25 mg PO DAILY 02/13/24 02/13/24 History Xl] Ubidecarenone [Co Q-10] 300 mg PO DAILY 02/13/24 02/13/24 History lisinopriL [Prinivil] 10 mg PO DAILY@1200 02/13/24 02/13/24 History Allergies Allergy/AdvReac Type Severity Reaction Status Date / Time shellfish derived [Shellfish] Allergy See comment Verified 02/13/24 09:15 hydromorphone HCl AdvReac Severe Nausea Verified 02/13/24 09:15 [From Dilaudid] codeine AdvReac Nausea Verified 02/13/24 09:15 hydrocodone bitartrate AdvReac Unknown Verified 02/13/24 09:15 [From [place]] morphine AdvReac Itching Verified 02/13/24 09:15 prednisone AdvReac Nausea Verified 02/13/24 09:15 tramadol HCl [From Ultram] AdvReac Nausea & Verified 02/13/24 09:15 Vomiting Physical Exam Vitals: Vital Signs Temp Pulse Pulse Resp BP BP Pulse Ox 02/13/24 07:00 97.6 F 110 H 16 127/83 100 02/13/24 02:45 98.3 F 120 H 20 116/77 100 02/13/24 02:09 89 12 119/87 97 02/13/24 00:12 94 L 02/12/24 23:40 88 16 100/68 02/12/24 22:23 97 16 113/95 94 L 02/12/24 21:04 90 16 97/85 98 02/12/24 21:03 90 18 97/84 98 02/12/24 20:07 97.6 F 49 L 20 103/72 95 Intake and Output 02/12/24 02/13/24 02/13/24 22:59 06:59 14:59 Intake Total 39.07 Balance 39.07 Intake: Intake, IV Titration 39.07 Amount Heparin Sod,Pork in 0.45% 39.07 NaCl 25,000 unit In 0.45 % NaCl 1 250ml.bag @ 12 UNITS/KG/HR 7.893 mls/hr IV .Q24H [facility] Rx#: [id number] Other: Voiding Method Toilet # Voids 2 Weight 65.771 kg 65.771 kg Results CBC & Chem 7: 02/12/24 20:45 02/12/24 20:45 Labs: Abnormal Lab Results - Last 24 Hours (Table) 02/12/24 02/12/24 02/12/24 Range/Units 20:45 20:45 20:45 Lymphocytes # 0.7 L (1.0-4.8) k/uL APTT 21.1 L (22.0-30.0) sec D-Dimer (<0.60) mg/L FEU Chloride 111 H (98-107) mmol/L BUN 57 H (7-17) mg/dL Creatinine 1.80 H (0.52-1.04) mg/dL Glucose 137 H (74-99) mg/dL Magnesium 2.6 H (1.6-2.3) mg/dL AST 133 H (14-36) U/L ALT 113 H (4-34) U/L Alkaline Phosphatase 140 H (38-126) U/L Urine Appearance (Clear) Urine Protein (Negative) Urine Blood (Negative) Ur Leukocyte Esterase (Negative) Urine WBC (0-5) /hpf Hyaline Casts (0-2) /lpf Urine Mucus (None) /hpf Urine Yeast (Budding) (None) /hpf 02/12/24 02/13/24 02/13/24 Range/Units 21:57 00:29 06:10 Lymphocytes # (1.0-4.8) k/uL APTT 48.9 H (22.0-30.0) sec D-Dimer 1.78 H (<0.60) mg/L FEU Chloride (98-107) mmol/L BUN (7-17) mg/dL Creatinine (0.52-1.04) mg/dL Glucose (74-99) mg/dL Magnesium (1.6-2.3) mg/dL AST (14-36) U/L ALT (4-34) U/L Alkaline Phosphatase (38-126) U/L Urine Appearance Cloudy H (Clear) Urine Protein 1+ H (Negative) Urine Blood Trace H (Negative) Ur Leukocyte Esterase Large H (Negative) Urine WBC 52 H (0-5) /hpf Hyaline Casts 24 H (0-2) /lpf Urine Mucus Rare H (None) /hpf Urine Yeast (Budding) Rare H (None) /hpf
[2024-02-13 14:42] VITALS: RESP 17
[2024-02-13] MEDS: APIXABAN 2.5 MG TABLET PO SCH (14:44)
--- NOTE | 2024-02-13 14:52 | CA ---
Transthoracic Echo Report Name: Lindsey Baxter Age: 88 Gender: F : 1935 Exam Date: 02/13/2024 11:06 Exam Location: [facility] Ht (in): 60 Wt (lb): 145 Ordering Physician: Jessie Goff Attending/Referring Phys: [id number], [place] Preparation Room Manager Alisha Patton RDCS Procedure CPT: Indications: SHORTNESS OF BREATH Cardiac Hx: Technical Quality: Good Contrast 1: Total Dose (mL): Contrast 2: Total Dose (mL): MEASUREMENTS (Male / Female) Normal Values 2D ECHO LV Diastolic Diameter PLAX 4.2 cm 4.2 - 5.9 / 3.9 - 5.3 cm LV Systolic Diameter PLAX 3.8 cm IVS Diastolic Thickness 1.0 cm 0.6 - 1.0 / 0.6 - 0.9 cm LVPW Diastolic Thickness 1.1 cm 0.6 - 1.0 / 0.6 - 0.9 cm LV Relative Wall Thickness 0.5 LVOT Diameter 2.0 cm LV Diastolic Volume MOD BP 78.0 cm??? 67 - 155 / 56 - 104 cm??? LV Systolic Volume MOD BP 29.0 cm??? 22 - 58 / 19 - 49 cm??? LV Ejection Fraction MOD BP 62.8 % >= 55 % LV Cardiac Index MOD BP 3188.7 cm???/min???m??? LV Diastolic Volume MOD 4C 75.1 cm??? LV Systolic Volume MOD 4C 27.3 cm??? LV Ejection Fraction MOD 4C 63.6 % LV Cardiac Index MOD 4C 3107.7 cm???/min???m??? LV Diastolic Length 4C 6.8 cm LV Systolic Length 4C 5.9 cm LV Diastolic Volume MOD 2C 78.9 cm??? LV Systolic Volume MOD 2C 28.7 cm??? LV Ejection Fraction MOD 2C 63.6 % LV Cardiac Index MOD 2C 3263.4 cm???/min???m??? LV Diastolic Length 2C 6.6 cm LV Systolic Length 2C 5.5 cm LA Volume 134.8 cm??? 18 - 58 / 22 - 52 cm??? LA Volume Index 79.8 cm???/m??? 16 - 28 cm???/m??? Ascending Aorta Diameter 4.4 cm DOPPLER AV Peak Velocity 121.7 cm/s AV Peak Gradient 5.9 mmHg AV Mean Velocity 96.1 cm/s AV Mean Gradient 3.9 mmHg AV Velocity Time Integral 20.2 cm LVOT Peak Velocity 62.8 cm/s LVOT Peak Gradient 1.6 mmHg LVOT Velocity Time Integral 10.7 cm LVOT Stroke Volume 33.0 cm??? LVOT Stroke Volume Index 20.3 ml/m??? LVOT Cardiac Index 2149.6 cm???/min???m??? AV Area Cont Eq vti 1.6 cm??? AV Area Cont Eq pk 1.6 cm??? MV Peak Velocity 221.9 cm/s MV Peak Gradient 19.7 mmHg MV Mean Velocity 151.8 cm/s MV Mean Gradient 10.4 mmHg MV Velocity Time Integral 34.2 cm TR Peak Velocity 248.0 cm/s TR Peak Gradient 24.6 mmHg Right Atrial Pressure 15.0 mmHg Pulmonary Artery Systolic Pressu 39.6 mmHg Right Ventricular Systolic Press 39.6 mmHg PV Peak Velocity 76.8 cm/s PV Peak Gradient 2.4 mmHg FINDINGS Left Ventricle Left ventricular ejection fraction is estimated at 55-60 %. Mildly increased septal wall thickness. Mildly increased posterior wall thickness. Left ventricular cavity size normal. No obvious regional wall motion abnormalities. Right Ventricle Normal right ventricular size and function. Mild pulmonary hypertension. Right Atrium Severe right atrial dilatation. Left Atrium Severely increased left atrial volume. Moderately increased left atrial area. Mitral Valve Mitral valve thickened. Severe mitral annular calcification. No evidence for mitral valve prolapse. Severe mitral stenosis. Moderate to severe mitral regurgitation. Aortic Valve Normally functioning bioprosthetic aortic valve without stenosis with a peak velocity of 1.2 m/s, peak gradient 6 mmHg, mean gradient 4 mmHg, and estimated aortic valve area of 1.6 cm???. Mperiprosthetic regurgitation, No prosthetic regurgitation. Tricuspid Valve Structurally normal tricuspid valve. No tricuspid stenosis. Severe tricuspid regurgitation. Pulmonic Valve Pulmonic valve not well visualized. No pulmonic stenosis. Moderate pulmonic regurgitation. Pericardium No pericardial effusion. Aorta Aortic annulus normal. Ascending aorta moderately enlarged. CONCLUSIONS Normal LV systolic function Moderate left atrial enlargement Mild right atrial enlargement Moderate to severe mitral regurgitation Severe mitral stenosis with a mean gradient of 10 mm Normally functioning bioprosthetic valve in aortic position Severe tricuspid regurgitation with mild pulmonary hypertension Previewed by: Dr. Kamron Kuhn MD (Electronically Signed) Final Date: 13 February 2024 14:51
[2024-02-13] MEDS: METOPROLOL SUCCINATE (ER) 25 MG TAB.ER.24H PO STA (15:04)
[2024-02-13] MEDS: WARFARIN 5 MG TAB PO ONE (17:44)
[2024-02-13] MEDS ORDERED: APIXABAN 2.5 MG TABLET PO SCH (21:00)
[2024-02-14 06:55] LABS: Partial Thromboplastin Time 45.5 sec (22.0-30.0); Prothrombin Time 11.2 sec (10.0-12.5)
[2024-02-14 08:18] VITALS: BP 111/76; PULSE 95; TEMP 97.5
[2024-02-14] MEDS ORDERED: METOPROLOL SUCCINATE (ER) 25 MG TAB.ER.24H PO SCH (09:00)
[2024-02-14] MEDS: ASPIRIN 81 MG PO SCH (09:06)
[2024-02-14] MEDS: METOPROLOL SUCCINATE (ER) 50 MG TAB.ER.24H PO SCH (09:06)
--- NOTE | 2024-02-14 10:11 | P.PN ---
Subjective Progress Note Date: 02/14/24 Consult reason: atrial fibrillation History of present illness: This is an 88-year-old female patient has been following with Dr. Herrera clay artist. She has a past medical history of aortic valve replacement with TAVR approach at [facility], atrial fibrillation, hypertension. We have been asked to evaluate the patient for atrial fibrillation. Patient developed palpitations over the past 4 days and also shortness of breath. She could feel her heart rate was irregular and pounding. Patient states that she has been on Eliquis in the past but she and her clay artist, Dr. Herrera, decided to discontinue as she could not afford it and she would not go on Coumadin because she did not like the monitoring process. Daughter states that she had atrial fibrillation after her TAVR procedure but when she went to have a bowel movement she converted to sinus rhythm and is hoping this will happen now. Patient had a laxative last night and is waiting to go in the bathroom for a bowel movement now. Patient is not on a monitor but sounds like she is in atrial fibrillation. Her symptoms are improved in that she is not feeling palpitations and the shortness of breath is a little bit better. She has not been on anticoagulation for some time. She also has some lower extremity edema that is mild. Blood pressure 127/83, heart rate 110, pulse ox 100% on room air. Patient has been started on heparin drip. Patient has a scheduled appointment to be established with Dr. Franco on Saturday. EKG: Atrial fibrillation 103 bpm, atrial fibrillation at 102 bpm Chest x-ray: No acute process CT brain no acute intracranial hemorrhage or midline shift. Moderate diffuse age related cerebral atrophy and mild to moderate chronic small vessel ischemic change. VQ scan PE absent by perfusion only modified PIOPED II criteria Laboratory studies: WBC 8, hemoglobin 12.2. D-dimer 1.78. Sodium 139, potassium 4.7, BUN 57 creatinine 1.8. AST 133, ALT 113, alkaline phosphatase 140. Troponin negative x 1. Influenza A, influenza B, RSV, COVID-19 not detected. UA with leukoesterase large, WBCs 50 to. Home cardiac medications: Aspirin 81 mg daily, lisinopril 10 mg daily at 1200, magnesium oxide 500 mg daily, Toprol XL 25 mg daily 02/13 After several discussions with the patient regarding anticoagulation, the final decision is the patient will go home on Eliquis and the family is helping her pay for the medication. Patient denies having any chest pain no shortness of breath, no palpitations. She is anxious to go home today. Blood pressure 111/76, heart rate 95, pulse ox 99 % on room air. Repeat blood work reveals INR 1. proBNP 11,700 Echocardiogram reveals normal LV systolic function, moderate left atrial enlargement, mild right atrial enlargement, moderate to severe mitral regurgitation, severe mitral stenosis with mean gradient of 10. Normally functioning bioprosthetic valve in the aortic position. Physical examination: Gen: This is an 88-year-old female in no acute distress VS: reviewed HEENT: Head is atraumatic, normocephalic. Pupils equal, round. Sclerae is anicteric. NECK: Supple. No JVD. LUNGS: Clear to auscultation. No wheezes or rhonchi. No intercostal retractions. HEART: Irregular rate and rhythm. Systolic murmur. ABDOMEN: Soft No tenderness. EXTREMITIES: Minimal bilateral pedal edema. No calf tenderness. NEUROLOGICAL: Patient is awake, alert and oriented x3. Assessment: Paroxysmal atrial fibrillation History of aortic valve replacement with TAVR Hypertension UTI Plan: Continue patient's home cardiac medications Discontinue heparin drip Prescription for Eliquis sent to patient's pharmacy Patient is cleared for discharge from cardiology and may follow-up on Saturday as scheduled with Dr. Franco. Nurse practitioner note has been reviewed, I agree with documented findings and plan of care. Patient was seen and examined. Objective - Vital Signs Vital signs: Vital Signs Temp 98.1 F 02/14/24 01:33 Pulse 100 02/14/24 01:33 Resp 17 02/14/24 01:33 BP 93/63 02/14/24 01:33 Pulse Ox 97 02/14/24 01:33 FiO2 Intake & Output 02/13/24 02/14/24 02/14/24 18:59 06:59 18:59 Intake Total 658 190.748 Balance 658 190.748 Intake: Intake, IV Titration 190.748 Amount Heparin Sod,Pork in 0.45% 190.748 NaCl 25,000 unit In 0.45 % NaCl 1 250ml.bag @ 12 UNITS/KG/HR 7.893 mls/hr IV .Q24H [facility] Rx#: [id number] Oral 658 Other: Voiding Method Toilet Toilet # Voids 4 2 # Bowel Movements 4 - Labs CBC & Chem 7: 02/12/24 20:45 02/12/24 20:45 Labs: Abnormal Lab Results - Last 24 Hours (Table) 02/14/24 Range/Units 05:56 APTT 45.5 H (22.0-30.0) sec
--- NOTE | 2024-02-14 10:40 | P.DS ---
Providers Date of admission: 02/13/24 01:49 Expected date of discharge: 02/14/24 Attending physician: Lisa Pizano Consults: 02/13/24 00:04 Consult Physician Urgent Consulting Provider: Misbah Franco Consult Reason/Comments: a. fib Do you want consulting provider notified?: Yes, Notify in am Primary care physician: [facility] Course: Discharge diagnoses; A-fib with RVR UTI Acute transaminitis Elevated D-dimer Acute on chronic kidney injury Hospital course; patient 88-year-old lady with past medical history significant for paroxysmal atrial fibrillation not on anticoagulation who presented to the ER because of shortness of breath and palpitations. Patient stated that she was all right 4 days back when started noticing palpitations which were associated with shortness of breath. Shortness of breath was present at rest as well as on exertion. Patient stated that in the past when she had episodes of irregular heartbeat that lasted only for a few hours and then she became normal. Palpitation this time persisted. Patient denied any chest pain. There was no complaint of orthopnea or PND. patient denied any swelling of lower extremities. Because of these palpitations, patient presented the ER Initial lab work done in the ER showed WBC 8, hemoglobin 12.2, platelet count 199, D-dimer 1.78, sodium 139, potassium 4.7, BUN 57, creatinine 1.80, glucose 137, magnesium 2.6, AST 133, ALT 113 troponin 0.018 UA done showed large amount of leukocyte Estrace, urine WBC 52 nitrite negative Influenza A not detected Influenza B not detected RSV not detected COVID-19 not detected EKG done in the ER showed heart rate of 103, no ST segment elevation or depression seen, no T-wave inversions seen. Chest x-ray done in the ER showed no acute pulmonary process CT head done showed no acute intracranial process Patient admitted to internal medicine service 02/13. Patient seen and examined. Patient eval by cardiology, 2D echo done showed normal LV systolic function, moderate left atrial enlargement and mild right atrial enlargement, moderate to severe mitral regurgitation, severe mitral stenosis with a mean gradient of 10 mm. Cardiology has discussed with patient's family regarding oral anticoagulation, Eliquis co-pay was high but family at this time are willing to go with [facility]. Prescription was sent by cardiology. Patient discharged on oral Ceftin for 3 days. PHYSICAL EXAMINATION: GENERAL: The patient is alert and oriented x3, not in any acute distress. Well developed, well nourished. HEENT: Pupils are round and equally reacting to light. EOMI. No scleral icterus. No conjunctival pallor. Normocephalic, atraumatic. No pharyngeal erythema. No thyromegaly. CARDIOVASCULAR: S1 and S2 present. No murmurs, rubs, or gallops. PULMONARY: Chest is clear to auscultation, no wheezing or crackles. ABDOMEN: Soft, nontender, nondistended, normoactive bowel sounds. No palpable organomegaly. MUSCULOSKELETAL: No joint swelling or deformity. EXTREMITIES: No cyanosis, clubbing, or pedal edema. NEUROLOGICAL: Gross neurological examination did not reveal any focal deficits. SKIN: No rashes. Dictation was produced using [employer] dictation software. please excuse any grammatical, word or spelling errors. Patient Condition at Discharge: Fair Plan - Discharge Summary New Discharge Prescriptions: New Apixaban [Eliquis] 2.5 mg PO DAILY #60 tab Metoprolol Succinate (ER) [Toprol XL] 50 mg PO DAILY #30 tab cefUROXime axetiL [Ceftin] 500 mg PO BID 3 Days #6 tab Continue Aspirin 81 mg PO DAILY Acetaminophen Tab [Tylenol] 650 mg PO Q6HR PRN tab PRN Reason: Fever And/ Or Pain lisinopriL [Prinivil] 10 mg PO DAILY@1200 Magnesium Oxide [Magnesium] 500 mg PO DAILY Ubidecarenone [Co Q-10] 300 mg PO DAILY Discontinued Metoprolol Succinate (ER) [Toprol Xl] 25 mg PO DAILY Discharge Medication List Aspirin 81 mg PO DAILY 01/27/21 [History] Acetaminophen Tab [Tylenol] 650 mg PO Q6HR PRN tab 01/08/23 [Rx] Apixaban [Eliquis] 2.5 mg PO DAILY #60 tab 02/13/24 [Rx] Magnesium Oxide [Magnesium] 500 mg PO DAILY 02/13/24 [History] Metoprolol Succinate (ER) [Toprol XL] 50 mg PO DAILY #30 tab 02/13/24 [Rx] Ubidecarenone [Co Q-10] 300 mg PO DAILY 02/13/24 [History] cefUROXime axetiL [Ceftin] 500 mg PO BID 3 Days #6 tab 02/13/24 [Rx] lisinopriL [Prinivil] 10 mg PO DAILY@1200 02/13/24 [History] Follow up Appointment(s)/Referral(s): Kamron Kuhn MD [STAFF PHYSICIAN] - 1 Week Nish Ashley MD [Primary Care Provider] - 1-2 days Discharge Disposition: HOME SELF-CARE
== END 2024-02-14 13:05 | disposition home or self-care (01) ==
LOC: EC 20:03 → 6NMEDSUR 02-13 01:49
PROVIDERS: ADMIT Hospitalist; ATTEND Hospitalist
DX: I48.20 Chronic atrial fibrillation, unspecified (principal); R74.01 Elevation of levels of liver transaminase levels; N39.0 Urinary tract infection, site not specified; R79.89 Other specified abnormal findings of blood chemistry; N17.9 Acute kidney failure, unspecified; I12.9 Hypertensive chronic kidney disease with stage 1 through stage 4 chronic kidney disease, or unspecified chronic kidney disease; E11.22 Type 2 diabetes mellitus with diabetic chronic kidney disease; N18.9 Chronic kidney disease, unspecified; R06.02 Shortness of breath; R00.2 Palpitations; I34.0 Nonrheumatic mitral (valve) insufficiency; I48.0 Paroxysmal atrial fibrillation; Z11.52 Encounter for screening for COVID-19; Z11.59 Encounter for screening for other viral diseases; Z91.81 History of falling; Z79.82 Long term (current) use of aspirin; Z79.899 Other long term (current) drug therapy; Z91.013 Allergy to seafood; Z88.5 Allergy status to narcotic agent; Z88.8 Allergy status to other drugs, medicaments and biological substances; Z95.2 Presence of prosthetic heart valve
CPT/HCPCS: 96366 ×2; 96367; 96376 ×2; 96365; 96375; 99285; 36415 ×2; 93005 ×2; 93306; 85379; 83880; 80053; 83735; 84484; 85025; 85610 ×2; 85730 ×3; 81001; 87636; 71046; 93970; 70450; 78580; G0378 ×2; A9540; J2405 ×2; J0696 ×2; J1644 ×2

== ENCOUNTER → 2024-06-03 | Outpatient (CLI) | payer MEDICARE, BC | END | disposition home or self-care (01) | LOC: LABWHC1 13:15 | PROVIDERS: ATTEND Internal Medicine | DX: Z53.9 Procedure and treatment not carried out, unspecified reason (principal) ==